=== PATIENT | female | born 1960 | race Caucasian/White ===

== ENCOUNTER 2022-02-03 06:13 | Emergency (ER) | payer OTHER, SELFPAY ==
[2022-02-03 06:14] VITALS: BP 215/99; PULSE 94; RESP 18; TEMP 36.6; O2SAT 95; BMI 37.8
--- NOTE | 2022-02-03 06:41 | EX.ED.VIS.EY ---
HPI History of Present Illness Chief Complaint: Eye Problem Informant: patient Onset/Context/Timing Location: Left Eye Onset: Days Context: Gradual Onset Timing: Continuous Current Severity: Mild Maximum Severity: Mild Associated Symptoms Associated Symptoms - Eyes: Eyelid swelling, Pain and Redness; Negative for Burning, Crusting, Drainage, Foreign body sensation, Itching, Matting and Photophobia History of injury: No Visual correction: Glasses Narrative Narrative: 59-year-old female complaining of left lower eyelid discomfort and swelling of the lower lid. States this is occurred for about a week. It started last Saturday. Is progressively gotten worse. Says mildly painful. She denies any discharge. There is been no trauma. She wears glasses but no contacts. She is never had eye surgery. She is never had anything like this before. She does have a prior history of MS, diabetes and hypertension. Prior similar symptoms: No Recent Illness/Hospitalization: No [facility] Medical History Anxiety Depressed Hypertension Muscular dystrophy Home Medications amlodipine 10 mg PO DAILY 30 Days #30 tab 02/03/22 [Rx Last Taken Unknown] cephalexin 500 mg PO Q6 #40 cap 02/03/22 [Rx Last Taken Unknown] Allergy/AdvReac Type Severity Reaction Status Date / Time diphenhydramine Allergy Other Verified 02/03/22 06:21 lisinopril Allergy Other Verified 02/03/22 06:19 meloxicam [From Mobic] Allergy Hives Verified 02/03/22 06:25 meperidine [From Demerol] Allergy Hives Verified 02/03/22 06:19 Social History Smoking Status: Never smoker ROS ROS ED ROS Narrative Denies. Review of Systems ROS Unobtainable: Denies due to encephalopathy Constitutional Constitutional ED: Denies fever(s) Eyes Eyes: Denies blurry vision, change in vision or diplopia ENT ENT ED: Denies ear pain Cardiovascular Cardiovascular: Denies chest pain Respiratory/Chest Respiratory/Chest: Denies dyspnea Gastrointestinal Gastrointestinal: Denies abdominal pain Genitourinary Genitourinary ED: Denies dysuria Musculoskeletal Musculoskeletal: Denies myalgias Integumentary Denies rash Neurologic Neurologic: Denies headache(s) Endocrine Endocrinology: Denies polyuria Hematologic/Lymphatic Hematologic/Lymphatic: Denies easy bruising Allergic/Immunologic Allergic/Immunologic ED: Denies urticaria EXAM Physical Exam Narrative Exam Narrative: 61-year-old female no acute distress. Vital signs are stable afebrile. Initial blood pressure elevated 215/99. HEENT exam left eye the inferior papilla and puncta appears to be red and inflamed and there is mild redness and fullness below the left eye consistent with a dacryocystitis. There is nothing needs to be drained at this time. The upper lid is unremarkable. The eyeball itself is unremarkable. Sclera normal. No conjunctival redness. Extraocular motions are intact. Pupils are round reactive to light bilaterally. The right eye is unremarkable. There is no preauricular lymphadenopathy. There is no proptosis. Neck nontender. No lymphadenopathy. Lungs are clear. Heart regular rate and rhythm. Otherwise exam unremarkable. Const Vital Signs: 02/03/22 06:14 Temperature 97.9 F Temperature Source Temporal Pulse Rate 94 Respiratory Rate 18 Blood Pressure 215/99 H Blood Pressure Mean 137 Pulse Ox 95 Oxygen Delivery Method Room Air Positive well nourished, well developed and obese; Negative for cachectic, contractures or unkempt General Appearance ED: well developed and NAD; Negative for unkempt, cachectic or contractures Nutritional Appearance: obese; Negative for cachectic HEENT atraumatic; Negative for trauma Nose: external nose normal Eyes Eyes Narrative: Left eye unremarkable except the left lower lid inferior lacrimal papilla and punctum appears to be red inflamed and there is swelling on the lower lid. Consistent with a dacryocystitis. The eyeball itself is unremarkable with normal extraocular motions. Normal light reflex. General Eye ED: Yes normal light reflex; Negative for normal appearance of both eyes, enophthalmos, exophthalmos, proptosis, pale conjunctiva or scleral icterus Visual Field: No peripheral vision loss Alignment: alignment normal Periorbital: periorbital findings abnormal Eyelid: eyelids abnormal Conjunctiva: conjunctiva normal Sclera: sclera normal Cornea: cornea normal Pupil: PERRL and accommodation reflex normal; Negative for dilated, fixed, irregular, not reactive or sluggish EOM: Negative for movement deficit Neck no lymphadenopathy, supple and no JVD General: Negative for tenderness Resp normal respiratory effort, no retractions and clear to auscultation bilaterally Cardio regular rate, regular rhythm, S1 normal heart sound, S2 normal heart sound and no murmurs GI non-tender, non-distended and no masses Auscultation: normoactive bowel sounds Palpation: soft Back/Spine no CVA tenderness General Back: Negative for CVA tenderness Extremity normal to inspection General Extremety ED: Negative for edema General Extremity: Negative for edema Neuro oriented x3 and moves all extremities Sensorium / Orientation: alert, oriented to person, oriented to place and oriented to time Psych Appearance: Negative for unkempt Attitude: No agitated Mood & Affect: Negative for depressed, anxious or tearful Skin no wounds Lesions: no lesions Rashes: no rashes MDM MDM MDM Narrative Medical decision making narrative: 61-year-old female with a left lower lid dacryocystitis. Patient be given a dose of Keflex here. Placed on Keflex 4 times a day for the next 10 days. Follow-up with ophthalmology environmental remediation engineer which is Dr. Anselmo Francisco. Tylenol Motrin for pain. Warm compresses. Patient also has elevated blood pressure. She took amlodipine but has been off of it the last 2 years because she was uninsured. I discussed that with her and I will write her prescription for amlodipine 10 mg daily. She has an appointment to see her primary care physician soon and she will address her blood pressure with them also. Discharge Plan Triage Chief Complaint: Eye Problem ED Provider: Martin Kelly Dx/Rx/DC Orders Clinical Impression: Acute dacryocystitis, History of diabetes mellitus, History of hypertension Instructions: ED Dacryocystitis Prescriptions: New amlodipine 10 mg tablet 10 mg PO DAILY 30 Days Qty: 30 RF: 0 cephalexin 500 mg capsule 500 mg PO Q6 Qty: 40 RF: 0 Primary Care Provider: NOT,DEFINED Referrals: Anselmo Francisco MD [STAFF PHYSICIAN] - As soon as possible NOT,DEFINED [Primary Care Provider] - Activity Restrictions/Additional Instructions: You have an infection of the left lower eyelid. The antibiotic Keflex 1 pill 4 times a day for the next 10 days. Call the eye doctor I referred you to Dr. Anselmo Francisco with the [facility]. Call them Saturday morning and they will get you in. Warm compresses to your eye. Tylenol and Motrin for pain. Disposition Disposition: Home, Self Care
[2022-02-03] MEDS: Cephalexin 250 MG Capsule 500 MG PO (06:43)
[2022-02-03 06:50] VITALS: BP 196/107; PULSE 73; RESP 17; O2SAT 97
--- NOTE | 2022-02-03 06:52 | NURSING ---
MD AWARE OF BP
[2022-02-03] MEDS: amLODIPine 10 MG Tablet PO (07:04)
== END 2022-02-03 07:05 | disposition home or self-care (01) ==
LOC: ED 07:04
PROVIDERS: Emergency Provider Emergency Medicine; Visit Provider Emergency Medicine
DX: H04.322 Acute dacryocystitis of left lacrimal passage (principal); G71.00 Muscular dystrophy, unspecified; I10 Essential (primary) hypertension; E66.9 Obesity, unspecified; Z68.37 Body mass index [BMI] 37.0-37.9, adult; Z79.899 Other long term (current) drug therapy
CPT/HCPCS: 99283

== ENCOUNTER 2022-08-25 19:00 | Emergency (ER) | payer OTHER, SELFPAY ==
[2022-08-25 19:00] VITALS: BP 165/84; PULSE 62; RESP 18; TEMP 36.8; O2SAT 95; BMI 37.0
--- NOTE | 2022-08-25 19:05 | EKG12_ITS ---
Test Reason : DYSRHYTHMIA Blood Pressure : / mmHG Vent. Rate : 066 BPM Atrial Rate : 066 BPM P-R Int : 146 ms QRS Dur : 080 ms QT Int : 476 ms P-R-T Axes : 020 -05 018 degrees QTc Int : 499 ms Normal sinus rhythm Voltage criteria for left ventricular hypertrophy Nonspecific T wave abnormality Prolonged QT Abnormal ECG Confirmed by ARNOLD SIM, ELINOR ([id number]), publications editor CHRIS TERRY ([id number]) on 08/27/2022 9:31:06 AM Referred By: FELICITA Confirmed By:ELINOR BARRETT MD
--- NOTE | 2022-08-25 19:48 | CT_ITS ---
STUDY: CT BRAIN WITHOUT CONTRAST REASON FOR EXAM: Female, 61 years old. Paresthesias, History of MS RADIATION DOSAGE (If Supplied By Facility): CTDIvol = ( 44.99 ) mGy, DLP = ( 829.85 ) mGycm TECHNIQUE: Transaxial CT imaging of the brain was performed without administration of intravenous contrast material. Individualized dose optimization techniques were used for this CT. COMPARISON: No relevant priors. FINDINGS: Normal soft tissue structures. Normal calvarium. Normal size ventricles and extra-axial spaces for the patient''s age. Normal white matter tracts of the cerebral hemispheres. Normal basal ganglia and thalami. Normal brainstem. Normal cerebellum. There is no intracranial hemorrhage. There are no findings of an acute ischemic infarction. Normal visualized paranasal sinuses. CT/Brain/Head without Contrast IMPRESSION: Normal unenhanced CT scan of the brain. Electronically Signed: Nataliia Schmidt MD at 20:58 EDT Reading Location ID and State: [id number] / Tel , Service support ,
--- NOTE | 2022-08-25 19:49 | EDS_ITS ---
HPI History of Present Illness Chief Complaint: Back Narrative Narrative: Patient with past medical history of multiple sclerosis, hypertension presents with her daughter because of tremors, numbness, and shakiness. She states that she has not been treated for MS for over a year because the medication she was taking was making her hair fall out. She is to see Dr. Hossein Turner for her MS, but has not seen him recently because she moved to the area here. They state that at 615, approximately an hour and a half ago, mass was ended and they looked over and she was shaky. She was not getting up from her seat. She felt generally weak and was unable to stand. This is never happened before where she has tremors. She denies any chest pain or shortness of breath but states she feels weak. She denies any dysuria or hematuria. No other symptoms. [facility] Medical History (Updated 08/25/22 @ 21:36 by Rodriguez Scott MD) Anxiety Depressed Diabetes Hypertension Muscular dystrophy Home Medications amlodipine 10 mg tablet 10 mg PO DAILY 30 days #30 tabs 02/03/22 [Rx Last Taken Unknown] cephalexin 500 mg capsule 500 mg PO Q6 #40 caps 02/03/22 [Rx Last Taken Unknown] Allergy/AdvReac Type Severity Reaction Status Date / Time diphenhydramine Allergy Other Verified 08/25/22 20:11 lisinopril Allergy Other Verified 08/25/22 20:11 meloxicam [From Mobic] Allergy Hives Verified 08/25/22 20:11 meperidine [From Demerol] Allergy Hives Verified 08/25/22 20:11 Social History Smoking Status: Never smoker ROS ROS ED ROS Narrative Constitutional: No fever, no chills. HEENT: No sore throat. No neck pain. No loss of vision. No rhinorrhea. Cardiovascular: No chest pain. No palpitations. No pedal edema. Respiratory: No cough, no shortness of breath. Abdominal: No abdominal pain. No nausea. No vomiting. Genitourinary: No dysuria. No hematuria. Musculoskeletal: No myalgias. No arthralgias. Neurologic: No headaches. No dizziness. No lightheadedness. Generalized weakness. Unable to stand. Positive tremors. Skin: No rash. No change in color. Psychiatric: No depression. No anxiety. EXAM Physical Exam Narrative Exam Narrative: Afebrile. Vital signs noted. HEENT: Normocephalic. Atraumatic. PERRL, EOMI. Neck soft and supple. No point tenderness or step off. Cardiovascular: Regular rate and rhythm. No murmurs, rubs, or gallops appreciated. Respiratory: No tachypnea. Lungs clear to auscultation bilaterally. Gastrointestinal: Abdomen soft, nontender, with normoactive bowel sounds. No rebound or guarding. Neurological: Awake. Alert. Oriented x3. Nonfocal, nonlateralizing. When patient closes her eyes, her head will shake, but will stop when she opens her eyes or is mildly distracted performing other neurological testing. Skin: No rash. Normal color. No pallor. Musculoskeletal: No pedal edema. Full range of motion extremities. Const Vital Signs: 08/25/22 19:00 08/25/22 20:17 08/25/22 21:14 Temperature 98.2 F Temperature Source Oral Pulse Rate 62 58 L 57 L Respiratory Rate 18 15 22 H Blood Pressure 165/84 H 167/81 H 155/92 H Blood Pressure Mean 111 109 113 Pulse Ox 95 93 95 Oxygen Delivery Method Room Air Room Air Room Air MDM MDM MDM Narrative Medical decision making narrative: Comprehensive work-up was pursued. I will obtain CT imaging of her brain and check her electrolytes including magnesium, along with a CBC and a UA. She was bolused normal saline 1 L intravenously. EKG was obtained per protocol, and interpreted by myself. It demonstrates normal sinus rhythm at 66 bpm without ectopy or acute ST changes. No STEMI. CBC is grossly normal with a normal white count of 9.0, hemoglobin normal at 14.1 with platelet count normal at 300. CMP is grossly unremarkable except for glucose of 118 with a normal anion gap of 10, normal creatinine of 0.77. Magnesium normal at 2.1. LFTs are normal. Urinalysis shows 0-5 WBCs. I do not feel antibiotics are indicated. Head CT shows no evidence of an acute intracranial hemorrhage. No acute process. Upon repeat examination, she is resting comfortably. I do not notice much of a tremor, but the patient states she feels generally weak. At this point in time, I do feel she can be discharged safely home with follow-up to neurology. She was referred to the local neurologist but instructed that she may want to try and see her old neurologist regarding her multiple sclerosis if she cannot be seen by a new neurologist in a timely fashion. Return instructions to the emergency department were reviewed. Disposition is discharged home in stable condition. Lab Data Attestation: I reviewed the patient's lab results. Labs: Laboratory Results - last 24 hr 08/25/22 08/25/22 08/25/22 20:00 20:00 20:00 WBC 9.0 RBC 4.46 Hgb 14.1 Hct 40.4 MCV 90.6 MCH 31.6 MCHC 34.9 RDW Std Deviation 40.7 RDW Coeff of Carol 12.3 Plt Count 300 MPV 10.3 Immature Gran % (Auto) 0.300 Neut % (Auto) 56.6 Lymph % (Auto) 30.4 Haines % (Auto) 11.4 H Eos % (Auto) 1.0 Baso % (Auto) 0.3 Absolute Neuts (auto) 5.1 Absolute Lymphs (auto) 2.72 Nucleated RBC % 0 Sodium 142 Potassium 3.8 Chloride 106 Carbon Dioxide 26.0 Anion Gap 10 BUN 13 Creatinine 0.77 Estim Creat Clear Calc 54.41 Est GFR (MDRD) Af Amer 98 Est GFR (MDRD) Non-Af 81 BUN/Creatinine Ratio 16.9 Glucose 118 H Calcium 8.6 Magnesium 2.1 Total Bilirubin 0.30 AST 17 ALT 29 Alkaline Phosphatase 95 Total Protein 7.2 Albumin 3.5 Globulin 3.7 Albumin/Globulin Ratio 0.9 Urine Color Yellow Urine Clarity Clear Urine pH 5.0 Ur Specific Avery 1.025 Urine Protein 15 H Urine Glucose (UA) 50 H Urine Ketones 5 H Urine Occult Blood Negative Urine Nitrite Negative Urine Bilirubin Negative Urine Urobilinogen Normal Ur Leukocyte Esterase 500 H Urine RBC 0 SEEN Urine WBC 0-5 SEEN Ur Squamous Epith Cells 0-5 SEEN Urine Bacteria RARE Urine Mucus 0 SEEN Radiography Diagnostic Testing: Clinical Impression(s) from Imaging Studies Brain CT 08/25/22 19:48 IMPRESSION: Normal unenhanced CT scan of the brain. Electronically Signed: Nataliia Schmidt MD at 20:58 EDT Reading Location ID and State: [id number] / Tel , Service support , Discharge Plan Triage Chief Complaint: Back ED Provider: Rodriguez Scott Dx/Rx/DC Orders Clinical Impression: Generalized weakness, Shakiness, History of multiple sclerosis Instructions: Essential Tremor (ET), ED Weakness (Uncertain Cause) Prescriptions: No Action amlodipine 10 mg tablet 10 mg PO DAILY 30 Days Qty: 30 0RF cephalexin 500 mg capsule 500 mg PO Q6 Qty: 40 0RF Primary Care Provider: Robin Parish Referrals: Robin Parish [Other] Elias Saini MD [Non-Staff -Ordering Privileges] - As soon as possible Activity Restrictions/Additional Instructions: Follow-up with neurology as soon as possible regarding your MS. You may want to see your last neurologist if you cannot find a new neurologist locally quickly. Disposition Disposition: Home, Self Care
[2022-08-25] MEDS: 0.9% Normal Saline 1,000 ML 1000 ML IV (20:06)
[2022-08-25 20:17] VITALS: BP 167/81; PULSE 58; RESP 15; O2SAT 93
[2022-08-25 20:20] LABS: Mucous, Urine 0 SEEN /hpf (<or=2+); Red Blood Cells-Urine 0 SEEN /hpf (0-5)
[2022-08-25 20:22] LABS: Absolute Lymphocyte Count 2.72 X10^3/uL (0.83-4.51); Absolute Neutrophil Count 5.1 X10^3/uL (2.0-7.7); Basophil# 0.03 X10^3/uL; Basophil% 0.3 % (0-1); Eosinophil# 0.09 X10^3/uL; Hematocrit 40.4 % (37-47); Hemoglobin 14.1 g/dL (12.0-15.0); Lymphocyte # 2.72 X10^3/ul (0.83-4.51); Lymphocyte % 30.4 % (19-41); Mean Corp Hgb Conc 34.9 g/dL (32-36); Mean Corpuscular Hgb 31.6 pg (27.0-32.0); Mean Corpuscular Volume 90.6 fL (81-99); Mean Platelet Vol. 10.3 fl (6.2-12.0); Monocyte# 1.02 X10^3/uL; Monocyte% 11.4 % (0-10); NRBC Flagged by Analyzer 0 % (0-5); Neutrophil # 5.06 X10^3/uL (2.7-7.7); Neutrophil % 56.6 % (47-70); Platelet Count 300 K/mm3 (150-450); RBC Distribution Width CV 12.3 % (11.6-14.6); RBC Distribution Width SD 40.7 fl (35.1-43.9); Red Blood Count 4.46 M/mm3 (4.2-5.4)
[2022-08-25 20:25] LABS: Color, Urine Yellow (Yellow); Glucose, Dipstick 50 mg/dl (Normal); Ketone-Dipstick 5 mg/dl (Negative); Leukocyte Esterase-Dipstick 500 /ul (Negative); Nitrite-Dipstick Negative (Negative); Occult Blood-Urine Negative /ul (Negative); Protein-Dipstick 15 mg/dl (Negative); Specific Gravity, Urine 1.025 (1.002-1.030); Urine Bilirubin Dipstick Negative (Negative); Urine Clarity Clear (Clear); Urine Urobilinogen Normal (Normal)
[2022-08-25 20:43] LABS: ALB/GLOB Ratio 0.9 RATIO (0.9-2.4); AST(SGOT) 17 U/L (15-37); Alanine Aminotransfer ALT/SGPT 29 U/L (13-56); Albumin, Serum 3.5 g/dL (3.2-5.0); Alkaline Phosphatase 95 U/L (45-117); Anion Gap 10 (5-15); BUN 13 mg/dL (7-18); BUN/Creat Ratio 16.9 RATIO (10-20); Calcium,Total 8.6 mg/dL (8.5-10.1); Chloride 106 mmol/L (98-107); Creatinine, Serum 0.77 mg/dL (0.55-1.02); EST Glomerular Filtration Rate 81 mL/min (>60); Est Glom Filt Rate - Afr Amer 98 mL/min (>60); Estimated Creatinine Clearance 54.41 ml/min; Globulin 3.7 g/dL (2.2-4.2); Glucose 118 mg/dL (74-106); Magnesium 2.1 mg/dL (1.6-2.6); Potassium 3.8 mmol/L (3.5-5.1); Protein, Total 7.2 g/dL (6.4-8.2); Sodium Level 142 mmol/L (136-145)
[2022-08-25 20:56] LABS: Bacteria RARE /hpf (None Seen); Squamous Epithelial Cells - UA 0-5 SEEN /hpf (5-10); White Blood Cells 0-5 SEEN /hpf (0-5)
[2022-08-25 21:14] VITALS: BP 155/92; PULSE 57; RESP 22; O2SAT 95
[2022-08-25 21:50] VITALS: BP 155/92; PULSE 65; RESP 19; O2SAT 93
== END 2022-08-25 21:58 | disposition home or self-care (01) ==
PROVIDERS: Emergency Provider Emergency Medicine; Visit Provider Emergency Medicine
DX: R53.1 Weakness (principal); G35 Multiple sclerosis; R25.1 Tremor, unspecified; I10 Essential (primary) hypertension; Z79.899 Other long term (current) drug therapy
CPT/HCPCS: 70450; 80053; 81001; 83735; 85025; 93005; 99285; A4216

== ENCOUNTER 2023-02-25 13:25 | Emergency (ER) | payer MEDICARE, OTHER, SELFPAY ==
[2023-02-25 13:26] VITALS: BP 149/94; PULSE 124; RESP 18; TEMP 36.6; O2SAT 95; BMI 35.3
--- NOTE | 2023-02-25 13:33 | ED.RN ---
PT STATES SHE TOOK 10 MG MELOXICAM AT 1200 TODAY (02/25/23) FOR PAIN. PT UNSURE OF DOSE.
--- NOTE | 2023-02-25 14:39 | RAD_ITS ---
EXAM: XR BILATERAL HIPS WITH PELVIS WHEN PERFORMED, 2 VIEWS CLINICAL INDICATION: pain TECHNIQUE: Frontal view of the bilateral hips with pelvis when performed. This report was created using [employer] report generation technology. COMPARISON: None. FINDINGS: BONES/JOINTS: Unremarkable. No displaced fracture. No destructive or sclerotic lesions. Note that overlapping bowel shadows may however obscure fine detail. Sacroiliac joint is unremarkable. No widening of the pubic symphysis. The articular structures are unremarkable. SOFT TISSUES: Unremarkable. No soft tissue swelling or gas. RAD/Hips B/L min 2 views w/ Pelvis IMPRESSION: No evidence of displaced pelvic or hip fracture. Electronically Signed: Chaz Lr MD at 15:43 EDT ,
--- NOTE | 2023-02-25 14:40 | EX.ED.DYSGE1 ---
HPI History of Present Illness Chief Complaint: Back Informant: patient Narrative Narrative: Patient here for evaluation bilateral hip pain nontraumatic worsening over the weekend. She has been having issues with balance problems for the past few months. History of mild MS followed by neurology Dr. Trujillo. Previously seeing a different neurologist was on treatment at that time however neurology states she should not been on treatment. She states mild case. Been using a cane for the past month. Saw her neurologist back in December has an MRI of her brain pending however states not likely secondary to her MS today report likely due to rheumatoid arthritis. She took meloxicam at noon with no relief. Multiple allergies however states previously for significant shoulder pain Dilaudid has helped. Denies urinary symptoms denies any recent vomiting or diarrhea. [facility] Medical History Anxiety Depressed Diabetes Hypertension Multiple sclerosis Rheumatoid arthritis Home Medications albuterol 90 mcg/actuation aerosol inhaler mcg inhalation 01/02/23 [History Last Taken Unknown] alprazolam 1 mg tablet 1 mg PO DAILY PRN 01/02/23 [History Last Taken Unknown] amlodipine 10 mg tablet 5 mg PO DAILY 01/02/23 [History Last Taken Unknown] doxazosin 2 mg tablet 2 mg PO DAILY 01/02/23 [History Last Taken Unknown] interferon beta-1a 30 mcg/0.5 mL intramuscular pen kit (Avonex) 30 mcg IM QWEEK 01/02/23 [History Last Taken Unknown] meloxicam 15 mg tablet 15 mg PO DAILY 01/02/23 [History Last Taken Unknown] metformin 500 mg tablet 500 mg PO BID 01/02/23 [History Last Taken Unknown] paroxetine HCl 10 mg tablet (Paxil) 10 mg PO DAILY 01/02/23 [History Last Taken Unknown] rosuvastatin 5 mg tablet 10 mg PO DAILY 01/02/23 [History Last Taken Unknown] trazodone 100 mg tablet 100 mg PO DAILY 01/02/23 [History Last Taken Unknown] oxycodone-acetaminophen 5 mg-325 mg tablet (Percocet) 1 tab PO Q6H PRN pain 3 days #12 tabs 02/25/23 [Rx Last Taken Unknown] Allergy/AdvReac Type Severity Reaction Status Date / Time diphenhydramine Allergy Other Verified 02/25/23 13:32 lisinopril Allergy Other Verified 02/25/23 13:32 meloxicam [From Mobic] Allergy Hives Verified 02/25/23 13:32 meperidine [From Demerol] Allergy Hives Verified 02/25/23 13:32 ketorolac [From Toradol] AdvReac Other Verified 02/25/23 13:32 tramadol AdvReac Other Verified 02/25/23 13:32 Family History Aunt No problems noted. Other Alcoholism Anxiety Arthritis CVA (cerebral vascular accident) Depression Heart disease High cholesterol Hypertension Mental disorder Osteoporosis Rheumatoid arthritis Surgical History History of delivery History of total hysterectomy History of tubal ligation Social History Smoking Status: Never smoker ROS ROS ED Constitutional Constitutional ED: Denies chills, fever(s) or sweats Eyes Eyes: Denies change in vision ENT ENT ED: Denies dysphagia or sore throat Cardiovascular Cardiovascular: Denies chest pain, leg edema, palpitations or racing heartbeat Respiratory/Chest Respiratory/Chest: Denies cough, dyspnea or dyspnea on exertion Gastrointestinal Gastrointestinal: Denies abdominal pain, diarrhea, nausea or vomiting Genitourinary Genitourinary ED: Denies dysuria, hematuria or urinary frequency Musculoskeletal Musculoskeletal: Reports other Details: Bilateral hip pain ; Denies back pain, extremity pain or neck pain Integumentary Denies rash or wounds Neurologic Neurologic: Denies headache(s), paresthesias or weakness EXAM Physical Exam Const Vital Signs: 02/25/23 13:26 02/25/23 14:53 02/25/23 15:06 Temperature 97.8 F Temperature Source Temporal Pulse Rate 124 H 86 64 Respiratory Rate 18 18 19 H Blood Pressure 149/94 H 164/98 H 160/89 H Blood Pressure Mean 112 120 112 Pulse Ox 95 94 93 Oxygen Delivery Method Room Air Room Air Room Air 02/25/23 15:21 Temperature Temperature Source Pulse Rate 60 Respiratory Rate 16 Blood Pressure 177/98 H Blood Pressure Mean 124 Pulse Ox 92 Oxygen Delivery Method Room Air Positive well nourished and well developed General Appearance ED: well developed and NAD HEENT Reports moist mucous membranes normocephalic and atraumatic Eyes PERRL, EOMs intact bilaterally and conjunctivae normal General Eye ED: Yes normal appearance of both eyes Neck no lymphadenopathy and supple General: Negative for tenderness Chest Wall Chest: Negative for tenderness Resp normal respiratory effort and normal air movement Effort and Inspection: symmetric chest movement; Negative for respiratory distress Cardio regular rate, regular rhythm and no murmurs Peripheral Pulses: pulses 2+ throughout GI normal to inspection, nondistended, normoactive bowel sounds and non-tender Palpation: Negative for guarding or rebound tenderness present Back/Spine no CVA tenderness and no thoracic nor lumbar tenderness Extremity normal to inspection Extremity Narrative: Negative logroll bilateral hips, there is tenderness palpation bilateral greater trochanteric regions, no deformities. General Extremety ED: Yes tenderness; Negative for edema General Extremity: Negative for edema Neuro oriented x3 and no sensory deficits noted Sensorium / Orientation: awake and alert Skin no rashes or lesions noted and no wounds MDM MDM MDM Narrative Medical decision making narrative: Interventions / MDM: Differential diagnosis: Hip pain, arthritis Diagnosis considered but do not suspect: Fracture without any injury My EKG interpretation: N/A Imaging independently reviewed and interpreted by myself: Bilateral hip x-rays: No acute process. External documents reviewed: N/A Test considered but not ordered:N/A ED course: Patient history rheumatoid arthritis. Worsening symptoms. She treated with IM Dilaudid monitored. Hip films were obtained with her rheumatoid arthritis history show no acute process she is more comfortable on exam. She currently on NSAIDs. Right short prescription for opiates for symptom control. She just moved down from [facility], she would like a local physician. She is given follow-up with on-call PCP however discussed if there is a prolonged wait, [place] is not a far drive to see her PCP for evaluation, she will likely need rheumatology referral. She is seeing neurology for planned outpatient MRI as she is now established with healthcare per patient. All her questions were answered. Re-evaluation: stable Disposition discussed with patient/family/significant other: Patient Case discussed with consulting clinician: N/A Radiography Diagnostic Testing: Clinical Impression(s) from Imaging Studies Hip/Pelvis X-Ray 02/25/23 14:39 IMPRESSION: No evidence of displaced pelvic or hip fracture. Electronically Signed: Chaz Lr MD at 15:43 EDT , Discharge Plan Triage Chief Complaint: Back ED Provider: Cody Carson Dx/Rx/DC Orders Clinical Impression: Rheumatoid arthritis, Bilateral hip pain Instructions: ED Arthralgia, ED Rheumatoid Arthritis Prescriptions: New oxycodone-acetaminophen [Percocet] 5-325 mg tablet 1 tab PO Q6H PRN (Reason: pain) 3 Days Qty: 12 0RF No Action alprazolam 1 mg tablet 1 mg PO DAILY PRN Avonex 30 mcg/0.5 mL pen injector kit 30 mcg IM QWEEK doxazosin 2 mg tablet 2 mg PO DAILY meloxicam 15 mg tablet 15 mg PO DAILY metformin 500 mg tablet 500 mg PO BID paroxetine HCl [Paxil] 10 mg tablet 10 mg PO DAILY rosuvastatin 5 mg tablet 10 mg PO DAILY trazodone 100 mg tablet 100 mg PO DAILY albuterol 90 mcg/actuation aerosol inhalation amlodipine 10 mg tablet 5 mg PO DAILY Stand Alone Forms: ED Work / School Excuse Primary Care Provider: ROEL ACRLOS Referrals: Noni Hein MD [Med Staff - [employer]] - 3-5 Days NOT,DEFINED [Non-Staff] - Activity Restrictions/Additional Instructions: Hip x-rays bilaterally negative. Continue meloxicam, use pain medicines as needed. Follow-up with local physician as you requested. You may need referral to rheumatology. Disposition Disposition: Home, Self Care Discharge Date/Time: 02/25/23 16:11
[2023-02-25] MEDS: HYDROmorphone 0.5 MG/0.5 ML SYRINGE IM (14:45)
[2023-02-25 14:53] VITALS: BP 164/98; PULSE 86; RESP 18; O2SAT 94
[2023-02-25 15:06] VITALS: BP 160/89; PULSE 64; RESP 19; O2SAT 93
[2023-02-25 15:21] VITALS: BP 177/98; PULSE 60; RESP 16; O2SAT 92
== END 2023-02-25 16:11 | disposition home or self-care (01) ==
PROVIDERS: Emergency Provider Emergency Medicine; Visit Provider Emergency Medicine
DX: M06.9 Rheumatoid arthritis, unspecified (principal); G35 Multiple sclerosis; E11.9 Type 2 diabetes mellitus without complications; M25.551 Pain in right hip; M25.552 Pain in left hip; I10 Essential (primary) hypertension; Z79.84 Long term (current) use of oral hypoglycemic drugs; Z79.899 Other long term (current) drug therapy
CPT/HCPCS: 73521; 96372; 99283

== ENCOUNTER → 2023-04-12 | Outpatient (CLI) | payer MEDICARE, SELFPAY ==
--- NOTE | 2023-04-12 15:24 | MRI_ITS ---
EXAM: MR CERVICAL SPINE WITHOUT AND WITH INTRAVENOUS CONTRAST CLINICAL INDICATION: Multiple sclerosis; rheumatoid arthritis TECHNIQUE: Multiplanar and multisequence MR images of the cervical spine without and with intravenous contrast were performed. CONTRAST: IV 17 cc clariscan COMPARISON: No relevant prior studies available. FINDINGS: VERTEBRAE: Unremarkable. Normal vertebral bodies and posterior elements. Normal alignment. Normal craniocervical junction and cervicothoracic junction. No spondylolisthesis. There is preservation of the normal cervical lordosis. SPINAL CORD: Unremarkable in signal and morphology. SOFT TISSUES: Unremarkable. No prevertebral soft tissue swelling. LYMPH NODES: Unremarkable. There is no cervical adenopathy. DISCS/SPINAL CANAL/NEURAL FORAMINA: C2-C3: Unremarkable. Normal disc height and morphology. Normal spinal canal. Normal neuroforamina. C3-C4: Unremarkable. Normal disc height and morphology. Normal spinal canal. Normal neuroforamina. C4-C5: Unremarkable. Normal disc height and morphology. Normal spinal canal. Normal neuroforamina. C5-C6: Unremarkable. Normal disc height and morphology. Normal spinal canal. Normal neuroforamina. C6-C7: Unremarkable. Normal disc height and morphology. Normal spinal canal. Normal neuroforamina. C7-T1: Unremarkable. Normal disc height and morphology. Normal spinal canal. Normal neuroforamina. No enhancing lesion. MRI/Spine Cervical W/WO Contrast IMPRESSION: Unremarkable MRI of the cervical spine. Electronically Signed: Nataliia Schmidt MD at 22:58 EDT Reading Location ID and State: [id number] / Tel , Service support ,
--- NOTE | 2023-04-12 15:24 | MRI_ITS ---
EXAM: MR HEAD WITHOUT AND WITH INTRAVENOUS CONTRAST CLINICAL INDICATION: Multiple sclerosis recheck, no new complaints TECHNIQUE: Multiplanar and multisequence MR images of the brain were obtained without and with intravenous contrast. COMPARISON: Unenhanced head CT August 25, 2022. It was reported to be normal. FINDINGS: BRAIN AND EXTRA-AXIAL SPACES: There are are also at least 4 small high signal foci in the left subcortical frontal lobe white matter and a few faintly visible tiny white matter lesions in the right frontal subcortical white matter but no restricted diffusion or enhancement to suggest active demyelinating lesion. There is no restricted diffusion. No evidence of acute CVA. There are mild to moderate periventricular high signal white matter changes adjacent to the body of the right lateral ventricle in the corpus callosum, with confluent irregular signal change of roughly 2.4 cm AP by 1.3 cm craniocaudal. No enhancement within this confluent patchy white matter change, it is not obviously active. No intra- or extra-axial hemorrhage. No evidence of acute infarct. No intracranial mass or mass effect. There is preservation of the ryan/white matter interface. Posterior fossa structures are unremarkable. No hydrocephalus. Basal cisterns are patent. Normal brain volume. No abnormal enhancement. SELLA: Unremarkable. Normal sella turcica, pituitary gland, infundibular stalk, optic chiasm and hypothalamus. AUDITORY SYSTEM: Unremarkable. The internal auditory canals are patent. BONES/JOINTS: Unremarkable. No discrete lytic or blastic abnormalities. SINUSES: Unremarkable as visualized. Clear. MASTOID AIR CELLS: Unremarkable as visualized. Clear. ORBITS: There is no optic nerve enlargement or enhancement. VASCULATURE: The dural venous sinuses appear unremarkable. SOFT TISSUES: Unremarkable. No signal changes in the cord at the level of C1-C4 on inversion recovery images or on the unenhanced studies. OTHER FINDINGS: . MRI/Brain W/WO Contrast IMPRESSION: 1. Periventricular and subcortical white matter changes and cerebral volume loss. A prior MRI is not provided for comparison but the changes are mild with the exception of patchy confluent signal change in the right anterior corpus callosum on inversion recovery images. 2. No restricted diffusion or enhancement. No evidence of active demyelinating lesion. Electronically Signed: Nazanin Ramirez MD at 8:17 EDT ,
[2023-04-12 16:21] LABS: CREATININE FINGERSTICK 1.4 mg/dL (0.55-1.02)
== END | disposition home or self-care (01) ==
PROVIDERS: Referring Provider Psychiatry & Neurology Neurology; Visit Provider Psychiatry & Neurology Neurology
DX: G35 Multiple sclerosis (principal); M06.9 Rheumatoid arthritis, unspecified
CPT/HCPCS: 70553; 72156; A9575

== ENCOUNTER → 2023-05-03 | Outpatient (CLI) | payer MEDICARE, SELFPAY ==
--- NOTE | 2023-05-03 13:35 | RAD_ITS ---
INDICATION: Low back pain EXAMINATION/TECHNIQUE: X-RAY - XR Spine Lumbar 2 or 3 Views COMPARISON: None. FINDINGS: Slight levoscoliosis. Vertebral body heights well-maintained. Mild anterior osteophyte formation L3-S1. Moderate loss of disc space height L5-S1. INCLUDED ABDOMEN: Included bowel gas pattern is non-obstructive. RAD/Lumbar Spine 2 or 3 Views IMPRESSION: Degenerative changes as above. Electronically Signed: Fransisco Oreilly MD, STEF at 10:32 EDT ,
== END | disposition home or self-care (01) ==
LOC: MTRAD 13:35
PROVIDERS: Referring Provider Psychiatry & Neurology Neurology; Visit Provider Psychiatry & Neurology Neurology
DX: M54.50 Low back pain, unspecified (principal)
CPT/HCPCS: 72100

== ENCOUNTER → 2023-05-06 | Outpatient (CLI) | payer MEDICARE, SELFPAY ==
[2023-05-06 12:45] LABS: Vitamin B12 1379 pg/mL (211-911)
[2023-05-06 13:09] LABS: Absolute Lymphocyte Count 1.94 X10^3/uL (0.83-4.51); Absolute Neutrophil Count 4.3 X10^3/uL (2.0-7.7); Basophil# 0.04 X10^3/uL; Basophil% 0.6 % (0-1); Eosinophil# 0.12 X10^3/uL; Eosinophils% 1.7 % (0-5); Hematocrit 43.5 % (37-47); Lymphocyte # 1.94 X10^3/ul (0.83-4.51); Lymphocyte % 27.9 % (19-41); Mean Corp Hgb Conc 34.5 g/dL (32-36); Mean Corpuscular Hgb 31.6 pg (27.0-32.0); Mean Corpuscular Volume 91.6 fL (81-99); Monocyte# 0.59 X10^3/uL; Monocyte% 8.5 % (0-10); NRBC Flagged by Analyzer 0 % (0-5); Neutrophil # 4.25 X10^3/uL (2.7-7.7); Neutrophil % 61.2 % (47-70); Platelet Count 317 K/mm3 (150-450); RBC Distribution Width CV 12.3 % (11.6-14.6); RBC Distribution Width SD 41.5 fl (35.1-43.9); Red Blood Count 4.75 M/mm3 (4.2-5.4)
[2023-05-06 13:38] LABS: ALB/GLOB Ratio 0.9 RATIO (0.9-2.4); AST(SGOT) 15 U/L (15-37); Alanine Aminotransfer ALT/SGPT 27 U/L (13-56); Albumin, Serum 3.8 g/dL (3.2-5.0); Alkaline Phosphatase 85 U/L (45-117); Anion Gap 9 (5-15); BUN 19 mg/dL (7-18); BUN/Creat Ratio 21.5 RATIO (10-20); Calcium,Total 9.2 mg/dL (8.5-10.1); Chloride 106 mmol/L (98-107); Creatinine, Serum 0.88 mg/dL (0.55-1.02); EST Glomerular Filtration Rate 69 mL/min (>60); Est Glom Filt Rate - Afr Amer 83 mL/min (>60); Globulin 4.2 g/dL (2.2-4.2); Glucose 109 mg/dL (74-106); Magnesium 2.4 mg/dL (1.6-2.6); Potassium 3.8 mmol/L (3.5-5.1); Sodium Level 138 mmol/L (136-145)
[2023-05-06 19:20] LABS: Rheumatoid Factor < 10.0 IU/mL (<15)
[2023-05-07 12:08] LABS: ANTINUCLEAR ANTIBODIES DIRECT Negative (Negative)
[2023-05-09 15:08] LABS: Vitamin B1, Thiamine 129.6 nmol/L (66.5-200.0)
== END | disposition home or self-care (01) ==
LOC: MTLAB 11:15
PROVIDERS: Referring Provider Psychiatry & Neurology Neurology; Visit Provider Psychiatry & Neurology Neurology
DX: M06.9 Rheumatoid arthritis, unspecified (principal); G35 Multiple sclerosis
CPT/HCPCS: 36415; 80053; 82607; 82746; 83735; 84425; 85025; 86038; 86225; 86235; 86431

== ENCOUNTER → 2023-06-05 | Outpatient (CLI) | payer MEDICARE, SELFPAY ==
--- NOTE | 2023-06-05 06:28 | MRI_ITS ---
HISTORY: pain. TECHNIQUE: Multiplanar and multisequence MR images of the lumbar spine were obtained without intravenous contrast. 97 images. COMPARISON: None. FINDINGS: VERTEBRAE: Transitional lumbosacral anatomy with the lowest intervertebral disc space designated as L5-S1 for the purposes of this report. If the patient becomes a surgical candidate, recommend correlation with intraoperative imaging. Vertebral body heights maintained. Mild degenerative endplate changes of T12-L1 and L4-5. ALIGNMENT: No anterior or posterior subluxation. CONUS: Normal morphology and position of the conus medullaris at L1-2. INTERVERTEBRAL DISCS: T12-L1: No significant posterior disc protrusion, central canal stenosis, or foraminal narrowing based on the sagittal images. L1-2, L2-3, L3-4: No significant posterior disc protrusion, central canal stenosis, or foraminal narrowing. L4-5: Moderate posterior disc protrusion with facet arthropathy resulting in mild central canal stenosis, moderate right foraminal narrowing with right L4 nerve root abutment, and mild left foraminal narrowing. L5-S1: Transitional lumbosacral anatomy with a rudimentary disc. No significant posterior disc protrusion, central canal stenosis, or foraminal narrowing. SOFT TISSUES: No paraspinal fluid collections. MRI/Spine Lumbar (Routine) IMPRESSION: Transitional lumbosacral anatomy. Moderate posterior disc protrusion at L4-5 resulting in mild spinal canal stenosis, moderate right foraminal narrowing with nerve root abutment, and mild left foraminal narrowing. Electronically Signed: Kristin Esparza MD at 13:01 EDT ,
== END | disposition home or self-care (01) ==
PROVIDERS: Referring Provider Orthopaedic Surgery; Visit Provider Orthopaedic Surgery
DX: M54.50 Low back pain, unspecified (principal)
CPT/HCPCS: 72148

== ENCOUNTER 2023-06-12 12:28 | Emergency (ER) | payer MEDICARE, SELFPAY ==
[2023-06-12 12:30] VITALS: BP 147/91; PULSE 64; RESP 18; TEMP 36.8; O2SAT 94; BMI 34.5
--- NOTE | 2023-06-12 13:21 | ED.VIS.BACK ---
HPI History of Present Illness Chief Complaint: Back Informant: patient Narrative Narrative: Patient is a 62-year-old female with history of MS in remission as well as acute on chronic low back pain presenting with worsening of her back pain as well as tremor. Patient was seen at the beginning of this month at [facility] emergency room where she had a CT of her lower back due to pain. She was given a prescription for 12 hydrocodone for pain control which she states she has been breaking in half. She followed up with spine surgery with Dr. Castaneda. He ordered an MRI as she was found to have some weakness of the left leg on exam. Patient does not know the results. As she states her pain is worsening and her back is killing me. She notes the pain goes down her left leg. Denies any recent falls. Has been having urinary frequency but denies any dysuria or hematuria. Denies any saddle anesthesia. Denies any fever, night sweats or history of recent injections/drug use. Patient not taking anything else for pain. Today around 830 she notes that she had a tremor in her head. She notes she did have this once back in December and they never figured out what caused it. Denies any family history of tremors. No other complaints or concerns at this time. Patient is using a cane to ambulate. Pain is worse with movement. [facility] Medical History Anxiety Depressed Diabetes Hypertension Multiple sclerosis Rheumatoid arthritis Home Medications paroxetine HCl 10 mg tablet (Paxil) 10 mg PO DAILY 01/02/23 [History Last Taken Unknown] trazodone 100 mg tablet 100 mg PO DAILY 01/02/23 [History Last Taken Unknown] baclofen 5 mg tablet 5 mg PO TID PRN muscle spasm #20 tabs 06/12/23 [Rx Last Taken Unknown] hydrocodone-acetaminophen 5-325mg 5mg-325mg 1 tab PO Q6H PRN PRN Pain 3 days #12 TABLETS 06/12/23 [Rx Last Taken Unknown] Allergy/AdvReac Type Severity Reaction Status Date / Time diphenhydramine Allergy Other Verified 06/03/23 13:09 lisinopril Allergy Other Verified 06/03/23 13:09 meloxicam [From Mobic] Allergy Hives Verified 06/03/23 13:09 meperidine [From Demerol] Allergy Hives Verified 06/03/23 13:09 ketorolac [From Toradol] AdvReac Other Verified 06/03/23 13:09 tramadol AdvReac Other Verified 06/03/23 13:09 Family History Aunt No problems noted. Other Alcoholism Anxiety Arthritis CVA (cerebral vascular accident) Depression Heart disease High cholesterol Hypertension Mental disorder Osteoporosis Rheumatoid arthritis Surgical History History of delivery History of total hysterectomy History of tubal ligation Social History Smoking Status: Never smoker ROS ROS ED Constitutional Constitutional ED: Denies chills, fever(s) or sweats Eyes Eyes: Denies change in vision Gastrointestinal Gastrointestinal: Reports nausea; Denies abdominal pain or vomiting Genitourinary Genitourinary ED: Reports urinary frequency; Denies dysuria Musculoskeletal Musculoskeletal: Reports back pain; Denies myalgias or neck pain Integumentary Denies rash Neurologic Neurologic: Denies headache(s), paresthesias or weakness Psychiatric Psychiatric: Reports anxiety Hematologic/Lymphatic Hematologic/Lymphatic: Denies easy bleeding or easy bruising EXAM Physical Exam Const Vital Signs: 06/12/23 12:30 Temperature 98.3 F Temperature Source Temporal Pulse Rate 64 Respiratory Rate 18 Blood Pressure 147/91 H Blood Pressure Mean 109 Pulse Ox 94 Oxygen Delivery Method Room Air Positive well nourished and well developed General Appearance ED: well developed and NAD HEENT Reports moist mucous membranes Eyes PERRL and EOMs intact bilaterally Neck supple and no JVD Neck Narrative: no nuchal rigidity Resp normal respiratory effort and clear to auscultation bilaterally Cardio regular rate, regular rhythm and no murmurs Cardio Narrative: 2+ radial and DP pulses GI normal to inspection, nondistended, normoactive bowel sounds, soft to palpation and non-tender Back/Spine Back/Spine Narrative: Tenderness focused around the midline lumbar spine approximately L3-4 and 5, mild paraspinal tenderness bilaterally, left worse than right. Positive straight leg test on the right. 5/5 strength with plantar and dorsiflexion of the feet. Extremity normal to inspection General Extremety ED: Negative for edema or tenderness General Extremity: Negative for edema Neuro oriented x3 and no sensory deficits noted Neuro Narrative: no foot drop appreciated, slightly antalgic gait Sensorium / Orientation: alert Psych mental status grossly normal Psych Narrative: Anxious Skin no rashes or lesions noted MDM MDM MDM Narrative Medical decision making narrative: Patient's evaluated for worsening/continued back pain. She had a recent MRI. No fever or other red flag symptoms associated with epidural abscess, cauda equina syndrome more severe process. No trauma reported. I personally reviewed her MRI results from 06/05 which did show posterior disc protrusion at L4/L5 with mild canal stenosis, moderate right foraminal narrowing with nerve root abutment and mild left foraminal narrowing. Patient has not had a progression of her symptoms. She is given IV morphine and Zofran in the ER for pain control. CBC, BMP, urinalysis, CRP and ESR are all largely normal. She is a mild hyperglycemia of 199 however patient states that she has been on steroids recently for her back pain. She states they did not help. Patient does have improvement of pain with the morphine but states it still there. She is given a second dose. I did offer her admission for rehab placement/PT/OT evaluation however she feels like she is not at that point at this time. If she does not appear to have an acute neurologic process, still able to ambulate and perform her activities of daily living I do not think she requires admission at this time. She be discharged home with a low-dose muscle relaxer as well as of further pain medicine for symptom control. She has an appointment to see her spine doctor in 5 days. Patient and spouse agreeable this plan of care. As far as the patient's head tremor I am concerned it might be more stress related. She does not have any significant electrolyte abnormalities or other neurologic symptoms indicating neuroimaging at this time. I do not think this is seizure activity. History & Record Review Additional record(s) reviewed:: Prior outpatient record (Orthospine note/outpatient MRI) Lab Data Attestation: I reviewed the patient's lab results. Labs: Laboratory Results - last 24 hr 06/12/23 06/12/23 13:25 13:27 WBC 6.9 RBC 4.51 Hgb 14.7 Hct 41.8 MCV 92.7 MCH 32.6 H MCHC 35.2 RDW Std Deviation 42.3 RDW Coeff of Carol 12.4 Plt Count 283 MPV 10.3 Immature Gran % (Auto) 0.300 Neut % (Auto) 61.4 Lymph % (Auto) 27.0 Scott % (Auto) 9.0 Eos % (Auto) 1.9 Baso % (Auto) 0.4 Absolute Neuts (auto) 4.2 Absolute Lymphs (auto) 1.85 Nucleated RBC % 0 ESR 17 Sodium 139 Potassium 3.6 Chloride 107 Carbon Dioxide 27.0 Anion Gap 5 BUN 10 Creatinine 0.95 Estim Creat Clear Calc 43.54 Est GFR (MDRD) Af Amer 76 Est GFR (MDRD) Non-Af 63 BUN/Creatinine Ratio 10.5 Glucose 199 H Calcium 9.1 C-React Prot Ext Range < 2.90 Urine Color Yellow Urine Clarity Clear Urine pH 6.0 Ur Specific Roslyn 1.015 Urine Protein 15 H Urine Glucose (UA) Normal Urine Ketones Negative Urine Occult Blood Negative Urine Nitrite Negative Urine Bilirubin Negative Urine Urobilinogen Normal Ur Leukocyte Esterase 25 H Urine RBC 0 SEEN Urine WBC 0 SEEN Ur Squamous Epith Cells 0 SEEN Urine Bacteria 0 SEEN Urine Mucus 0 SEEN Discharge Plan Triage Chief Complaint: Back ED Provider: Romy Ibarra Dx/Rx/DC Orders Clinical Impression: Low back pain, Herniated nucleus pulposus, L4-5 left, Tremor Instructions: ED Back Pain (Acute or Chronic) Prescriptions: New baclofen 5 mg tablet 5 mg PO TID PRN (Reason: muscle spasm) Qty: 20 0RF hydrocodone-acetaminophen 5-325 mg tablet 1 tab PO Q6H PRN PRN (Reason: Pain) 3 Days Qty: 12 0RF No Action paroxetine HCl [Paxil] 10 mg tablet 10 mg PO DAILY trazodone 100 mg tablet 100 mg PO DAILY Primary Care Provider: BREANNA JAIN Referrals: Moi Castaneda DO [Med Staff - Active Staff] - (as scheduled ) NOT,DEFINED [Non-Staff] - Activity Restrictions/Additional Instructions: Your lab work was largely normal with no signs of infection. I do not think you require repeat imaging. As you are still able to walk and care for yourself, at this time you are not requiring admission for acute rehab. If your symptoms worsen or you start having falls please return to the emergency room. If you develop worsening weakness of your legs, incontinence of your bowels or your bladder or numbness in your genital area please return immediately to the emergency room. You been prescribed medications to help with the pain. Of both these medicines can be sedating to please be careful if you take them together as a also can increase the risk of confusion and falls. Disposition Disposition: Home, Self Care
[2023-06-12] MEDS: Morphine 4 MG/ML Syringe IV ×2 (13:36→14:36)
[2023-06-12] MEDS: Ondansetron 4 MG/2 ML Vial IV (13:36)
[2023-06-12 13:38] LABS: Bacteria 0 SEEN /hpf (None Seen); Mucous, Urine 0 SEEN /hpf (<or=2+); Red Blood Cells-Urine 0 SEEN /hpf (0-5); Squamous Epithelial Cells - UA 0 SEEN /hpf (5-10); White Blood Cells 0 SEEN /hpf (0-5)
[2023-06-12 13:43] LABS: Color, Urine Yellow (Yellow); Glucose, Dipstick Normal (Normal); Ketone-Dipstick Negative (Negative); Leukocyte Esterase-Dipstick 25 /ul (Negative); Nitrite-Dipstick Negative (Negative); Occult Blood-Urine Negative /ul (Negative); Protein-Dipstick 15 mg/dl (Negative); Specific Gravity, Urine 1.015 (1.002-1.030); Urine Bilirubin Dipstick Negative (Negative); Urine Clarity Clear (Clear); Urine Urobilinogen Normal (Normal)
[2023-06-12 13:43] LABS: Absolute Lymphocyte Count 1.85 X10^3/uL (0.83-4.51); Absolute Neutrophil Count 4.2 X10^3/uL (2.0-7.7); Basophil# 0.03 X10^3/uL; Basophil% 0.4 % (0-1); Eosinophil# 0.13 X10^3/uL; Eosinophils% 1.9 % (0-5); Hematocrit 41.8 % (37-47); Hemoglobin 14.7 g/dL (12.0-15.0); Lymphocyte # 1.85 X10^3/ul (0.83-4.51); Mean Corp Hgb Conc 35.2 g/dL (32-36); Mean Corpuscular Hgb 32.6 pg (27.0-32.0); Mean Corpuscular Volume 92.7 fL (81-99); Mean Platelet Vol. 10.3 fl (6.2-12.0); Monocyte# 0.62 X10^3/uL; NRBC Flagged by Analyzer 0 % (0-5); Neutrophil # 4.21 X10^3/uL (2.7-7.7); Neutrophil % 61.4 % (47-70); Platelet Count 283 K/mm3 (150-450); RBC Distribution Width CV 12.4 % (11.6-14.6); RBC Distribution Width SD 42.3 fl (35.1-43.9); Red Blood Count 4.51 M/mm3 (4.2-5.4); White Blood Count 6.9 K/mm3 (4.4-11.0)
[2023-06-12 13:50] LABS: Erythrocyte Sedimentation Rate 17 mm/hr (0-30)
[2023-06-12 14:01] LABS: Anion Gap 5 (5-15); BUN 10 mg/dL (7-18); BUN/Creat Ratio 10.5 RATIO (10-20); CRP < 2.90 mg/L (0.0-3.0); Calcium,Total 9.1 mg/dL (8.5-10.1); Chloride 107 mmol/L (98-107); Creatinine, Serum 0.95 mg/dL (0.55-1.02); EST Glomerular Filtration Rate 63 mL/min (>60); Est Glom Filt Rate - Afr Amer 76 mL/min (>60); Estimated Creatinine Clearance 43.54 ml/min; Glucose 199 mg/dL (74-106); Potassium 3.6 mmol/L (3.5-5.1); Sodium Level 139 mmol/L (136-145)
== END 2023-06-12 14:59 | disposition home or self-care (01) ==
PROVIDERS: Emergency Provider Emergency Medicine; Visit Provider Emergency Medicine
DX: M51.26 Other intervertebral disc displacement, lumbar region (principal); G89.29 Other chronic pain; R25.1 Tremor, unspecified; Z79.899 Other long term (current) drug therapy
CPT/HCPCS: 80048; 81001; 85025; 85652; 86140; 96374; 96375; 96376; 99285; A4216; J2405

== ENCOUNTER 2023-07-01 05:52 | Observation (INO) | payer MEDICARE, SELFPAY ==
[2023-07-01] VITALS (14 sets, daily range): BP systolic 141–206; BP diastolic 74–108; PULSE 46–62; RESP 15–28; TEMP 36.3–37.1; O2SAT 93–99; BMI 36.3; BMI 33.7
--- NOTE | 2023-07-01 06:01 | CT_ITS ---
We are attempting to reach an attending provider to discuss findings. An addendum with communication details will be sent when the communication is complete. INDICATION: Neuro deficit, acute, stroke suspected EXAMINATION: CT Head Stroke Protocol W/O Contrast Injection TECHNIQUE: Multiple axial images were obtained of the head without intravenous contrast. A radiation dose optimization technique was used for this scan. IV Contrast dosage and agent: None. COMPARISON: Head CT from 08/25/2022 FINDINGS: BRAIN PARENCHYMA: No intra- or extra-axial hemorrhage. No evidence of acute major territorial infarct. No intracranial mass or mass effect. Mild, chronic deep and subcortical cerebral white matter lucencies again noted. Unremarkable posterior fossa structures. CSF SPACES: Age-appropriate. No hydrocephalus. Basal cisterns are patent. Intracranial atherosclerotic calcifications. CALVARIUM, SKULL BASE, PARANASAL SINUSES AND MASTOID AIR CELLS: Calvarium is intact. Mild left maxillary sinus mucosal thickening. Mastoid air cells are well-pneumatized. ORBITS: Chronic left medial orbit fracture. ASPECTS Score for Acute Strokes: 10 CT/STROKE Brain/Head without Cont IMPRESSION: Chronic small vessel white matter disease. No evidence of acute intracranial abnormality. Electronically Signed: Fransisco Moss MD at 6:18 EDT ,
--- NOTE | 2023-07-01 06:01 | EKG12_ITS ---
Test Reason : CP Blood Pressure : / mmHG Vent. Rate : 055 BPM Atrial Rate : 055 BPM P-R Int : 152 ms QRS Dur : 086 ms QT Int : 480 ms P-R-T Axes : 010 -10 -05 degrees QTc Int : 459 ms Sinus bradycardia Moderate voltage criteria for LVH, may be normal variant ( R in aVL , [place] product ) Nonspecific T wave abnormality Abnormal ECG Confirmed by MYLENE PAINTING ([id number]), manager editorial LESVIA CLINE ([id number]) on 07/08/2023 2:03:48 PM Referred By: KECIA Confirmed By:MYLENE PAINTING
--- NOTE | 2023-07-01 06:01 | CT_ITS ---
We are attempting to reach an attending provider to discuss findings. An addendum with communication details will be sent when the communication is complete. INDICATION: Neuro deficit, acute, stroke suspected EXAMINATION: CTA CAROTIDS AND BRAIN TECHNIQUE: Routine CTA of the head and neck was performed with post processing of the angiographic images for volumetric reconstructions. In addition, images were obtained of the [place] of Child. Nascet criteria using the distal ICAs for comparison were used for evaluation of stenoses. 3D reconstructions were reviewed. A radiation dose optimization technique was used for this scan. IV Contrast dosage and agent: 100 cc [id number] COMPARISON: Concurrent unenhanced CT brain FINDINGS: --NECK: AORTIC ARCH AND BRANCHES: No aneurysm, dissection, occlusion or significant stenosis. No significant atherosclerotic plaque. RIGHT CCA: No occlusion, significant stenosis or dissection. RIGHT ICA: No occlusion, significant stenosis or dissection. LEFT CCA: No occlusion, significant stenosis or dissection. LEFT ICA: No occlusion, significant stenosis or dissection. RIGHT VERTEBRAL ARTERY: No occlusion, significant stenosis or dissection. LEFT VERTEBRAL ARTERY: No occlusion, significant stenosis or dissection. NECK SOFT TISSUES: Unremarkable. LUNG APICES: Clear. BONES: No acute osseous abnormality. Degenerative changes along spine with no significant spinal canal stenosis. --HEAD: Slightly limited by motion degradation. --Anterior circulation: ICAs: Calcified plaque bilaterally but no occlusion or significant stenosis. ACAs: No significant stenosis at the visualized segments. ACOM: Present. MCAs: No significant stenosis at the visualized segments. --Posterior circulation: PCOMs: Not visualized. cmo & president: No significant stenosis at the visualized segments. BASILAR ARTERY: No significant stenosis. VERTEBRAL ARTERIES: No significant stenosis at the intradural/visualized segments. No evidence of intracranial aneurysm or vascular malformation. CT/STROKE CTA Head AND Neck W/Con IMPRESSION: CTA head and neck with no acute arterial occlusive disease or other acute intracranial abnormality. Electronically Signed: Fransisco Moss MD at 6:45 EDT ,
--- NOTE | 2023-07-01 06:03 | ED.VIS.STROK ---
HPI <Dr. Cody Carson DO - Last Filed: 07/01/23 07:27> History of Present Illness Chief Complaint: Chest Pain Informant: patient Narrative Narrative: Patient presenting is complaining intermittent chest pains for the past couple days. 4:30 AM this morning was getting ready for work when she felt weak in the right arm dropping everything. She is right-hand dominant. She also had chest pains that is transient. Currently reports numbness and tingling in the right arm. Mild headache currently. No stroke history. No heart attack history. History of multiple sclerosis diagnosed in 2018 states had pins and needle sensation. She is currently not on any treatment. History of rheumatoid arthritis. History of herniated disks reports this is currently her pain which is a 6. No current chest pains. With MS history, rheumatoid arthritis and her back pain has difficulty ambulating at baseline. Prior similar symptoms: No PFSH <Dr. Cody Carson DO - Last Filed: 07/01/23 07:27> PFSH Medical History Anxiety Depressed Diabetes Hypertension Multiple sclerosis Rheumatoid arthritis Home Medications paroxetine HCl 10 mg tablet (Paxil) 10 mg PO DAILY 01/02/23 [History Last Taken Unknown] trazodone 100 mg tablet 100 mg PO DAILY 01/02/23 [History Last Taken Unknown] baclofen 5 mg tablet 5 mg PO TID PRN muscle spasm #20 tabs 06/12/23 [Rx Last Taken Unknown] Allergy/AdvReac Type Severity Reaction Status Date / Time diphenhydramine Allergy Other Verified 07/01/23 05:53 lisinopril Allergy Other Verified 07/01/23 05:53 meloxicam [From Mobic] Allergy Hives Verified 07/01/23 05:53 meperidine [From Demerol] Allergy Hives Verified 07/01/23 05:53 ketorolac [From Toradol] AdvReac Other Verified 07/01/23 05:53 tramadol AdvReac Other Verified 07/01/23 05:53 Family History Aunt No problems noted. Other Alcoholism Anxiety Arthritis CVA (cerebral vascular accident) Depression Heart disease High cholesterol Hypertension Mental disorder Osteoporosis Rheumatoid arthritis Surgical History History of delivery History of total hysterectomy History of tubal ligation Social History household members: spouse Smoking Status: Never smoker alcohol intake: never substance use type: does not use ROS <Dr. Cody Carson, - Last Filed: 07/01/23 07:27> ROS ED Constitutional Constitutional ED: Denies chills, fever(s) or sweats Eyes Eyes: Denies change in vision ENT ENT ED: Denies dysphagia or sore throat Cardiovascular Cardiovascular: Reports chest pain; Denies leg edema, palpitations or racing heartbeat Respiratory/Chest Respiratory/Chest: Denies cough, dyspnea or dyspnea on exertion Gastrointestinal Gastrointestinal: Denies abdominal pain, diarrhea, nausea or vomiting Genitourinary Genitourinary ED: Denies dysuria, hematuria or urinary frequency Musculoskeletal Musculoskeletal: Denies back pain, extremity pain or neck pain Integumentary Denies rash or wounds Neurologic Neurologic: Reports headache(s), paresthesias and weakness EXAM <Dr. Cody Carson, DO - Last Filed: 07/01/23 07:27> Physical Exam Const Vital Signs: 07/01/23 05:54 07/01/23 06:01 07/01/23 06:05 Temperature 97.4 F L 97.4 F L Temperature Source Temporal Temporal Pulse Rate 51 L 51 L Respiratory Rate 28 H 22 H Respiratory Effort Respiratory Pattern Blood Pressure 195/90 H 206/108 H Blood Pressure Mean 125 140 Pulse Ox 97 96 98 Oxygen Delivery Method Room Air Room Air Room Air 07/01/23 06:15 07/01/23 06:19 07/01/23 06:31 Temperature Temperature Source Pulse Rate 62 49 L Respiratory Rate 15 24 H Respiratory Effort Normal Respiratory Pattern Normal Blood Pressure 206/108 H 190/90 H Blood Pressure Mean 140 123 Pulse Ox 95 97 Oxygen Delivery Method Room Air Room Air 07/01/23 06:57 Temperature Temperature Source Pulse Rate 51 L Respiratory Rate 18 Respiratory Effort Respiratory Pattern Blood Pressure 196/93 H Blood Pressure Mean 127 Pulse Ox 96 Oxygen Delivery Method Room Air Positive well nourished and well developed General Appearance ED: well developed and NAD HEENT Reports moist mucous membranes normocephalic and atraumatic Eyes PERRL, EOMs intact bilaterally and conjunctivae normal General Eye ED: Yes normal appearance of both eyes Neck no lymphadenopathy and supple General: Negative for tenderness Chest Wall Chest: Negative for tenderness Resp normal respiratory effort and normal air movement Effort and Inspection: symmetric chest movement; Negative for respiratory distress Cardio regular rate, regular rhythm and no murmurs Peripheral Pulses: pulses 2+ throughout GI normal to inspection, nondistended, normoactive bowel sounds and non-tender Palpation: Negative for guarding or rebound tenderness present Back/Spine no CVA tenderness and no thoracic nor lumbar tenderness Extremity normal to inspection General Extremety ED: Negative for edema or tenderness General Extremity: Negative for edema Neuro oriented x3 and CN's II-XII intact bilaterally Neuro Narrative: 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 NIH of 2 for right upper extremity drift and paresthesias right arm right leg. Sensorium / Orientation: awake and alert Skin no rashes or lesions noted and no wounds NIHSS NIHSS Initial: 1a Level of Consciousness: 0 1b LOC Questions (Score 2 if aphasic/stupor): 0 1c LOC Commands (Only score 1st attempt): 0 2 Best Gaze (If aphasic, use reflexive mvmts.): 0 3 Visual: 0 4 Facial Palsy: 0 5 Motor Arm Right (UN = amputation/fusion): 1 5 Motor Arm Left: 0 6 Motor Leg Right: 0 6 Motor Leg Left: 0 7 Limb ataxia (Only + if out of proportion): 0 8 Sensory (Aphasia/stupor=0 or 1, coma=2): 1 9 Best Language: 0 10 Dysarthria (mute, coma=2, intubated=UN): 0 11 Extinction and Inattention (only scored if +): 0 Total Score: 2 <Rocael Velarde - Last Filed: 07/01/23 06:23> Physical Exam Const Vital Signs: 07/01/23 05:54 07/01/23 06:01 07/01/23 06:05 Temperature 97.4 F L 97.4 F L Temperature Source Temporal Temporal Pulse Rate 51 L 51 L Respiratory Rate 28 H 22 H Respiratory Effort Respiratory Pattern Blood Pressure 195/90 H 206/108 H Blood Pressure Mean 125 140 Pulse Ox 97 96 98 Oxygen Delivery Method Room Air Room Air Room Air 07/01/23 06:15 07/01/23 06:19 07/01/23 06:31 Temperature Temperature Source Pulse Rate 62 49 L Respiratory Rate 15 24 H Respiratory Effort Normal Respiratory Pattern Normal Blood Pressure 206/108 H 190/90 H Blood Pressure Mean 140 123 Pulse Ox 95 97 Oxygen Delivery Method Room Air Room Air 07/01/23 06:57 Temperature Temperature Source Pulse Rate 51 L Respiratory Rate 18 Respiratory Effort Respiratory Pattern Blood Pressure 196/93 H Blood Pressure Mean 127 Pulse Ox 96 Oxygen Delivery Method Room Air NIHSS NIHSS Initial: Total Score: 2 MDM <Dr. Cody Carson, DO - Last Filed: 07/01/23 07:27> MDM MDM Narrative Medical decision making narrative: Interventions / MDM: Differential diagnosis: CVA, MS flare, right upper extremity weakness, paresthesias, chest pain Diagnosis considered but do not suspect: N/A My EKG interpretation: Sinus rate of 55, no ST changes. QTc 459. Imaging independently reviewed and interpreted by myself: CT brain: No acute process. CT angiogram head and neck: No acute process per radiology. Chest x-ray 1 view: No acute process External documents reviewed: N/A Test considered but not ordered:N/A ED course: Patient with transient chest pain with neurological deficits. NIH of 2. Stroke team was activated onset of symptoms 90 minutes prior to arrival. 0640: Patient evaluated by stroke neurologist at [facility], Dr. Gallegos over the gambling monitor, she did trouble walking for 2 days intermittent symptoms paresthesias, he does not feel she is a candidate for TNK at this time. Discussed her MS history, discussed the possibility of MS flare also versus CVA. Recommended admission for MRI with and without contrast for further evaluation. 0645: Radiologist called discussion below CT brain negative CT angiogram also negative. With patient's chest pains, initial troponin is. EKG with no ischemic findings. I will discuss with hospitalist for admission for further management. I spoke with Dr. Yamilka Williamson for admission to PCU. Re-evaluation: stable Disposition discussed with patient/family/significant other: Patient and significant other Case discussed with consulting clinician: Stroke neurology, hospitalist This note was generated with [employer] dictation software. It may contain incorrect words, spelling, and punctuation that were not noted in checking the note before signing. Lab Data Attestation: I reviewed the patient's lab results. Labs: Laboratory Results - last 24 hr 07/01/23 07/01/23 07/01/23 06:01 06:05 06:23 WBC 7.9 RBC 4.50 Hgb 14.3 Hct 41.8 MCV 92.9 MCH 31.8 MCHC 34.2 RDW Std Deviation 41.8 RDW Coeff of Carol 12.1 Plt Count 283 MPV 10.0 Immature Gran % (Auto) 0.100 Neut % (Auto) 60.8 Lymph % (Auto) 27.9 Williams % (Auto) 9.2 Eos % (Auto) 1.5 Baso % (Auto) 0.5 Absolute Neuts (auto) 4.8 Absolute Lymphs (auto) 2.19 Nucleated RBC % 0 PT 13.7 INR 1.1 APTT 26.1 Sodium 139 Potassium 4.1 Chloride 106 Carbon Dioxide 23.0 Anion Gap 10 BUN 16 Creatinine 1.00 Estim Creat Clear Calc 41.36 Est GFR (MDRD) Af Amer 72 Est GFR (MDRD) Non-Af 60 BUN/Creatinine Ratio 16.1 Glucose 221 H Calcium 8.4 L Troponin I High Sens 6 POC Glucose 218 H Radiography Diagnostic Testing: Clinical Impression(s) from Imaging Studies Brain CT 07/01/23 06:01 IMPRESSION: Chronic small vessel white matter disease. No evidence of acute intracranial abnormality. Electronically Signed: Fransisco Moss MD at 6:18 EDT , ADDENDUM: 07/01/23 0625 IMPRESSION: Chronic small vessel white matter disease. No evidence of acute intracranial abnormality. N.B. : The above Results were Read Back by Fransisco Moss MD to Cody Carson DO, and understanding confirmed on 07/01/2023 06:18:49 (ET). Electronically Signed: Fransisco Moss MD at 6:18 EDT , Head/Neck CTA 07/01/23 06:01 IMPRESSION: CTA head and neck with no acute arterial occlusive disease or other acute intracranial abnormality. Electronically Signed: Fransisco Moss MD at 6:45 EDT , ADDENDUM: 07/01/23 0653 IMPRESSION: CTA head and neck with no acute arterial occlusive disease or other acute intracranial abnormality. N.B. : The above Results were Read Back by Fransisco Moss MD to Cody Carson DO, and understanding confirmed on 07/01/2023 06:46:43 (ET). Electronically Signed: Fransisco Moss MD at 6:45 EDT , Chest X-Ray 07/01/23 06:45 IMPRESSION: No radiographic evidence of acute cardiopulmonary disease. Electronically Signed: Fransisco Moss MD at 7:18 EDT , Stroke Documentation Questions Stroke Team Activated: Yes Reviewed Inclusion/Exclusion criteria: Yes Was Patient considered for Endovascular Intervention?: No-CTA negative, determined not to be an endovascular candidate IV Thrombolytic Administered: No (not candidate per neurology) <Rocael Velarde - Last Filed: 07/01/23 06:23> [facility] Lab Data Labs: Laboratory Results - last 24 hr 07/01/23 07/01/23 07/01/23 06:01 06:05 06:23 WBC 7.9 RBC 4.50 Hgb 14.3 Hct 41.8 MCV 92.9 MCH 31.8 MCHC 34.2 RDW Std Deviation 41.8 RDW Coeff of Carol 12.1 Plt Count 283 MPV 10.0 Immature Gran % (Auto) 0.100 Neut % (Auto) 60.8 Lymph % (Auto) 27.9 Williams % (Auto) 9.2 Eos % (Auto) 1.5 Baso % (Auto) 0.5 Absolute Neuts (auto) 4.8 Absolute Lymphs (auto) 2.19 Nucleated RBC % 0 PT 13.7 INR 1.1 APTT 26.1 Sodium 139 Potassium 4.1 Chloride 106 Carbon Dioxide 23.0 Anion Gap 10 BUN 16 Creatinine 1.00 Estim Creat Clear Calc 41.36 Est GFR (MDRD) Af Amer 72 Est GFR (MDRD) Non-Af 60 BUN/Creatinine Ratio 16.1 Glucose 221 H Calcium 8.4 L Troponin I High Sens 6 POC Glucose 218 H Radiography Diagnostic Testing: Clinical Impression(s) from Imaging Studies Brain CT 07/01/23 06:01 IMPRESSION: Chronic small vessel white matter disease. No evidence of acute intracranial abnormality. Electronically Signed: Fransisco Moss MD at 6:18 EDT , ADDENDUM: 07/01/23 0625 IMPRESSION: Chronic small vessel white matter disease. No evidence of acute intracranial abnormality. N.B. : The above Results were Read Back by Fransisco Moss MD to Cody Carson DO, and understanding confirmed on 07/01/2023 06:18:49 (ET). Electronically Signed: Fransisco Moss MD at 6:18 EDT , Head/Neck CTA 07/01/23 06:01 IMPRESSION: CTA head and neck with no acute arterial occlusive disease or other acute intracranial abnormality. Electronically Signed: Fransisco Moss MD at 6:45 EDT , ADDENDUM: 07/01/23 0653 IMPRESSION: CTA head and neck with no acute arterial occlusive disease or other acute intracranial abnormality. N.B. : The above Results were Read Back by Fransisco Moss MD to Cody Carson DO, and understanding confirmed on 07/01/2023 06:46:43 (ET). Electronically Signed: Fransisco Moss MD at 6:45 EDT , Chest X-Ray 07/01/23 06:45 IMPRESSION: No radiographic evidence of acute cardiopulmonary disease. Electronically Signed: Fransisco Moss MD at 7:18 EDT , <Dr. Cody Carson DO - Last Filed: 07/01/23 07:27> Critical Care Time Critical Care Time: Yes Critical care time (excluding procedures): 30-74 minutes, Discussing w/Patient &/or Family/Oyster Grader, Discussing w/Consultants, Arranging Admission or Transfer, Performing Direct Patient Care at Bedside and - (30 minutes) Discharge Plan Dx/Rx/DC Orders Clinical Impression: Paresthesia, Acute CVA (cerebrovascular accident), RUE weakness, Multiple sclerosis Disposition Disposition: [facility] <Dr. Cody Carson DO - Last Filed: 07/01/23 07:27> Heart Score History: Slightly/Non-Suspicious ECG: Normal Age: >45 - <65 years Risk Factors: 1 or 2 Risk Factors Troponin: </= Normal Limit Score: 2
--- NOTE | 2023-07-01 06:05 | ED.RN ---
phone call to [facility] at this time
[2023-07-01 06:13] LABS: Absolute Lymphocyte Count 2.19 X10^3/uL (0.83-4.51); Absolute Neutrophil Count 4.8 X10^3/uL (2.0-7.7); Basophil# 0.04 X10^3/uL; Basophil% 0.5 % (0-1); Eosinophil# 0.12 X10^3/uL; Eosinophils% 1.5 % (0-5); Hematocrit 41.8 % (37-47); Hemoglobin 14.3 g/dL (12.0-15.0); Lymphocyte # 2.19 X10^3/ul (0.83-4.51); Lymphocyte % 27.9 % (19-41); Mean Corp Hgb Conc 34.2 g/dL (32-36); Mean Corpuscular Hgb 31.8 pg (27.0-32.0); Mean Corpuscular Volume 92.9 fL (81-99); Monocyte# 0.72 X10^3/uL; Monocyte% 9.2 % (0-10); NRBC Flagged by Analyzer 0 % (0-5); Neutrophil # 4.77 X10^3/uL (2.7-7.7); Neutrophil % 60.8 % (47-70); Platelet Count 283 K/mm3 (150-450); RBC Distribution Width CV 12.1 % (11.6-14.6); RBC Distribution Width SD 41.8 fl (35.1-43.9); White Blood Count 7.9 K/mm3 (4.4-11.0)
--- NOTE | 2023-07-01 06:17 | ED.RN ---
per Dr. MCDONNELL hold off on blood pressure medications at this time
[2023-07-01 06:19] LABS: Bedside Glucose 218 mg/dL (74-106)
[2023-07-01 06:33] LABS: Anion Gap 10 (5-15); BUN 16 mg/dL (7-18); BUN/Creat Ratio 16.1 RATIO (10-20); Calcium,Total 8.4 mg/dL (8.5-10.1); Chloride 106 mmol/L (98-107); EST Glomerular Filtration Rate 60 mL/min (>60); Est Glom Filt Rate - Afr Amer 72 mL/min (>60); Estimated Creatinine Clearance 41.36 ml/min; Glucose 221 mg/dL (74-106); Potassium 4.1 mmol/L (3.5-5.1); Sodium Level 139 mmol/L (136-145); Troponin-I HS 6 pg/mL (3.0-54.0)
[2023-07-01 06:37] LABS: International Normalized Ratio 1.1; Prothrombin Time (Protime)PT. 13.7 SECONDS (11.7-14.9)
[2023-07-01 06:38] LABS: Partial Thromboplast Time 26.1 Seconds (24.1-36.2)
--- NOTE | 2023-07-01 06:45 | RAD_ITS ---
INDICATION: Neuro deficit, acute, stroke suspected EXAMINATION/TECHNIQUE: X-RAY - AP view of chest COMPARISON: None FINDINGS: LINES/DEVICES: None. LUNGS: No pulmonary edema or focal airspace consolidation. No sizable pleural effusion. No detectable pneumothorax. MEDIASTINUM AND CARDIOVASCULAR STRUCTURES: Heart size within normal limits for imaging technique. Slightly tortuous thoracic aorta. BONES AND SOFT TISSUES: Skeletal degenerative changes. RAD/Chest 1 View IMPRESSION: No radiographic evidence of acute cardiopulmonary disease. Electronically Signed: Fransisco Moss MD at 7:18 EDT ,
--- NOTE | 2023-07-01 07:02 | ED.RN ---
Assumed care of patient.
--- NOTE | 2023-07-01 07:06 | MRI_ITS ---
STUDY: MRI BRAIN WITH AND WITHOUT CONTRAST REASON FOR EXAM: Female, 62 years old. R UE parasthesia and weakness TECHNIQUE: Standardized multiplanar fat and water weighted pulse sequences were obtained. IV 17 ml CLARISCAN was administered for the contrast portion of the examination. COMPARISON: Head CT dated July 01, 2023. MRI of the brain dated April 12, 2023 FINDINGS: There is mild cerebral atrophy with widening of the extra-axial spaces and ventricular dilatation. There are a limited number of small white matter hyperintensities, distributed throughout the deep white matter tracts of the cerebral hemispheres, consistent with mild chronic white matter ischemic changes. Normal T2* images of the brain without demonstrated susceptibility artifact. There is no demonstrated hemosiderin stain. There is no evidence for recent intracranial ischemia or other cause of cytotoxic edema on diffusion weighted imaging (DWI). 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 There is no focal or suspicious brain parenchymal lesion or infiltrative process. There are no abnormally enhancing brain lesion. There is no demonstrated abnormal thickening or enhancement of meninges or dura. Normal bilateral basal ganglia. Normal thalami. There is no extra-axial fluid accumulation. Normal flow voids within the major intracranial circulation suggesting patency by spin echo criteria. Normal venous enhancement. There is no enhancing intra-axial or extra-axial abnormality. Normal sella turcica, pituitary gland, infundibular stalk, optic chiasm and hypothalamus. Normal tectal plate and pineal gland. Normal midbrain, jessica and medulla. Normal cerebellum. Normal basal cisterns. Normal bilateral temporal bones. Normal bilateral internal auditory canals. No demonstrated orbital abnormality, within the constraints of a routine brain study. Normal visualized paranasal sinuses. Normal calvarium and skull base. Normal visualized soft tissue structures. Normal visualized upper cervical spine. MRI/Brain W/WO Contrast IMPRESSION: 1. Involutional and chronic ischemic changes of the brain, as described above. 2. 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 3. There is no focal or suspicious brain parenchymal lesion or infiltrative process. There are no abnormally enhancing brain lesion. There is no demonstrated abnormal thickening or enhancement of meninges or dura. Electronically Signed: Danny Menendez MD at 12:14 EDT ,
--- NOTE | 2023-07-01 07:06 | ECHOD_ITS ---
Reason For Study: TIA/STROK Procedure This was a 2D Doppler, Color Flow transthoracic echocardiogram. Exam performed portable in patient room. Left Ventricle Normal LV size. Left ventricular systolic function is normal. The estimated ejection fraction is 60 %. Normal diastology for age. No regional wall motion abnormalities noted. Right Ventricle Normal right ventricle. Normal systolic function. Atria Normal left atrium. Normal right atrium. Bubble contrast study negative for right to left interatrial shunt. Mitral Valve The mitral valve is structurally normal. No prolapse or stenosis seen. Mild (1+) mitral valve insufficiency. Tricuspid Valve Normal tricuspid valve. Trivial tricuspid valve insufficiency. Right ventricular systolic pressure estimated to be 20 mmHg. Aortic Valve Trisinus/trileaflet aortic valve. Pulmonic Valve Normal pulmonic valve. Trivial pulmonic valve insufficiency. Great Vessels Aortic root size upper limits of normal. Pericardium/Pleural No pericardial effusion. Epicardial fat. Medication Performed a rapid injection of agitated mix of 9 cc saline and 1cc air to assess for atrial septal defect. MMode/2D Measurements & Calculations LVIDd: 5.0 cm IVSd: 1.0 cm Ao root diam: 4.0 cm LVIDs: 3.4 cm LVPWd: 1.1 cm FS: 32.0 % LAV(MOD-bp): 42.5 ml LVAd ap4: 28.1 cm2 SV(MOD-sp4): 46.5 ml LAV(MOD-bp) Indexed: 23.5 ml/m2 LVLd ap4: 7.7 cm LAV(MOD-sp2): 43.7 ml EDV(MOD-sp4): 83.9 ml LAV(MOD-sp4): 34.1 ml EDV(sp4-el): 86.8 ml LVAs ap4: 16.4 cm2 LVLs ap4: 6.2 cm ESV(MOD-sp4): 37.4 ml ESV(sp4-el): 36.8 ml EF(MOD-sp4): 55.5 % EF(sp4-el): 57.6 % SV(sp4-el): 50.0 ml LA A4 area: 13.4 cm2 LA dimension(2D): 3.7 cm RA A4 area: 8.2 cm2 TAPSE: 1.7 cm Time Measurements MV dec time: 0.16 sec Doppler Measurements & Calculations MV E max rodney: 69.0 cm/sec Lat Peak E' Rodney: 9.5 cm/sec Med Peak E' Rodney: 4.6 cm/sec MV A max rodney: 63.7 cm/sec E/E' lat: 7.3 E/E' med: 15.1 MV E/A: 1.1 MV V2 max: 91.4 cm/sec MV dec slope: 481.9 cm/sec2 Ao V2 max: 111.0 cm/sec MV max P.3 mmHg Ao max P.9 mmHg MV V2 mean: 35.3 cm/sec Ao V2 mean: 78.8 cm/sec MV mean P.71 mmHg Ao mean P.8 mmHg MV V2 VTI: 40.1 cm Ao V2 VTI: 29.8 cm AV (velocity ratio): 0.86 LV V1 max: 95.4 cm/sec PA V2 max: 104.2 cm/sec TR max rodney: 208.5 cm/sec LV V1 max P.6 mmHg PA V2 mean: 69.6 cm/sec TR max P.4 mmHg LV V1 mean P.9 mmHg LV V1 mean: 63.5 cm/sec LV V1 VTI: 25.5 cm ECHO/Echo Complete Interpretation Summary The estimated ejection fraction is 60 %. Mild (1+) mitral valve insufficiency. Aortic root size upper limits of normal. Bubble contrast study negative for right to left interatrial shunt. Ordering Physician: Yamilka Williamson Referring Physician: JUAN CARLOS PCP Performed By: Giovanna Martins RCS
--- NOTE | 2023-07-01 07:08 | HP.PCM.HOS_ITS ---
[facility] - General General Date of Admission: 07/01/23 Date of Service: 07/01/23 Chief Complaint: Chest pain/right upper extremity weakness and paresthesias HPI Narrative IVAN ESTRADA, is a 62 F who presented to the emergency department at [facility] on 07/01/2023 due to right upper extremity weakness and paresthesias that was noted this morning upon awakening. Patient also complained of some chest pain that have been ongoing and sharp in nature and intermittent however this is not what brought her in. Patient states she woke up this morning and noted that her right arm seem to have some tingling and numbness and was noted to be weak. She tried to brush her teeth and brush her hair and was not able to hold onto either brush to perform ADLs. She denied any lower extremity symptoms and denied any speech abnormalities, facial droop or facial paresthesias at that time. She has never had anything like this previously. She had recent cervical spine imaging in March that was unremarkable but is currently undergoing treatment for an HNP in her lumbar spine with recent steroid injection approximately 2 to 3 weeks ago. She has a history of multiple sclerosis and her last flare was about 2 to 3 years ago. She reports that this is relapsing remitting MS. She is on no chronic medications for this. She complains of concomitant headache that was present upon her awakening this morning as well. She denies frequent headaches and states she is very typically does not have headaches and never wakes up with 1. Vital signs on presentation demonstrated temperature of 97.4, heart rate 51, blood pressure 195/90, respiratory rate has been anywhere from 15-28 but oxygen saturations have been between 95 and 100% on room air. CBC is completely unremarkable. Coags are completely normal. Chemistry panel is unremarkable other than a glucose of 221. Initial troponin was 6. TSH is 1.61. CT of the brain showed chronic small vessel white matter disease with no evidence of acute intracranial abnormality. CTA of the head and neck showed no acute arterial occlusive disease or other intracranial abnormality. Chest x-ray was unremarkable. EKG was sinus bradycardia with normal intervals and nonspecific T wave flattening diffusely. Stroke neurologist was consulted in emergency department they did not recommend tenecteplase at this time due to the nature of her symptoms. They did recommend an MRI with and without contrast to ascertain whether this was actually stroke or MS flare. Admission for TIA work-up was requested. [facility] Medical History Anxiety Depressed Diabetes Hypertension Multiple sclerosis Rheumatoid arthritis Home Medications paroxetine HCl 10 mg tablet (Paxil) 10 mg PO DAILY 01/02/23 [History Last Taken Unknown] trazodone 100 mg tablet 100 mg PO DAILY 01/02/23 [History Last Taken Unknown] baclofen 5 mg tablet 5 mg PO TID PRN muscle spasm #20 tabs 06/12/23 [Rx Last Taken Unknown] Allergy/AdvReac Type Severity Reaction Status Date / Time diphenhydramine Allergy Other Verified 07/01/23 05:53 lisinopril Allergy Other Verified 07/01/23 05:53 meloxicam [From Mobic] Allergy Hives Verified 07/01/23 05:53 meperidine [From Demerol] Allergy Hives Verified 07/01/23 05:53 ketorolac [From Toradol] AdvReac Other Verified 07/01/23 05:53 tramadol AdvReac Other Verified 07/01/23 05:53 Family History Aunt No problems noted. Other Alcoholism Anxiety Arthritis CVA (cerebral vascular accident) Depression Heart disease High cholesterol Hypertension Mental disorder Osteoporosis Rheumatoid arthritis Surgical History History of delivery History of total hysterectomy History of tubal ligation Social History household members: spouse Smoking Status: Never smoker alcohol intake: never substance use type: does not use ROS Constitutional Constitutional: Reports weakness; Denies anorexia, change in weight, chills, fatigue, fever(s), malaise, night sweats or other Eyes Eyes: Denies blurry vision, change in eye color, change in vision, discharge from eye(s), double vision, erythema, eye pain, loss of vision or other ENT HEENT: Reports headache(s); Denies abnormal hearing, dysphagia, ear pain, epistaxis, hearing loss, nasal congestion, nasal discharge, post nasal drip, sinus pressure, sore throat or other Cardiovascular Cardiovascular: Reports chest pain; Denies claudication, dyspnea on exertion, edema, lightheadedness, orthopnea, palpitations, paroxysmal nocturnal dyspnea, rapid heart rate, syncope or other Respiratory/Chest Respiratory/Chest: Denies cough, dyspnea, excessive phlegm production, hemoptysis, productive cough, shortness of breath at rest, shortness of breath with exertion, wheezing or other Gastrointestinal Gastrointestinal: Denies abdominal pain, coffee ground emesis, constipation, diarrhea, dyspepsia, hematemesis, hematochezia, loose stools, melena, nausea, vomiting or other Genitourinary Genitourinary: Denies burning urination, difficulty urinating, dysuria, hematuria, nocturia, urinary frequency, urinary hesitancy, urinary incontinence, urinary urgency or other Musculoskeletal Musculoskeletal: Reports back pain; Denies arthralgias, joint pain, joint stiffness, joint swelling, myalgias, neck pain or other Neurologic Neurologic: Reports focal weakness, paresthesias RUE and tingling Psychiatric Psychiatric: Denies anxiety, depression, homicidal ideation, suicidal ideation or other Endocrine Endocrinology: Denies change in body appearance, cold intolerance, excessive sweating, heat intolerance, polydipsia, polyuria or other Hematologic/Lymphatic Hematologic/Lymphatic: Denies anemia, easy bleeding, easy bruising, lymphadenopathy or other Allergic/Immunologic Allergic/Immunologic: Denies rhinitis, hives, eczemia, asthma or other Vital Signs Vital Signs Vital Signs: 07/01/23 05:54 07/01/23 06:01 07/01/23 06:05 Temperature 97.4 F L 97.4 F L Temperature Source Temporal Temporal Pulse Rate 51 L 51 L Respiratory Rate 28 H 22 H Respiratory Effort Respiratory Pattern Blood Pressure 195/90 H 206/108 H Blood Pressure Mean 125 140 Pulse Ox 97 96 98 Oxygen Delivery Method Room Air Room Air Room Air 07/01/23 06:15 07/01/23 06:19 07/01/23 06:31 Temperature Temperature Source Pulse Rate 62 49 L Respiratory Rate 15 24 H Respiratory Effort Normal Respiratory Pattern Normal Blood Pressure 206/108 H 190/90 H Blood Pressure Mean 140 123 Pulse Ox 95 97 Oxygen Delivery Method Room Air Room Air 07/01/23 06:57 Temperature Temperature Source Pulse Rate 51 L Respiratory Rate 18 Respiratory Effort Respiratory Pattern Blood Pressure 196/93 H Blood Pressure Mean 127 Pulse Ox 96 Oxygen Delivery Method Room Air Weight Weight: 84.3 kg Body Mass Index (BMI) 36.3 Physical Exam Const alert, oriented x3, no apparent distress and well nourished Constitutional Narrative: Obese, upper middle-aged, white female, lying in bed, at bedside, patient appears comfortable and nontoxic HEENT normocephalic, head/scalp atraumatic, hearing grossly normal bilaterally and moist oral mucous membranes HEENT Narrative: Mallampati is 2, no thrush Eyes PERRL, EOMs intact bilaterally and conjunctivae normal Eyes Narrative: No scleral icterus Neck no lymphadenopathy, supple and no JVD Neck Narrative: Trachea midline, no thyroid in the regimen Resp normal respiratory effort, no retractions, no use of accessory muscles and clear to auscultation bilaterally Auscultation: Negative for rales, rhonchi or wheezes Cardio regular rhythm, S1 normal heart sound, S2 normal heart sound, no murmurs, no rub, no gallops and no clicks Cardio Narrative: Bradycardia GI normal to inspection, nondistended, normoactive bowel sounds, soft to palpation and non-tender Extremity no clubbing, cyanosis or edema Extremity Narrative: Pedal pulses are 2+ Skin no rashes or lesions noted, no wounds, skin turgor normal, no jaundice, no petechiae and no mottling Skin Narrative: Few tattoos Neuro oriented x3, moves all extremities and No no focal motor deficits Neuro Narrative: My official sensory changes in the V1 and V2 segment of the trigeminal nerve but otherwise cranial nerves are intact, reflexes are 2+ upper and lower extremities, no pronator drift noted on exam however preassembler and inspector strength is decreased right upper extremity compared to left and patient is right-hand dominant, mild sensory changes in the right upper extremity Speech: speech normal Psych affect normal Psych Narrative: Patient is a bit anxious, interacts appropriately, eye contact is good Mood & Affect: anxious Results Lab / Micro Data Attestation: I reviewed the patient's lab results. 07/01/23 06:05 07/01/23 06:05 Labs: Laboratory Results - last 24 hr 07/01/23 06:01: POC Glucose 218 H 07/01/23 06:05: WBC 7.9, RBC 4.50, Hgb 14.3, Hct 41.8, MCV 92.9, MCH 31.8, MCHC 34.2, RDW Std Deviation 41.8, RDW Coeff of Carol 12.1, Plt Count 283, MPV 10.0, Immature Gran % (Auto) 0.100, Neut % (Auto) 60.8, Lymph % (Auto) 27.9, Navarro % (Auto) 9.2, Eos % (Auto) 1.5, Baso % (Auto) 0.5, Absolute Neuts (auto) 4.8, Absolute Lymphs (auto) 2.19, Nucleated RBC % 0, Sodium 139, Potassium 4.1, Chl oride 106, Carbon Dioxide 23.0, Anion Gap 10, BUN 16, Creatinine 1.00, Estim Creat Clear Calc 41.36, Est GFR (MDRD) Af Amer 72, Est GFR (MDRD) Non-Af 60, BUN/Creatinine Ratio 16.1, Glucose 221 H, Calcium 8.4 L, Troponin I High Sens 6 07/01/23 06:23: PT 13.7, INR 1.1, APTT 26.[address] 07/01/23 06:01 IMPRESSION: Chronic small vessel white matter disease. No evidence of acute intracranial abnormality. Electronically Signed: Fransisco Moss MD at 6:18 EDT , ADDENDUM: 07/01/23 0625 IMPRESSION: Chronic small vessel white matter disease. No evidence of acute intracranial abnormality. N.B. : The above Results were Read Back by Fransisco Moss MD to Cody Carson DO, and understanding confirmed on 07/01/2023 06:18:49 (ET). Electronically Signed: Fransisco Moss MD at 6:18 EDT , Head/Neck CTA 07/01/23 06:01 IMPRESSION: CTA head and neck with no acute arterial occlusive disease or other acute intracranial abnormality. Electronically Signed: Fransisco Moss MD at 6:45 EDT , ADDENDUM: 07/01/23 0653 IMPRESSION: CTA head and neck with no acute arterial occlusive disease or other acute intracranial abnormality. N.B. : The above Results were Read Back by Fransisco Moss MD to Cody Carson DO, and understanding confirmed on 07/01/2023 06:46:43 (ET). Electronically Signed: Fransisco Moss MD at 6:45 EDT , Assessment & Plan Assessment/Plan (1) RUE weakness: (2) Paresthesia: (3) Blood pressure elevated without history of HTN: (4) Hyperglycemia: (5) Chest pain: (6) Bradycardia: PLAN: Plan Right upper extremity paresthesias/weakness -NIH on presentation was 2 and remains at 2 -Due to timing of onset and no tenecteplase recommended by stroke neurologist -Start aspirin 81 mg daily -Start atorvastatin 40 mg nightly -Check echocardiogram -Check MRI of brain with and without contrast due to history of MS -Did have recent cervical spine imaging on 04/12/2023 that was unremarkable -Will hold on repeat cervical spine imaging due to recent imaging at this time -NIH as per protocol -We will allow for permissive hypertension due to concerns of stroke -PT/OT consultation -Cardiac/carb controlled diet once patient passes for speech Chest pain -Patient presented with sharp chest pain -Would be atypical for cardiac pain -Cycle cardiac enzymes -Echocardiogram as above Bradycardia -Patient's heart rate was running 50s to 60s on presentation -Patient states her heart rates do tend to run low -Check TSH Hypertension -Patient is not on any antihypertensives for current med reconciliation -Hypertension documented in her previous medical history however patient is not on any antihypertensives -We will allow for permissive hypertension however I do anticipate will need to initiate antihypertensives prior to discharge -Continue to monitor -As needed hydralazine and labetalol available per stroke guidelines to allow for permissive hypertension DM-2 -There is some documentation in her chart that she is diabetic however no previous hemoglobin A1c and she is not on any medications -She did receive a lumbar steroid injection few weeks ago she estimates 2-3 -Check hemoglobin A1c -SSI with Accu-Cheks -If A1c is elevated will consult dietitian for diabetic education History of multiple sclerosis -This could be a MS flare -Is not on any chronic medications for her MS other than symptom treatment -Continue as needed baclofen RA -Patient's not on any DMARDs -Continue outpatient follow-up Lumbar HNP -MRI done on 06/05/2023 of the lumbar spine showed moderate posterior disc protrusion at L4-L5 resulting in mild spinal canal stenosis, moderate right foraminal narrowing with nerve root abutment and mild left foraminal narrowing -Following as an outpatient with recent steroid injection within the last 2 to 3 weeks Anxiety/depression -Continue home trazodone -Continue home paroxetine Obesity -BMI 36.3 -Recommend weight loss -Complicates treatment, prognosis, outcomes DVT prophylaxis -Enoxaparin CODE STATUS -Full code Charges/Coding Visit Charges Inpatient E&M: 34840 Init Hosp L3
[2023-07-01 07:44] LABS: Thyroid Stim Hormone (TSH) 1.61 uIU/mL (0.358-3.74)
[2023-07-01 08:17] LABS: Hemoglobin A1c 6.9 % (3.8-5.6)
[2023-07-01] MEDS: Aspirin 81 MG TAB.CHEW PO (09:47)
[2023-07-01] MEDS: PARoxetine 10 MG Tablet PO (09:47)
[2023-07-01] MEDS: Enoxaparin 40 MG/0.4 ML Syringe SC (09:47)
[2023-07-01 09:52] LABS: Troponin-I HS 6 pg/mL (3.0-54.0)
[2023-07-01 11:24] LABS: Bedside Glucose 135 mg/dL (74-106)
[2023-07-01 12:40] LABS: Troponin-I HS 7 pg/mL (3.0-54.0)
[2023-07-01] MEDS: Acetaminophen 325 MG Tablet 650 MG PO (16:19)
[2023-07-01 17:27] LABS: Bedside Glucose 126 mg/dL (74-106)
[2023-07-01] MEDS: Atorvastatin Calcium 40 MG Tablet PO (19:43)
[2023-07-01] MEDS: traZODone 100 MG Tablet PO (19:44)
--- NOTE | 2023-07-01 19:44 | NURSING ---
Pt requested evening meds at this time
[2023-07-01 22:13] LABS: Bedside Glucose 135 mg/dL (74-106)
[2023-07-02 00:28] VITALS: BP 142/88; PULSE 64; RESP 12; TEMP 36.5; O2SAT 95
[2023-07-02 00:49] VITALS: BMI 33.7
[2023-07-02 04:28] VITALS: BP 160/92; PULSE 54; RESP 16; TEMP 36.8; O2SAT 94
[2023-07-02 05:35] LABS: Absolute Lymphocyte Count 1.86 X10^3/uL (0.83-4.51); Absolute Neutrophil Count 3.9 X10^3/uL (2.0-7.7); Basophil# 0.03 X10^3/uL; Basophil% 0.5 % (0-1); Eosinophils% 1.6 % (0-5); Hematocrit 41.5 % (37-47); Hemoglobin 13.9 g/dL (12.0-15.0); Lymphocyte # 1.86 X10^3/ul (0.83-4.51); Lymphocyte % 29.1 % (19-41); Mean Corp Hgb Conc 33.5 g/dL (32-36); Mean Corpuscular Hgb 31.1 pg (27.0-32.0); Mean Corpuscular Volume 92.8 fL (81-99); Mean Platelet Vol. 10.4 fl (6.2-12.0); Monocyte% 7.8 % (0-10); NRBC Flagged by Analyzer 0 % (0-5); Neutrophil # 3.87 X10^3/uL (2.7-7.7); Neutrophil % 60.5 % (47-70); Platelet Count 309 K/mm3 (150-450); RBC Distribution Width CV 12.2 % (11.6-14.6); RBC Distribution Width SD 41.7 fl (35.1-43.9); Red Blood Count 4.47 M/mm3 (4.2-5.4); White Blood Count 6.4 K/mm3 (4.4-11.0)
[2023-07-02 06:06] LABS: ALB/GLOB Ratio 0.8 RATIO (0.9-2.4); AST(SGOT) 12 U/L (15-37); Alanine Aminotransfer ALT/SGPT 21 U/L (13-56); Albumin, Serum 3.1 g/dL (3.2-5.0); Alkaline Phosphatase 73 U/L (45-117); Anion Gap 5 (5-15); BUN 15 mg/dL (7-18); Chloride 108 mmol/L (98-107); Cholesterol 239 mg/dL (200); Creatinine, Serum 0.88 mg/dL (0.55-1.02); EST Glomerular Filtration Rate 69 mL/min (>60); Est Glom Filt Rate - Afr Amer 83 mL/min (>60); Globulin 3.8 g/dL (2.2-4.2); Glucose 168 mg/dL (74-106); High Density Lipoprotein 57 mg/dL; Magnesium 2.1 mg/dL (1.6-2.6); Phosphorus 3.7 mg/dL (2.5-4.9); Protein, Total 6.9 g/dL (6.4-8.2); Sodium Level 139 mmol/L (136-145); Triglycerides 117 mg/dL; Very Low Density Lipoprotein 23 mg/dL (5-40)
[2023-07-02 06:55] LABS: Bedside Glucose 162 mg/dL (74-106)
[2023-07-02 07:30] VITALS: O2SAT 94
[2023-07-02 07:38] VITALS: BP 164/93; PULSE 68; RESP 18; TEMP 36.1; O2SAT 96
[2023-07-02] MEDS: Enoxaparin 40 MG/0.4 ML Syringe SC (09:19)
[2023-07-02] MEDS: Aspirin 81 MG TAB.CHEW PO (09:21)
[2023-07-02] MEDS: PARoxetine 10 MG Tablet PO (09:21)
[2023-07-02] MEDS: amLODIPine 10 MG Tablet PO (09:21)
[2023-07-02 09:47] VITALS: BMI 33.7
[2023-07-02] MEDS: Insulin Lispro 100 UNIT/ML INSULN.PEN SC (11:32)
--- NOTE | 2023-07-02 11:34 | DS.PCM_ITS ---
Providers Date of Admission: 07/01/23 Date of Discharge: 07/02/23 Primary Care Physician: BREANNA SEVILLA Reason For Visit: R UE PARASTHESIAS AND WEAKNESS Diagnosis Discharge Diagnosis (1) RUE weakness: Status: Acute Code(s): R29.898 - Other symptoms and signs involving the musculoskeletal system (2) Paresthesia: Status: Acute Code(s): R20.2 - Paresthesia of skin (3) Blood pressure elevated without history of HTN: Status: Deleted Code(s): R03.0 - Elevated blood-pressure reading, without diagnosis of hypertension (4) Hyperglycemia: Status: Acute Code(s): R73.9 - Hyperglycemia, unspecified (5) Chest pain: Status: Acute Code(s): R07.9 - Chest pain, unspecified (6) Bradycardia: Status: Acute Code(s): R00.1 - Bradycardia, unspecified Medications at Discharge Home Medications paroxetine HCl 10 mg tablet (Paxil) 10 mg PO DAILY mental health 01/02/23 trazodone 100 mg tablet 100 mg PO QHS sleep 01/02/23 cyclobenzaprine 10 mg tablet 10 mg PO TID PRN muscle spasms 07/01/23 flurbiprofen 100 mg tablet 100 mg PO TID PRN pain 07/01/23 amlodipine 10 mg tablet 10 mg PO DAILY #30 tabs 07/02/23 aspirin 81 mg chewable tablet 81 mg PO BREAKFAST #0 tabs 07/02/23 atorvastatin 40 mg tablet 40 mg PO QHS #30 tabs 07/02/23 Hospital Course Procedures 2-D Echocardiogram, EKG and - (MRI brain with and without contrast/CT brain/CTA head neck) Summary of Care Provided Minutes Spent on Discharge: 38 Hospital Course: Mrs. Goncalves is a 62-year-old white female who presented to the emergency department at [facility] [place] on 07/01/2023 with chest pain/right upper extremity weakness/paresthesias right upper extremity that was noted on the morning of admission at the time of awakening. The chest pain was sharp in nature and intermittent however this is not what brought her in. She reported that she woke this morning and that her right arm seem to have some tingling and numbness in it and was noted to be weak. She indicated she tried to brush her teeth and brush her hair but was not able to adequately hold onto either brush to perform her ADLs. She denied any lower extremity symptoms and denied any speech abnormalities, facial droop, or facial paresthesias at that time she had never had anything like this previously. She had recent cervical spine imaging in March that was completely unremarkable but is currently undergoing treatment for HNP in her lumbar spine with a recent steroid injection that was performed 2 to 3 weeks ago. She has a history of multiple sclerosis and reports that her last flare was about 2 to 3 years ago. She reported that she has relapsing remitting MS. She takes no chronic medications for her MS. She also complained of a headache upon presentation that was very atypical for her. Vital signs on presentation demonstrated temperature of 97.4, heart rate 51, blood pressure 195/90, respiratory rate has been anywhere from 15-28 but oxygen saturations have been between 95 and 100% on room air. CBC is completely unremarkable. Coags are completely normal. Chemistry panel is unremarkable other than a glucose of 221. Initial troponin was 6. TSH is 1.61. CT of the brain showed chronic small vessel white matter disease with no evidence of acute intracranial abnormality. CTA of the head and neck showed no acute arterial occlusive disease or other intracranial abnormality. Chest x-ray was unremarkable. EKG was sinus bradycardia with normal intervals and nonspecific T wave flattening diffusely. The stroke neurologist was consulted from the emergency department and they did not recommend tenecteplase due to the nature of her symptoms however recommend an MRI with and without contrast be performed and admission for TIA work-up. She was admitted to telemetry where NIH is were performed. Her initial NIH was 2 however NIH quickly normalized and has been 0. She was noted to have elevated blood pressure and we initially allowed for permissive hypertension. She was placed on aspirin and statin. 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 No acute abnormalities were noted. Her echocardiogram demonstrated an EF of 60% with mild mitral valve insufficiency and an aortic root that is the upper limits of normal. Her bubble study was unremarkable. We assessed her hemoglobin A1c and was found to be 6.9 on no home medications and no changes were made at this time however we discussed with her the importance of maintaining good glycemic index and follow- up. Her lipid panel was abnormal with a total cholesterol of 239/LDL of 159/HDL of 57. We started her on atorvastatin 40 mg daily and she will need to follow- up CMP and lipid profile in 6 months. [facility] neurology was consulted and felt this was likely a TIA with her symptoms resolving. They recommended continuing as pirin and statin at discharge and getting a better control of her blood pressure. She remained hypertensive through the night so we did add amlodipine 10 mg nightly. The additional lisinopril was prohibitive due to allergy and she is chronically bradycardic so we did not utilize a beta-simran. She was instructed to follow-up with her neurologist, who she sees for her MS, within the next month and have asked her to follow-up with her primary care physician in 1 week for at least the blood pressure check if not a full hospital follow- up. She may return to work tomorrow. She was discharged home in stable condition on 07/02/2023 Discharge diagnoses: TIA Right-sided paresthesias/numbness-resolved Hypertension Hyperlipidemia DM-2 Chest pain-resolved with negative cardiac enzymes and normal echocardiogram History of MS RA Lumbar HNP Anxiety Depression Obesity Physical Exam Const alert, oriented x3, no apparent distress, no limitations, healthy appearing and well nourished Constitutional Narrative: Obese, upper middle-aged, white female, lying in bed, patient appears comfortable and nontoxic General Appearance: cooperative, comfortable, well kempt and well developed Orientation / Consciousness: awake, oriented to person, oriented to place and oriented to time Exam Limitations: no limitations Nutritional Appearance: obese HEENT normocephalic, head/scalp atraumatic, hearing grossly normal bilaterally and moist oral mucous membranes HEENT Narrative: Mallampati 3, no thrush Eyes PERRL, EOMs intact bilaterally and conjunctivae normal Eyes Narrative: No scleral icterus Neck no lymphadenopathy, supple and no JVD Neck Narrative: Trachea midline, no thyroid in the regimen Resp normal respiratory effort, no retractions, no use of accessory muscles and clear to auscultation bilaterally Auscultation: Negative for rales, rhonchi or wheezes Cardio regular rhythm, S1 normal heart sound, S2 normal heart sound, no murmurs, no rub, no gallops and no clicks Cardio Narrative: Bradycardia GI normal to inspection, nondistended, normoactive bowel sounds, soft to palpation and non-tender Extremity no clubbing, cyanosis or edema Extremity Narrative: Pedal pulses are 2+ Skin no rashes or lesions noted, no wounds, skin turgor normal, no jaundice, no petechiae and no mottling Skin Narrative: Few tattoos Neuro oriented x3, CN's II-XII intact bilaterally, moves all extremities, no focal motor deficits and no sensory deficits noted Coordination / Balance: [id number] test normal and [id number] test normal Speech: speech normal Motor Exam: strength 5/5 throughout Psych affect normal Psych Narrative: Calm, interacts appropriately, eye contact is good Weight / BMI Weight Weight: 78.3 kg Body Mass Index (BMI) 33.7 ABG / Lab / Microbiology Data 07/02/23 05:13 07/02/23 05:13 Laboratory: Laboratory Results - last 24 hr 07/01/23 12:05: Troponin I High Sens 7 07/01/23 16:19: POC Glucose 126 H 07/01/23 21:54: POC Glucose 135 H 07/02/23 05:13: WBC 6.4, RBC 4.47, Hgb 13.9, Hct 41.5, MCV 92.8, MCH 31.1, MCHC 33.5, RDW Std Deviation 41.7, RDW Coeff of Carol 12.2, Plt Count 309, MPV 10.4, Immature Gran % (Auto) 0.500, Neut % (Auto) 60.5, Lymph % (Auto) 29.1, [place] % (Auto) 7.8, Eos % (Auto) 1.6, Baso % (Auto) 0.5, Absolute Neuts (auto) 3.9, Absolute Lymphs (auto) 1.86, Nucleated RBC % 0, Sodium 139, Potassium 4.0, Chloride 108 H, Carbon Dioxide 26.0, Anion Gap 5, BUN 15, Creatinine 0.88, Estim Creat Clear Calc 47.00, Est GFR (MDRD) Af Amer 83, Est GFR (MDRD) Non-Af 69, BUN/Creatinine Ratio 17.0, Glucose 168 H, Calcium 9.0, Phosphorus 3.7, Magnesium 2.1, Total Bilirubin 0.50, AST 12 L, ALT 21, Alkaline Phosphatase 73, Total Protein 6.9, Albumin 3.1 L, Globulin 3.8, Albumin/Globulin Ratio 0.8 L, Triglycerides 117, Cholesterol 239 H, LDL Cholesterol 159 H, VLDL Cholesterol 23, HDL Cholesterol 57 07/02/23 06:34: POC Glucose 162 H Radiography Diagnostic Testing: Radiology Impression Brain MRI 07/01/23 07:06 IMPRESSION: 1. Involutional and chronic ischemic changes of the brain, as described above. 2. 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 3. There is no focal or suspicious brain parenchymal lesion or infiltrative process. There are no abnormally enhancing brain lesion. There is no demonstrated abnormal thickening or enhancement of meninges or dura. Electronically Signed: Danny Menendez MD at 12:14 EDT Reading Location ID and State: [facility] / [place] , Service support , Echocardiogram 07/01/23 07:06 Interpretation Summary The estimated ejection fraction is 60 %. Mild (1+) mitral valve insufficiency. Aortic root size upper limits of normal. Bubble contrast study negative for right to left interatrial shunt. Ordering Physician: Yamilka Williamson Referring Physician: NO PCP Performed By: Giovanna Martins RCS D/C Instructions Discharge Diet: Low fat / Low cholesterol and 1800 Calorie Control Diet Discharge Activity: Return to Normal Activity Return to work on: 07/03/23 Meaningful Use Info Meaningful Use Diagnoses (Choose all that apply): None applicable Discharge Plan Admission Admit Date/Time: 07/01/23 07:01 Primary Reason for Your Visit: Right-sided paresthesias/weakness Attending Provider: Yamilka Williamson Primary Care Provider: BRENANA SEVILLA Instructions Forms: Work Excuse Additional Instructions / Restrictions: 1. Please follow up with your primary care physician within the next 1 week to reassess your blood pressure with the addition of the amlodipine. Discharge Orders/Prescriptions Prescriptions: New amlodipine 10 mg Tablet 10 mg PO DAILY Qty: 30 1RF atorvastatin 40 mg Tablet 40 mg PO QHS Qty: 30 1RF aspirin 81 mg Tablet,Chewable 81 mg PO BREAKFAST Qty: 0 0RF Continued paroxetine HCl [Paxil] 10 mg tablet 10 mg PO DAILY trazodone 100 mg tablet 100 mg PO QHS cyclobenzaprine 10 mg tablet 10 mg PO TID PRN Patient Comments: TAKE 10 MG ORALLY THREE TIMES A DAY NEEDED FOR MUSCLE SPASM/PAIN flurbiprofen 100 mg tablet 100 mg PO TID PRN Patient Comments: TAKE 1 TABLET BY MOUTH THREE TIMES A DAY NEEDED FOR PAIN Referrals / Follow Up: BREANNA SEVILLA [Other] Elias Saini MD [Non-Staff -Ordering Privileges] - Within 1 Month [facility] Doctor,Out of [Non-Staff] - Disposition Disposition (needs filled in before D/C Order can be placed): Home, Self Care Charges/Coding Visit Charges Inpatient E&M: 70822 Disch Hosp >30min
--- NOTE | 2023-07-02 11:48 | CASEMGMT ---
RN CM updated that patient has order for discharge. RN CM in to discuss needs at discharge. Patient denies needs at discharge. Patient had no further questions or concerns at this time.
[2023-07-02 11:52] LABS: Bedside Glucose 218 mg/dL (74-106)
--- NOTE | 2023-07-02 12:01 | CASEMGMT ---
SW completed a PHQ9 with patient as she had a TIA. Patient scored a 3 which indicates minimal depression. Patient denied need for counseling resources. Danitza GALLAGHER
--- NOTE | 2023-07-02 12:09 | PHA.DC.MC.R ---
Pharmacy [facility] has performed discharge medication reconciliation and counseling for this patient. 1. ASPIRIN 81MG PO DAILY 2. ATORVASTATIN 40MG PO QHS 3. AMLODIPINE 10MG PO DAILY The patient's discharge medication list was reviewed for discrepancies and discrepancies were resolved. The patient was counseled on the following discharge medications and changes in medications for homegoing were reviewed. The Reason for Use, instructions for use, and potential side effects were reviewed for all new medications. The patient's questions regarding all of their medications were answered. The patient was able to verbally demonstrate an understanding of their discharge medications. Patient counseled by clinical pharmacy specialistRosie. Medications at Discharge Home Medications paroxetine HCl 10 mg tablet (Paxil) 10 mg PO DAILY mental health 01/02/23 trazodone 100 mg tablet 100 mg PO QHS sleep 01/02/23 cyclobenzaprine 10 mg tablet 10 mg PO TID PRN muscle spasms 07/01/23 flurbiprofen 100 mg tablet 100 mg PO TID PRN pain 07/01/23 amlodipine 10 mg tablet 10 mg PO DAILY #30 tabs 07/02/23 aspirin 81 mg chewable tablet 81 mg PO BREAKFAST #0 tabs 07/02/23 atorvastatin 40 mg tablet 40 mg PO QHS #30 tabs 07/02/23
--- NOTE | 2023-07-02 13:04 | CASEMGMT ---
ANNALEE SON in to complete MURPHY form. ANNALEE SON explained MURPHY form to patient, patient voiced understanding. Patient signed MURPHY form and filed in chart. Patient provided with copy of signed MURPHY form. Patient had no further questions or concerns at this time.
== END 2023-07-02 11:38 | disposition home or self-care (01) ==
LOC: ED 06:52 → PCU 07:26
PROVIDERS: Admitting Provider Internal Medicine; Emergency Provider Emergency Medicine; Visit Provider Internal Medicine
DX: G45.9 Transient cerebral ischemic attack, unspecified (principal); G35 Multiple sclerosis; M06.9 Rheumatoid arthritis, unspecified; E11.65 Type 2 diabetes mellitus with hyperglycemia; I10 Essential (primary) hypertension; F41.9 Anxiety disorder, unspecified; G93.89 Other specified disorders of brain; R00.1 Bradycardia, unspecified; Z68.36 Body mass index [BMI] 36.0-36.9, adult; R29.702 NIHSS score 2; M51.26 Other intervertebral disc displacement, lumbar region; E66.9 Obesity, unspecified; E78.5 Hyperlipidemia, unspecified; F32.A Depression, unspecified; R53.1 Weakness; R73.9 Hyperglycemia, unspecified
CPT/HCPCS: 36415; 70450; 70496; 70498; 70553; 71045; 80048; 80053; 80061; 82962; 83036; 83735; 84100; 84443; 84484; 85025; 85610; 85730; 93005; 93306; 94668; 94762; 97162; 97166; 99221; 99252; 99285; A9575; Q9967; A4216; G0378; G0463

== ENCOUNTER → 2023-08-10 | Outpatient (CLI) | payer MEDICARE, SELFPAY ==
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
== END | disposition home or self-care (01) ==
LOC: MRI 07:04
PROVIDERS: Referring Provider Orthopaedic Surgery; Visit Provider Orthopaedic Surgery
DX: S22.080A Wedge compression fracture of T11-T12 vertebra, initial encounter for closed fracture (principal)
CPT/HCPCS: 72148

== ENCOUNTER 2023-09-13 19:35 | Emergency (ER) | payer MEDICARE, SELFPAY ==
[2023-09-13 19:36] VITALS: BP 166/103; PULSE 93; RESP 16; TEMP 36.1; O2SAT 99
--- NOTE | 2023-09-13 21:33 | EDS_ITS ---
HPI History of Present Illness Chief Complaint: Back [facility] Medical History (Updated 09/13/23 @ 20:47 by Nazanin Wayne) Anxiety Bradycardia Bulging lumbar disc Depressed Diabetes Hypertension Lumbar vertebral fracture Multiple sclerosis Rheumatoid arthritis Home Medications paroxetine HCl 10 mg tablet (Paxil) 10 mg PO DAILY mental health 01/02/23 [History Last Taken 06/30/23] trazodone 100 mg tablet 100 mg PO QHS sleep 01/02/23 [History Last Taken 06/30/23] cyclobenzaprine 10 mg tablet 10 mg PO TID PRN muscle spasms 07/01/23 [History Last Taken 06/30/23] flurbiprofen 100 mg tablet 100 mg PO TID PRN pain 07/01/23 [History Last Taken 06/30/23] amlodipine 10 mg tablet 10 mg PO DAILY #30 tabs 07/02/23 [Rx Last Taken Unknown] aspirin 81 mg chewable tablet 81 mg PO BREAKFAST #0 tabs 07/02/23 [Rx Last Taken Unknown] cyclobenzaprine 5 mg tablet 5 mg PO TID PRN muscle spasm #15 tabs 09/13/23 [Rx Last Taken Unknown] prednisone 20 mg tablet 20 mg PO DAILY 5 days #5 tabs 09/13/23 [Rx Last Taken Unknown] Allergy/AdvReac Type Severity Reaction Status Date / Time diphenhydramine Allergy Other Verified 09/13/23 19:36 lisinopril Allergy Other Verified 09/13/23 19:36 meloxicam [From Mobic] Allergy Hives Verified 09/13/23 19:36 meperidine [From Demerol] Allergy Hives Verified 09/13/23 19:36 ketorolac [From Toradol] AdvReac Other Verified 09/13/23 19:36 tramadol AdvReac Other Verified 09/13/23 19:36 Family History Aunt No problems noted. Other Alcoholism Anxiety Arthritis CVA (cerebral vascular accident) Depression Heart disease High cholesterol Hypertension Mental disorder Osteoporosis Rheumatoid arthritis Surgical History History of delivery History of total hysterectomy History of tubal ligation Social History household members: spouse Smoking Status: Never smoker alcohol intake: never substance use type: does not use EXAM Physical Exam Const Vital Signs: 09/13/23 19:36 Temperature 97 F L Temperature Source Temporal Pulse Rate 93 Respiratory Rate 16 Blood Pressure 166/103 H Blood Pressure Mean 124 Pulse Ox 99 [facility] Narrative Medical decision making narrative: HISTORY OF PRESENT ILLNESS: 62-year-old female presents with back pain. Patient denies any recent trauma. Denies any inciting event. States for the last several weeks. Denies any new trauma at all. Notes she follows with pain management. Last seen on 09/03. States he is undergoing prior authorization for spine injections. States he is also seen orthopedic surgery. Patient denies any saddle anesthesia, urinary tension, bowel or bladder incontinence, lower extremity weakness, fever or IV drug use, no recent spinal manipulation or surgery, no recent urinary catheterization. REVIEW OF SYSTEMS: All other systems reviewed and are negative except as noted in the history of present illness. At least 10 review of systems reviewed and are negative except as noted in history of present illness. PHYSICAL EXAM: Nursing triage notes reviewed, Vital signs reviewed Constitutional: please see [facility] HENT: MMM Eyes: Pupils equal round and reactive to light, Extraocular muscles intact Neck: No stridor, no JVD, full neck ROM Lungs: Clear to auscultation, No wheezing or rales. No increased work of breathing, no conversational dyspnea, no accessory muscle use, no nasal flaring. No respiratory distress noted Heart: Regular rate and rhythm, No murmurs, No rubs and No gallops, 2+ distal pulses (radial, femoral, posterior tibial) in all extremities Abdomen: Soft, there is no tenderness, rigidity, rebound or guarding, no obvious peritoneal signs, no palpable pulsatile abdominal masses, no auscultated abdominal bruit : No CVAT Extremities: No edema Back: No midline step-offs or deformities, TTP at approximate T12 down to L3. Neuro: Intact sensation L1-S1 dermatomal distributions. Intact 5/5 strength in hip flexion (T12-L3). Knee extension (L2-L4). Ankle dorsiflexion (L4-L5). Ankle plantar flexion (S1). Great toe extension (L5). 2+ patellar and Achilles DTRs. Skin: No rash or lesions noted MEDICAL DECISION MAKING: Chief Complaint: Back pain External records reviewed: X-ray lumbar spine from 08/07/2023 shows T12 compression fracture, MRI of the lumbar spine shows compression fracture of T12, L1 with bone contusion and L4-L5 disc herniation Factors affecting care: Bulging disc, T12 compression fracture Social determinants of health: No IV drug use History obtained from others: The patient's Consults: none [facility] Narrative: The patient was hemodynamically stable, afebrile, nontoxic-appearing. There is no lower extremity focal neurologic deficits to suggest a space-occupying lesion of the spine. I considered the following differential diagnosis: Musculoskeletal back pain, space-occupying lesion of the spinal (epidural abscess, epidural hematoma), cauda equina, conus medullaris, fracture dislocation, AAA, nephrolithiasis, pyelonephritis, aortic dissection The patient presented complaining of back pain. There was no history of recent fall or trauma. There was no evidence to support genitourinary etiology. There is also no evidence to suggest vascular pathology such as AAA dissection. No fevers or other evidence to suspect infectious processes, abscess, osteomyelitis etc. The patient?s neurological exam is normal with normal motor and sensory. There is no saddle paresthesias reported and no bowel or bladder incontinence or retention. I suspect the pain is acute on chronic and associated with T12 compression fracture. IM narcotics, IM muscle relaxers clinical suspicion, plan of care and management was discussed with the patient. The patient was instructed to follow up with their health care provider. The patient was also instructed to return if the pain worsened, changed, or developed weakness or bowel or bladder trouble. I encourage pain management follow-up as well as orthopedic surgery follow-up. The patient agreed with plan. I completed a structured, evidence-based clinical evaluation to screen for acute non-traumatic spinal emergencies. The patient has a normal detailed neurologic exam and red flag historical factors were negative. The evidence indicates that the patient is very low risk for an acute spinal emergency and this is consistent with my clinical intuition. The risk of further workup is higher than the likelihood of the patient having a spinal epidural abscess or other dangerous emergency spinal condition. It is, therefore, in the patient?s best interest not to do additional emergent testing at this time. Shared Decision-Making I have discussed with the patient my clinical impression and the result of an evidence-based clinical evaluation to screen for spinal epidural abscess and other spinal emergencies, as well as the risk of further testing and hospitalization. The evidence shows that the risk for an acute spinal emergency is less than 1%. Although the risk of an acute spinal emergency has not been completely eliminated, the risks of further testing likely exceed any potential benefit, and the patient agrees with not pursuing further emergent evaluation for causes of back pain at this time. The patient and/or family, caregivers express understanding. The patient and/or family, caregivers agrees with the plan. Total critical care time today provided was at least 0 minutes. This excludes separately billable procedures. Critical care time (if documented) is secondary to the patient having high probability of clinically significant/life threatening deterioration in the patient's condition which required my urgent intervention. Impression: 1. Acute on chronic back pain 2. T12 compression fracture 3. History of lumbar herniated disc Disposition: Discharge home Dell Gary DO Discharge Plan Triage Chief Complaint: Back ED Provider: Dell Gary Dx/Rx/DC Orders Instructions: ED Back Pain (Acute or Chronic) Prescriptions: New prednisone 20 mg tablet 20 mg PO DAILY 5 Days Qty: 5 0RF cyclobenzaprine 5 mg tablet 5 mg PO TID PRN (Reason: muscle spasm) Qty: 15 0RF No Action paroxetine HCl [Paxil] 10 mg tablet 10 mg PO DAILY trazodone 100 mg tablet 100 mg PO QHS cyclobenzaprine 10 mg tablet 10 mg PO TID PRN Patient Comments: TAKE 10 MG ORALLY THREE TIMES A DAY NEEDED FOR MUSCLE SPASM/PAIN flurbiprofen 100 mg tablet 100 mg PO TID PRN Patient Comments: TAKE 1 TABLET BY MOUTH THREE TIMES A DAY NEEDED FOR PAIN amlodipine 10 mg Tablet 10 mg PO DAILY Qty: 30 1RF aspirin 81 mg Tablet,Chewable 81 mg PO BREAKFAST Qty: 0 0RF Primary Care Provider: BREANNA SEVILLA Referrals: NOT,DEFINED [Non-Staff] -
[2023-09-13] MEDS: Orphenadrine 60 MG/2 ML Ampul IM (22:08)
[2023-09-13] MEDS: HYDROmorphone 1 MG/ML Syringe IM (22:08)
== END 2023-09-13 22:27 | disposition home or self-care (01) ==
PROVIDERS: Emergency Provider Emergency Medicine; Visit Provider Emergency Medicine
DX: M48.54XA Collapsed vertebra, not elsewhere classified, thoracic region, initial encounter for fracture (principal); G35 Multiple sclerosis; G89.29 Other chronic pain
CPT/HCPCS: 96372; 99282

== ENCOUNTER → 2023-09-17 | Outpatient (CLI) | payer MEDICARE, SELFPAY ==
--- NOTE | 2023-09-17 14:08 | BD_ITS ---
STUDY: DUAL ENERGY X-RAY ABSORPTIOMETRY / DXA REASON FOR EXAM: Female, 62 years old. M810 TECHNIQUE: Bone Mineral Density (BMD) measurements of lumbar spine and bilateral hips were obtained. COMPARISON: None. FINDINGS: Lumbar Spine (L1-L4): g/cm2 (0.751) / T-score (-2.7) / Z-score (-1.0) Findings are suggestive of osteoporosis with a high fracture risk. Left Femur Total: g/cm2 (0.784) / T-score (-1.3) / Z-score (-0.1) Left Femoral Neck: g/cm2 (0.625) / T-score (-2.0) / Z-score (-0.6) Right Femur Total: g/cm2 (0.771) / T-score (-1.4) / Z-score (-0.2) Right Femoral Neck: g/cm2 (0.608) / T-score (-2.2) / Z-score (-0.7) BD/Dexa Bone Density Study IMPRESSION: The patient is considered osteoporotic as outlined below according to World Saad Organization (WHO) criteria with a high fracture risk. Reference Information: The T-score is the number of standard deviations above or below the standard which is normal for young adults at their peak bone mineral density. The World Health Organization (WHO) interprets the T-scores as follows: Above -1 Normal bone density Between -1 and -2.5 Osteopenia Equal to / or below -2.5 Osteoporosis As a practical clinical guideline, osteopenia may be graded as follows: Mild -1 through -1.5 Moderate -1.6 through -2.0 Severe -2.1 through -2.4 The Z-score is the number of standard deviations above or below age-matched controls. A Z-score of less than -1.5 would be considered abnormal. References: 1. NIH Osteoporosis and Related Bone Diseases www osteo.org 2. International Society for Clinical Densitometry www iscd.org 3. National Osteoporosis Foundation www nof.org Electronically Signed: Brody Soliz MD at 13:55 EDT ,
== END | disposition home or self-care (01) ==
LOC: OPBD 14:03
PROVIDERS: Referring Provider Nurse Practitioner Acute Care; Visit Provider Nurse Practitioner Acute Care
DX: M81.0 Age-related osteoporosis without current pathological fracture (principal)
CPT/HCPCS: 77080

== ENCOUNTER 2023-09-20 20:24 | Emergency (ER) | payer MEDICARE, SELFPAY ==
[2023-09-20 20:25] VITALS: BP 141/72; PULSE 68; RESP 15; TEMP 36.4; O2SAT 95; BMI 36.9
--- NOTE | 2023-09-20 20:28 | ED.RN ---
PT TOOK FLURBIPROFEN 100MG AND FLEXERIL 10MG TODAY [id number]
[2023-09-20] MEDS: HYDROmorphone 1 MG/ML Syringe IM (21:30)
[2023-09-20 21:33] VITALS: BP 136/74; PULSE 60; RESP 15; O2SAT 96
[2023-09-20 22:12] VITALS: BP 153/83; PULSE 58; RESP 15; O2SAT 92
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
[2023-09-20] MEDS: HYDROcodone Bitartrate/Apap 5/325 Tablet PO (22:44)
== END 2023-09-20 22:54 | disposition home or self-care (01) ==
PROVIDERS: Emergency Provider Emergency Medicine; Visit Provider Emergency Medicine
DX: M48.54XA Collapsed vertebra, not elsewhere classified, thoracic region, initial encounter for fracture (principal); X58.XXXA Exposure to other specified factors, initial encounter
CPT/HCPCS: 96372; 99284

== ENCOUNTER → 2023-09-20 | Outpatient (CLI) | payer MEDICARE, SELFPAY ==
[2023-09-20 10:10] LABS: Absolute Lymphocyte Count 2.09 X10^3/uL (0.83-4.51); Absolute Neutrophil Count 4.8 X10^3/uL (2.0-7.7); Basophil# 0.04 X10^3/uL; Basophil% 0.5 % (0-1); Eosinophil# 0.27 X10^3/uL; Eosinophils% 3.4 % (0-5); Hematocrit 45.8 % (37-47); Hemoglobin 15.5 g/dL (12.0-15.0); Lymphocyte # 2.09 X10^3/ul (0.83-4.51); Lymphocyte % 26.4 % (19-41); Mean Corp Hgb Conc 33.8 g/dL (32-36); Mean Corpuscular Hgb 31.3 pg (27.0-32.0); Mean Corpuscular Volume 92.3 fL (81-99); Mean Platelet Vol. 11.2 fl (6.2-12.0); Monocyte% 8.8 % (0-10); NRBC Flagged by Analyzer 0 % (0-5); Neutrophil # 4.79 X10^3/uL (2.7-7.7); Neutrophil % 60.6 % (47-70); Platelet Count 315 K/mm3 (150-450); RBC Distribution Width CV 12.2 % (11.6-14.6); RBC Distribution Width SD 41.3 fl (35.1-43.9); Red Blood Count 4.96 M/mm3 (4.2-5.4); White Blood Count 7.9 K/mm3 (4.4-11.0)
[2023-09-20 10:32] LABS: Hemoglobin A1c 6.5 % (3.8-5.6)
[2023-09-20 10:39] LABS: Microalbumin,Random Urine 17.2 mg/L (NO RANGE EST.); Microalbumin:Creatinine Ratio 9.5 mg/g CRE (<30 mg/g CRE)
[2023-09-20 10:44] LABS: ALB/GLOB Ratio 0.9 RATIO (0.9-2.4); AST(SGOT) 16 U/L (15-37); Alanine Aminotransfer ALT/SGPT 32 U/L (13-56); Albumin, Serum 3.8 g/dL (3.2-5.0); Alkaline Phosphatase 98 U/L (45-117); Anion Gap 11 (5-15); BUN 17 mg/dL (7-18); BUN/Creat Ratio 16.5 RATIO (10-20); Calcium,Total 9.2 mg/dL (8.5-10.1); Chloride 101 mmol/L (98-107); Cholesterol 208 mg/dL (200); Creatinine, Serum 1.03 mg/dL (0.55-1.02); EST Glomerular Filtration Rate 57 mL/min (>60); Est Glom Filt Rate - Afr Amer 69 mL/min (>60); Globulin 4.3 g/dL (2.2-4.2); Glucose 135 mg/dL (74-106); High Density Lipoprotein 51 mg/dL; Potassium 3.9 mmol/L (3.5-5.1); Protein, Total 8.1 g/dL (6.4-8.2); Sodium Level 136 mmol/L (136-145); Triglycerides 171 mg/dL; Very Low Density Lipoprotein 34 mg/dL (5-40)
== END | disposition home or self-care (01) ==
LOC: MTLAB 07:57
DX: E11.9 Type 2 diabetes mellitus without complications (principal); G35 Multiple sclerosis; E78.5 Hyperlipidemia, unspecified; I10 Essential (primary) hypertension
CPT/HCPCS: 36415; 80053; 80061; 82043; 82570; 83036; 85025

== ENCOUNTER → 2023-10-17 | Outpatient (CLI) | payer MEDICARE, SELFPAY ==
--- NOTE | 2023-10-16 15:00 | BONBX_PTH ---
PATIENT: IVAN ESTRADA LOC: [facility] U#:[id number] AGE/SX: 63/F ROOM: RE10/17/[address]: Dr. Dylon Cole MD : 1960 BED: DIS: 10/17/2023 SPEC #: [id number] RECD: 10/17/23 15:23 STATUS: HARESH REMine #: [id number] JESSIE: 10/16/23 15:[address]: Dylon Cole DEPT: SURGICAL PATHOLOGY RECD BY: Saundra Hand ENTERED: 10/18/23 09:30 SP TYPE: Bone OTHR DR: MARKO Tissues: Vertebra, NOS Procedures: Decalcification bone/plaque Surgery Specimen Level V HEADER OPERATION: Kyphoplasty at T12 and biopsy at T12 PRE-OP DIAGNOSIS: Compression fracture T12 TISSUE SUBMITTED: T12 vertebral bone biopsy MICROSCOPIC DIAGNOSIS T12 vertebral body, bone biopsy: Trilineage hematopoiesis. Reactive and reparative change consistent with fracture. No evidence of malignancy. AM:jama 10/21/2023 MICROSCOPIC DESCRIPTION Slides are reviewed. GROSS DESCRIPTION Received in fixative is one container labeled with the patient's name and designated T12 vertebral body. The specimen consists of an elongated fragment of jacobo bone measuring 1.1 cm in length and 0.2 cm in diameter. The specimen is totally submitted in one cassette after decalcification. / AM:jama 10/18/2023 TC:5 CPT: 49661, 83574
== END | disposition home or self-care (01) ==
LOC: LABSPEC 15:38
PROVIDERS: Referring Provider Anesthesiology Pain Medicine; Visit Provider Anesthesiology Pain Medicine
DX: S22.089A Unspecified fracture of T11-T12 vertebra, initial encounter for closed fracture (principal)
CPT/HCPCS: 88307; 88311

== ENCOUNTER 2023-12-23 14:57 | Emergency (ER) | payer MEDICARE, SELFPAY ==
[2023-12-23 14:57] VITALS: BP 173/115; PULSE 110; RESP 16; TEMP 36.8; O2SAT 96; BMI 36.6
[2023-12-23 19:21] VITALS: BP 168/99; PULSE 59; RESP 18; TEMP 36.6; O2SAT 95
[2023-12-23] MEDS: Diphth,Pertuss(Acell),Tet Vac 0.5 ML Vial IM (19:56)
[2023-12-23] MEDS: Lidocaine 1% (20 ml mdv) 20 ML Vial INFILT (19:57)
--- OUTSIDE RECORDS SUMMARY | 2023-12-23 19:59 | XMS RPT_ITS | CCD ---
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 temperature away from moisture and heat. Keep track of your medicine. You should be aware if anyone is using it improperly or without a prescription. Do not keep leftover opioid medication. Just one dose can cause in someone using this medicine accidentally or improperly. Ask your pharmacist where to locate a drug take-back disposal program. If there is no take-back program, flush the unused medicine down the toilet. What happens if I miss a dose? Since this medicine is used for pain, you are not likely to miss a dose. Skip any missed dose if it is almost time for your next dose. Do not use two doses at one time. What happens if I overdose? Seek emergency medical attention or call the Poison Help line at . An overdose of this medicine can be fatal, especially in a child or other person using the medicine without a prescription. Overdose symptoms may include nausea, vomiting, sweating, severe drowsiness, pinpoint pupils, slow breathing, or no breathing. Your doctor may recommend you get naloxone (a medicine to reverse an opioid overdose) and keep it with you at all times. A person caring for you can give the naloxone if you stop breathing or don't wake up. Your caregiver must still get emergency medical help and may need to perform CPR (cardiopulmonary resuscitation) on you while waiting for help to arrive. Anyone can buy naloxone from a pharmacy or local health department. Make sure any person caring for you knows where you keep naloxone and how to use it. What should I avoid while taking acetaminophen and hydrocodone? Avoid driving or operating machinery until you know how this medicine will affect you. Dizziness or drowsiness can cause falls, accidents, or severe injuries. Do not drink alcohol. Dangerous side effects or could occur. Ask a doctor or pharmacist before using any other medicine that may contain acetaminophen (sometimes abbreviated as APAP). Taking certain medications together can lead to a fatal overdose. What are the possible side effects of acetaminophen and hydrocodone? Get emergency medical help if you have signs of an allergic reaction: hives; difficulty breathing; swelling of your face, lips, tongue, or throat. Opioid medicine can slow or stop your breathing, and may occur. A person caring for you should give naloxone and/or seek emergency medical attention if you have slow breathing with long pauses, blue colored lips, or if you are hard to wake up. In rare cases, acetaminophen may cause a severe skin reaction that can be fatal. This could occur even if you have taken acetaminophen in the past and had no reaction. Stop taking this medicine and call your doctor right away if you have skin redness or a rash that spreads and causes blistering and peeling. Call your doctor at once if you have: noisy breathing, sighing, shallow breathing, breathing that stops; a light-headed feeling, like you might pass out; liver problems--nausea, upper stomach pain, tiredness, loss of appetite, dark urine, santos-colored stools, jaundice (yellowing of the skin or eyes); low cortisol levels-- nausea, vomiting, loss of appetite, dizziness, worsening tiredness or weakness; o high levels of serotonin in the body--agitation, hallucinations, fever, sweating, shivering, fast heart rate, muscle stiffness, twitching, loss of coordination, nausea, vomiting, diarrhea. Serious breathing problems may be more likely in older adults and in those who are debilitated or have wasting syndrome or chronic breathing disorders. Common side effects include: dizziness, drowsiness, feeling tired; nausea, vomiting, stomach pain; constipation; or headache. This is not a complete list of side effects and others may occur. Call your doctor for medical advice about side effects. You may report side effects to FDA at 2-702-HSL-3369. What other drugs will affect acetaminophen and hydrocodone? You may have breathing problems or withdrawal symptoms if you start or stop taking certain other medicines. Tell your doctor if you also use an antibiotic, antifungal medication, heart or blood pressure medication, seizure medication, or medicine to treat HIV or hepatitis C. Opioid medication can interact with many other drugs and cause dangerous side effects or . Be sure your doctor knows if you also use: cold or allergy medicines, bronchodilator asthma/COPD medication, or a diuretic ('water pill'); medicines for motion sickness, irritable bowel syndrome, or overactive bladder; other opioids--opioid pain medicine or prescription cough medicine; a sedative like Valium--diazepam, alprazolam, lorazepam, Xanax, Klonopin, Versed, and others; drugs that make you sleepy or slow your breathing--a sleeping pill, muscle relaxer, medicine to treat mood disorders or mental illness; drugs that affect serotonin levels in your body--a stimulant, or medicine for depression, Parkinson's disease, migraine headaches, serious infections, or nausea and vomiting. This list is not complete. Other drugs may affect acetaminophen and hydrocodone, including prescription and [id number] medicines, vitamins, and herbal products. Not all possible interactions are listed here. Where can I get more information? Your doctor or pharmacist can provide more information about acetaminophen and hydrocodone. Remember, keep this and all other medicines out of the reach of children, never share your medicines with others, and use this medication only for the indication prescribed. Every effort has been made to ensure that the information provided by [employer]. [employer]') is accurate, up-to-date, and complete, but no guarantee is made to that effect. Drug information contained herein may be time sensitive. [employer] information has been compiled for use by healthcare practitioners and consumers in the [place] and therefore [employer] does not warrant that uses outside of the [place] are appropriate, unless specifically indicated otherwise. [employer] drug information does not endorse drugs, diagnose patients or recommend therapy. [employer] drug information is an informational resource designed to assist licensed healthcare practitioners in caring for their patients and/or to serve consumers viewing this service as a supplement to, and not a substitute for, the expertise, skill, knowledge and judgment of healthcare practitioners. The absence of a warning for a given drug or drug combination in no way should be construed to indicate that the drug or drug combination is safe, effective or appropriate for any given patient. [employer] does not assume any responsibility for any aspect of healthcare administered with the aid of information [employer] provides. The information contained herein is not intended to cover all possible uses, directions, precautions, warnings, drug interactions, allergic reactions, or adverse effects. If you have questions about the drugs you are taking, check with your doctor, nurse or pharmacist. Copyright 4116-2481 [employer]. Version: 16.03. Revision Date: 12/20/2020. methylprednisolone (oral) (METH il pred NIS oh lone) Medrol, Medrol Dosepak, MethylPREDNISolone Dose Pack What is the most important information I should know about methylprednisolone? You should not use this medicine if you have a fungal infection anywhere in your body. What is methylprednisolone? Methylprednisolone is a steroid that prevents the release of substances in the body that cause inflammation. Methylprednisolone is used to treat many different inflammatory conditions such as arthritis, lupus, psoriasis, ulcerative colitis, allergic disorders, gland (endocrine) disorders, and conditions that affect the skin, eyes, lungs, stomach, nervous system, or blood cells. Methylprednisolone may also be used for purposes not listed in this medication guide. What should I discuss with my healthcare provider before taking methylprednisolone? You should not use methylprednisolone if you are allergic to it, or if you have: a fungal infection anywhere in your body. Methylprednisolone can weaken your immune system, making it easier for you to get an infection. Steroids can also worsen an infection you already have, or reactivate an infection you recently had. Tell your doctor about any illness or infection you have had within the past several weeks. To make sure methylprednisolone is safe for you, tell your doctor if you have ever had: a thyroid disorder; herpes infection of the eyes; stomach ulcers, ulcerative colitis, or diverticulitis; depression, mental illness, or psychosis; liver disease (especially cirrhosis); high blood pressure; osteoporosis; a muscle disorder such as myasthenia gravis; or multiple sclerosis. Also tell your doctor if you have diabetes. Steroid medicines may increase the glucose (sugar) levels in your blood or urine. You may also need to adjust the dose of your diabetes medications. It is not known whether this medicine will harm an unborn baby. Tell your doctor if you are or plan to become . It is not known whether methylprednisolone passes into breast milk or if it could affect the nursing baby. Tell your doctor if you are breast-feeding. How should I take methylprednisolone? Follow all directions on your prescription label. Your doctor may occasionally change your dose. Do not use this medicine in larger or smaller amounts or for longer than recommended. Methylprednisolone is sometimes taken every other day. Follow your doctor's dosing instructions very carefully. Your dose needs may change if you have unusual stress such as a serious illness, fever or infection, or if you have surgery or a medical emergency. Tell your doctor about any such situation that affects you. This medicine can cause unusual results with certain medical tests. Tell any doctor who treats you that you are using methylprednisolone. You should not stop using methylprednisolone suddenly. Follow your doctor's instructions about tapering your dose. Wear a medical alert tag or carry an ID card stating that you take methylprednisolone. Any medical care provider who treats you should know that you take steroid medication. If you need surgery, tell the surgeon ahead of time that you are using methylprednisolone. You may need to stop using the medicine for a short time. Store at room temperature away from moisture and heat. What happens if I miss a dose? Call your doctor for instructions if you miss a dose of methylprednisolone. What happens if I overdose? Seek emergency medical attention or call the Poison Help line at . An overdose of methylprednisolone is not expected to produce life threatening symptoms. However, detention use of high steroid doses can lead to symptoms such as thinning skin, easy bruising, changes in the shape or location of body fat (especially in your face, neck, back, and waist), increased acne or facial hair, menstrual problems, impotence, or loss of interest in sex. What should I avoid while taking methylprednisolone? Avoid being near people who are sick or have infections. Call your doctor for preventive treatment if you are exposed to chicken pox or measles. These conditions can be serious or even fatal in people who are using steroid medication. Do not receive a 'live' vaccine while using methylprednisolone. The vaccine may not work as well during this time, and may not fully protect you from disease. Live vaccines include measles, mumps, rubella (MMR), polio, rotavirus, typhoid, yellow fever, varicella (chickenpox), zoster (shingles), and nasal flu (influenza) vaccine. What are the possible side effects of methylprednisolone? Get emergency medical help if you have signs of an allergic reaction: hives; difficult breathing; swelling of your face, lips, tongue, or throat. Call your doctor at once if you have: shortness of breath (even with mild exertion), swelling, rapid weight gain; bruising, thinning skin, or any wound that will not heal; blurred vision, tunnel vision, eye pain, or seeing halos around lights; severe depression, changes in personality, unusual thoughts or behavior; new or unusual pain in an arm or leg or in your back; bloody or tarry stools, coughing up blood or vomit that looks like coffee grounds; seizure (convulsions); or low potassium--leg cramps, constipation, irregular heartbeats, fluttering in your chest, increased thirst or urination, numbness or tingling. Steroids can affect growth in children. Tell your doctor if your child is not growing at a normal rate while using this medicine. Common side effects may include: fluid retention (swelling in your hands or ankles); dizziness, spinning sensation; changes in your menstrual periods; headache; mild muscle pain or weakness; or stomach discomfort, bloating. This is not a complete list of side effects and others may occur. Call your doctor for medical advice about side effects. You may report side effects to FDA at 4-124-DBL-7308. What other drugs will affect methylprednisolone? Other drugs may interact with methylprednisolone, including prescription and ibrv-aho-zgsowqi medicines, vitamins, and herbal products. Tell each of your health care providers about all medicines you use now and any medicine you start or stop using. Where can I get more information? Your pharmacist can provide more information about methylprednisolone. Remember, keep this and all other medicines out of the reach of children, never share your medicines with others, and use this medication only for the indication prescribed. Every effort has been made to ensure that the information provided by [employer]. [employer]') is accurate, up-to-date, and complete, but no guarantee is made to that effect. Drug information contained herein may be time sensitive. [employer] information has been compiled for use by healthcare practitioners and consumers in the [place] and therefore [employer] does not warrant that uses outside of the [place] are appropriate, unless specifically indicated otherwise. [employer]'s drug information does not endorse drugs, diagnose patients or recommend therapy. [employer] drug information is an informational resource designed to assist licensed healthcare practitioners in caring for their patients and/or to serve consumers viewing this service as a supplement to, and not a substitute for, the expertise, skill, knowledge and judgment of healthcare practitioners. The absence of a warning for a given drug or drug combination in no way should be construed to indicate that the drug or drug combination is safe, effective or appropriate for any given patient. [employer] does not assume any responsibility for any aspect of healthcare administered with the aid of information [employer] provides. The information contained herein is not intended to cover all possible uses, directions, precautions, warnings, drug interactions, allergic reactions, or adverse effects. If you have questions about the drugs you are taking, check with your doctor, nurse or pharmacist. Copyright [id number] [employer]. Version: 9.01. Revision Date: 07/17/2017. [employer] Degenerative Disk Disease Spinal disks are gel-filled cushions between the bones, or vertebrae, of the spine. The disks act like shock absorbers. Over time, the disks may break down. This is called degenerative disk disease. This condition can affect the neck or back. It is one of the most common causes of low back pain. The pain often remains localized to the lower back or neck. Muscle spasm is often present and adds to the pain. Disk degeneration is a natural part of aging. But it is not painful for most people. It may also occur as a result of repeated minor injuries due to daily activities, sports, or accidents. It may lead to osteoarthritis of the spine. Back pain related to disk disease may come and go. Or it may become chronic and last for months or years. The disk may bulge or rupture. This is called a slipped disk or herniated disk. That can put pressure on a nearby spinal nerve and cause neck or back pain that spreads down one arm or leg. X-rays, CT scan, or an MRI scan may help to diagnose this condition. For acute pain, treatment includes anti-inflammatory medicines, muscle relaxants, rest, ice, or heat. Strong prescription pain medicines, called opioids, may be needed for short-term treatment if pain suddenly gets worse. Opioid medicines can be addictive. So they are not advised for long-term pain management. Other types of medicines are preferred. Surgery is generally not used to treat this condition unless there is a complication. Home care For neck pain: Use a comfortable pillow that supports the head and keeps the spine in a neutral position. Your head should not be tilted forward or backward. For back pain: Avoid sitting for long periods of time. This puts more stress on the lower back than standing or walking. Starting a regular exercise program to strengthen the supporting muscles of the spine will make it easier to live with degenerative disk disease. Apply an ice pack over the injured area for no more than 15 to 20 minutes. Do this every 3 to 6 hours for the first 24 to 48 hours. To make an ice pack, put ice cubes in a plastic bag that seals at the top. Wrap the bag in a clean, thin towel or cloth. Never put ice or an ice pack directly on the skin. Keep using ice packs to ease pain and swelling as needed. After 48 hours, apply heat (warm shower or warm bath) for 20 minutes several times a day, or switch between ice and heat. You may use oxtp-[id number] pain medicine to control pain, unless another pain medicine was prescribed. If you have chronic liver or kidney disease or ever had a stomach ulcer or GI bleeding, talk with your provider before using these medicines. Follow-up care Follow up with your healthcare provider, or as directed. If X-rays, a CT scan or an MRI scan were done, you will be notified of any new findings that may affect your care. When to seek medical advice Contact your healthcare provider right away if any of these occur: Increasing back pain Your foot drags when you walk, a condition called foot drop You have new weakness, numbness, or pain in one or both arms or legs Loss of bowel or bladder control Numbness or tingling in the buttock or groin area [id number] [employer]. [address] [place] [id number]. All rights reserved. This information is not intended as a substitute for professional medical care. Always follow your healthcare professional's instructions. Back Pain (Acute or Chronic) Back pain is one of the most common problems. The good news is that most people feel better in 1 to 2 weeks, and most of the rest in 1 to 2 months. Most people can remain active. People who have pain describe it differently not everyone is the same. The pain can be sharp, stabbing, shooting, aching, cramping or burning. Movement, standing, bending, lifting, sitting, or walking may worsen pain. It can be localized to one spot or area, or it can be more generalized. It can spread or radiate upwards, to the front, or go down your arms or legs (sciatica). It can cause muscle spasm. Most of the time, mechanical problems with the muscles or spine cause the pain. Mechanical problems are usually caused by an injury to the muscles or ligaments. While illness can cause back pain, it is usually not caused by a serious illness. Mechanical problems include: Physical activity such as sports, exercise, work, or normal activity Overexertion, lifting, pushing, pulling incorrectly or too aggressively Sudden twisting, bending, or stretching from an accident, or accidental movement Poor posture Stretching or moving wrong, without noticing pain at the time Poor coordination, lack of regular exercise (check with your doctor about this) Spinal disc disease or arthritis Stress Pain can also be related to , or illness like appendicitis, bladder or kidney infections, pelvic infections, and many other things. Acute back pain usually gets better in 1 to 2 weeks. Back pain related to disk disease, arthritis in the spinal joints or spinal stenosis (narrowing of the spinal canal) can become chronic and last for months or years. Unless you had a physical injury (for example, a car accident or fall) X-rays are usually not needed for the initial evaluation of back pain. If pain continues and does not respond to medical treatment, X-rays and other tests may be needed. Home care Try these home care recommendations: When in bed, try to find a position of comfort. A firm mattress is best. Try lying flat on your back with pillows under your knees. You can also try lying on your side with your knees bent up towards your chest and a pillow between your knees. At first, do not try to stretch out the sore spots. If there is a strain, it is not like the good soreness you get after exercising without an injury. In this case, stretching may make it worse. Don't sit for long periods, as in a long car ride or during other travel. This puts more stress on the lower back than standing or walking. During the first 24 to 72 hours after an acute injury or flare up of chronic back pain, apply an ice pack to the painful area for 20 minutes and then remove it for 20 minutes. Do this over a period of 60 to 90 minutes or several times a day. This will reduce swelling and pain. Wrap the ice pack in a thin towel or plastic to protect your skin. You can start with ice, then switch to heat. Heat (hot shower, hot bath, or heating pad) reduces pain and works well for muscle spasms. Heat can be applied to the painful area for 20 minutes then remove it for 20 minutes. Do this over a period of 60 to 90 minutes or several times a day. Do not sleep on a heating pad. It can lead to skin segura or tissue damage. You can alternate ice and heat therapy. Talk with your doctor about the best treatment for your back pain. Therapeutic massage can help relax the back muscles without stretching them. Be aware of safe lifting methods and do not lift anything without stretching first. Medicines Talk to your doctor before using medicine, especially if you have other medical problems or are taking other medicines. You may use dfyh-dcw-rozoogi medicine as directed on the bottle to control pain, unless another pain medicine was prescribed. If you have chronic conditions like diabetes, liver or kidney disease, stomach ulcers, or gastrointestinal bleeding, or are taking blood thinners, talk to your doctor before taking any medicine. Be careful if you are given a prescription medicines, narcotics, or medicine for muscle spasms. They can cause drowsiness, affect your coordination, reflexes, and judgement. Do not drive or operate heavy machinery. Follow-up care Follow up with your healthcare provider, or as advised. A radiologist will review any X-rays that were taken. Your provide will notify you of any new findings that may affect your care. Call 911 Call 911 if any of the following occur: Trouble breathing Confusion Very drowsy or trouble awakening Fainting or loss of consciousness Rapid or very slow heart rate Loss of bowel or bladder control When to seek medical advice Call your healthcare provider right away if any of these occur: Pain becomes worse or spreads to your legs Weakness or numbness in one or both legs Numbness in the groin or genital area [id number] [employer]. [address] [place] [address]. All rights reserved. This information is not intended as a substitute for professional medical care. Always follow your healthcare professional's instructions. Additional Information VACCINATE! IT SAVES LIVES! Members of the community who have not yet received the COVID-19 vaccine and would like to receive it can visit one of [facility] vaccine clinics. There are many vaccine clinic locations within the [facility]. For locations and available times, please visit [email or web address] It is important to note that some COVID mobile vaccine clinics are held outdoors and may be canceled in rainy or stormy conditions. To learn more about pediatric vaccinations (ages 5-11), we invite you to visit the [facility] webpage. [email or web address] [email or web address]-Ngzllxnsjmf-[email or web address] [email or web address]-[email or web address] To learn more about the COVID-19 vaccine, we invite you to visit the CDC website for a list of frequently asked questions. https://www.cdc.gov/coronavirus/2 019-ncov/vaccines/faq.html [facility] Patient Portal Access Instructions: Stay connected with your healthcare team and access your personal medical information anytime with the [employer] [facility] Patient Portal. If you would like a full copy of your medical records please contact the [facility] Medical Records Department Saturday through Saturday between 8a.m. and 4:30p.m. Please follow the directions below to access the portal: 1.Access the email account you provided upon registration to the [facility].2.Look for an invitation email from [facility].3.Open the email and access the invitation link: Accept Invitation to [facility].Fill in the required barakat to create your account. Sign into [email or web address] with your username and password that you created in the above steps to stay up to date. You can then view a summary of results, a summary of your visits, and the ability to download your summaries to your computer or send the information securely to a physician. Remember that your healthcare information is confidential, so carefully consider who you will allow to register on the [facility] [facility] Patient Portal for access to your information. You can also access the [facility] Patient Portal on the [employer]. Simply click on Health Records under Health Data and then click on the [employer] logo. HOW TO SAFELY DISPOSE OF PRESCRIPTION MEDICATIONS Please use one of the following methods to safely dispose of your unused medications. 1.Use a drug disposal kit: the drug disposal pouch allows you to safely discard your old and unused drugs. Ask your nurse to give you one when you are discharged.2.Visit a local take-back location: Many local pharmacies and police departments have programs that collect old and unwanted prescription drugs. Call your local pharmacy or go to http://Utilize Health.[employer]/5X7Te6i to find one close to you.3.Make use of household items: Use cat litter or old coffee grounds to dispose medications if other options are not available. Mix your drugs with these household products, seal them in an airtight container and throw it into the garbage. Call [facility]: [phone] to be sure your drugs can be disposed of in this way. Some medicines may require a different approach.4.Never flush your medications down the toilet. IF YOU HAVE BEEN PRESCRIBED AN OPIOIDS FOR PAIN If you have been prescribed an opioid (such as hydrocodone, oxycodone or morphine), it is critical to understand the possible side effects and risks of opioid pain medications. Even when taken as directed, opioids can have several side effects including: Tolerance, meaning you might need to take more of a medication for the same pain relief. Nausea, vomiting and/or constipation. Sleepiness, dizziness, dry mouth, confusion, depression or itching. Physical dependence, meaning you have withdrawal symptoms when a medication is stopped ? this can develop within a few days. KNOW YOUR RESPONSIBILITIES It is important to know exactly how much and how often to take the opioid pain medications you are prescribed. Never take opioids in higher amounts or more often than prescribed. Do not combine opioids with alcohol or other drugs that cause drowsiness, such as benzodiazepines, also known as benzos, including diazepam and alprazolam, muscle relaxants or sleep aids. Never sell or share prescription opioids. This is illegal. Store opioids in a secure place and out of reach of others (including children, family, friends and visitors). The last page(s) of this document has been signed and retained as a CHART COPY Signatures Patient Education Materials Degenerative Disk Disease Back Pain (Acute or Chronic) Medication Leaflets acetaminophen and hydrocodone, methylprednisolone (oral) My discharge plan and instructions have been reviewed and explained to me and I,HELEN ESTRADA understand my current condition and have read and understand these discharge instructions. I have received a written copy of the plan/instructions. If I have questions, I am aware that I should contact my doctor. 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 Multiplanar reformatted images are provided for review. Adjustment of mA and/or kV according to patient size was utilized. Automated exposure control, iterative reconstruction, and/or weight based adjustment of the mA/kV was utilized to reduce the radiation dose to as low as reasonably achievable. COMPARISON: CT lumbar spine 07/20/[address] abdomen pelvis 10/17/2020 HISTORY: ORDERING SYSTEM PROVIDED HISTORY: Reason for Exam: back pain FINDINGS: BONES/ALIGNMENT: There is transitional anatomy of the lumbosacral spine with partial sacralization of the L5 vertebral body and pseudarthrosis with the S1 segment especially on the left side where the left sacrum is fused to the left margin of L5, unchanged. Unchanged limbus vertebra at L4. No evidence of displaced fracture or traumatic malalignment. DEGENERATIVE CHANGES: There is mild disc space height loss at T12-L1, L1-L2 and L4-L5. There is a posterior disc bulge at L4-L5, progressed since 2018 which results in at least mild spinal canal narrowing and at least moderate right neural foraminal narrowing. There is mild facet arthropathy of the lower lumbar spine. Mild degenerative change of the left greater than right sacroiliac joints. 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 The visualized ureters are nondilated. There is no hydronephrosis. There is a 2 mm nonobstructing nephrolith in the right superior renal pole. There is abdominal aortic atherosclerosis without visualized aneurysm. IMPRESSION: 1. No evidence of acute fracture or traumatic malalignment. 2. New disc bulge at L4-L5, described above. 3. Transitional anatomy of the lumbosacral junction, which can also be a pain generator. Interpreted by: Bharath Holly Preliminary Report By: Bharath Holly Electronically signed By Bharath Holly Dictated Date: 05/26/2023 9:35:19 AM Prelim Date: 05/26/2023 9:43:30 AM Sign Date: 05/26/2023 9:43:30 AM Ordering Provider: JAKOBIRON HANLEY [facility] 05-26-2023 Note ORIGINAL EXAMINATION: CT OF THE LUMBAR SPINE WITHOUT CONTRAST 05/26/2023 TECHNIQUE: CT of the lumbar spine was performed without the administration of intravenous contrast. Multiplanar reformatted images are provided for review. Adjustment of mA and/or kV according to patient size was utilized. Automated exposure control, iterative reconstruction, and/or weight based adjustment of the mA/kV was utilized to reduce the radiation dose to as low as reasonably achievable. COMPARISON: CT lumbar spine 07/20/[address] abdomen pelvis 10/17/2020 HISTORY: ORDERING SYSTEM PROVIDED HISTORY: Reason for Exam: back pain FINDINGS: BONES/ALIGNMENT: There is transitional anatomy of the lumbosacral spine with partial sacralization of the L5 vertebral body and pseudarthrosis with the S1 segment especially on the left side where the left sacrum is fused to the left margin of L5, unchanged. Unchanged limbus vertebra at L4. No evidence of displaced fracture or traumatic malalignment. DEGENERATIVE CHANGES: There is mild disc space height loss at T12-L1, L1-L2 and L4-L5. There is a posterior disc bulge at L4-L5, progressed since 2018 which results in at least mild spinal canal narrowing and at least moderate right neural foraminal narrowing. There is mild facet arthropathy of the lower lumbar spine. Mild degenerative change of the left greater than right sacroiliac joints. 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 The visualized ureters are nondilated. There is no hydronephrosis. There is a 2 mm nonobstructing nephrolith in the right superior renal pole. There is abdominal aortic atherosclerosis without visualized aneurysm. IMPRESSION: 1. No evidence of acute fracture or traumatic malalignment. 2. New disc bulge at L4-L5, described above. 3. Transitional anatomy of the lumbosacral junction, which can also be a pain generator. Interpreted by: Bharath Holly Preliminary Report By: Bharath Holly Electronically signed By Bharath Holly Dictated Date: 05/26/2023 9:35:19 AM Prelim Date: 05/26/2023 9:43:30 AM Sign Date: 05/26/2023 9:43:30 AM Ordering Provider: [facility] 02-25-2023 Note HNO ID: [id number] Author: Domenic Aguilar MD Service: ? Author Type: Physician Type: Progress Notes Filed: 02/25/2023 1:25 PM Note Text: Express Care Triage Note: Patient presents to the express care with complaint of bilateral leg pain and left leg numbness which started over the weekend. She has a history of MS. She ambulates with a cane. I discussed MRI may be needed to assess for MS flare as the source of her pain and numbness. Her is ill with vomiting illness and weakness, so she decided to go to the ER with him for evaluation. [facility] 02-25-2023 History of Present illness Narrative Express Care Triage Note: Patient presents to the [facility] care with complaint of bilateral leg pain and left leg numbness which started over the weekend. She has a history of MS. She ambulates with a cane. I discussed MRI may be needed to assess for MS flare as the source of her pain and numbness. Her is ill with vomiting illness and weakness, so she decided to go to the ER with him for evaluation. documented in this encounter [facility] 07-13-2022 Note Patient Education Ma terial Gastrointestinal Hemorrhoids: Care Instructions Your Care Instructions Hemorrhoids are enlarged veins that develop in the anal canal. Bleeding during bowel movements, itching, swelling, and rectal pain are the most common symptoms. They can be uncomfortable at times, but hemorrhoids rarely are a serious problem. You can treat most hemorrhoids with simple changes to your diet and bowel habits. These changes include eating more fiber and not straining to pass stools. Most hemorrhoids do not need surgery or other treatment unless they are very large and painful or bleed a lot. Follow-up care is a putnam part of your treatment and safety. Be sure to make and go to all appointments, and call your doctor if you are having problems. It's also a good idea to know your test results and keep a list of the medicines you take. How can you care for yourself at home? ? Sit in a few inches of warm water (sitz bath) 3 times a day and after bowel movements. The warm water helps with pain and itching. ? Put ice on your anal area several times a day for 10 minutes at a time. Put a thin cloth between the ice and your skin. Follow this by placing a warm, wet towel on the area for another 10 to 20 minutes. ? Take pain medicines exactly as directed. ? If the doctor gave you a prescription medicine for pain, take it as prescribed. ? If you are not taking a prescription pain medicine, ask your doctor if you can take an swzs-ksd-cfmifaa medicine. ? Keep the anal area clean, but be gentle. Use water and a fragrance-free soap, such as Ivory, or use baby wipes or medicated pads, such as Tucks. ? Wear cotton underwear and loose clothing to decrease moisture in the anal area. ? Eat more fiber. Include foods such as whole-grain breads and cereals, raw vegetables, raw and dried fruits, and beans. ? Drink plenty of fluids, enough so that your urine is light yellow or clear like water. If you have kidney, heart, or liver disease and have to limit fluids, talk with your doctor before you increase the amount of fluids you drink. ? Use a stool softener that contains bran or psyllium. You can save money by buying bran or psyllium (available in bulk at most [employer] stores) and sprinkling it on foods or stirring it into fruit juice. Or you can use a product such as Metamucil or Hydrocil. ? Practice healthy bowel habits. ? Go to the bathroom as soon as you have the urge. ? Avoid straining to pass stools. Relax and give yourself time to let things happen naturally. ? Do not hold your breath while passing stools. ? Do not read while sitting on the toilet. Get off the toilet as soon as you have finished. ? Take your medicines exactly as prescribed. Call your doctor if you think you are having a problem with your medicine. When should you call for help? Call 911 anytime you think you may need emergency care. For example, call if: ? You pass maroon or very bloody stools. Call your doctor now or seek immediate medical care if: ? You have increased pain. ? You have increased bleeding. Watch closely for changes in your health, and be sure to contact your doctor if: ? Your symptoms have not improved after 3 or 4 days. Where can you learn more? Go to https://[email or web address].net/isadora Hanson Enter F228 in the search box to learn more about Hemorrhoids: Care Instructions. Current as of: March 02, 2020 Content Version: 12.7 ? [employer]. Care instructions adapted under license by your healthcare professional. If you have questions about a medical condition or this instruction, always ask your healthcare professional. [employer], [facility] disclaims any warranty or liability for your use of this information. Colon Polyps: Care Instructions Your Care Instructions Colon polyps are growths in the colon or the rectum. The cause of most colon polyps is not known, and most people who get them do not have any problems. But a certain kind can turn into cancer. For this reason, regular testing for colon polyps is important for people as they get older. It is also important for anyone who has an increased risk for colon cancer. Polyps are usually found through routine colon cancer screening tests. Although most colon polyps are not cancerous, they are usually removed and then tested for cancer. Screening for colon cancer saves lives because the cancer can usually be cured if it is caught early. If you have a polyp that is the type that can turn into cancer, you may need more tests to examine your entire colon. The doctor will remove any other polyps that he or she finds, and you will be tested more often. Follow-up care is a putnam part of your treatment and safety. Be sure to make and go to all appointments, and call your doctor if you are having problems. It's also a good idea to know your test results and keep a list of the medicines you take. How can you care for yourself at home? Regular exams to look for colon polyps are the best (more content not included)... [facility] 07-13-2022 Note Nursing Discharge Gamble mmary Entered On: 07/13/2022 11:01 EDT Performed On: 07/13/2022 11:00 EDT by Junai Carrington RN, DC Information Discharged to : Home Mode of Discharge : Ambulatory Discharge Transportation : Private vehicle Reg VTE Warfarin at Discharge : No Juani Carrington RN - 07/13/2022 11:00 EDT Education TeachBack Methodology : TeachBack, Demonstration, Explanation, Printed Material Barriers to Learning : None evident Juani Carrington RN - 07/13/2022 11:00 EDT Post-Hospital Education Adult Grid Activity Expectations : Verbalizes understanding Importance of Follow-Up Visits : Verbalizes understanding Juani Carrington RN 07/13/2022 11:00 EDT Safety Education Adult Grid Safety, Fall : Verbalizes understanding Juani Carrington RN - 07/13/2022 11:00 EDT Additional Session Learner/s Present : Spouse Jameschula ANNALEE, Juani - 07/13/2022 11:00 EDT [facility] 04-06-2022 Hospital Discharge instructions Patient Education 04/06/2022 18:30:02 Arthralgia Arthralgia Arthralgia is the term for pain in or around the joint. It is a symptom, not a disease. This pain may involve one or more joints. In some cases, the pain moves from joint to joint. There are many causes for joint pain. These include: Injury Osteoarthritis (wearing out of the joint surface) Gout (inflammation of the joint due to crystals in the joint fluid) Infection inside the joint Bursitis (inflammation of the fluid-filled sacs around the joint) Autoimmune disorders such as rheumatoid arthritis or lupus Tendonitis (inflammation of chords that attach muscle to bone) Home care Rest the involved joint(s) until your symptoms improve. You may be prescribed pain medicine. If none is prescribed, you may use acetaminophen or ibuprofen to control pain and inflammation. Follow-up care Follow up with your healthcare provider or as advised. When to seek medical advice Contact your healthcare provider right away if any of the following occurs: Pain, swelling, or redness of joint increases Pain worsens or recurs after a period of improvement Pain moves to other joints You cannot bear weight on the affected joint You cannot move the affected joint Joint appears deformed New rash appears Fever of 100.4 F (38 C) or higher, or as directed by your healthcare provider [id number] [employer]. [address] [place] [address]. All rights reserved. This information is not intended as a substitute for professional medical care. Always follow your healthcare professional's instructions. Follow Up Care 04/06/2022 15:58:16 With:DANN CANCINO Address: [address] [facility] [address] [place] [address]- Business (1) When:2-4 days With:KASHMIR PERES Address: [address] [place] [address]- Business (1) When:2-4 days Comments:Return to ED if symptoms worsen [facility] 03-17-2022 Hospital Discharge instructions Patient Education 03/17/2022 17:03:01 Upper Extremity Contusion Upper Extremity Contusion You have a contusion (bruise) of an upper extremity (arm, wrist, hand, or fingers). Symptoms include pain, swelling, and skin discoloration. No bones are broken. This injury may take from a few days to a few weeks to heal. During that time, the bruise may change from reddish in color, to purple-blue, to green-yellow, to yellow-brown. Home care Unless another medicine was prescribed, you can take acetaminophen, ibuprofen, or naproxen to control pain. (If you have chronic liver or kidney disease or ever had a stomach ulcer or gastrointestinal bleeding, talk with your doctor before using these medicines.) Elevate the injured area to reduce pain and swelling. As much as possible, sit or lie down with the injured area raised about the level of your heart. This is especially important during the first 48 hours. Ice the injured area to help reduce pain and swelling. Wrap a cold source (ice pack or ice cubes in a plastic bag) in a thin towel. Apply to the bruised area for 20 minutes every 1 to 2 hours the first day. Continue this 3 to 4 times a day until the pain and swelling goes away. If a sling was provided, you may remove it to shower or bathe. To prevent joint stiffness, do not wear it for more than 1 week. Follow-up care Follow up with your healthcare provide, or as advised. Call if you are not improving within the next 1 to 2 weeks. When to seek medical advice Call your healthcare provider right away if any of these occur: Increased pain or swelling Hand or fingers become cold, blue, numb or tingly Signs of infection: Warmth, drainage, or increased redness or pain around the injury Inability to move the injured body part Frequent bruising for unknown reasons [id number] [employer]. [address] [place] [address], [place] [address]. All rights reserved. This information is not intended as a substitute for professional medical care. Always follow your healthcare professional's instructions. Follow Up Care 03/17/2022 15:47:57 With:Call Physician Referral Address:Unknown When:2-4 days With:Call AMB New Pt. Refferral [phone] Address:Unknown When:2-4 days [facility] Evaluation + Plan note No data available for this section [facility] Diagnosis Chronic bilateral low back pain without sciatica- Primary [facility] No data available for this section [facility] Hospital Discharge instructions* Attachments The following attachments cannot be sent through Care Everywhere. * Low Back Pain Discharge Instructions (Frisian) [facility] No data available for this section [facility] Summary Purpose Family History No Family History Records FoundNo Family History Records FoundNo Family History Records FoundNo Family History Records FoundNo Family History Records FoundNo Family History Records FoundNo Family History Records FoundNo Family History Records FoundNo Family History Records Found Advance Directives No Advanced Directives Records FoundNo Advanced Directives Records FoundNo Advanced Directives Records FoundNo Advanced Directives Records FoundNo Advanced Directives Records FoundNo Advanced Directives Records FoundNo Advanced Directives Records FoundNo Advanced Directives Records FoundNo Advanced Directives Records Found Additional Source Comments INFORMATION SOURCE (unrecogn ized section and content) DATE CREATED AUTHOR AUTHOR'S ORGANIZ ATION 08/31/[address] [facility] DATE CREATED AUTHOR AUTHOR'S ORGANIZ ATION 11/12/2019 [facility] DATE CREATED AUTHOR AUTHOR'S ORGANIZ ATION 06/25/2021 [facility] DATE CREATED AUTHOR AUTHOR'S ORGANIZ ATION 11/10/[address] [facility] DATE CREATED AUTHOR AUTHOR'S ORGANIZ ATION 03/23/2022 [facility] DATE CREATED AUTHOR AUTHOR'S ORGANIZ ATION 08/19/[address] [facility] DATE CREATED AUTHOR AUTHOR'S ORGANIZ ATION 02/28/2023 [facility] DATE CREATED AUTHOR AUTHOR'S ORGANIZ ATION 06/06/2023 [facility] ([place]) Care Team (unrecognized sect ion and content) Care Team Personnel Name: PHYSICIAN, NOT RECORDED Member Role: Primary Care Physician Name: Gela Campo Nette RN Position: AO RN Member Role: ED RN Name: MD JAKOB HANLEY MD Position: ED Physician Member Role: ED Physician Address: Address: [facility] [address] [place] [address]- Care Team Related Persons Name: JOHANNA RAI Address: Home [address] [place], [place] [id number] Address: [facility] [address] [place], [place] [id number] Name: CHANDRAKANT ESTRADA Second Shift Supervisor Relationship Specialty Start Date End Date Breanna Parish, DO [address] [place] [address] PCP - General Family Medicine 09/16/19 Personnel Name: PHYSICIAN, NOT RECORDED Source Comments (unrecognize d section and content) In the event this informatio n is protected by the Federal Confidentiality of Alcohol and Drug Abuse Patient Records regulations: The Federal rules restrict any use of the information to criminally investigate or prosecute any alcohol or drug abuse patient.[facility] Reason for Visit (unrecogniz ed section and content) Scheduled Active and Recently Administ ered Medications (unrecognized section and content) FOR RECORDS PERTAINING TO PATIENTS WHO ARE OR HAVE BEEN ENROLLED IN A CHEMICAL DEPENDENCY/SUBSTANCEABUSE PROGRAM, SOME INFORMATION MAY BE OMITTED. This clinical summary was aggregated from multiple sources. Caution should be exercised in using it in the provision of clinical care. This summary normalizes information from multiple sources, and as a consequence, information in this document may materially change the coding, format and clinical context of patient data. In addition, data may be omitted in some cases. CLINICAL DECISIONS SHOULD BE BASED ON THE PRIMARY CLINICAL RECORDS. [facility] [facility]. provides no warranty or guarantee of the accuracy or completeness of information in this document.
--- NOTE | 2023-12-23 21:07 | EDS_ITS ---
HPI History of Present Illness HPI Narrative: Patient presents with a laceration to her right fifth finger that occurred today. Patient states she was using a mandolin slicer to make onion rings. Patient states that she accidentally cut her finger on the slicer. Patient describes her pain as burning. Patient denies any paresthesias or weakness. Patient states her pain is worse with movement of her finger. Patient states her last tetanus was more than 10 years ago. Patient states the bleeding stopped after several minutes of pressure. Chief Complaint: Laceration Informant: patient Occured/Mechanism Comment: Cut on mandolin slicer Onset/Context/Timing Onset: Today Context: Sudden Onset Timing: Continuous Quality of Pain: Burning Location: Right fifth finger Worsened by: Movement Relieved by: Nothing Associated Symptoms Associated Symptoms: Negative for Parasthesia, Weakness or Loss of Funtion Narrative Tetanus Immunization: >10 years PFSH PFS Medical History Anxiety Bradycardia Bulging lumbar disc Depressed Diabetes Hypertension Lumbar vertebral fracture Multiple sclerosis Rheumatoid arthritis Home Medications paroxetine HCl 10 mg tablet (Paxil) 10 mg PO DAILY mental health 01/02/23 [History Last Taken 06/30/23] trazodone 100 mg tablet 100 mg PO QHS sleep 01/02/23 [History Last Taken 06/30/23] cyclobenzaprine 10 mg tablet 10 mg PO TID PRN muscle spasms 07/01/23 [History Last Taken 09/20/23 20:29] amlodipine 10 mg tablet 10 mg PO DAILY #30 tabs 07/02/23 [Rx Last Taken Unknown] cyclobenzaprine 5 mg tablet 5 mg PO TID PRN muscle spasm #15 tabs 09/13/23 [Rx Last Taken Unknown] Allergy/AdvReac Type Severity Reaction Status Date / Time diphenhydramine Allergy Other Verified 09/20/23 20:27 lisinopril Allergy Other Verified 09/20/23 20:27 meloxicam [From Mobic] Allergy Hives Verified 09/20/23 20:27 meperidine [From Demerol] Allergy Hives Verified 09/20/23 20:27 ketorolac [From Toradol] AdvReac Other Verified 09/20/23 20:27 tramadol AdvReac Other Verified 09/20/23 20:27 Family History Aunt No problems noted. Other Alcoholism Anxiety Arthritis CVA (cerebral vascular accident) Depression Heart disease High cholesterol Hypertension Mental disorder Osteoporosis Rheumatoid arthritis Surgical History History of delivery History of total hysterectomy History of tubal ligation Social History household members: spouse Smoking Status: Never smoker alcohol intake: never substance use type: does not use ROS ROS ED Constitutional Constitutional ED: Denies chills or fever(s) Eyes Eyes: Denies blurry vision or change in vision ENT ENT ED: Denies rhinorrhea or sore throat Cardiovascular Cardiovascular: Denies chest pain or palpitations Respiratory/Chest Respiratory/Chest: Denies cough or dyspnea Gastrointestinal Gastrointestinal: Denies nausea or vomiting Genitourinary Genitourinary ED: Denies dysuria or hematuria Musculoskeletal Musculoskeletal: Reports back pain; Denies neck pain Integumentary Denies abscess or rash Neurologic Neurologic: Denies headache(s) or weakness Allergic/Immunologic Allergic/Immunologic ED: Denies mouth swelling or urticaria EXAM Physical Exam Const Vital Signs: 12/23/23 14:57 12/23/23 19:21 Temperature 98.3 F 97.9 F Temperature Source Temporal Temporal Pulse Rate 110 H 59 L Respiratory Rate 16 18 Blood Pressure 173/115 H 168/99 H Blood Pressure Mean 134 122 Pulse Ox 96 95 Oxygen Delivery Method Room Air Room Air Positive well nourished and well developed General Appearance ED: well developed and NAD HEENT Reports moist mucous membranes Neck full ROM and supple Extremity full ROM Extremity Narrative: There is a 2.5 cm full-thickness linear laceration over the ulnar aspect of the proximal and middle phalanges of the right fifth finger. There is moderate gapping of the wound margins. There is minimal bleeding noted. There are no foreign bodies noted. Strength is 5/5 in flexion extension of the MP, PIP, and DIP joints. Sensation was intact to light touch in all digits. Capillary refill was less than 2 seconds in all digits. Neuro oriented x3, CN's II-XII intact bilaterally, moves all extremities, no focal motor deficits and no sensory deficits noted Sensorium / Orientation: alert Motor Exam: strength 5/5 throughout Psych mental status grossly normal MDM MDM MDM Narrative Medical decision making narrative: Patient was given tetanus booster. The wound was cleaned and irrigated with copious amounts of normal saline. The wound was anesthetized with 1% plain lidocaine via digital block. The wound was closed with 5 simple interrupted # 4-0 nylon sutures under sterile technique. Patient tolerated the procedure well. Bacitracin dressing was applied. Patient was instructed to keep the wound clean and dry. Patient was instructed to follow-up with her primary care physician in 7 days for wound recheck and suture removal. Patient understood and was agreeable with the plan. All questions were answered. Procedures Lacerations Right little finger: Length: 2.5 cm Depth: Sub Q Shape: Linear Prep: Sterile Conditions and Chlorhexadine Laceration repair: Digital block, Irrigated, Lidocaine, Skin sutures and Wound explored Irrigated (ml): 100 Number of Sutures/[place]: 5 Suture Information: Ethilon, Simple and 4-0 Discharge Plan Triage Chief Complaint: Laceration ED Provider: Douglas Dean Dx/Rx/DC Orders Clinical Impression: Laceration of right little finger w/o foreign body w/o damage to nail, Rheumatoid arthritis Instructions: ED Laceration, Hand: All Closures Prescriptions: No Action paroxetine HCl [Paxil] 10 mg tablet 10 mg PO DAILY trazodone 100 mg tablet 100 mg PO QHS cyclobenzaprine 10 mg tablet 10 mg PO TID PRN Patient Comments: TAKE 10 MG ORALLY THREE TIMES A DAY NEEDED FOR MUSCLE SPASM/PAIN amlodipine 10 mg Tablet 10 mg PO DAILY Qty: 30 1RF cyclobenzaprine 5 mg tablet 5 mg PO TID PRN (Reason: muscle spasm) Qty: 15 0RF Primary Care Provider: Care Physician,No Primary Referrals: Care Physician,No Primary [Primary Care Provider] - Doctor,Your [Non-Staff] - 7 Days for suture removal Disposition Disposition: Home, Self Care
[2023-12-23 22:13] VITALS: PULSE 65; RESP 18; O2SAT 98
== END 2023-12-23 22:14 | disposition home or self-care (01) ==
PROVIDERS: Emergency Provider Emergency Medicine; Visit Provider Emergency Medicine
DX: S61.216A Laceration without foreign body of right little finger without damage to nail, initial encounter (principal); G35 Multiple sclerosis; M06.9 Rheumatoid arthritis, unspecified; E11.9 Type 2 diabetes mellitus without complications; Z79.899 Other long term (current) drug therapy; Z23 Encounter for immunization; X58.XXXA Exposure to other specified factors, initial encounter
CPT/HCPCS: 12001; 90471; 90715; 99283

== ENCOUNTER 2024-04-09 14:30 | Emergency (ER) | payer MEDICARE, SELFPAY ==
[2024-04-09 14:31] VITALS: BP 165/111; PULSE 117; RESP 16; TEMP 36.2; O2SAT 98; BMI 27.0
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
[2024-04-09] MEDS: Ondansetron ODT 4 MG Tablet PO (15:09)
[2024-04-09] MEDS: HYDROmorphone 1 MG/ML Syringe IM (15:09)
--- NOTE | 2024-04-09 15:20 | RAD_ITS ---
EXAM: XR LUMBOSACRAL SPINE, 2 OR 3 VIEWS CLINICAL INDICATION: pain TECHNIQUE: Frontal and lateral views of the lumbar spine and sacrum. COMPARISON: No relevant prior studies available. FINDINGS: VERTEBRAE: Transitional vertebra noted with partial sacralization of L5. Vertebroplasty changes involve T12. There is mild wedge compression deformity at T12. Lumbar vertebral bodies are intact. Facet arthropathy noted at the mid and lower lumbar level. DISC SPACES: Mild disc space narrowing at the L1-2 and L2-3 levels. RAD/Lumbar Spine 2 or 3 Views IMPRESSION: No acute abnormality. Electronically Signed: Raphael Bravo MD at 15:33 EDT ,
[2024-04-09 16:13] VITALS: BP 167/101; PULSE 60; RESP 17; TEMP 36.4; O2SAT 98
== END 2024-04-09 16:13 | disposition home or self-care (01) ==
PROVIDERS: Emergency Provider Emergency Medicine; Visit Provider Emergency Medicine
DX: M54.50 Low back pain, unspecified (principal); G35 Multiple sclerosis; G89.29 Other chronic pain; I10 Essential (primary) hypertension; R29.6 Repeated falls; Z79.899 Other long term (current) drug therapy
CPT/HCPCS: 72100; 96372; 99282

== ENCOUNTER → 2024-07-14 | Outpatient (CLI) | payer MEDICARE, SELFPAY ==
[2024-07-14 15:22] LABS: Absolute Lymphocyte Count 2.03 X10^3/uL (0.83-4.51); Absolute Neutrophil Count 4.4 X10^3/uL (2.0-7.7); Basophil# 0.04 X10^3/uL; Basophil% 0.6 % (0-1); Eosinophil# 0.08 X10^3/uL; Eosinophils% 1.1 % (0-5); Hematocrit 42.8 % (37-47); Hemoglobin 14.6 g/dL (12.0-15.0); Lymphocyte # 2.03 X10^3/ul (0.83-4.51); Lymphocyte % 28.3 % (19-41); Mean Corp Hgb Conc 34.1 g/dL (32-36); Mean Corpuscular Hgb 30.8 pg (27.0-32.0); Mean Corpuscular Volume 90.3 fL (81-99); Mean Platelet Vol. 10.4 fl (6.2-12.0); Monocyte# 0.59 X10^3/uL; Monocyte% 8.2 % (0-10); NRBC Flagged by Analyzer 0 % (0-5); Neutrophil # 4.43 X10^3/uL (2.7-7.7); Neutrophil % 61.7 % (47-70); Platelet Count 325 K/mm3 (150-450); RBC Distribution Width CV 12.1 % (11.6-14.6); RBC Distribution Width SD 40.3 fl (35.1-43.9); Red Blood Count 4.74 M/mm3 (4.2-5.4); White Blood Count 7.2 K/mm3 (4.4-11.0)
[2024-07-14 15:51] LABS: Microalbumin,Random Urine 30.7 mg/L (NO RANGE EST.)
[2024-07-14 15:59] LABS: AST(SGOT) 20 U/L (15-37); Alanine Aminotransfer ALT/SGPT 30 U/L (13-56); Albumin, Serum 3.8 g/dL (3.2-5.0); Alkaline Phosphatase 95 U/L (45-117); Anion Gap 9 (5-15); BUN 13 mg/dL (7-18); Calcium,Total 9.3 mg/dL (8.5-10.1); Chloride 102 mmol/L (98-107); Cholesterol 249 mg/dL (200); Creatinine, Serum 0.93 mg/dL (0.55-1.02); EST Glomerular Filtration Rate 64 mL/min (>60); Est Glom Filt Rate - Afr Amer 78 mL/min (>60); Globulin 3.8 g/dL (2.2-4.2); Glucose 116 mg/dL (74-106); High Density Lipoprotein 53 mg/dL; Potassium 3.9 mmol/L (3.5-5.1); Protein, Total 7.6 g/dL (6.4-8.2); Sodium Level 136 mmol/L (136-145); Triglycerides 135 mg/dL; Very Low Density Lipoprotein 27 mg/dL (5-40)
[2024-07-14 16:35] LABS: Hemoglobin A1c 6.4 % (3.8-5.6)
== END | disposition home or self-care (01) ==
LOC: MTLAB 11:27
PROVIDERS: PCP Family Medicine; Referring Provider Family Medicine; Visit Provider Family Medicine
DX: E11.9 Type 2 diabetes mellitus without complications (principal); E78.5 Hyperlipidemia, unspecified; I10 Essential (primary) hypertension; G47.33 Obstructive sleep apnea (adult) (pediatric)
CPT/HCPCS: 36415; 80053; 80061; 82043; 83036; 85025

== ENCOUNTER → 2024-07-27 | Outpatient (CLI) | payer MEDICARE, SELFPAY ==
--- NOTE | 2024-07-27 17:33 | MRI_ITS ---
STUDY: MRI LUMBAR SPINE WITHOUT CONTRAST REASON FOR EXAM: Female, 63 years old. pain TECHNIQUE: Standardized fat and water weighted pulse sequences were obtained in the sagittal and axial planes. COMPARISON: X-ray the lumbar spine dated July 23, 2024. FINDINGS: Normal lumbar lordosis. There is no substantial scoliosis. Normal conus medullaris that terminates at the T12 level. Redemonstration of a chronic compression deformity of the T12 vertebral body previously treated with kyphoplasty material. No acute compression deformities or new fractures are present. No malignant process is seen. T12-L1: Normal endplates. Mild disc desiccation and disc space narrowing. Normal bilateral facet joints. Normal central canal and bilateral lateral recesses. Normal bilateral intervertebral neural foramina. L1-2: Normal endplates. Diffuse disc desiccation. Normal disc height and morphology. Normal bilateral facet joints. Normal central canal and bilateral lateral recesses. Normal bilateral intervertebral neural foramina. L2-3: Mild Modic endplate degenerative signal and asymmetric degenerative changes. Diffuse disc desiccation. Mild posterior asymmetric disc space narrowing. Normal bilateral facet joints. Normal central canal and bilateral lateral recesses. Normal bilateral intervertebral neural foramina. L3-4: Mild anterior endplate spurring. Small tear in the annulus of the disc anteriorly. Diffuse disc desiccation. Normal disc height and morphology. Normal bilateral facet joints. Normal central canal and bilateral lateral recesses. Normal bilateral intervertebral neural foramina. L4-5: Mild endplate degenerative changes. Diffuse disc desiccation with mild to moderate disc space narrowing and broad-based disc herniation. Mild left facet joint hypertrophy. Normal central canal and bilateral lateral recesses. Normal bilateral intervertebral neural foramina. L5-S1: Normal endplates. Normal disc height, hydration and morphology. Mild facet joint hypertrophy. Normal central canal and bilateral lateral recesses. Normal bilateral intervertebral neural foramina. Normal visualized sacral ala. Normal visualized paraspinous soft tissue structures. MRI/Spine Lumbar (Routine) IMPRESSION: 1. Multilevel degenerative changes, as described above. Electronically Signed: Danny Menendez MD at 14:50 EDT ,
== END | disposition home or self-care (01) ==
PROVIDERS: PCP Family Medicine; Referring Provider Orthopaedic Surgery Orthopaedic Surgery of the Spine; Visit Provider Orthopaedic Surgery Orthopaedic Surgery of the Spine
DX: M54.50 Low back pain, unspecified (principal)
CPT/HCPCS: 72148

== ENCOUNTER 2024-12-18 14:11 | Emergency (ER) | payer MEDICARE, SELFPAY ==
[2024-12-18 14:11] VITALS: BP 202/91; PULSE 60; RESP 16; TEMP 37.1; O2SAT 98; BMI 36.7
--- NOTE | 2024-12-18 14:13 | EKG12_ITS ---
Test Reason : CP Blood Pressure : */* mmHG Vent. Rate : 52 BPM Atrial Rate : 52 BPM P-R Int : 158 ms QRS Dur : 82 ms QT Int : 452 ms P-R-T Axes : 6 -9 -23 degrees QTcB Int : 420 ms Sinus bradycardia Moderate voltage criteria for LVH, may be normal variant ( R in aVL , Jon product ) Nonspecific T wave abnormality Abnormal ECG Confirmed by ARNOLD SIM, ELINOR ([id number]), editor publications LESVIA CLINE ([id number]) on 12/21/2024 7:02:54 AM Referred By: Confirmed By: ELINOR BARRETT MD
[2024-12-18 14:26] LABS: Absolute Lymphocyte Count 2.72 X10^3/uL (0.83-4.51); Absolute Neutrophil Count 5.6 X10^3/uL (2.0-7.7); Basophil# 0.04 X10^3/uL; Basophil% 0.4 % (0-1); Eosinophil# 0.11 X10^3/uL; Eosinophils% 1.2 % (0-5); Hematocrit 42.4 % (37-47); Hemoglobin 15.2 g/dL (12.0-15.0); Lymphocyte # 2.72 X10^3/ul (0.83-4.51); Lymphocyte % 29.2 % (19-41); Mean Corp Hgb Conc 35.8 g/dL (32-36); Mean Corpuscular Hgb 31.7 pg (27.0-32.0); Mean Corpuscular Volume 88.5 fL (81-99); Monocyte# 0.82 X10^3/uL; Monocyte% 8.8 % (0-10); NRBC Flagged by Analyzer 0 % (0-5); Neutrophil % 60.1 % (47-70); Platelet Count 305 K/mm3 (150-450); RBC Distribution Width CV 12.3 % (11.6-14.6); Red Blood Count 4.79 M/mm3 (4.2-5.4); White Blood Count 9.3 K/mm3 (4.4-11.0)
[2024-12-18 14:42] LABS: Anion Gap 7 (5-15); BUN 16 mg/dL (7-18); BUN/Creat Ratio 17.6 RATIO (10-20); Calcium,Total 9.1 mg/dL (8.5-10.1); Chloride 105 mmol/L (98-107); Creatinine, Serum 0.91 mg/dL (0.55-1.02); EST Glomerular Filtration Rate 66 mL/min (>60); Est Glom Filt Rate - Afr Amer 80 mL/min (>60); Estimated Creatinine Clearance 59.76 ml/min; Glucose 145 mg/dL (74-106); Potassium 3.8 mmol/L (3.5-5.1); Sodium Level 138 mmol/L (136-145); Troponin-I HS (w/2H Reflex) 10 pg/mL (3.0-54.0)
--- NOTE | 2024-12-18 14:45 | RAD_ITS ---
PROCEDURE: CHEST 1 VIEW (PORTABLE) REASON FOR EXAM: Chest pain radiating to left breast TECHNIQUE: Single frontal image including the chest and abdomen. COMPARISON: 07/01/2023 FINDINGS: Heart and mediastinum are stable The lungs are clear. Atherosclerotic and tortuous aorta. Old healed granulomatous changes. Cardiac monitoring leads overlie the chest wall. The bones are unremarkable. RAD/Chest 1 View (Portable) IMPRESSION: No active cardiopulmonary disease. Reading Location: [facility]
--- NOTE | 2024-12-18 14:52 | EDS_ITS ---
HPI <MAXINE Martines - Last Filed: 12/18/24 17:21> History of Present Illness Chief Complaint: Chest Pain Narrative Narrative: Patient is a 64-year-old female with history of RA, MS, osteoporosis, hypertension who does not take her blood pressure medicine for the last several months secondary to not having a prescription. Presenting to the emergency department for right sided chest wall pain. Patient states it starts on her right breast, radiates to her back. Patient states is worse with ambulation, palpation, movement. Patient denies any fever chills nausea or vomiting. This happened at approximately noon today. PFSH <MAXINE Martines - Last Filed: 12/18/24 17:21> FOR[facility]LY [facility], [facility] Medical History Lumbar vertebral fracture Bulging lumbar disc Bradycardia Rheumatoid arthritis Multiple sclerosis Diabetes Depressed Anxiety Hypertension Home Medications ?Medication ?Instructions ?Recorded ?Last Taken ?Type paroxetine HCl 10 mg tablet (Paxil) 10 mg PO DAILY [facility] 01/02/23 06/30/23 History trazodone 100 mg tablet 100 mg PO QHS sleep 01/02/23 06/30/23 History amlodipine 10 mg tablet 10 mg PO DAILY #30 tabs 06/18 04/09 Unknown Rx amlodipine 10 mg tablet 10 mg PO DAILY 30 days #30 t abs 12/18/24 Unknown Rx Allergy/AdvReac Type Severity Reaction Status Date / Time diphenhydramine Allergy Other Verified 07/31/24 13:16 lisinopril Allergy Other Verified 07/31/24 13:16 meloxicam (From Mobic) Allergy Hives Verified 07/31/24 13:16 meperidine (From Demerol) Allergy Hives Verified 07/31/24 13:16 ketorolac (From Toradol) AdvReac Other Verified 07/31/24 13:16 tramadol AdvReac Other Verified 07/31/24 13:16 Family History Aunt No problems noted. Other Alcoholism Anxiety Arthritis CVA (cerebral vascular accident) Depression Heart disease High cholesterol Hypertension Mental disorder Osteoporosis Rheumatoid arthritis Surgical History History of total hysterectomy History of tubal ligation History of delivery Social History household members: spouse Smoking Status: Never smoker alcohol intake: never substance use type: does not use ROS <MAXINE Martines - Last Filed: 12/18/24 17:21> ROS ED ROS Narrative Constitutional: Negative for fever, chills, weight loss, weakness Eyes: Negative for vision loss, vision change, double vision ENT: Negative for any sore throat, ear pain, congestion Cardiovascular: Negative for any chest pain, tightness, palpitations Respiratory: Negative for any cough, sputum production, hemoptysis, dyspnea, dyspnea on exertion, orthopnea Gastrointestinal: Negative for any abdominal pain, nausea, vomiting, diarrhea, constipation, blood in stool, blood in vomit : Negative for any urinary frequency, dysuria, retention, blood in urine Muscle skeletal: Negative for any neck pain, back pain. Positive for right- sided chest wall pain Neurological: Negative for any headache, syncope, dizziness Skin: Negative for any rashes, itching, abrasions, lacerations Psychiatric: Negative for any depression, anxiety, stress, suicidal ideation, homicidal ideation Hematologic: Negative for any excessive bruising, easy bleeding EXAM <MAXINE Martines - Last Filed: 12/18/24 17:21> Physical Exam Narrative Exam Narrative: Vital signs reviewed. HEET: Head normocephalic atraumatic, TMs clear bilaterally. Posterior pharynx is clear, moist mucous membranes. Nares clear bilaterally. Neck: Supple with no lymphadenopathy or tenderness. No signs of meningismus. Cardiac: Regular rate and rhythm no murmurs gallops or rubs, equal peripheral pulses bilaterally. Respiratory: Lungs clear to auscultation bilaterally. Patient has significant right sided chest wall tenderness to the anterior and lateral right sided chest wall. Only minor palpation causes pain. Patient also has a pain with any movement of her right arm. She is right-handed. +2 radial pulse. No epigastric pain, no pain to the right upper quadrant. Abdomen: Soft, nontender, nondistended. No abdominal bruit or pulsatile masses. No hepatosplenomegaly Extremities: No peripheral edema, no signs of gross trauma or deformity. Active full range of motion of all extremities. Neuro: Cranial nerves II through XII intact, no focal neurological deficits. Skin: Clean dry and intact with no rash, purpura, petechiae, vesicles or pustules. Backs/flank: No CVA tenderness, no midline spinal tenderness, no deformity. Psych: Normal mood and affect. No SI, HI or acute psychosis. Const Vital Signs: 12/18/24 14:11 12/18/24 14:13 12/18/24 14:48 Temperature 98.7 F Temperature Source Temporal Pulse Rate 60 Respiratory Rate 16 Respiratory Effort Normal Blood Pressure 202/91 H Blood Pressure Mean 128 Pulse Ox 98 Oxygen Delivery Method Room Air Room Air 12/18/24 15:07 12/18/24 16:00 12/18/24 17:00 Temperature Temperature Source Pulse Rate 65 51 L 56 L Respiratory Rate 16 16 16 Respiratory Effort Blood Pressure 186/84 H 175/70 H 178/71 H Blood Pressure Mean 118 105 106 Pulse Ox 99 99 99 Oxygen Delivery Method Room Air 12/18/24 17:32 Temperature 98.3 F Temperature Source Pulse Rate 87 Respiratory Rate 16 Respiratory Effort Blood Pressure 182/92 H Blood Pressure Mean 122 Pulse Ox 99 Oxygen Delivery Method Positive well nourished, well developed and obese General Appearance ED: well developed Nutritional Appearance: obese <Rodriguez Scott MD - Last Filed: 12/18/24 18:26> Physical Exam Const Vital Signs: 12/18/24 14:11 12/18/24 14:13 12/18/24 14:48 Temperature 98.7 F Temperature Source Temporal Pulse Rate 60 Respiratory Rate 16 Respiratory Effort Normal Blood Pressure 202/91 H Blood Pressure Mean 128 Pulse Ox 98 Oxygen Delivery Method Room Air Room Air 12/18/24 15:07 12/18/24 16:00 12/18/24 17:00 Temperature Temperature Source Pulse Rate 65 51 L 56 L Respiratory Rate 16 16 16 Respiratory Effort Blood Pressure 186/84 H 175/70 H 178/71 H Blood Pressure Mean 118 105 106 Pulse Ox 99 99 99 Oxygen Delivery Method Room Air 12/18/24 17:32 Temperature 98.3 F Temperature Source Pulse Rate 87 Respiratory Rate 16 Respiratory Effort Blood Pressure 182/92 H Blood Pressure Mean 122 Pulse Ox 99 Oxygen Delivery Method MDM <MAXINE Martines - Last Filed: 12/18/24 17:21> MDM Lab Data Labs: Laboratory Results - last 24 hr 12/18/24 12/18/24 14:20 16:33 WBC 9.3 RBC 4.79 Hgb 15.2 H Hct 42.4 MCV 88.5 MCH 31.7 MCHC 35.8 RDW Std Deviation 40.0 RDW Coeff of Carol 12.3 Plt Count 305 MPV 10.0 Immature Gran % (Auto) 0.300 Neut % (Auto) 60.1 Lymph % (Auto) 29.2 [place] % (Auto) 8.8 Eos % (Auto) 1.2 Baso % (Auto) 0.4 Absolute Neuts (auto) 5.6 Absolute Lymphs (auto) 2.72 Nucleated RBC % 0 Sodium 138 Potassium 3.8 Chloride 105 Carbon Dioxide 26.0 Anion Gap 7 BUN 16 Creatinine 0.91 Estim Creat Clear Calc 59.76 Est GFR (MDRD) Af Amer 80 Est GFR (MDRD) Non-Af 66 BUN/Creatinine Ratio 17.6 Glucose 145 H Calcium 9.1 Total Bilirubin 0.30 Direct Bilirubin 0.12 AST 14 L ALT 25 Alkaline Phosphatase 100 Troponin I High Sens 10 11 Total Protein 7.8 Albumin 3.7 Globulin 4.1 Lipase 65 Radiography Diagnostic Testing: Clinical Impression(s) from Imaging Studies Chest X-Ray 12/18/24 14:45 IMPRESSION: No active cardiopulmonary disease. Reading Location: [facility] EKG EKG shows a sinus bradycardia: Attestation: I personally reviewed and interpreted this EKG as follows: Interpretation: Sinus Rhythm Comments: Sinus bradycardia, rate 52 bpm, MI interval 138 ms, QRS duration 82 ms, no acute ST elevation, no acute infarct noted. Treatment and Re-Evaluation :: Differential diagnosis includes however is not limited to: Hypertensive urgency, ACS, DC, PE, muscle strain Patient is hypertensive however patient did not take any of her blood pressure medicine for several months. Remainder the vital signs are stable. Presenting to the emergency department for right sided chest wall pain. On my physical examination, this did seem to be very muscle skeletal, any sort of palpation, movement does cause pain. Patient will receive a cardiac workup including troponin, basic laboratory values as well as a lipase and liver profile. Chest x-ray will be obtained. All radiologic examinations were read, reviewed by the emergency department attending. From these reads, a plan of care will be put in place. Patient will receive IV morphine, IV Zofran for the pain. Patient will need to be reevaluated. Patient after receiving IV morphine did have improvement of symptoms. Patient's chest x-ray shows no acute cardiopulmonary disease. Patient's laboratory values showed normal CBC, patient's chemistries were unremarkable, initial troponin was 10, repeat was 11 this is negative. Patient's lipase was negative. Patient received a second dose of IV morphine. At this time, there are no EKG changes. No evidence of any ACS or DC. I believe that the pain is mostly muscle skeletal. Patient will continue take Tylenol at home. She will follow-up with her PCP, I will provide her with amlodipine 10 mg daily. This is what she was on a couple months ago. All questions were answered, patient struck to return for any worsening symptoms, stable for discharge. <Rodriguez Scott MD - Last Filed: 12/18/24 18:26> MDM MDM Narrative Medical decision making narrative: Dr. Scott: I have personally performed a face to face assessment of the patient and have reviewed the RAYO Note. I performed a substantive portion of the visit including all aspects of the following. My putnam findings include: History is right sided chest pain, mid axillary line on ribs, no trauma. Exam is afebrile. Vital signs noted. No crepitance of chest. Cardiovascular examination regular rate and rhythm. Lungs clear to auscultation bilaterally. Reproducible right mid axillary line chest pain, on intercostals as well. Medical Decision Making: Chest pain workup. Differential diagnosis includes but not limited to ACS versus chest wall pain versus intercostal strain. Check EKG. Serial troponins negative at 10, and 11. Analgesia. Discharge. Other additions or changes: [None] History & Record Review Discussion w/independent historian: Patient Lab Data Attestation: I reviewed the patient's lab results. Labs: Laboratory Results - last 24 hr 12/18/24 12/18/24 14:20 16:33 WBC 9.3 RBC 4.79 Hgb 15.2 H Hct 42.4 MCV 88.5 MCH 31.7 MCHC 35.8 RDW Std Deviation 40.0 RDW Coeff of Carol 12.3 Plt Count 305 MPV 10.0 Immature Gran % (Auto) 0.300 Neut % (Auto) 60.1 Lymph % (Auto) 29.2 [place] % (Auto) 8.8 Eos % (Auto) 1.2 Baso % (Auto) 0.4 Absolute Neuts (auto) 5.6 Absolute Lymphs (auto) 2.72 Nucleated RBC % 0 Sodium 138 Potassium 3.8 Chloride 105 Carbon Dioxide 26.0 Anion Gap 7 BUN 16 Creatinine 0.91 Estim Creat Clear Calc 59.76 Est GFR (MDRD) Af Amer 80 Est GFR (MDRD) Non-Af 66 BUN/Creatinine Ratio 17.6 Glucose 145 H Calcium 9.1 Total Bilirubin 0.30 Direct Bilirubin 0.12 AST 14 L ALT 25 Alkaline Phosphatase 100 Troponin I High Sens 10 11 Total Protein 7.8 Albumin 3.7 Globulin 4.1 Lipase 65 Radiography Diagnostic Testing: Clinical Impression(s) from Imaging Studies Chest X-Ray 12/18/24 14:45 IMPRESSION: No active cardiopulmonary disease. Reading Location: [facility] Discharge Plan Triage Chief Complaint: Chest Pain ED Midlevel Provider: Jozef [place] ED Provider: Rodriguez Scott Dx/Rx/DC Orders Clinical Impression: Chest wall pain, Hypertension, History of medication noncompliance Instructions: ED Chest Pain, Noncardiac, ED Hypertension, Established, ED Hypertension, To Be Confirmed Prescriptions: New amlodipine 10 mg tablet 10 mg PO DAILY 30 Days Qty: 30 1RF No Action paroxetine HCl [Paxil] 10 mg tablet 10 mg PO DAILY trazodone 100 mg tablet 100 mg PO QHS amlodipine 10 mg Tablet 10 mg PO DAILY Qty: 30 1RF Primary Care Provider: Robin Parish Referrals: Robin Parish DO [Primary Care Provider] - Activity Restrictions/Additional Instructions: Take the hypertensive medication as prescribed. Print Language: Monegasque Disposition Disposition: Home, Self Care Discharge Date/Time: 12/18/24 17:36
[2024-12-18] MEDS: Ondansetron 4 MG/2 ML Vial IV (15:02)
[2024-12-18] MEDS: amLODIPine 10 MG Tablet PO (15:02)
[2024-12-18] MEDS: Morphine 4 MG/ML Syringe IV ×2 (15:02→17:26)
[2024-12-18 15:07] VITALS: BP 186/84; PULSE 65; RESP 16; O2SAT 99
[2024-12-18 15:46] LABS: AST(SGOT) 14 U/L (15-37); Alanine Aminotransfer ALT/SGPT 25 U/L (13-56); Albumin, Serum 3.7 g/dL (3.2-5.0); Alkaline Phosphatase 100 U/L (45-117); Bilirubin, Direct 0.12 mg/dL (0.00-0.30); Globulin 4.1 g/dL (2.2-4.2); Lipase 65 U/L (13-75); Protein, Total 7.8 g/dL (6.4-8.2)
[2024-12-18 16:00] VITALS: BP 175/70; PULSE 51; RESP 16; O2SAT 99
[2024-12-18 16:21] LABS: Reflex Troponin-HS? (from REC) Y
[2024-12-18 17:00] VITALS: BP 178/71; PULSE 56; RESP 16; O2SAT 99
[2024-12-18 17:06] LABS: Troponin-I HS 11 pg/mL (3.0-54.0)
[2024-12-18 17:32] VITALS: BP 182/92; PULSE 87; RESP 16; TEMP 36.8; O2SAT 99
== END 2024-12-18 17:36 | disposition home or self-care (01) ==
PROVIDERS: Nurse Practitioner; Emergency Provider Emergency Medicine; PCP Family Medicine; Visit Provider Emergency Medicine
DX: R07.89 Other chest pain (principal); G35 Multiple sclerosis; I10 Essential (primary) hypertension; Z91.148 Patient's other noncompliance with medication regimen for other reason; Z79.899 Other long term (current) drug therapy
CPT/HCPCS: 71045; 80048; 80076; 83690; 84484; 85025; 93005; 96374; 96375; 96376; 99284; A4216; J2405

== ENCOUNTER → 2025-02-04 | Outpatient (CLI) | payer MEDICARE, SELFPAY ==
[2025-02-04 11:03] LABS: Absolute Lymphocyte Count 1.37 X10^3/uL (0.83-4.51); Absolute Neutrophil Count 5.3 X10^3/uL (2.0-7.7); Basophil# 0.03 X10^3/uL; Basophil% 0.4 % (0-1); Eosinophils% 1.3 % (0-5); Hematocrit 42.2 % (37-47); Hemoglobin 14.9 g/dL (12.0-15.0); Lymphocyte # 1.37 X10^3/ul (0.83-4.51); Lymphocyte % 18.4 % (19-41); Mean Corp Hgb Conc 35.3 g/dL (32-36); Mean Corpuscular Hgb 31.7 pg (27.0-32.0); Mean Corpuscular Volume 89.8 fL (81-99); Mean Platelet Vol. 10.7 fl (6.2-12.0); Monocyte# 0.61 X10^3/uL; Monocyte% 8.2 % (0-10); NRBC Flagged by Analyzer 0 % (0-5); Neutrophil # 5.33 X10^3/uL (2.7-7.7); Neutrophil % 71.4 % (47-70); Platelet Count 310 K/mm3 (150-450); RBC Distribution Width CV 12.5 % (11.6-14.6); RBC Distribution Width SD 41.1 fl (35.1-43.9); White Blood Count 7.5 K/mm3 (4.4-11.0)
[2025-02-04 11:18] LABS: Microalbumin,Random Urine 15.1 mg/L (NO RANGE EST.)
[2025-02-04 11:32] LABS: ALB/GLOB Ratio 1.4 RATIO (0.9-2.4); AST(SGOT) 24 U/L (<=31); Alanine Aminotransfer ALT/SGPT 26 U/L (<=34); Albumin, Serum 4.4 g/dL (3.4-4.8); Alkaline Phosphatase 88 U/L (35-104); Anion Gap 14 (5-15); BUN 14 mg/dL (4-19); BUN/Creat Ratio 18.7 RATIO (10-20); Calcium,Total 9.2 mg/dL (7.6-11.0); Carbon Dioxide 20.1 mmol/L (21.0-32.0); Chloride 104 mmol/L (98-108); Creatinine, Serum 0.76 mg/dL (0.70-1.20); EST Glomerular Filtration Rate 86 (>60); Globulin 3.2 g/dL (2.2-4.2); Glucose 210 mg/dL (70-99); Potassium 4.1 mmol/L (3.3-5.1); Protein, Total 7.7 g/dL (5.9-8.4); Sodium Level 138 mmol/L (133-145); Total Bilirubin 0.66 mg/dL (0.00-1.30)
[2025-02-04 11:42] LABS: Hemoglobin A1c 7.4 % (<=5.6)
[2025-02-04 12:04] LABS: Cholesterol 172 mg/dL (<=200); High Density Lipoprotein 67 mg/dL; Low Density Lipoprotein Calc. 87 mg/dL; Triglycerides 91 mg/dL; Very Low Density Lipoprotein 18 mg/dL (5-40); cholesterol:hdl ratio screen 2.59
== END | disposition home or self-care (01) ==
LOC: MTLAB 08:12
PROVIDERS: PCP Family Medicine; Referring Provider Family Medicine; Visit Provider Family Medicine
DX: E11.9 Type 2 diabetes mellitus without complications (principal); E78.5 Hyperlipidemia, unspecified; I10 Essential (primary) hypertension
CPT/HCPCS: 36415; 80053; 80061; 82043; 83036; 85025

== ENCOUNTER 2025-03-10 13:49 | Emergency (ER) | payer MEDICARE, SELFPAY ==
[2025-03-10 13:49] VITALS: BP 125/69; PULSE 96; RESP 18; TEMP 36.6; O2SAT 94; O2SAT 97
[2025-03-10 14:15] LABS: Absolute Lymphocyte Count 3.77 X10^3/uL (0.83-4.51); Absolute Neutrophil Count 6.3 X10^3/uL (2.0-7.7); Basophil# 0.05 X10^3/uL; Basophil% 0.4 % (0-1); Eosinophil# 0.19 X10^3/uL; Eosinophils% 1.7 % (0-5); Hematocrit 42.7 % (37-47); Hemoglobin 14.9 g/dL (12.0-15.0); Lymphocyte # 3.77 X10^3/ul (0.83-4.51); Lymphocyte % 33.4 % (19-41); Mean Corp Hgb Conc 34.9 g/dL (32-36); Mean Corpuscular Hgb 31.5 pg (27.0-32.0); Mean Corpuscular Volume 90.3 fL (81-99); Mean Platelet Vol. 10.5 fl (6.2-12.0); Monocyte# 0.94 X10^3/uL; Monocyte% 8.3 % (0-10); NRBC Flagged by Analyzer 0 % (0-5); Neutrophil # 6.29 X10^3/uL (2.7-7.7); Neutrophil % 55.8 % (47-70); Platelet Count 324 K/mm3 (150-450); RBC Distribution Width CV 12.7 % (11.6-14.6); RBC Distribution Width SD 42.1 fl (35.1-43.9); Red Blood Count 4.73 M/mm3 (4.2-5.4); White Blood Count 11.3 K/mm3 (4.4-11.0)
[2025-03-10 14:24] LABS: Anion Gap 14 (5-15); BUN 13 mg/dL (4-19); BUN/Creat Ratio 19.4 RATIO (10-20); Calcium,Total 9.1 mg/dL (7.6-11.0); Carbon Dioxide 22.2 mmol/L (21.0-32.0); Chloride 104 mmol/L (98-108); Creatinine, Serum 0.68 mg/dL (0.70-1.20); EST Glomerular Filtration Rate 97 (>60); Glucose 75 mg/dL (70-99); Potassium 3.2 mmol/L (3.3-5.1); Sodium Level 140 mmol/L (133-145); Troponin T High Sensitivity 11 ng/L (<=14)
--- NOTE | 2025-03-10 14:38 | RAD_ITS ---
PROCEDURE: CHEST PA AND LATERAL 03/10/2025 REASON FOR EXAM: CHEST PAIN TECHNIQUE: Frontal and lateral views of the chest. COMPARISON: Prior study dated July 01, 2023. FINDINGS: Hardware: None Heart: The heart size is normal. Mediastinum: Tortuosity of the descending thoracic aorta. Lungs: There are granulomatous calcifications. The lungs are otherwise clear. Bones: Demineralization of the thoracic vertebrae. Prior vertebroplasty of a lower thoracic vertebrae. RAD/Chest PA and Lateral IMPRESSION: NO ACUTE FINDINGS. Reading Location: [place] [id number]
[2025-03-10 15:30] VITALS: BP 147/82; PULSE 54; RESP 20; O2SAT 95
--- NOTE | 2025-03-10 15:37 | ED.VIS.CHEST ---
HPI History of Present Illness Chief Complaint: Chest Pain Narrative Narrative: Chief complaint and HPI: Chest pain. 64-year-old female with past medical history of chronic back pain with lumbar radiculopathy, DM 2, HTN who presents for evaluation of chest pain. Patient states yesterday she developed general malaise and cough. States she was coughing all night with little sleep. Woke up today feeling fatigued and had bodyaches. States she called off of work. Shortly after coughing she developed sharp left-sided chest pain that radiated down the arm so she called EMS. EMS gave 1 nitro and patient was brought to the emergency department. Patient currently denying any chest pain. Denies shortness of breath, nausea, vomiting. No history of tobacco abuse. Denies a history of DVT/PE, blood clotting disorder, recent trauma or surgery, extremity swelling, recent travel. Review of systems: See HPI Medications: As listed on the chart Allergies: As listed on the chart PFSH: Per chart Vital signs: As listed on the chart. Reviewed. Physical exam: Gen: A&O x3, NAD Head: Normocephalic, atraumatic Eyes: No sclera icterus, conjunctiva clear ENT: Moist mucous membranes, + nasal congestion Neck: Trachea midline, No JVD CV: RRR, no murmurs, no peripheral edema Resp: Lungs CTA BL, no w/r/c, + cough GI: Abd soft, non-distended, non-tender, no r/r/g Musc: Full ROM, no deformity Skin: Warm, dry Neuro: Alert, oriented, grossly intact, sensation intact Psych: Cooperative, appropriate mood and affect [facility] Medical History Lumbar vertebral fracture Bulging lumbar disc Bradycardia Rheumatoid arthritis Multiple sclerosis Diabetes Depressed Anxiety Hypertension Home Medications ?Medication ?Instructions ?Recorded ?Last Taken ?Type paroxetine HCl 10 mg tablet (Paxil) 10 mg PO DAILY mental health 01/02/23 06/30/23 History trazodone 100 mg tablet 100 mg PO QHS sleep 01/02/23 06/30/23 History amlodipine 10 mg tablet 10 mg PO DAILY #30 tabs 07/02/23 Unknown Rx alendronate 70 mg tablet 70 mg PO QWEEK 03/10/25 03/08/25 History doxazosin 2 mg tablet 2 mg PO DAILY 03/10/25 03/09/25 History glimepiride 2 mg tablet 2 mg PO BID 03/10/25 03/10/25 History guaifenesin 600 mg tablet, 600 mg PO BID PRN cough 03/10/25 03/10/25 History extended release 12 hr (Mucinex) meloxicam 15 mg tablet 15 mg PO DAILY 03/10/25 03/09/25 History metformin 500 mg tablet,extended 1,000 mg PO BID 03/10/25 03/10/25 History release 24 hr rosuvastatin 5 mg tablet 5 mg PO DAILY 03/10/25 03/09/25 History Allergy/AdvReac Type Severity Reaction Status Date / Time diphenhydramine Allergy Other Verified 03/10/25 13:52 lisinopril Allergy Other Verified 03/10/25 13:52 meloxicam (From Mobic) Allergy Hives Verified 03/10/25 13:52 meperidine (From Demerol) Allergy Hives Verified 03/10/25 13:52 ketorolac (From Toradol) AdvReac Other Verified 03/10/25 13:52 tramadol AdvReac Other Verified 03/10/25 13:52 Family History Aunt No problems noted. Other Alcoholism Anxiety Arthritis CVA (cerebral vascular accident) Depression Heart disease High cholesterol Hypertension Mental disorder Osteoporosis Rheumatoid arthritis Surgical History History of total hysterectomy History of tubal ligation History of delivery Social History household members: spouse Smoking Status: Never smoker alcohol intake: never substance use type: does not use EXAM Physical Exam Const Vital Signs: 03/10/25 13:49 03/10/25 15:29 03/10/25 15:30 Temperature 97.8 F Temperature Source Oral Pulse Rate 96 54 L Respiratory Rate 18 20 H Respiratory Effort Blood Pressure 125/69 H 147/82 H Blood Pressure Mean 87 103 Pulse Ox 94 95 Oxygen Delivery Method Room Air Room Air Room Air 03/10/25 15:30 03/10/25 16:00 03/10/25 16:30 Temperature Temperature Source Pulse Rate 56 L 66 Respiratory Rate 25 H 16 Respiratory Effort Normal Non-Labored Blood Pressure 136/67 H 138/81 H Blood Pressure Mean 88 100 Pulse Ox 96 95 Oxygen Delivery Method MDM MDM MDM Narrative Medical decision making narrative: 64-year-old female with past medical history of chronic back pain with lumbar radiculopathy, DM 2, HTN who presents for evaluation of chest pain. Chest pain has resolved. Was described as sharp. Started after cough and viral type symptoms. Differential diagnosis includes but is not limited to viral syndrome, pleurisy, pneumonia, suspect less likely ACS or PE. On chart review patient had echocardiogram on 07/01/2024 showed EF of 60%. Chest pain protocol was started in triage. I agree with the orders that were ordered. I did add on COVID, flu, RSV testing and D-dimer. CBC with mild leukocytosis 11.3. No anemia. BMP relatively unremarkable except for mild hypokalemia. P.o. potassium ordered. Troponin unremarkable x2. D-dimer unremarkable. COVID, flu, RSV negative. On reevaluation, patient is not having any chest pain. Her heart score 4 secondary to age and risk factors, places her at a moderate risk however given that her chest pain was sharp and she has had associated viral type symptoms with unremarkable troponin low suspicion for ACS. Patient was updated on all of her results and the plan for discharge home. Patient would like to discharge home. Follow-up with PCP. Return precautions explained. EKG: Interpreted by me/EM physician: EKG shows normal sinus rhythm with LVH. No acute ischemic changes. Diagnostic: Interpreted by me/EM physician: Chest x-ray without pneumonia, effusion, cardiomegaly, pneumothorax Impression: 1. Chest pain, resolved 2. Viral syndrome Lab Data Labs: Laboratory Results - last 24 hr 03/10/25 03/10/25 13:35 15:42 WBC 11.3 H RBC 4.73 Hgb 14.9 Hct 42.7 MCV 90.3 MCH 31.5 MCHC 34.9 RDW Std Deviation 42.1 RDW Coeff of Carol 12.7 Plt Count 324 MPV 10.5 Immature Gran % (Auto) 0.400 Neut % (Auto) 55.8 Lymph % (Auto) 33.4 [place] % (Auto) 8.3 Eos % (Auto) 1.7 Baso % (Auto) 0.4 Absolute Neuts (auto) 6.3 Absolute Lymphs (auto) 3.77 Nucleated RBC % 0 D-Dimer Quant (PE/DVT) 0.27 Sodium 140 Potassium 3.2 L Chloride 104 Carbon Dioxide 22.2 Anion Gap 14 BUN 13 Creatinine 0.68 L Est GFR (MDRD) Non-Af 97 BUN/Creatinine Ratio 19.4 Glucose 75 Calcium 9.1 Troponin T High Sens 11 Troponin T Hi Sens 2 Hr 7 Radiography Diagnostic Testing: Clinical Impression(s) from Imaging Studies Chest X-Ray 03/10/25 14:38 IMPRESSION: NO ACUTE FINDINGS. Reading Location: [place] [id number] Discharge Plan Triage Chief Complaint: Chest Pain ED Provider: Mukund Carl Dx/Rx/DC Orders Prescriptions: No Action paroxetine HCl [Paxil] 10 mg tablet 10 mg PO DAILY trazodone 100 mg tablet 100 mg PO QHS amlodipine 10 mg Tablet 10 mg PO DAILY Qty: 30 1RF amlodipine 10 mg tablet 10 mg PO DAILY 30 Days Qty: 30 1RF Primary Care Provider: Robin Parish Referrals: Robin Parish, DO [Primary Care Provider] - Print Language: Romansh
[2025-03-10 16:00] VITALS: BP 136/67; PULSE 56; RESP 25; O2SAT 96
[2025-03-10 16:06] LABS: Troponin T High Sens 2 HR 7 ng/L (<=14)
[2025-03-10 16:21] LABS: D-Dimer Quantitative (DVT/PE) 0.27 FEU/ug/m (0.27-0.49)
[2025-03-10] MEDS: Potassium Chloride Oral Soln 20 MEQ/15 ML UDC 40 MEQ PO (16:29)
[2025-03-10 16:30] VITALS: BP 138/81; PULSE 66; RESP 16; O2SAT 95
== END 2025-03-10 16:48 | disposition home or self-care (01) ==
PROVIDERS: Emergency Provider Surgery; PCP Family Medicine; Visit Provider Surgery
DX: R07.9 Chest pain, unspecified (principal); G35 Multiple sclerosis; E11.9 Type 2 diabetes mellitus without complications; B34.9 Viral infection, unspecified; E87.6 Hypokalemia; I10 Essential (primary) hypertension; Z79.84 Long term (current) use of oral hypoglycemic drugs; Z79.899 Other long term (current) drug therapy
CPT/HCPCS: 71046; 80048; 84484; 85025; 85379; 87631; 93005; 99285; A4216

== ENCOUNTER 2025-10-29 17:43 | Emergency (ER) | payer MEDICARE, SELFPAY ==
[2025-10-29 17:43] VITALS: BP 153/97; PULSE 65; RESP 18; TEMP 36.4; O2SAT 97; BMI 36.9
--- NOTE | 2025-10-29 18:07 | EKG12_ITS ---
Test Reason : CP Blood Pressure : */* mmHG Vent. Rate : 50 BPM Atrial Rate : 50 BPM P-R Int : 150 ms QRS Dur : 86 ms QT Int : 434 ms P-R-T Axes : 2 -3 91 degrees QTcB Int : 395 ms Sinus bradycardia Left ventricular hypertrophy with repolarization abnormality ( R in aVL ) Abnormal ECG Confirmed by VALERY SIM, KEYLA ([id number]), publications editor LESVIA CLINE ([id number]) on 11/01/2025 6:50:10 AM Referred By: KEYONNA/ONOFRE Confirmed By: KEYLA RASMUSSEN MD
--- NOTE | 2025-10-29 18:14 | ED.VIS.CHEST ---
HPI History of Present Illness Chief Complaint: Chest Pain Narrative Narrative: Chief complaint and HPI: 65-year-old female with past medical history of MS, DM2, HTN, anxiety/depression, HLD presents for evaluation of chest pain. Patient states she was driving when around 4 PM she began having sharp lower midsternal chest pain. She states it radiates to the back as well as the left shoulder. Worse when she takes a deep breath then. Worse with movement. She denies lifting anything heavy. She denies any history of CAD. Non-smoker. Denies a history of DVT/PE,leg swelling or recent travel. Review of systems: See HPI Medications: As listed on the chart Allergies: As listed on the chart PFSH: Per chart Vital signs: As listed on the chart. Reviewed. Physical exam: Gen: A&O x3 Head: Normocephalic, atraumatic Eyes: No sclera icterus, conjunctiva clear ENT: Moist mucous membranes Neck: Trachea midline, No JVD CV: RRR, no murmurs, patient has tenderness to palpation of the anterior ribs bilaterally where they insert on the sternum -recreates her pain-no signs of trauma, no peripheral edema, radial pulse +2 bilaterally Resp: Lungs CTA BL, no w/r/c GI: Abd soft, non-distended, non-tender, no r/r/g Musc: Moves all extremities, no deformity Skin: Warm, dry Psych: Cooperative, appropriate mood and affect [facility] Medical History Lumbar vertebral fracture Bulging lumbar disc Bradycardia Rheumatoid arthritis Multiple sclerosis Diabetes Depressed Anxiety Hypertension Home Medications ?Medication ?Instructions ?Recorded ?Last Taken ?Type paroxetine HCl 10 mg tablet (Paxil) 10 mg PO DAILY mental health 01/02/23 03/10/25 History trazodone 100 mg tablet 100 mg PO QHS sleep 01/02/23 03/09/25 History amlodipine 10 mg tablet 10 mg PO DAILY #30 tabs 07/02/23 03/10/25 Rx alendronate 70 mg tablet 70 mg PO QWEEK 03/10/25 03/08/25 History doxazosin 2 mg tablet 2 mg PO DAILY 03/10/25 03/09/25 History glimepiride 2 mg tablet 2 mg PO BID 03/10/25 03/10/25 History guaifenesin 600 mg tablet, 600 mg PO BID PRN cough 03/10/25 03/10/25 History extended release 12 hr (Mucinex) meloxicam 15 mg tablet 15 mg PO DAILY 03/10/25 03/09/25 History metformin 500 mg tablet,extended 1,000 mg PO BID 03/10/25 03/10/25 History release 24 hr rosuvastatin 5 mg tablet 5 mg PO DAILY 03/10/25 03/09/25 History Allergy/AdvReac Type Severity Reaction Status Date / Time diphenhydramine Allergy Other Verified 10/29/25 17:44 lisinopril Allergy Other Verified 10/29/25 17:44 meloxicam (From Mobic) Allergy Hives Verified 10/29/25 17:44 meperidine (From Demerol) Allergy Hives Verified 10/29/25 17:44 ketorolac (From Toradol) AdvReac Other Verified 10/29/25 17:44 tramadol AdvReac Other Verified 10/29/25 17:44 Family History Aunt No problems noted. Other Alcoholism Anxiety Arthritis CVA (cerebral vascular accident) Depression Heart disease High cholesterol Hypertension Mental disorder Osteoporosis Rheumatoid arthritis Surgical History History of total hysterectomy History of tubal ligation History of delivery Social History household members: spouse Smoking Status: Never smoker alcohol intake: never substance use type: does not use EXAM Physical Exam Const Vital Signs: 10/29/25 17:43 10/29/25 18:43 10/29/25 19:00 Temperature 97.5 F L Temperature Source Oral Pulse Rate 65 62 51 L Respiratory Rate 18 18 Blood Pressure 153/97 H 157/69 H 171/93 H Blood Pressure Mean 115 98 119 Pulse Ox 97 96 92 Oxygen Delivery Method Room Air Room Air 10/29/25 19:51 10/29/25 20:00 Temperature Temperature Source Pulse Rate 52 L Respiratory Rate 17 Blood Pressure 138/75 H 149/74 H Blood Pressure Mean 96 99 Pulse Ox 92 Oxygen Delivery Method Room Air MDM MDM MDM Narrative Medical decision making narrative: 65-year-old female with past medical history of MS, DM2, HTN, anxiety/depression, HLD presents for evaluation of chest pain. Patient states she was driving when around 4 PM she began having sharp lower midsternal chest pain. She states it radiates to the back as well as the left shoulder. Worse when she takes a deep breath then. Worse with movement. Pain is reproducible. Differential diagnosis includes but is not limited to myofascial spasm/costochondritis, dissection, PE, hypertension urgency/emergency, pleurisy, ACS, electrolyte abnormality, suspect less likely intra-abdominal pathology. Aspirin, morphine, NS bolus ordered. CTA chest ordered with cardiac workup. Patient's hypertension is worsening, IV hydralazine ordered. CBC unremarkable without leukocytosis or anemia. CMP unremarkable. Lipase unremarkable. BMP unremarkable. CTA chest negative for dissection or acute intrathoracic abnormality. Possible pulmonary arterial hypertension. Patient has a benign 18 mm right adrenal adenoma. Diffuse hepatic steatosis. Patient's blood pressure had actually improved with pain control therefore hydralazine was never given. Troponin unremarkable x 2. On reevaluation, patient's chest pain has resolved. Given that her chest pain was reproducible, I suspect more costochondritis versus myofascial spasm. Recommend ibuprofen and Tylenol as needed for pain. Follow-up with primary care physician. Return back to ED symptoms change or worsen. She confirmed understand the plan. She was updated on the incidental findings of her CT including the adrenal adenoma. EKG: Interpreted by me/EM physician: EKG shows sinus bradycardia without any acute ischemic changes. Heart rate 50. Impression: 1. Chest pain 2. Incidental adrenal adenoma Lab Data Labs: Laboratory Results - last 24 hr 10/29/25 10/29/25 18:23 20:10 WBC 8.9 RBC 4.51 Hgb 14.1 Hct 40.1 MCV 88.9 MCH 31.3 MCHC 35.2 RDW Std Deviation 40.5 RDW Coeff of Carol 12.4 Plt Count 301 MPV 9.9 Immature Gran % (Auto) 0.200 Neut % (Auto) 65.0 Lymph % (Auto) 24.6 [place] % (Auto) 8.8 Eos % (Auto) 1.0 Baso % (Auto) 0.4 Absolute Neuts (auto) 5.8 Absolute Lymphs (auto) 2.19 Nucleated RBC % 0 Sodium 140 Potassium 3.8 Chloride 103 Carbon Dioxide 24.6 Anion Gap 12 BUN 18 Creatinine 0.83 Estim Creat Clear Calc 64.83 Est GFR (MDRD) Non-Af 77 BUN/Creatinine Ratio 21.0 H Glucose 126 H Calcium 9.5 Total Bilirubin 0.28 AST 19 ALT 17 Alkaline Phosphatase 73 Troponin T High Sens 9 D Troponin T Hi Sens 2 Hr 9 NT pro BNP II < 36 Total Protein 6.9 Albumin 4.1 Globulin 2.9 Albumin/Globulin Ratio 1.4 Lipase 49 Radiography Diagnostic Testing: Clinical Impression(s) from Imaging Studies Chest CTA 10/29/25 18:45 IMPRESSION: No acute intrathoracic abnormality. No aortic aneurysm or dissection. Reading Location: [id number] Discharge Plan Triage Chief Complaint: Chest Pain ED Provider: Mukund Carl Dx/Rx/DC Orders Prescriptions: No Action paroxetine HCl [Paxil] 10 mg tablet 10 mg PO DAILY trazodone 100 mg tablet 100 mg PO QHS amlodipine 10 mg Tablet 10 mg PO DAILY Qty: 30 1RF meloxicam 15 mg tablet 15 mg PO DAILY Patient Comments: PT TAKES AT BEDTIME alendronate 70 mg tablet 70 mg PO QWEEK Patient Comments: PT TAKES OIN SATURDAY glimepiride 2 mg tablet 2 mg PO BID metformin 500 mg tablet extended release 24 hr 1,000 mg PO BID doxazosin 2 mg tablet 2 mg PO DAILY Patient Comments: PT TAKES AT BEDTIME rosuvastatin 5 mg tablet 5 mg PO DAILY Patient Comments: PT TAKES AT BEDTIME guaifenesin [Mucinex] 600 mg tablet extended release 12hr 600 mg PO BID PRN (Reason: cough) Primary Care Provider: Robin Parish Referrals: Robin Parish DO [Primary Care Provider, Family Practice] Print Language: [place]
[2025-10-29] MEDS: 0.9% Normal Saline (1000mL) 1,000 ML 1000 ML IV (18:24)
--- OUTSIDE RECORDS SUMMARY | 2025-10-29 18:34 | XMS RPT_ITS | CCD ---
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 likely tenosynovitis. I will treat her with a thumb spica Velcro splint. Recommend she take anti-inflammatories and follow-up with orthopedics. Her blood pressure was high today it was somewhat lower on recheck. She states has been compliant with her blood pressure medications. She is not having any symptoms at this time secondary to her elevated blood pressure but I strongly advised her to make a appointment with her primary care physician as she will likely need additional medication or higher dose of her blood pressure medication. Differential Diagnoses - Hypertensive emergency is less likely for the following reason(s): HANDP not suggestive - Hand fracture is less likely for the following reason(s): no evidence on imaging and HANDP not suggestive - Wrist fracture is less likely for the following reason(s): HANDP not suggestive and no evidence on imaging Management I performed an independent interpretation of the following:imaging Imaging: My interpretation is No fractures on x-ray Radiology Reports XR WRIST GENERAL 3V PA/LAT/OBL LEFT Final Result IMPRESSION: 1. No acute findings radiographically. 2. Degenerative changes as noted. Tool Design Drafter: HITESH Transcribe Date/Time: May 27 2025 4:21P Dictated by : LINDSAY KUO MD This examination was interpreted and the report reviewed and electronically signed by: LINDSAY KUO MD on May 27 2025 4:22PM EST XR HAND GENERAL 3V PA/LAT/OBL LEFT Final Result IMPRESSION: 1. No acute findings radiographically. 2. Degenerative changes as described. Tool Design Drafter: [facility] Transcribe Date/Time: May 27 2025 4:27P Dictated by : LINDSAY KUO MD This examination was interpreted and the report reviewed and electronically signed by: LINDSAY KUO MD on May 27 2025 4:29PM EST Contributing Factors Chronic conditions affecting care: diabetes and hypertension Chronic conditions addressed by: Monitored blood pressure while in ED Disposition The patient was discharged. Counseled patient regarding radiology results and suspected diagnosis. Prescriptions and Discharge Orders Discharge Orders None SIGNATU (more content not included)... [facility] Patient Letteron 05-27-2025 Patient Letter May 27, 2025 HELEN LOVETT [address] [place] [address] Dear Helen, Our records indicate that you are due for a colonoscopy with Dr Albarran. Please call the office at [phone] to schedule an appointment. Thank you, [facility] , [facility] XR HAND 3V PA/LAT/OBL LTon 0 05-27-2025 XR HAND 3V PA/LAT/OBL LT * * *Final Report* * * DATE OF EXAM: May 27 2025 4:12PM LDX 5345 - XR HAND 3V PA/LAT/OBL LT / PROCEDURE REASON: Arthritis * * * * Physician Interpretation * * * * EXAM TITLE: XR HAND 3V PA/LAT/OBL LT DATE: 05/27/2025 INDICATION: Left finger pain. COMPARISON: None. PA, oblique, lateral views of the left hand show no acute fracture. No acute malalignment. Advanced degenerative changes are seen at the carpal metacarpal joint of the thumb. Advanced degenerative changes are also seen involving distal interphalangeal joint of the left second digit. Lesser degrees of degenerative changes are noted involving nearly all of the remaining interphalangeal joints. No bone erosion or bone destruction. IMPRESSION: 1. No acute findings radiographically. 2. Degenerative changes as described. Tool Design Drafter: [facility] Transcribe Date/Time: May 27 2025 4:27P Dictated by : LINDSAY KUO MD This examination was interpreted and the report reviewed and electronically signed by: LINDSAY KUO MD on May 27 2025 4:29PM EST [id number] CN Normal [facility] XR WRIST 3V PA/LAT/OBL LTon 05-27-2025 XR WRIST 3V PA/LAT/OBL LT * * *Final Report* * * DATE OF EXAM: May 27 2025 4:12PM LDX 5270 - XR WRIST 3V PA/LAT/OBL LT / PROCEDURE REASON: Wrist pain * * * * Physician Interpretation * * * * EXAM TITLE: XR WRIST 3V PA/LAT/OBL LT DATE: 05/27/2025 INDICATION: Left wrist pain. COMPARISON: None. PA, oblique, lateral views of the left wrist show no fracture. Normal alignment. Advanced degenerative changes noted at the carpal metacarpal joint of the thumb and the scaphoid/trapezoid and trapezium articulations. No bone erosion or bone destruction. IMPRESSION: 1. No acute findings radiographically. 2. Degenerative changes as noted. Tool Design Drafter: [facility] Transcribe Date/Time: May 27 2025 4:21P Dictated by : LINDSAY KUO MD This examination was interpreted and the report reviewed and electronically signed by: LINDSAY KUO MD on May 27 2025 4:22PM EST [id number] CN Normal [facility] Basic Metabolic Profile (BMP )on 03-10-2025 BUN/CRE 19.4 RATIO Normal 09-06 [facility] Comment on above: Performed By: #### L 499.0043 #### [facility] [address] [place], [address] Calcium [Mass/Vol] 9.1 mg/dL Normal 7.6-11.0 [facility] Comment on above: Performed By: #### L 499.0043 #### [facility] [address] [place], [address] Chloride [Moles/Vol] 104 mmol/L Normal 98-108 [facility] Comment on above: Performed By: #### L 499.0043 #### [facility] [address] [place], [address] CO2 [Moles/Vol] 22.2 mmol/L Normal 21.0-32.0 [facility] Comment on above: Performed By: #### L 499.0043 #### [facility] [address] [place], [address] Creatinine [Mass/Vol] 0.68 mg/dL Low 0.70-1.20 [facility] Comment on above: Performed By: #### L 499.0043 #### [facility] [address] [place], [address] GAP 14 Normal 5-15 [facility] Comment on above: Performed By: #### L 499.0043 #### [facility] [address] [place], [address] GFR/1.73 sq M.predicted among non-blacks MDRD (S/P/Bld) [Vol rate/Area] 97 mL/min/{1.73_m2} Normal >60 [facility] Comment on above: Result Comment: mL/m in/1.73m2 CKD-EPI Creatinine Equation (2020) Performed By: #### L 499.0043 #### [facility] [address] [place], [address] Glucose [Mass/Vol] 75 mg/dL Normal 70-99 [facility] Comment on above: Performed By: #### L 499.0043 #### [facility] [address] [place], [address] Potassium [Moles/Vol] 3.2 mmol/L Low 3.3-5.1 [facility] Comment on above: Performed By: #### L 499.0043 #### [facility] [address] [place], [address] Sodium [Moles/Vol] 140 mmol/L Normal 133-145 [facility] Comment on above: Performed By: #### L 499.0043 #### [facility] [address] [place], [address] Urea nitrogen [Mass/Vol] 13 mg/dL Normal 4-19 [facility] Comment on above: Performed By: #### L 499.0043 #### [facility] [address] [place], [address] CBC W/Diff, Automatedon 04-12 21-2024 Absolute Lymph 3.77 X10 3/uL Normal 0.83-4.51 [facility] Comment on above: Performed By: #### L 499.0043 #### [facility] [address] [place], [address] Absolute Neut 6.3 X10 3/uL Normal 2.0-7.7 [facility] Comment on above: Performed By: #### L 499.0043 #### [facility] [address] [place], [address] Basophils/100 WBC (Bld) 0.4 % Normal 0-1 [facility] Comment on above: Performed By: #### L 499.0043 #### [facility] [address] [place], [address] Eosinophils/100 WBC (Bld) 1.7 % Normal 0-5 [facility] Comment on above: Performed By: #### L 499.0043 #### [facility] [address] [place], [address] Erythrocyte distribution width (RBC) [Ratio] 12.7 % Normal 11.6-14.6 [facility] Comment on above: Performed By: #### L 499.0043 #### [facility] [address] [place], [address] Hematocrit (Bld) [Volume fraction] 42.7 % Normal 37-47 [facility] Comment on above: Performed By: #### L 499.0043 #### [facility] [address] [place], [address] Hemoglobin (Bld) [Mass/Vol] 14.9 g/dL Normal 12.0-15.0 [facility] Comment on above: Performed By: #### L 499.0043 #### [facility] [address] [place], [address] IG% 0.400 Normal 0.0-0.9 [facility] Comment on above: Result Comment: IG% - Immature Granulocytes (promyelocytes, myelocytes and metamyelocytes) > 1% indicates that a LEFT SHIFT is Present. Performed By: #### L 499.0043 #### [facility] [address] [facility], [address] Lymphocytes/100 WBC (Bld) 33.4 % Normal 19-41 [facility] Comment on above: Performed By: #### L 499.0043 #### [facility] [address] [facility] [place], [address] MCH (RBC) [Entitic mass] 31.5 pg Normal 27.0-32.0 [facility] Comment on above: Performed By: #### L 499.0043 #### [facility] [address] [facility] [place], [address] MCHC (RBC) [Mass/Vol] 34.9 g/dL Normal 32-36 [facility] Comment on above: Performed By: #### L 499.0043 #### [facility] [address] [place], [address] MCV (RBC) [Entitic vol] 90.3 fL Normal 81-99 [facility] Comment on above: Performed By: #### L 499.0043 #### [facility] [address] [place], [address] Monocytes/100 WBC (Bld) 8.3 % Normal 0-10 [facility] Comment on above: Performed By: #### L 499.0043 #### [facility] [address] [place], [address] Neutrophils/100 WBC (Bld) 55.8 % Normal 47-70 [facility] Comment on above: Performed By: #### L 499.0043 #### [facility] [address] [place], [address] Nucleated RBC (Bld) [#/Vol] 0 10*3/uL Normal 0-5 [facility] Comment on above: Performed By: #### L 499.0043 #### [facility] [address] [place], [address] Platelet mean volume (Bld) [Entitic vol] 10.5 fL Normal 6.2-12.0 [facility] Comment on above: Performed By: #### L 499.0043 #### [facility] [address] [place], [address] Platelets (Bld) [#/Vol] 324 10*3/uL Normal 150-450 [facility] Comment on above: Performed By: #### L 499.0043 #### [facility] [address] [place], [address] RBC (Bld) [#/Vol] 4.73 10*6/uL Normal 4.2-5.4 [facility] Comment on above: Performed By: #### L 499.0043 #### [facility] [address] [place], [address] RDW SD 42.1 fl Normal 35.1-43.9 [facility] Comment on above: Performed By: #### L 499.0043 #### [facility] [address] [place], [address] WBC (Bld) [#/Vol] 11.3 10*3/uL High 4.4-11.0 [facility] Comment on above: Performed By: #### L 499.0043 #### [facility] [address] [place], [address] Absolute Neut Normal 2.0-7.7 [facility] Comment on above: Result Comment: Canc elled via OM: Duplicate Order Performed By: #### L 500.3400, L501.2450 #### [facility] [address] [place], [address] HCT Normal 37-47 [facility] Comment on above: Result Comment: Canc elled via OM: Duplicate Order Performed By: #### L 500.3400, L501.2450 #### [facility] [address] [place], [address] HGB Normal 12.0-15.0 [facility] Comment on above: Result Comment: Canc elled via OM: Duplicate Order Performed By: #### L 500.3400, L501.2450 #### [facility] [address] [place], [address] MCH Normal 27.0-32.0 [facility] Comment on above: Result Comment: Canc elled via OM: Duplicate Order Performed By: #### L 500.3400, L501.2450 #### [facility] [address] [place], [address] MCHC Normal 32-36 [facility] Comment on above: Result Comment: Canc elled via OM: Duplicate Order Performed By: #### L 500.3400, L501.2450 #### [facility] [address] [place], [address] MCV Normal 81-99 [facility] Comment on above: Result Comment: Canc elled via OM: Duplicate Order Performed By: #### L 500.3400, L501.2450 #### [facility] [address] [place], [address] NEUT% Normal 47-70 [facility] Comment on above: Result Comment: Canc elled via OM: Duplicate Order Performed By: #### L 500.3400, L501.2450 #### [facility] [address] [place], [address] PLT Normal 150-450 [facility] Comment on above: Result Comment: Canc elled via OM: Duplicate Order Performed By: #### L 500.3400, L501.2450 #### [facility] [address] [place], [address] RBC Normal 4.2-5.4 [facility] Comment on above: Result Comment: Canc elled via OM: Duplicate Order Performed By: #### L 500.3400, L501.2450 #### [facility] [address] [place], [address] RDW CV Normal 11.6-14.6 [facility] Comment on above: Result Comment: Canc elled via OM: Duplicate Order Performed By: #### L 500.3400, L501.2450 #### [facility] [address] [place], [address] RDW SD Normal 35.1-43.9 [facility] Comment on above: Result Comment: Canc elled via OM: Duplicate Order Performed By: #### L 500.3400, L501.2450 #### [facility] [address] [place], [address] WBC Normal 4.4-11.0 [facility] Comment on above: Result Comment: Canc elled via OM: Duplicate Order Performed By: #### L 500.3400, L501.2450 #### [facility] [address] [place], [place], [address] Chest PA and Lateralon 03-10 Chest PA and Lateral [facility] Services [address] [place] [address] Chest PA and Lateral MR#: [id number] Acct: [id number] Name: HELEN LOVETT Rep #: [id number] : 1960 F 64 From: Brody mixon MD PCP: Dr. Breanna Parish DO Status: PRE ER Study: Chest PA and Lateral Date of Exam: 03/10/25 Exam# [id number] Ordering Dr: Provider,Ed P. PROCEDURE: CHEST PA AND LATERAL 03/10/2025 REASON FOR EXAM: CHEST PAIN TECHNIQUE: Frontal and lateral views of the chest. COMPARISON: Prior study dated July 01, 2023. FINDINGS: Hardware: None Heart: The heart size is normal. Mediastinum: Tortuosity of the descending thoracic aorta. Lungs: There are granulomatous calcifications. The lungs are otherwise clear. Bones: Demineralization of the thoracic vertebrae. Prior vertebroplasty of a lower thoracic vertebrae. RAD/Chest PA and Lateral IMPRESSION: NO ACUTE FINDINGS. Reading Location: [place] [address] CC: Dr. Breanna Parish DO; ED PHYSICIAN PROVIDER Tool Design Drafter: Signed Normal [facility] D-Dimer Quantitative (DVT/PE )on 03-10-2025 D-DIMER QUANT 0.27 FEU/ug/m Normal 0.27-0.49 [facility] Comment on above: Result Comment: NORM AL D-Dimer level (<0.50) indicates no DVT or PE. Performed By: #### L 300.8662 #### [facility] [address] [place], [place], [address] Emergency Department Summary on 03-10-2025 Emergency Department Summary [facility] Medical Records Department [address] [place] [address] Emergency Department Summary 03/10/25 MR#: [id number] Acct: [id number] Name: HELEN LOVETT Rep #: [id number] : 1960 64 From: Mukund Carl DO PCP: Dr. Breanna Parish, DO Status:REG ER Location: ED HPI History of Present Illness Chief Complaint: Chest Pain Narrative Narrative: Chief complaint and HPI: Chest pain. 64-year-old female with past medical history of chronic back pain with lumbar radiculopathy, DM 2, HTN who presents for evaluation of chest pain. Patient states yesterday she developed general malaise and cough. States she was coughing all night with little sleep. Woke up today feeling fatigued and had bodyaches. States she called off of work. Shortly after coughing she developed sharp left-sided chest pain that radiated down the arm so she called EMS. EMS gave 1 nitro and patient was brought to the emergency department. Patient currently denying any chest pain. Denies shortness of breath, nausea, vomiting. No history of tobacco abuse. Denies a history of DVT/PE, blood clotting disorder, recent trauma or surgery, extremity swelling, recent travel. Review of systems: See HPI Medications: As listed on the chart Allergies: As listed on the chart PFSH: Per chart Vital signs: As listed on the chart. Reviewed. Physical exam: Gen: A O x3, NAD Head: Normocephalic, atraumatic Eyes: No sclera icterus, conjunctiva clear ENT: Moist mucous membranes, + nasal congestion Neck: Trachea midline, No JVD CV: RRR, no murmurs, no peripheral edema Resp: Lungs CTA BL, no w/r/c, + cough GI: Abd soft, non-distended, non-tender, no r/r/g Musc: Full ROM, no deformity Skin: Warm, dry Neuro: Alert, oriented, grossly intact, sensation intact Psych: Cooperative, appropriate mood and affect [facility] History Lumbar vertebral fracture Bulging lumbar disc Bradycardia Rheumatoid arthritis Multiple sclerosis Diabetes Depressed Anxiety Hypertension Home Medications ???Medication ???Instructions ???Recorded ???Last Taken ???Type paroxetine HCl 10 mg tablet (Paxil) 10 mg PO DAILY mental health 06/30/23 History trazodone 100 mg tablet 100 mg PO QHS sleep 01/02/2306/30 History amlodipine 10 mg tablet 10 mg PO DAILY #30 tabs 07/02/23 U nknown Rx alendronate 70 mg tablet 70 mg PO QWEEK 03/10/25 03/08/25 H istory doxazosin 2 mg tablet 2 mg PO DAILY 03/10/25 03/09/25 Hi story glimepiride 2 mg tablet 2 mg PO BID 03/10/25 03/10/25 Hist ory guaifenesin 600 mg tablet, 600 mg PO BID PRN cough 03/10/25 0 03/10/25 History extended release 12 hr (Mucinex) meloxicam 15 mg tablet 15 mg PO DAILY 03/10/25 03/09/25 H istory metformin 500 mg tablet,extended 1,000 mg PO BID 03/10/25 03/10/25 History release 24 hr rosuvastatin 5 mg tablet 5 mg PO DAILY 03/10/25 03/09/25 Hi story Allergy/AdvReac Type Severity Reaction Status Date / Time diphenhydramine Allergy Other Verified 03/10/25 13:52 lisinopril Allergy Other Verified 03/10/25 13:52 meloxicam (From Mobic) Allergy Hives Verified 03/10/25 13:52 meperidine (From Demerol) Allergy Hives Verified 03/10/25 13:52 ketorolac (From Toradol) AdvReac Other Verified 03/10/25 13:52 tramadol AdvReac Other Verified 03/10/25 13:52 Family History Aunt No problems noted. Other Alcoholism Anxiety Arthritis CVA (cerebral vascular accident) Depression Heart disease High cholesterol Hypertension Mental disorder Osteoporosis Rheumatoid arthritis Surgical History History of total hysterectomy History of tubal ligation History of delivery Social History household members: spouse Smoking Status: Never smoker alcohol intake: never substance use type: does not use EXAM Physical Exam Const Vital Signs: 03/10/25 13:49 03/10/25 15:29 03/10/25 15:30 Temperature 97.8 F Temperature Source Oral Pulse Rate 96 54 L Respiratory Rate 18 20 H Respiratory Effort Blood Pressure 125/69 H 147/82 H Blood Pressure Mean 87 103 Pulse Ox 94 95 Oxygen Delivery Method Room Air Room Air Room Air 03/10/25 15:30 03/10/25 16:00 03/10/25 16:30 Temperature Temperature Source Pulse Rate 56 L 66 Respiratory Rate 25 H 16 Respiratory Effort Normal Non-Labored Blood Pressure 136/67 H 138/81 H Blood Pressure Mean 88 100 Pulse Ox 96 95 Oxygen Delivery Method MDM MDM MDM Narrative Medical decision making narrative: 64-year-old female with past medical history of chronic back pain with l (more content not included)... Normal [facility] L499.0042on 03-10-2025 Trop T High Sen 7 ng/L Normal <=14 [facility] Comment on above: Performed By: #### L 500.3400, L501.2450 #### [facility] [address] [place], [address] Trop T High Sen Normal <=14 [facility] Comment on above: Result Comment: Sue leal via OM: Duplicate Order Performed By: #### L 499.0042 #### [facility] [address] [place], [address] L499.0043on 03-10-2025 Trop T High Sen Normal <=14 [facility] Comment on above: Result Comment: Sue leal via OM: Duplicate Order Performed By: #### L 499.0043 #### [facility] [address] [place], [address] Trop T High Sen Normal <=14 [facility] Comment on above: Result Comment: Sue leal via OM: MD Ordered Performed By: #### L 499.0043 #### [facility] [address] [place], [address] L501.4021on 03-10-2025 Trop T High Sen 11 ng/L Normal <=14 [facility] Comment on above: Performed By: #### L 499.0043 #### [facility] [address] [place], [address] M100.678on 03-10-2025 M100.678 Pending SARS-CoV-2 (COVID 19) Negative INFLUENZA A Negative INFLUENZA B Negative RSV PCR Negative Normal [facility] Comment on above: Performed By: #### L 499.0043 #### [facility] [address] [place], [address] Absolute neutrophil countOrd ered By: Breanna Parish on 02-04-2025 Neutrophils (Bld) [#/Vol] 5.3 10*3/uL 2.0-7.7 [facility] Albumin DL <= 20 mg/L (U) [M ass/Vol]Ordered By: Breanna Parish on 02-04-2025 Urine Random Microalbumin 15.1 mg/L NO RANGE EST. [facility] Anion gap in Serum or Plasma Ordered By: Breanna Parish on 02-04-2025 Anion gap [Moles/Vol] 14 mmol/L 04-01 [facility] BUN/creatinine ratioOrdered By: Breannaalberta Parish on 02-04-2025 Urea nitrogen/Creatinine [Mass ratio] 18.7 mg/mg 09-06 [facility] Basophil percentageOrdered B y: Breanna Parish on 02-04-2025 Basophils/100 WBC (Bld) 0.4 % 0-1 [facility] Bilirubin, totalOrdered By: Breanna Parish on 02-04-2025 Bilirubin [Mass/Vol] 0.66 mg/dL 0.00-1.30 [facility] CBC W/Diff, Automatedon 01-17 Absolute Lymph 1.37 X10 3/uL Normal 0.83-4.51 [facility] Comment on above: Performed By: #### L 501.9985, L502.0500, L500.4100, L100.0100, L500.4050 #### [facility] [address] [place], [address] Absolute Neut 5.3 X10 3/uL Normal 2.0-7.7 [facility] Comment on above: Performed By: #### L 501.9985, L502.0500, L500.4100, L100.0100, L500.4050 #### [facility] [address] [place], [address] Basophils/100 WBC (Bld) 0.4 % Normal 0-1 [facility] Comment on above: Performed By: #### L 501.9985, L502.0500, L500.4100, L100.0100, L500.4050 #### [facility] [address] [place], [address] Eosinophils/100 WBC (Bld) 1.3 % Normal 0-5 [facility] Comment on above: Performed By: #### L 501.9985, L502.0500, L500.4100, L100.0100, L500.4050 #### [facility] [address] [place], [address] Erythrocyte distribution width (RBC) [Ratio] 12.5 % Normal 11.6-14.6 [facility] Comment on above: Performed By: #### L 501.9985, L502.0500, L500.4100, L100.0100, L500.4050 #### [facility] [address] [place], [address] Hematocrit (Bld) [Volume fraction] 42.2 % Normal 37-47 [facility] Comment on above: Performed By: #### L 501.9985, L502.0500, L500.4100, L100.0100, L500.4050 #### [facility] [address] [place], [address] Hemoglobin (Bld) [Mass/Vol] 14.9 g/dL Normal 12.0-15.0 [facility] Comment on above: Performed By: #### L 501.9985, L502.0500, L500.4100, L100.0100, L500.4050 #### [facility] [address] [place], [address] IG% 0.300 Normal 0.0-0.9 [facility] Comment on above: Result Comment: IG% - Immature Granulocytes (promyelocytes, myelocytes and metamyelocytes) > 1% indicates that a LEFT SHIFT is Present. Performed By: #### L 501.9985, L502.0500, L500.4100, L100.0100, L500.4050 #### [facility] [address] [facility], [address] Lymphocytes/100 WBC (Bld) 18.4 % Low 19-41 [facility] Comment on above: Performed By: #### L 501.9985, L502.0500, L500.4100, L100.0100, L500.4050 #### [facility] [address] [place], [address] MCH (RBC) [Entitic mass] 31.7 pg Normal 27.0-32.0 [facility] Comment on above: Performed By: #### L 501.9985, L502.0500, L500.4100, L100.0100, L500.4050 #### [facility] [address] [facility], [address] MCHC (RBC) [Mass/Vol] 35.3 g/dL Normal 32-36 [facility] Comment on above: Performed By: #### L 501.9985, L502.0500, L500.4100, L100.0100, L500.4050 #### [facility] [address] [place], [address] MCV (RBC) [Entitic vol] 89.8 fL Normal 81-99 [facility] Comment on above: Performed By: #### L 501.9985, L502.0500, L500.4100, L100.0100, L500.4050 #### [facility] [address] [place], [address] Monocytes/100 WBC (Bld) 8.2 % Normal 0-10 [facility] Comment on above: Performed By: #### L 501.9985, L502.0500, L500.4100, L100.0100, L500.4050 #### [facility] [address] [place], [address] Neutrophils/100 WBC (Bld) 71.4 % High 47-70 [facility] Comment on above: Performed By: #### L 501.9985, L502.0500, L500.4100, L100.0100, L500.4050 #### [facility] [address] [place], [address] Nucleated RBC (Bld) [#/Vol] 0 10*3/uL Normal 0-5 [facility] Comment on above: Performed By: #### L 501.9985, L502.0500, L500.4100, L100.0100, L500.4050 #### [facility] [address] [place], [address] Platelet mean volume (Bld) [Entitic vol] 10.7 fL Normal 6.2-12.0 [facility] Comment on above: Performed By: #### L 501.9985, L502.0500, L500.4100, L100.0100, L500.4050 #### [facility] [address] [place], [address] Platelets (Bld) [#/Vol] 310 10*3/uL Normal 150-450 [facility] Comment on above: Performed By: #### L 501.9985, L502.0500, L500.4100, L100.0100, L500.4050 #### [facility] [address] [place], [address] RBC (Bld) [#/Vol] 4.70 10*6/uL Normal 4.2-5.4 [facility] Comment on above: Performed By: #### L 501.9985, L502.0500, L500.4100, L100.0100, L500.4050 #### [facility] [address] [place], [address] RDW SD 41.1 fl Normal 35.1-43.9 [facility] Comment on above: Performed By: #### L 501.9985, L502.0500, L500.4100, L100.0100, L500.4050 #### [facility] [address] [place], [address] WBC (Bld) [#/Vol] 7.5 10*3/uL Normal 4.4-11.0 [facility] Comment on above: Performed By: #### L 501.9985, L502.0500, L500.4100, L100.0100, L500.4050 #### [facility] [address] [place], [address] Calculated very low density lipoprotein (VLDL) cholesterol measurementOrdered By: Breanna Parish on 02-04-2025 VLDL Cholesterol 18 mg/dL 5-40 [facility] Carbon dioxide, total [Moles /volume] in Central venous bloodOrdered By: Breanna Parish on 02-04-2025 CO2 [Moles/Vol] 20.1 mmol/L Low 21.0-32.0 [facility] Chloride assayOrdered By: Vamshi Parish on 02-04-2025 Chloride [Moles/Vol] 104 mmol/L 98-108 [facility] Comprehensive Metabolic Prof ilon 02-04-2025 Albumin [Mass/Vol] 4.4 g/dL Normal 3.4-4.8 [facility] Comment on above: Performed By: #### L 501.9985, L502.0500, L500.4100, L100.0100, L500.4050 #### [facility] [address] [place], [address] Albumin/Globulin [Mass ratio] 1.4 {ratio} Normal 0.9-2.4 [facility] Comment on above: Performed By: #### L 501.9985, L502.0500, L500.4100, L100.0100, L500.4050 #### [facility] [address] [place], [address] ALK PHOS 88 U/L Normal 35-104 [facility] Comment on above: Performed By: #### L 501.9985, L502.0500, L500.4100, L100.0100, L500.4050 #### [facility] [address] [place], [address] ALT [Catalytic activity/Vol] 26 U/L Normal <=34 [facility] Comment on above: Performed By: #### L 501.9985, L502.0500, L500.4100, L100.0100, L500.4050 #### [facility] [address] [place], [address] AST [Catalytic activity/Vol] 24 U/L Normal <=31 [facility] Comment on above: Performed By: #### L 501.9985, L502.0500, L500.4100, L100.0100, L500.4050 #### [facility] [address] [place], [address] Bilirubin [Mass/Vol] 0.66 mg/dL Normal 0.00-1.30 [facility] Comment on above: Performed By: #### L 501.9985, L502.0500, L500.4100, L100.0100, L500.4050 #### [facility] [address] [place], [address] BUN/CRE 18.7 RATIO Normal 10-20 [facility] Comment on above: Performed By: #### L 501.9985, L502.0500, L500.4100, L100.0100, L500.4050 #### [facility] [address] [place], [address] Calcium [Mass/Vol] 9.2 mg/dL Normal 7.6-11.0 [facility] Comment on above: Performed By: #### L 501.9985, L502.0500, L500.4100, L100.0100, L500.4050 #### [facility] [address] [place], [address] Chloride [Moles/Vol] 104 mmol/L Normal 98-108 [facility] Comment on above: Performed By: #### L 501.9985, L502.0500, L500.4100, L100.0100, L500.4050 #### [facility] [address] [place], [address] CO2 [Moles/Vol] 20.1 mmol/L Low 21.0-32.0 [facility] Comment on above: Performed By: #### L 501.9985, L502.0500, L500.4100, L100.0100, L500.4050 #### [facility] [address] [place], [address] Creatinine [Mass/Vol] 0.76 mg/dL Normal 0.70-1.20 [facility] Comment on above: Performed By: #### L 501.9985, L502.0500, L500.4100, L100.0100, L500.4050 #### [facility] [address] [place], [address] GAP 14 Normal 5-15 [facility] Comment on above: Performed By: #### L 501.9985, L502.0500, L500.4100, L100.0100, L500.4050 #### [facility] [address] [place], [address] GFR/1.73 sq M.predicted among non-blacks MDRD (S/P/Bld) [Vol rate/Area] 86 mL/min/{1.73_m2} Normal >60 [facility] Comment on above: Result Comment: mL/m in/1.73m2 CKD-EPI Creatinine Equation (2020) Performed By: #### L 501.9985, L502.0500, L500.4100, L100.0100, L500.4050 #### [facility] [address] [place], [address] Globulin (S) [Mass/Vol] 3.2 g/dL Normal 2.2-4.2 [facility] Comment on above: Performed By: #### L 501.9985, L502.0500, L500.4100, L100.0100, L500.4050 #### [facility] [address] [place], [address] Glucose [Mass/Vol] 210 mg/dL High 70-99 [facility] Comment on above: Performed By: #### L 501.9985, L502.0500, L500.4100, L100.0100, L500.4050 #### [facility] [address] [place], [address] Potassium [Moles/Vol] 4.1 mmol/L Normal 3.3-5.1 [facility] Comment on above: Performed By: #### L 501.9985, L502.0500, L500.4100, L100.0100, L500.4050 #### [facility] [address] [place], [address] Sodium [Moles/Vol] 138 mmol/L Normal 133-145 [facility] Comment on above: Performed By: #### L 501.9985, L502.0500, L500.4100, L100.0100, L500.4050 #### [facility] [address] [place], [address] T PROT 7.7 g/dL Normal 5.9-8.4 [facility] Comment on above: Performed By: #### L 501.9985, L502.0500, L500.4100, L100.0100, L500.4050 #### [facility] [address] [place], [address] Urea nitrogen [Mass/Vol] 14 mg/dL Normal 4-19 [facility] Comment on above: Performed By: #### L 501.9985, L502.0500, L500.4100, L100.0100, L500.4050 #### [facility] [address] [place], [address] Eosinophil percentageOrdered By: rBeanna Parish on 02-04-2025 Eosinophils/100 WBC (Bld) 1.3 % 0-5 [facility] Erythrocyte distribution wid th ratioOrdered By: Breanna Parish on 02-04-2025 Erythrocyte distribution width (RBC) [Ratio] 12.5 % 11.6-14.6 [facility] Erythrocyte distribution wid th standard deviationOrdered By: Breanna Parish on 02-04-2025 Erythrocyte distribution width (RBC) [Entitic vol] 41.1 fL 35.1-43.9 [facility] GFR/1.73 sq M.predicted dixon g non-blacks MDRD (S/P/Bld) [Vol rate/Area]Ordered By: Breanna Parish on 02-04-2025 Estimated GFR (MDRD) Non-Af Amer 86 >60 [facility] Comment on above: mL/min/1.73m2 CKD-EP I Creatinine Equation (2020) Hematocrit Auto (Bld) [Volum e fraction]Ordered By: Breanna Parish on 02-04-2025 Hematocrit (Bld) [Volume fraction] 42.2 % 37-47 [facility] Hemoglobin A1con 02-04-2025 HbA1c (Bld) [Mass fraction] 7.4 % Normal <=5.6 [facility] Comment on above: Performed By: #### L 501.9985, L502.0500, L500.4100, L100.0100, L500.4050 #### [facility] [address] [place], [place], [address] Hemoglobin A1c percentageOrd ered By: Breanna Parish on 02-04-2025 HbA1c (Bld) [Mass fraction] 7.4 % >5.7 [facility] Hemoglobin measurementOrdere d By: Breanna Parish on 02-04-2025 Hemoglobin (Bld) [Mass/Vol] 14.9 g/dL 12.0-15.0 [facility] Immature granulocytes/100 WB C Auto (Bld)Ordered By: Breanna Parish on 02-04-2025 Immature granulocytes/100 WBC (Bld) 0.300 % 0.0-0.9 [facility] Comment on above: IG% - Immature Granu locytes (promyelocytes, myelocytes and metamyelocytes) > 1% indicates that a LEFT SHIFT is Present. LDL calc ser/plasOrdered By: Breanna Parish on 02-04-2025 LDL Cholesterol, Calculated 87 mg/dL [facility] Comment on above: Ufkgxqugoj=196-311 m g/dL & Higher Faib=180 mg/dL or greater Laboratory - Chemistry and C hemistry - challengeOrdered By: Breanna Parish on 02-04-2025 AST [Catalytic activity/Vol] 24 U/L <32 [facility] Lipid Profileon 02-04-2025 CHOL:HDL 2.59 Normal [facility] Comment on above: Performed By: #### L 501.9985, L502.0500, L500.4100, L100.0100, L500.4050 #### [facility] [address] [place], [place], [address] Cholesterol [Mass/Vol] 172 mg/dL Normal <=200 [facility] Comment on above: Result Comment: Chol esterol level, Desirable <200 mg/dL Borderline high cholesterol 200-239 mg/dL High cholesterol >=240 mg/dL Recommendations of the NCEP Adult Treatment Panel for the following risk-cutoff thresholds for the [place] population. Performed By: #### L 501.9985, L502.0500, L500.4100, L100.0100, L500.4050 #### [facility] [address] [place], [address] Cholesterol in HDL [Mass/Vol] 67 mg/dL Normal [facility] Comment on above: Result Comment: Sil onal Cholesterol Education Program (NCEP) guidelines: <40 mg/dL: Low HDL-cholesterol (major risk factor for CHD) >= 60 mg/dL: High HDL-cholesterol (negative risk factor for CHD) HDL-cholesterol is affected by a number of factors, e.g. smoking, exercise, hormones, sex and age. Performed By: #### L 501.9985, L502.0500, L500.4100, L100.0100, L500.4050 #### [facility] [address] [place], [address] Cholesterol in LDL [Mass/Vol] 87 mg/dL Normal [facility] Comment on above: Result Comment: Bord eexkpp=825-891 mg/dL Higher Swif=519 mg/dL or greater Performed By: #### L 501.9985, L502.0500, L500.4100, L100.0100, L500.4050 #### [facility] [address] [place], [address] Cholesterol in VLDL [Mass/Vol] 18 mg/dL Normal 5-40 [facility] Comment on above: Performed By: #### L 501.9985, L502.0500, L500.4100, L100.0100, L500.4050 #### [facility] [address] [place], [address] Triglyceride [Mass/Vol] 91 mg/dL Normal [facility] Comment on above: Result Comment: The drugs N-Acetylcysteine and Metamizole may falsely depress this assay. Normal range: <150 mg/dL Borderline High: 150-199 mg/dL High: 200-499 mg/dL Very High: >500 mg/dL Performed By: #### L 501.9985, L502.0500, L500.4100, L100.0100, L500.4050 #### [facility] [address] [place], [address] Lymphocytes Auto (Unsp spec) [#/Vol]Ordered By: Breannaalberta Parish on 02-04-2025 Lymphocytes (Bld) [#/Vol] 1.37 10*3/uL 0.83-4.51 [facility] Lymphocytes/100 WBC Auto (Un sp spec)Ordered By: Breannaalberta Parish on 02-04-2025 Lymphocytes/100 WBC (Bld) 18.4 % Low 19-41 [facility] MCV (mean corpuscular volume ) determinationOrdered By: Breannaalberta Parish on 02-04-2025 MCV (RBC) [Entitic vol] 89.8 fL 81-99 [facility] Mean corpuscular hemoglobin (MCH) determinationOrdered By: Breannaalberta Parish on 02-04-2025 MCH (RBC) [Entitic mass] 31.7 pg 27.0-32.0 [facility] Mean corpuscular hemoglobin concentration (MCHC) determinationOrdered By: [facility]2025 MCHC (RBC) [Mass/Vol] 35.3 g/dL 32-36 [facility] Mean platelet volume determi nationOrdered By: Breannaalberta Parish on 02-04-2025 Platelet mean volume (Bld) [Entitic vol] 10.7 fL 6.2-12.0 [facility] Microalbumin,Random Urineon 02-04-2025 MICROALBUMIN,UR 15.1 mg/L Normal NO RANGE EST. [facility] Comment on above: Performed By: #### L 501.9985, L502.0500, L500.4100, L100.0100, L500.4050 #### [facility] [address] [place], [address] Monocyte percentageOrdered B y: Breanna Parish on 02-04-2025 Monocytes/100 WBC (Bld) 8.2 % 0-10 [facility] Neutrophil percentageOrdered By: Breanna Parish on 02-04-2025 Neutrophils/100 WBC (Bld) 71.4 % High 47-70 [facility] Nucleated red blood cell per centageOrdered By: Breanna Parish on 02-04-2025 Nucleated RBC/100 WBC (Bld) [Ratio] 0 % 0-5 [facility] Platelet countOrdered By: Vamshi Parish on 02-04-2025 Platelets (Bld) [#/Vol] 310 10*3/uL 150-450 [facility] Potassium (Unsp spec) [Mass/ Vol]Ordered By: Breanna Parish on 02-04-2025 Potassium [Moles/Vol] 4.1 mmol/L 3.3-5.1 [facility] RBC Auto (Bld) [#/Vol]Ordere d By: Breanna Parish on 02-04-2025 RBC (Bld) [#/Vol] 4.70 10*6/uL 4.2-5.4 [facility] Screening total cholesterol/ high density lipoprotein (HDL) cholesterol ratioOrdered By: Breanna Parish on 02-04-2025 Cholesterol.total/Majo sterol in HDL [Mass ratio] 2.59 {ratio} [facility] Serum creatinine measurement (mass/volume)Ordered By: Breanna Parish on 02-04-2025 Creatinine [Mass/Vol] 0.76 mg/dL 0.70-1.20 [facility] Serum globulin measurementOr dered By: Breanna Parish on 02-04-2025 Globulin (S) [Mass/Vol] 3.2 g/dL 2.2-4.2 [facility] Serum glucose measurement (m ass/volume)Ordered By: Breanna Parish on 02-04-2025 Glucose [Mass/Vol] 210 mg/dL High 70-99 [facility] Serum or plasma alanine rodríguez otransferase (ALT) measurementOrdered By: Breanna Parish on 02-04-2025 ALT [Catalytic activity/Vol] 26 U/L <35 [facility] Serum or plasma albumin andi urement (mass/volume)Ordered By: Breanna Parish on 02-04-2025 Albumin [Mass/Vol] 4.4 g/dL 3.4-4.8 [facility] Serum or plasma albumin/glob ulin mass ratioOrdered By: Breanna Parish on 02-04-2025 Albumin/Globulin [Mass ratio] 1.4 {ratio} 0.9-2.4 [facility] Serum or plasma alkaline alen sphatase measurementOrdered By: Breanna Parish on 02-04-2025 ALP [Catalytic activity/Vol] 88 U/L 35-104 [facility] Serum or plasma calcium andi urement (mass/volume)Ordered By: Breanna Parish on 02-04-2025 Calcium [Mass/Vol] 9.2 mg/dL 7.6-11.0 [facility] Serum or plasma cholesterol in HDL measurement (mass/volume)Ordered By: Breanna Parish on 02-04-2025 Cholesterol in HDL [Mass/Vol] 67 mg/dL >40 [facility] Comment on above: National Cholesterol Education Program (NCEP) guidelines:<40 mg/dL: Low HDL-cholesterol (major risk factor for CHD)>= 60 mg/dL: High HDL-cholesterol (negative risk factor for CHD)HDL-cholesterol is affected by a number of factors, e.g. smoking, exercise, hormones, sex and age. Serum or plasma cholesterol measurement (mass/volume)Ordered By: Breanna aPrish on 02-04-2025 Cholesterol [Mass/Vol] 172 mg/dL <201 [facility] Comment on above: Cholesterol level, D esirable <200 mg/dLBorderline high cholesterol 200-239 mg/dLHigh cholesterol >=240 mg/dLRecommendations of the NCEP Adult Treatment Panel for the following risk-cutoff thresholds for the [place] population. Serum or plasma urea nitroge n measurement (mass/volume)Ordered By: Breanna Parish on 02-04-2025 Urea nitrogen [Mass/Vol] 14 mg/dL 4-19 [facility] Sodium levelOrdered By: Slava Parish on 02-04-2025 Sodium [Moles/Vol] 138 mmol/L 133-145 [facility] Total proteinOrdered By: Misha Parish on 02-04-2025 Protein [Mass/Vol] 7.7 g/dL 5.9-8.4 [facility] Triglycerides measurementOrd ered By: Breanna Parish on 02-04-2025 Triglyceride [Mass/Vol] 91 mg/dL <199 [facility] Comment on above: The drugs N-Acetylcy steine and Metamizole may falsely depress this assay. Normal range: <150 mg/dLBorderline High: 150-199 mg/dLHigh: 200-499 mg/dLVery High: >500 mg/dL White blood cell (WBC) count Ordered By: Breanna Parish on 02-04-2025 WBC (Bld) [#/Vol] 7.5 10*3/uL 4.4-11.0 [facility] 12 Lead EKGon 12-18-2024 12 Lead EKG [facility] [address] [place] [address] 12 Lead EKG 12/18/24 1418 MR#: [id number] Acct: [id number] Name: HELEN LOVETT Rep #: [id number] : 1960 64 From: Abilio Oviedo MD Attending Dr: Status: DEP ER Ordering Dr: Rodriguez Scott MD Date: 12/18/24 Location: ED Sex: F C Admitted: Test Reason : CP Blood Pressure : */* mmHG Vent. Rate : 52 BPM Atrial Rate : 52 BPM P-R Int : 158 ms QRS Dur : 82 ms QT Int : 452 ms P-R-T Axes : 6 -9 -23 degrees QTcB Int : 420 ms Sinus bradycardia Moderate voltage criteria for LVH, may be normal variant ( R in aVL , Jon product ) Nonspecific T wave abnormality Abnormal ECG Confirmed by ABILIO OVIEDO MD ([id number]), index editor LESVIA CLINE ([id number]) on 12/21/2024 7:02:54 AM Referred By: Confirmed By: ABILIO OVIEDO MD 12/21/24 0702 Date Abilio Oviedo MD CC: Dr. Rodriguez Scott MD; Dr. Breanna Parish DO Signed Normal [facility] Absolute neutrophil countOrd ered By: ED PROVIDER on 12-18-2024 Neutrophils (Bld) [#/Vol] 5.6 10*3/uL 2.0-7.7 [facility] Basic Metabolic Profile (BMP )on 12-18-2024 BUN/CRE 17.6 RATIO Normal 10-20 [facility] Comment on above: Performed By: #### L 500.3400, L501.2450 #### [facility] [address] [place], [address] CA,Total 9.1 mg/dL Normal 8.5-10.1 [facility] Comment on above: Performed By: #### L 500.3400, L501.2450 #### [facility] [address] [place], [address] Chloride [Moles/Vol] 105 mmol/L Normal 98-107 [facility] Comment on above: Performed By: #### L 500.3400, L501.2450 #### [facility] [address] [place], [address] CO2 [Moles/Vol] 26.0 mmol/L Normal 21.0-32.0 [facility] Comment on above: Performed By: #### L 500.3400, L501.2450 #### [facility] [address] [place], [address] Creatinine [Mass/Vol] 0.91 mg/dL Normal 0.55-1.02 [facility] Comment on above: Result Comment: The validity of the calculated GFR GFRAA in patients over 70 years has not been determined. Clinical correlation is essential. Performed By: #### L 500.3400, L501.2450 #### [facility] [address] [place], [address] ECRCL 59.76 ml/min Normal [facility] Comment on above: Performed By: #### L 500.3400, L501.2450 #### [facility] [address] [place], [address] EST GFR - AA 80 mL/min Normal >60 [facility] Comment on above: Result Comment: Afri can [place]ic GFR Calc Performed By: #### L 500.3400, L501.2450 #### [facility] [address] [place], [address] GAP 7 Normal 5-15 [facility] Comment on above: Performed By: #### L 500.3400, L501.2450 #### [facility] [address] [place], [address] GFR/1.73 sq M.predicted among non-blacks MDRD (S/P/Bld) [Vol rate/Area] 66 mL/min/{1.73_m2} Normal >60 [facility] Comment on above: Result Comment: Non- GFR Calc Performed By: #### L 500.3400, L501.2450 #### [facility] [address] [place], [address] Glucose [Mass/Vol] 145 mg/dL High 74-106 [facility] Comment on above: Result Comment: Fast ing Glucose result greater than or equal to 126 mg/dL suggests DIABETES MELLITUS per A.D.A. criteria. Performed By: #### L 500.3400, L501.2450 #### [facility] [address] [place], [address] Potassium [Moles/Vol] 3.8 mmol/L Normal 3.5-5.1 [facility] Comment on above: Performed By: #### L 500.3400, L501.2450 #### [facility] [address] [place], [address] Sodium [Moles/Vol] 138 mmol/L Normal 136-145 [facility] Comment on above: Performed By: #### L 500.3400, L501.2450 #### [facility] [address] [place], [address] Urea nitrogen [Mass/Vol] 16 mg/dL Normal 7-18 [facility] Comment on above: Performed By: #### L 500.3400, L501.2450 #### [facility] [address] [place], [address] Basophil percentageOrdered B y: ED PROVIDER on 12-18-2024 Basophils/100 WBC (Bld) 0.4 % 0-1 [facility] Bilirubin directOrdered By: Jozef London on 12-18-2024 Bilirubin.direct [Mass/Vol] 0.12 mg/dL 0.00-0.30 [facility] Bilirubin, totalOrdered By: Jozef London on 12-18-2024 Bilirubin [Mass/Vol] 0.30 mg/dL 0.20-1.00 [facility] Comment on above: For patients on eltr ombopag therapy, use of Dimension [place] TBIL is not recommended. Blood urea nitrogen (BUN)/cr eatinine ratioOrdered By: ED PROVIDER on 12-18-2024 Urea nitrogen/Creatinine [Mass ratio] 17.6 mg/mg 10-20 [facility] CBC W/Diff, Automatedon -3 Absolute Lymph 2.72 X10 3/uL Normal 0.83-4.51 [facility] Comment on above: Performed By: #### L 500.3400, L501.2450 #### [facility] [address] [place], [address] Absolute Neut 5.6 X10 3/uL Normal 2.0-7.7 [facility] Comment on above: Performed By: #### L 500.3400, L501.2450 #### [facility] [address] [place], [address] Basophils/100 WBC (Bld) 0.4 % Normal 0-1 [facility] Comment on above: Performed By: #### L 500.3400, L501.2450 #### [facility] [address] [place], [address] Eosinophils/100 WBC (Bld) 1.2 % Normal 0-5 [facility] Comment on above: Performed By: #### L 500.3400, L501.2450 #### [facility] [address] [place], [address] Erythrocyte distribution width (RBC) [Ratio] 12.3 % Normal 11.6-14.6 [facility] Comment on above: Performed By: #### L 500.3400, L501.2450 #### [facility] [address] [place], [address] Hematocrit (Bld) [Volume fraction] 42.4 % Normal 37-47 [facility] Comment on above: Performed By: #### L 500.3400, L501.2450 #### [facility] [address] [place], [address] Hemoglobin (Bld) [Mass/Vol] 15.2 g/dL High 12.0-15.0 [facility] Comment on above: Performed By: #### L 500.3400, L501.2450 #### [facility] [address] [place], [address] IG% 0.300 Normal 0.0-0.9 [facility] Comment on above: Result Comment: IG% - Immature Granulocytes (promyelocytes, myelocytes and metamyelocytes) > 1% indicates that a LEFT SHIFT is Present. Performed By: #### L 500.3400, L501.2450 #### [facility] [address] [place], [address] Lymphocytes/100 WBC (Bld) 29.2 % Normal 19-41 [facility] Comment on above: Performed By: #### L 500.3400, L501.2450 #### [facility] [address] [place], [address] MCH (RBC) [Entitic mass] 31.7 pg Normal 27.0-32.0 [facility] Comment on above: Performed By: #### L 500.3400, L501.2450 #### [facility] [address] [place], [address] MCHC (RBC) [Mass/Vol] 35.8 g/dL Normal 32-36 [facility] Comment on above: Performed By: #### L 500.3400, L501.2450 #### [facility] [address] [place], [address] MCV (RBC) [Entitic vol] 88.5 fL Normal 81-99 [facility] Comment on above: Performed By: #### L 500.3400, L501.2450 #### [facility] [address] [place], [address] Monocytes/100 WBC (Bld) 8.8 % Normal 0-10 [facility] Comment on above: Performed By: #### L 500.3400, L501.2450 #### [facility] [address] [place], [address] Neutrophils/100 WBC (Bld) 60.1 % Normal 47-70 [facility] Comment on above: Performed By: #### L 500.3400, L501.2450 #### [facility] [address] [place], [address] Nucleated RBC (Bld) [#/Vol] 0 10*3/uL Normal 0-5 [facility] Comment on above: Performed By: #### L 500.3400, L501.2450 #### [facility] [address] [place], [address] Platelet mean volume (Bld) [Entitic vol] 10.0 fL Normal 6.2-12.0 [facility] Comment on above: Performed By: #### L 500.3400, L501.2450 #### [facility] [address] [place], [address] Platelets (Bld) [#/Vol] 305 10*3/uL Normal 150-450 [facility] Comment on above: Performed By: #### L 500.3400, L501.2450 #### [facility] [address] [place], [address] RBC (Bld) [#/Vol] 4.79 10*6/uL Normal 4.2-5.4 [facility] Comment on above: Performed By: #### L 500.3400, L501.2450 #### [facility] [address] [place], [address] RDW SD 40.0 fl Normal 35.1-43.9 [facility] Comment on above: Performed By: #### L 500.3400, L501.2450 #### [facility] [address] [place], [address] WBC (Bld) [#/Vol] 9.3 10*3/uL Normal 4.4-11.0 [facility] Comment on above: Performed By: #### L 500.3400, L501.2450 #### [facility] [address] [place], [address] Carbon dioxide measurementOr dered By: ED PROVIDER on 12-18-2024 CO2 [Moles/Vol] 26.0 mmol/L 21.0-32.0 [facility] Chest 1 View (Portable)on Chest 1 View (Portable) [facility] Imaging Services [address] [place] [address] Chest 1 View (Portable) MR#: [id number] Acct: [id number] Name: HELEN LOVETT Rep #: [id number] : 1960 F 64 From: Douglas Jacome MD PCP: Dr. Breanna Parish DO Status: PRE ER Study: Chest 1 View (Portable) Date of Exam: 12/18/24 Exam# [id number] Ordering Dr: Rodriguez Scott MD PROCEDURE: CHEST 1 VIEW (PORTABLE) REASON FOR EXAM: Chest pain radiating to left breast TECHNIQUE: Single frontal image including the chest and abdomen. COMPARISON: 07/01/2023 FINDINGS: Heart and mediastinum are stable The lungs are clear. Atherosclerotic and tortuous aorta. Old healed granulomatous changes. Cardiac monitoring leads overlie the chest wall. The bones are unremarkable. RAD/Chest 1 View (Portable) IMPRESSION: No active cardiopulmonary disease. Reading Location: [facility] CC: Dr. Rodriguez Scott MD; Dr. Breanna Parish DO Tool Design Drafter: Signed Normal [facility] Chloride measurementOrdered By: ED PROVIDER on 12-18-2024 Chloride [Moles/Vol] 105 mmol/L 98-107 [facility] Emergency Department Summary on 12-18-2024 Emergency Department Summary [facility] Medical Records Department [address] [place] [address] Emergency Department Summary 12/18/24 MR#: [id number] Acct: [id number] Name: HELEN LOVETT Rep #: [id number] : 1960 64 From: Rodriguez Scott MD PCP: Dr. Breanna Parish DO Status:DEP ER Location: ED HPI History of Present Illness Chief Complaint: Chest Pain Narrative Narrative: Patient is a 64-year-old female with history of RA, MS, osteoporosis, hypertension who does not take her blood pressure medicine for the last several months secondary to not having a prescription. Presenting to the emergency department for right sided chest wall pain. Patient states it starts on her right breast, radiates to her back. Patient states is worse with ambulation, palpation, movement. Patient denies any fever chills nausea or vomiting. This happened at approximately noon today. [facility] Medical History Lumbar vertebral fracture Bulging lumbar disc Bradycardia Rheumatoid arthritis Multiple sclerosis Diabetes Depressed Anxiety Hypertension Home Medications ???Medication ???Instructions ???Recorded ???Last Taken ???Type paroxetine HCl 10 mg tablet (Paxil) 10 mg PO DAILY mental health 06/30/23 History trazodone 100 mg tablet 100 mg PO QHS sleep 01/02/2306/30 History amlodipine 10 mg tablet 10 mg PO DAILY #30 tabs 07/02/23 U nknown Rx amlodipine 10 mg tablet 10 mg PO DAILY 30 days #30 tabs Unknown Rx Allergy/AdvReac Type Severity Reaction Status Date / Time diphenhydramine Allergy Other Verified 07/31/24 13:16 lisinopril Allergy Other Verified 07/31/24 13:16 meloxicam (From Mobic) Allergy Hives Verified 07/31/24 13:16 meperidine (From Demerol) Allergy Hives Verified 07/31/24 13:16 ketorolac (From Toradol) AdvReac Other Verified 07/31/24 13:16 tramadol AdvReac Other Verified 07/31/24 13:16 Family History Aunt No problems noted. Other Alcoholism Anxiety Arthritis CVA (cerebral vascular accident) Depression Heart disease High cholesterol Hypertension Mental disorder Osteoporosis Rheumatoid arthritis Surgical History History of total hysterectomy History of tubal ligation History of delivery Social History household members: spouse Smoking Status: Never smoker alcohol intake: never substance use type: does not use ROS ROS ED ROS Narrative Constitutional: Negative for fever, chills, weight loss, weakness Eyes: Negative for vision loss, vision change, double vision ENT: Negative for any sore throat, ear pain, congestion Cardiovascular: Negative for any chest pain, tightness, palpitations Respiratory: Negative for any cough, sputum production, hemoptysis, dyspnea, dyspnea on exertion, orthopnea Gastrointestinal: Negative for any abdominal pain, nausea, vomiting, diarrhea, constipation, blood in stool, blood in vomit : Negative for any urinary frequency, dysuria, retention, blood in urine Muscle skeletal: Negative for any neck pain, back pain. Positive for right-sided chest wall pain Neurological: Negative for any headache, syncope, dizziness Skin: Negative for any rashes, itching, abrasions, lacerations Psychiatric: Negative for any depression, anxiety, stress, suicidal ideation, homicidal ideation Hematologic: Negative for any excessive bruising, easy bleeding EXAM Physical Exam Narrative Exam Narrative: Vital signs reviewed. HEET: Head normocephalic atraumatic, TMs clear bilaterally. Posterior pharynx is clear, moist mucous membranes. Nares clear bilaterally. Neck: Supple with no lymphadenopathy or tenderness. No signs of meningismus. Cardiac: Regular rate and rhythm no murmurs gallops or rubs, equal peripheral pulses bilaterally. Respiratory: Lungs clear to auscultation bilaterally. Patient has significant right sided chest wall tenderness to the anterior and lateral right sided chest wall. Only minor palpation causes pain. Patient also has a pain with any movement of her right arm. She is right-handed. +2 radial pulse. No epigastric pain, no pain to the right upper quadrant. Abdomen: Soft, nontender, nondistended. No abdominal bruit or pulsatile masses. No hepatosplenomegaly Extremities: No peripheral edema, no signs of gross trauma or deformity. Active full range of motion of all extremities. Neuro: Cranial nerves II through XII intact, no focal neurological deficits. Skin: Clean dry and intact with no rash, purpura, petechiae, vesicles or pustules. Backs/flank: No CVA tenderness, no midline spinal tenderness, no deformity. Psych: Normal mood and affect. No SI, HI or acute psychosis. Cons (more content not included)... Normal [facility] Eosinophil percentageOrdered By: ED PROVIDER on 12-18-2024 Eosinophils/100 WBC (Bld) 1.2 % 0-5 [facility] Erythrocyte distribution wid th ratioOrdered By: ED PROVIDER on 12-18-2024 Erythrocyte distribution width (RBC) [Ratio] 12.3 % 11.6-14.6 [facility] Erythrocyte distribution wid th standard deviationOrdered By: ED PROVIDER on 12-18-2024 Erythrocyte distribution width (RBC) [Entitic vol] 40.0 fL 35.1-43.9 [facility] Estimated glomerular filtrat ion rate (GFR) AmericanOrdered By: ED PROVIDER on 12-18-2024 Estimated GFR (MDRD) Amer 80 mL/min >60 [facility] Comment on above: GFR Calc Estimation of creatinine sosa aranceOrdered By: ED PROVIDER on 12-18-2024 Estimated Creatinine Clearance Calc 59.76 ml/min [facility] Glomerular filtration rate ( GFR) estimationOrdered By: ED PROVIDER on 12-18-2024 Estimated GFR (MDRD) Non-Af Amer 66 mL/min >60 [facility] Comment on above: Non- GFR Calc Glucose measurementOrdered B y: ED PROVIDER on 12-18-2024 Glucose [Mass/Vol] 145 mg/dL High 74-106 [facility] Comment on above: Fasting Glucose resu lt greater than or equal to 126 mg/dL suggests DIABETES MELLITUS per A.D.A. criteria. Hematocrit Auto (Bld) [Volum e fraction]Ordered By: ED PROVIDER on 12-18-2024 Hematocrit (Bld) [Volume fraction] 42.4 % 37-47 [facility] Hemoglobin measurementOrdere d By: ED PROVIDER on 12-18-2024 Hemoglobin (Bld) [Mass/Vol] 15.2 g/dL High 12.0-15.0 [facility] Immature granulocytes/100 WB C Auto (Bld)Ordered By: ED PROVIDER on 12-18-2024 Immature granulocytes/100 WBC (Bld) 0.300 % 0.0-0.9 [facility] Comment on above: IG% - Immature Granu locytes (promyelocytes, myelocytes and metamyelocytes) > 1% indicates that a LEFT SHIFT is Present. L501.4020on 12-18-2024 TROPONIN-I HS 11 pg/mL Normal 3.0-54.0 [facility] Comment on above: Result Comment: Plea se Note: New Test Units and Gender Specific Reference Ranges. For more information see Policy Stat Procedure [place] High Sensitivity Troponin (TNIH) and attachments. Performed By: #### L 501.9985, L502.0500, L500.4100, L100.0100, L500.4050 #### [facility] [address] [place], [address] L501.5425on 12-18-2024 TROPONIN-I HS 10 pg/mL Normal 3.0-54.0 [facility] Comment on above: Order Comment: 1Y Result Comment: Plea se Note: New Test Units and Gender Specific Reference Ranges. For more information see Policy Stat Procedure [place] High Sensitivity Troponin (TNIH) and attachments. Performed By: #### L 500.3400, L501.2450 #### [facility] [address] [place], [address] Laboratory - Chemistry and C hemistry - challengeOrdered By: Jozef London on 12-18-2024 AST [Catalytic activity/Vol] 14 U/L Low 15-37 [facility] Lipaseon 12-18-2024 Lipase [Catalytic activity/Vol] 65 U/L Normal 13-75 [facility] Comment on above: Result Comment: Plenavid se note: LIPASE revised reference range effective 23. New Lipase methodology. Expected to produce lower values than the previous assay method. NEW Reference Range: 13 - 75 U/L Performed By: #### L 500.3400, L501.2450 #### [facility] [address] [place], [address] Lipase measurementOrdered By : Jozef Lnodon on 12-18-2024 Lipase [Catalytic activity/Vol] 65 U/L 13-75 [facility] Comment on above: Please note:LIPASE r evised reference range effective 23. New Lipase methodology. Expected to produce lower values than the previous assay method. NEW Reference Range: 13 - 75 U/L Liver Profileon 12-18-2024 Albumin [Mass/Vol] 3.7 g/dL Normal 3.2-5.0 [facility] Comment on above: Performed By: #### L 500.3400, L501.2450 #### [facility] [address] [place], [address] ALK P 100 U/L Normal 45-117 [facility] Comment on above: Performed By: #### L 500.3400, L501.2450 #### [facility] [address] [place], [address] ALT [Catalytic activity/Vol] 25 U/L Normal 13-56 [facility] Comment on above: Performed By: #### L 500.3400, L501.2450 #### [facility] [address] [place], [address] AST [Catalytic activity/Vol] 14 U/L Low 15-37 [facility] Comment on above: Performed By: #### L 500.3400, L501.2450 #### [facility] [address] [place], [address] Bilirubin [Mass/Vol] 0.30 mg/dL Normal 0.20-1.00 [facility] Comment on above: Result Comment: For patients on eltrombopag therapy, use of Dimension [place] TBIL is not recommended. Performed By: #### L 500.3400, L501.2450 #### [facility] [address] [place], [address] Bilirubin.direct [Mass/Vol] 0.12 mg/dL Normal 0.00-0.30 [facility] Comment on above: Performed By: #### L 500.3400, L501.2450 #### [facility] [address] [place], [address] Globulin (S) [Mass/Vol] 4.1 g/dL Normal 2.2-4.2 [facility] Comment on above: Performed By: #### L 500.3400, L501.2450 #### [facility] [address] [place], [address] T PROT 7.8 g/dL Normal 6.4-8.2 [facility] Comment on above: Performed By: #### L 500.3400, L501.2450 #### [facility] [address] [place], [address] Lymphocytes Auto (Unsp spec) [#/Vol]Ordered By: ED PROVIDER on 12-18-2024 Lymphocytes (Bld) [#/Vol] 2.72 10*3/uL 0.83-4.51 [facility] Lymphocytes/100 WBC Auto (Un sp spec)Ordered By: ED PROVIDER on 12-18-2024 Lymphocytes/100 WBC (Bld) 29.2 % 19-41 [facility] MCV (mean corpuscular volume ) determinationOrdered By: ED PROVIDER on 12-18-2024 MCV (RBC) [Entitic vol] 88.5 fL 81-99 [facility] Mean corpuscular hemoglobin (MCH) determinationOrdered By: ED PROVIDER on 12-18-2024 MCH (RBC) [Entitic mass] 31.7 pg 27.0-32.0 [facility] Mean corpuscular hemoglobin concentration (MCHC) determinationOrdered By: ED PROVIDER on 12-18-2024 MCHC (RBC) [Mass/Vol] 35.8 g/dL 32-36 [facility] Mean platelet volume determi nationOrdered By: ED PROVIDER on 12-18-2024 Platelet mean volume (Bld) [Entitic vol] 10.0 fL 6.2-12.0 [facility] Monocyte percentageOrdered B y: ED PROVIDER on 12-18-2024 Monocytes/100 WBC (Bld) 8.8 % 0-10 [facility] Neutrophil percentageOrdered By: ED PROVIDER on 12-18-2024 Neutrophils/100 WBC (Bld) 60.1 % 47-70 [facility] Nucleated red blood cell per centageOrdered By: ED PROVIDER on 12-18-2024 Nucleated RBC/100 WBC (Bld) [Ratio] 0 % 0-5 [facility] Platelet countOrdered By: ED PROVIDER on 12-18-2024 Platelets (Bld) [#/Vol] 305 10*3/uL 150-450 [facility] Potassium measurementOrdered By: ED PROVIDER on 12-18-2024 Potassium [Moles/Vol] 3.8 mmol/L 3.5-5.1 [facility] RBC Auto (Bld) [#/Vol]Ordere d By: ED PROVIDER on 12-18-2024 RBC (Bld) [#/Vol] 4.79 10*6/uL 4.2-5.4 [facility] Serum anion gap measurementO rdered By: ED PROVIDER on 12-18-2024 Anion gap [Moles/Vol] 7 mmol/L 5-15 [facility] Serum globulin measurementOr dered By: Jozef London on 12-18-2024 Globulin (S) [Mass/Vol] 4.1 g/dL 2.2-4.2 [facility] Serum or plasma alanine rodríguez otransferase (ALT) measurementOrdered By: Jozef London on 12-18-2024 ALT [Catalytic activity/Vol] 25 U/L 13-56 [facility] Serum or plasma albumin andi urement (mass/volume)Ordered By: Jozef London on 12-18-2024 Albumin [Mass/Vol] 3.7 g/dL 3.2-5.0 [facility] Serum or plasma alkaline alen sphatase measurementOrdered By: Jozef London on 12-18-2024 ALP [Catalytic activity/Vol] 100 U/L 45-117 [facility] Serum or plasma calcium andi urement (mass/volume)Ordered By: ED PROVIDER on 12-18-2024 Calcium [Mass/Vol] 9.1 mg/dL 8.5-10.1 [facility] Serum or plasma creatinine m easurement (mass/volume)Ordered By: ED PROVIDER on 12-18-2024 Creatinine [Mass/Vol] 0.91 mg/dL 0.55-1.02 [facility] Comment on above: The validity of the calculated GFR & GFRAA in patients over 70 years has not been determined. Clinical correlation is essential. Serum or plasma urea nitroge n measurement (mass/volume)Ordered By: ED PROVIDER on 12-18-2024 Urea nitrogen [Mass/Vol] 16 mg/dL 7-18 [facility] Sodium levelOrdered By: ALEX DOBBS on 12-18-2024 Sodium [Moles/Vol] 138 mmol/L 136-145 [facility] Total proteinOrdered By: Yenny London on 12-18-2024 Protein [Mass/Vol] 7.8 g/dL 6.4-8.2 [facility] Troponin IOrdered By: ED PRO VIDER on 12-18-2024 Troponin I High Sensitivity 11 pg/mL 3.0-54.0 [facility] Comment on above: Please Note: New Iamni t Units and Gender Specific Reference Ranges. For more information see Policy Stat Procedure [place] High Sensitivity Troponin (TNIH) and attachments. White blood cell (WBC) count Ordered By: ED PROVIDER on 12-18-2024 WBC (Bld) [#/Vol] 9.3 10*3/uL 4.4-11.0 [facility] Orthopedic Visit Reporton Orthopedic Visit Report [facility] [address] [place] [id number] OFFICE VISIT Date of Service: 07/31/24 MR#: [id number] Acct: [id number] Name: HELEN LOVETT Rep #: [id number] : 1960 Provider: Dr. Bang Ozuna MD Age/Sex: 63/F Location: [facility] [place] Status: Signed Intake Vital Signs 04/09/24 14:31 07/27/24 13:50 Height 4 ft 11 in 4 ft 11 in Intake Visit Reasons: LUMBAR SPINE Chief Complaint: low back pain Allergies diphenhydramine Allergy (Verified 07/31/24 13:16) Other lisinopril Allergy (Verified 07/31/24 13:16) Other meloxicam (From Mobic) Allergy (Verified 07/31/24 13:16) Hives meperidine (From Demerol) Allergy (Verified 07/31/24 13:16) Hives ketorolac (From Toradol) Adverse Reaction (Verified 07/31/24 13:16) Other tramadol Adverse Reaction (Verified 07/31/24 13:16) Other Medications ???Medication ???Instructions ???Recorded ???Confirmed ???Type paroxetine HCl 10 mg tablet (Paxil) 10 mg PO DAILY mental health 01/02/23 07/31/24 History trazodone 100 mg tablet 100 mg PO QHS sleep 01/02/23 07/31/24 History amlodipine 10 mg tablet 10 mg PO DAILY #30 tabs 07/02/23 07/31/24 Rx oxycodone-acetaminop hen 5 mg-325 tab PO 07/23/24 07/31/24 History mg tablet PFSH Medical History Lumbar vertebral fracture Bulging lumbar disc Bradycardia Rheumatoid arthritis Multiple sclerosis Diabetes Depressed Anxiety Hypertension Surgical History History of total hysterectomy History of tubal ligation History of delivery Family History Aunt No problems noted. Other Alcoholism Anxiety Arthritis CVA (cerebral vascular accident) Depression Heart disease High cholesterol Hypertension Mental disorder Osteoporosis Rheumatoid arthritis Social History household members: spouse Smoking Status: Never smoker alcohol intake: never substance use type: does not use HPI LUMBAR SPINE Details: This documentation accurately reflects the service provided and the decisions made by me, Dr. Bang Ozuna MD 07/31/24 1313. Part of today???s visit was documented by Kary FERNANDEZ, acting as scribe. HELEN LOVETT is a 63 year old F here today for MRI review of her lumbar spine. She states that her pain is still the same, it hasn't gotten worse or better with significant right sided weakness. HPI from 07/23/24: HELEN LOVETT is a 63 year old F here today for Lumbar pain. Patient has a herniated disc L4-5. Patient states her right leg goes numb. Patient had numbness and tingling that goes down the right leg. Right leg weakness below the knee. She also has leg weakness for the last 3-4 months with worsening walking endurance. She uses a Rollator walker at work. Patient also has legs cramps in that leg. About 5 years ago she was hit by a trampoline after trying to get it out of a tree. Patient see Dr Cole and her last injection was in Nov 2023 and that only lasted a week. Patient states she don't want any more injection in her back. Patient hasn't done PT recently. Patient did have a Fracture in her back and she had surgery for that in Oct [address]23. Dr Cole did a Kyphoplasty on her. Patient is currently taking Oxycodone half a pill for her pain. Patient states ice and heat don't help the pain. Patient feels like there is a knot in her back when she is leaning against something. She has a history of MS and says that all her lesions are in her brain with no spinal cord lesions. Ortho Exam General General: Yes no acute distress Neurologic: Yes alert and Yes oriented x3 Spine SPINE TESTING CERVICAL THORACIC LUMBAR Musculoskeletal Strength 0=absent - 5=normal Details: Neurological exam of the lower extremities shows right 4 power in all muscle groups and left 5 power. Midline tenderness, no paraspinal tenderness. Normal sensation across all dermatomes. Poor balance when standing from wheelchair. Passive straight leg positive on right. Coding Level of Care Code Off vis,est,level 4 Diagnoses Weakness of right lower extremity R29.898 Laterality: right Lumbar radiculopathy M54.16 Time Spent (min) 35 Assessment and Plan Assessment and Plan (1) Lower extremity weakness: Status: Acute Qualifiers: Laterality: right Qualified Code(s): R29.898 - Other symptoms and signs involving the musculoskeletal system (2) Lumbar radiculopathy: Status: Acute Plan Reviewed MRI today with the patient. Again reviewed prior imaging. Recent MRI does not show any changes when compared to July 2023 MRI. There is Kyphoplasty noticed at T12. Sacralized L5 lumbosacral transiti (more content not included)... Normal [facility] Spine Lumbar (Routine)on Spine Lumbar (Routine) [facility] [facility] [address] [place], [place] [address] Spine Lumbar (Routine) MR#: [id number] Acct: [id number] Name: HELEN LOVETT Rep #: [id number] : 1960 F 63 From: Danny castro MD PCP: Dr. Breanna Parish, DO Status: REG CLI Study: Spine Lumbar (Routine) Date of Exam: 07/27/24 Exam# [id number] Ordering Dr: Bang Ozuna MD [id number] STUDY: MRI LUMBAR SPINE WITHOUT CONTRAST REASON FOR EXAM: Female, 63 years old. pain TECHNIQUE: Standardized fat and water weighted pulse sequences were obtained in the sagittal and axial planes. COMPARISON: X-ray the lumbar spine dated July 23, 2024. FINDINGS: Normal lumbar lordosis. There is no substantial scoliosis. Normal conus medullaris that terminates at the T12 level. Redemonstration of a chronic compression deformity of the T12 vertebral body previously treated with kyphoplasty material. No acute compression deformities or new fractures are present. No malignant process is seen. T12-L1: Normal endplates. Mild disc desiccation and disc space narrowing. Normal bilateral facet joints. Normal central canal and bilateral lateral recesses. Normal bilateral intervertebral neural foramina. L1-2: Normal endplates. Diffuse disc desiccation. Normal disc height and morphology. Normal bilateral facet joints. Normal central canal and bilateral lateral recesses. Normal bilateral intervertebral neural foramina. L2-3: Mild Modic endplate degenerative signal and asymmetric degenerative changes. Diffuse disc desiccation. Mild posterior asymmetric disc space narrowing. Normal bilateral facet joints. Normal central canal and bilateral lateral recesses. Normal bilateral intervertebral neural foramina. L3-4: Mild anterior endplate spurring. Small tear in the annulus of the disc anteriorly. Diffuse disc desiccation. Normal disc height and morphology. Normal bilateral facet joints. Normal central canal and bilateral lateral recesses. Normal bilateral intervertebral neural foramina. L4-5: Mild endplate degenerative changes. Diffuse disc desiccation with mild to moderate disc space narrowing and broad-based disc herniation. Mild left facet joint hypertrophy. Normal central canal and bilateral lateral recesses. Normal bilateral intervertebral neural foramina. L5-S1: Normal endplates. Normal disc height, hydration and morphology. Mild facet joint hypertrophy. Normal central canal and bilateral lateral recesses. Normal bilateral intervertebral neural foramina. Normal visualized sacral ala. Normal visualized paraspinous soft tissue structures. MRI/Spine Lumbar (Routine) IMPRESSION: 1. Multilevel degenerative changes, as described above. Electronically Signed: Danny Menendez MD at 14:50 EDT , CC: Dr. Bang Ozuna MD; Dr. Breanna Parish DO Tool Design Drafter: Signed Normal [facility] L/S Spine Bending Flex/[place] 07-23-2024 L/S Spine Bending Flex/Ext [facility] [address] [place] [address] L/S Spine Bending Flex/Ext MR#: [id number] Acct: [id number] Name: HELEN LOVETT Rep #: [id number] : 1960 F 63 From: Anne Vásquez PCP: Dr. Breanna Parish DO Status: DEP AMB Study: L/S Spine Bending Flex/Ext Date of Exam: 07/23 Exam# [id number] Ordering Dr: Kajal Santa [id number] INDICATION: low back pain -- please do flex/ext only EXAMINATION/TECHNIQU E: X-RAY - XR Spine Lumbar Bending Views Only 2 or 3 Views COMPARISON: Lumbar spine x-rays 04/09/2024 ____ FINDINGS: Lateral views obtained in flexion and extension only. No other images. The lumbar vertebral bodies are normal in height. T12 mild compression abnormality with vertebroplasty, unchanged. No subluxation with flexion or extension. RAD/L/S Spine Bending Flex/Ext IMPRESSION: No subluxation with flexion or extension. Electronically Signed: Anne Tucker MD at 0:37 EDT , CC: SAIGE Morales; Dr. Breanna Parish DO Tool Design Drafter: Signed Normal [facility] Orthopedic Visit Reporton Orthopedic Visit Report [facility] [facility] [address] [place] [address] OFFICE VISIT Date of Service: 07/23/24 MR#: [id number] Acct: [id number] Name: HELEN LOVETT Rep #: [id number] : 1960 Provider: Dr. Bang Ozuna MD Age/Sex: 63/F Location: [facility] [place] Status: Signed Intake Vital Signs 04/09/24 14:31 Height 4 ft 11 in Intake Visit Reasons: LUMBAR SPINE Chief Complaint: low back pain Accompanied by: Is patient in pain?: Yes Pain scale (1-10): 8 Allergies diphenhydramine Allergy (Verified 07/23/24 15:20) Other lisinopril Allergy (Verified 07/23/24 15:20) Other meloxicam (From Mobic) Allergy (Verified 07/23/24 15:20) Hives meperidine (From Demerol) Allergy (Verified 07/23/24 15:20) Hives ketorolac (From Toradol) Adverse Reaction (Verified 07/23/24 15:20) Other tramadol Adverse Reaction (Verified 07/23/24 15:20) Other Medications ???Medication ???Instructions ???Recorded ???Confirmed ???Type paroxetine HCl 10 mg tablet (Paxil) 10 mg PO DAILY mental health 01/02/23 07/23/24 History trazodone 100 mg tablet 100 mg PO QHS sleep 01/02/23 07/23/24 History amlodipine 10 mg tablet 10 mg PO DAILY #30 tabs 07/02/23 07/23/24 Rx oxycodone-acetaminop hen 5 mg-325 tab PO 07/23/24 07/23/24 History mg tablet PFSH Medical History Lumbar vertebral fracture Bulging lumbar disc Bradycardia Rheumatoid arthritis Multiple sclerosis Diabetes Depressed Anxiety Hypertension Surgical History History of total hysterectomy History of tubal ligation History of delivery Family History Aunt No problems noted. Other Alcoholism Anxiety Arthritis CVA (cerebral vascular accident) Depression Heart disease High cholesterol Hypertension Mental disorder Osteoporosis Rheumatoid arthritis Social History household members: spouse Smoking Status: Never smoker alcohol intake: never substance use type: does not use HPI LUMBAR SPINE Details: This documentation accurately reflects the service provided and the decisions made by me, Dr. Bang Ozuan MD 07/23/24 1512. Part of today???s visit was documented by Mallory GUZMAN , acting as scribe. HELEN LOVETT is a 63 year old F here today for Lumbar pain. Patient has a herniated disc L4-5. Patient states her right leg goes numb. Patient had numbness and tingling that goes down the right leg. Right leg weakness below the knee. She also has leg weakness for the last 3-4 months with worsening walking endurance. She uses a Rollator walker at work. Patient also has legs cramps in that leg. About 5 years ago she was hit by a trampoline after trying to get it out of a tree. Patient see Dr Cole and her last injection was in Nov 2023 and that only lasted a week. Patient states she don't want any more injection in her back. Patient hasn't done PT recently. Patient did have a Fracture in her back and she had surgery for that in Oct 2023. Dr Cole did a Kyphoplasty on her. Patient is currently taking Oxycodone half a pill for her pain. Patient states ice and heat don't help the pain. Patient feels like there is a knot in her back when she is leaning against something. She has a history of MS and says that all her lesions are in her brain with no spinal cord lesions. Ortho Exam General General: Yes no acute distress Neurologic: Yes alert and Yes oriented x3 Spine SPINE TESTING CERVICAL THORACIC LUMBAR Musculoskeletal Strength 0=absent - 5=normal Details: Neurological exam of the lower extremities shows right 4 power in all muscle groups and left 5 power. Midline tenderness, no paraspinal tenderness. Normal sensation across all dermatomes. Poor balance when standing from wheelchair. Passive straight leg positive on right. Coding Level of Care Code Off vis,est,level 4 Diagnoses Lumbar radiculopathy M54.16 Closed wedge compression fracture of L1 vertebra, sequela S32.010S Encounter type: sequela Fracture morphology: wedge compression Time Spent (min) 35 Assessment and Plan Assessment and Plan (1) Lumbar radiculopathy: Status: Acute (2) Closed L1 vertebral fracture: Status: Acute Qualifiers: Encounter type: sequela Fracture morphology: wedge compression Qualified Code(s): S32.010S - Wedge compression fracture of first lumbar vertebra, sequela Orders: Orders L/S Spine Bending Flex/Ext 07/23/24 SAIGE Morales M54.50 - Low back pain, unspecified Spine Lumbar (Routine) 07/23/24 Dr. Bang Ozuna MD M54.16 - Radiculopathy, lumbar region, R53.1 - Weakness Plan Obtained and reviewed x (more content not included)... Normal [facility] CBC W/Diff, Automatedon 08-2 -2023 Absolute Lymph 2.03 X10 3/uL Normal 0.83-4.51 [facility] Comment on above: Performed By: #### L 500.3400, L501.2450 #### [facility] [address] [facility], [address] Absolute Neut 4.4 X10 3/uL Normal 2.0-7.7 [facility] Comment on above: Performed By: #### L 500.3400, L501.2450 #### [facility] [address] [place], [address] Basophils/100 WBC (Bld) 0.6 % Normal 0-1 [facility] Comment on above: Performed By: #### L 500.3400, L501.2450 #### [facility] [address] [place], [address] Eosinophils/100 WBC (Bld) 1.1 % Normal 0-5 [facility] Comment on above: Performed By: #### L 500.3400, L5.2450 #### [facility] [address] [place], [address] Erythrocyte distribution width (RBC) [Ratio] 12.1 % Normal 11.6-14.6 [facility] Comment on above: Performed By: #### L 500.3400, L501.2450 #### [facility] [address] [place], [address] Hematocrit (Bld) [Volume fraction] 42.8 % Normal 37-47 [facility] Comment on above: Performed By: #### L 500.3400, L501.2450 #### [facility] [address] [place], [address] Hemoglobin (Bld) [Mass/Vol] 14.6 g/dL Normal 12.0-15.0 [facility] Comment on above: Performed By: #### L 500.3400, L501.2450 #### [facility] [address] [place], [address] IG% 0.100 Normal 0.0-0.9 [facility] Comment on above: Result Comment: IG% - Immature Granulocytes (promyelocytes, myelocytes and metamyelocytes) > 1% indicates that a LEFT SHIFT is Present. Performed By: #### L 500.3400, L501.2450 #### [facility] [address] [place], [address] Lymphocytes/100 WBC (Bld) 28.3 % Normal 19-41 [facility] Comment on above: Performed By: #### L 500.3400, L501.2450 #### [facility] [address] [place], [address] MCH (RBC) [Entitic mass] 30.8 pg Normal 27.0-32.0 [facility] Comment on above: Performed By: #### L 500.3400, L501.2450 #### [facility] [address] [place], [address] MCHC (RBC) [Mass/Vol] 34.1 g/dL Normal 32-36 [facility] Comment on above: Performed By: #### L 500.3400, L501.2450 #### [facility] [address] [place], [address] MCV (RBC) [Entitic vol] 90.3 fL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 6.5 % 3.8-5.6 [facility] Comment on above: Normal < 5.7 % Predi abetic 5.7 - 6.4 % Diabetic >or= 6.5 % Please note range changes. Absolute lymphocyte countOrd ered By: Yamilka Williamson on 07-02-2023 Lymphocytes Auto (Unsp spec) [#/Vol] 1.86 10*3/uL 0.83-4.51 [facility] Basophil percentageOrdered B y: Yamilka Williamson on 07-02-2023 Basophil percentage 3.7 mg/dL 2.5-4.9 [facility] Basophils/100 WBC (Bld) 0.5 % 0-1 [facility] Bilirubin [Mass/Vol] 0.50 mg/dL 0.20-1.00 [facility] Comment on above: For patients on eltr ombopag therapy, use of Dimension [place] TBIL is not recommended. Chloride [Moles/Vol] 108 mmol/L 98-107 [facility] Cholesterol [Mass/Vol] 239 mg/dL <200 [facility] Comment on above: <200 mg/dL Desirable 200-240 mg/dL Borderline >240 mg/dL High Risk Eosinophils/100 WBC (Bld) 1.6 % 0-5 [facility] Glucose [Mass/Vol] 168 mg/dL 74-106 [facility] Comment on above: Fasting Glucose resu lt greater than or equal to 126 mg/dL suggests DIABETES MELLITUS per A.D.A. criteria. Neutrophils (Bld) [#/Vol] 3.9 10*3/uL 2.0-7.7 [facility] Neutrophils/100 WBC (Bld) 60.5 % 47-70 [facility] Potassium [Moles/Vol] 4.0 mmol/L 3.5-5.1 [facility] Protein [Mass/Vol] 6.9 g/dL 6.4-8.2 [facility] Sodium [Moles/Vol] 139 mmol/L 136-145 [facility] Triglyceride [Mass/Vol] 117 mg/dL <199 [facility] Comment on above: The drugs N-Acetylcy steine and Metamizole may falsely depress this assay.Serum Triglycerides Reference Interval Normal <150 mg/dL Borderline high 150 - 199 mg/dL High 200 - 499 mg/dL Very High > or = 500 mg/dL WBC (Bld) [#/Vol] 6.4 10*3/uL 4.4-11.0 [facility] Blood erythrocytes count (nu mber/volume)Ordered By: Yamilka Williamson on 07-02-2023 RBC (Bld) [#/Vol] 4.47 10*6/uL 4.2-5.4 [facility] Blood hemoglobin measurement (mass/volume)Ordered By: Yamilka Williamson on 07-02-2023 Hemoglobin (Bld) [Mass/Vol] 13.9 g/dL 12.0-15.0 [facility] Blood lymphocytes/100 leukoc ytesOrdered By: Yamilka Williamson on 07-02-2023 Lymphocytes/100 WBC (Bld) 29.1 % 19-41 [facility] Blood monocytes/100 leukocyt esOrdered By: Yamilka Williamson on 07-02-2023 Monocytes/100 WBC (Bld) 7.8 % 0-10 [facility] Blood platelet mean volumeOr dered By: Yamilka Williamson on 07-02-2023 Platelet mean volume (Bld) [Entitic vol] 10.4 fL 6.2-12.0 [facility] Determination of erythrocyte mean corpuscular volume (MCV)Ordered By: Yamilka Williamson on 07-02-2023 MCV (RBC) [Entitic vol] 92.8 fL 81-99 [facility] Glucose Glucometer (BldC) [M ass/Vol]Ordered By: Yamilka Williamson on 07-02-2023 Glucose [Mass/Vol] 218 mg/dL 74-106 [facility] Comment on above: MANAGEMENT OF PATIEN T CARE PER NURSING PROTOCOL Hematocrit Auto (Bld) [Volum e fraction]Ordered By: Yamilka Williamson on 07-02-2023 Hematocrit (Bld) [Volume fraction] 41.5 % 37-47 [facility] Laboratory - Chemistry and C hemistry - challengeOrdered By: Yamilka Williamson on 07-02-2023 ALP [Catalytic activity/Vol] 73 U/L 45-117 [facility] ALT [Catalytic activity/Vol] 21 U/L 13-56 [facility] CO2 [Moles/Vol] 26.0 mmol/L 21.0-32.0 [facility] Globulin (S) [Mass/Vol] 3.8 g/dL 2.2-4.2 [facility] Magnesium [Mass/Vol] 2.1 mg/dL 1.6-2.6 [facility] Urea nitrogen/Creatinine [Mass ratio] 17.0 mg/mg 10-20 [facility] Laboratory - Hematology and Cell countsOrdered By: Yamilka Williamson on 07-02-2023 Erythrocyte distribution width (RBC) [Entitic vol] 41.7 fL 35.1-43.9 [facility] Erythrocyte distribution width (RBC) [Ratio] 12.2 % 11.6-14.6 [facility] Immature granulocytes/100 WBC (Bld) 0.500 % 0.0-0.9 [facility] Comment on above: IG% - Immature Granu locytes (promyelocytes, myelocytes and metamyelocytes) > 1% indicates that a LEFT SHIFT is Present. MCH (RBC) [Entitic mass] 31.1 pg 27.0-32.0 [facility] Nucleated RBC/100 WBC (Bld) [Ratio] 0 % 0-5 [facility] MCHC Auto (RBC) [Mass/Vol]Or dered By: Yamilka Williamson on 07-02-2023 MCHC (RBC) [Mass/Vol] 33.5 g/dL 32-36 [facility] No Panel InformationOrdered By: Yamilka Williamson on 07-02-2023 Estimated Creatinine Clearance Calc 47.00 ml/min [facility] Estimated GFR (MDRD) Amer 83 mL/min >60 [facility] Comment on above: GFR Calc Estimated GFR (MDRD) Non-Af Amer 69 mL/min >60 [facility] Comment on above: Non- GFR Calc Platelets bldOrdered By: Marguerite Williamson on 07-02-2023 Platelets (Bld) [#/Vol] 309 10*3/uL 150-450 [facility] Serum or plasma albumin andi urement (mass/volume)Ordered By: Yamilka Williamson on 07-02-2023 Albumin [Mass/Vol] 3.1 g/dL 3.2-5.0 [facility] Serum or plasma albumin/glob ulin mass ratioOrdered By: Yamilka Williamson on 07-02-2023 Albumin/Globulin [Mass ratio] 0.8 {ratio} 0.9-2.4 [facility] Serum or plasma calcium andi urement (mass/volume)Ordered By: Yamilka Williamson on 07-02-2023 Calcium [Mass/Vol] 9.0 mg/dL 8.5-10.1 [facility] Serum or plasma cholesterol in HDL measurement (mass/volume)Ordered By: Yamilka Williamson on 07-02-2023 Cholesterol in HDL [Mass/Vol] 57 mg/dL >40 [facility] Comment on above: The drugs N-Acetylcy steine and Metamizole may falsely depress this assay. Reference Range HDL <40 mg/dL Low HDL Cholesterol HDL >or= 60 mg/dL High HDL Cholesterol Serum or plasma cholesterol in VLDL measurement (mass/volume)Ordered By: Yamilka Williamson on 07-02-2023 Cholesterol in VLDL [Mass/Vol] 23 mg/dL 5-40 [facility] Serum or plasma creatinine m easurement (mass/volume)Ordered By: Yamilka Williamson on 07-02-2023 Creatinine [Mass/Vol] 0.88 mg/dL 0.55-1.02 [facility] Comment on above: The validity of the calculated GFR & GFRAA in patients over 70 years has not been determined. Clinical correlation is essential. Serum or plasma low density lipoprotein (LDL) cholesterol measurement (mass/volume)Ordered By: Yamilka Williamson on 07-02-2023 Cholesterol in LDL [Mass/Vol] 159 mg/dL 0-130 [facility] Serum or plasma urea nitroge n measurement (mass/volume)Ordered By: Yamilka Williamson on 07-02-2023 Urea nitrogen [Mass/Vol] 15 mg/dL 7-18 [facility] Thin prep Papanicolaou smear with manual screeningOrdered By: Yamilka Williamson on 07-02-2023 Thin prep Papanicolaou smear with manual screening 12 U/L 15-37 [facility] Thin prep Papanicolaou smear with manual screening 5 5-15 [facility] INR in Blood by Coagulation assayOrdered By: Cody Carson on 07-01-2023 INR Coag (Bld) [Relative time] 1.1 {INR} [facility] Laboratory - CoagulationOrde red By: Cody Carson on 07-01-2023 aPTT Coag (Bld) [Time] 26.1 s 24.1-36.2 [facility] PT Coag (PPP) [Time] 13.7 s 11.7-14.9 [facility] No Panel InformationOrdered By: Yamilka Williamson on 07-01-2023 Troponin I High Sensitivity 7 pg/mL 3.0-54.0 [facility] Comment on above: Please Note: New [place] t Units and Gender Specific Reference Ranges. For more information see Policy Stat Procedure [place] High Sensitivity Troponin (TNIH) and attachments. Thyroid Stimulating Hormone (TSH) 1.61 uIU/mL 0.358-3.74 [facility] Whole blood hemoglobin A1c/t otal hemoglobin ratio (mass fraction)Ordered By: Yamilka Williamson on 07-01-2023 HbA1c (Bld) [Mass fraction] 6.9 % 3.8-5.6 [facility] Comment on above: Normal < 5.7 % Predi abetic 5.7 - 6.4 % Diabetic >or= 6.5 % Please note range changes. Absolute lymphocyte countOrd ered By: Romy Ibarra on 06-12-2023 Lymphocytes Auto (Unsp spec) [#/Vol] 1.85 10*3/uL 0.83-4.51 [facility] Basophil percentageOrdered B y: Romy Ibrara on 06-12-2023 Basophil percentage 0 SEEN /hpf 0-5 [facility] Basophils/100 WBC (Bld) 0.4 % 0-1 [facility] Chloride [Moles/Vol] 107 mmol/L 98-107 [facility] Eosinophils/100 WBC (Bld) 1.9 % 0-5 [facility] Glucose [Mass/Vol] 199 mg/dL 74-106 [facility] Comment on above: Fasting Glucose resu lt greater than or equal to 126 mg/dL suggests DIABETES MELLITUS per A.D.A. criteria. Neutrophils (Bld) [#/Vol] 4.2 10*3/uL 2.0-7.7 [facility] Neutrophils/100 WBC (Bld) 61.4 % 47-70 [facility] Potassium [Moles/Vol] 3.6 mmol/L 3.5-5.1 [facility] Sodium [Moles/Vol] 139 mmol/L 136-145 [facility] WBC (Bld) [#/Vol] 6.9 10*3/uL 4.4-11.0 [facility] Bilirubin Test strip Ql (U)O rdered By: Romy Ibarra on 06-12-2023 Bilirubin Ql (U) Negative Negative [facility] Blood erythrocytes count (nu mber/volume)Ordered By: Romy Ibarra on 06-12-2023 RBC (Bld) [#/Vol] 4.51 10*6/uL 4.2-5.4 [facility] Blood hemoglobin measurement (mass/volume)Ordered By: Romy Ibarra on 06-12-2023 Hemoglobin (Bld) [Mass/Vol] 14.7 g/dL 12.0-15.0 [facility] Blood lymphocytes/100 leukoc ytesOrdered By: Romy Ibarra on 06-12-2023 Lymphocytes/100 WBC (Bld) 27.0 % 19-41 [facility] Blood monocytes/100 leukocyt esOrdered By: Romy Ibarra on 06-12-2023 Monocytes/100 WBC (Bld) 9.0 % 0-10 [facility] Blood platelet mean volumeOr dered By: Romy Ibarra on 06-12-2023 Platelet mean volume (Bld) [Entitic vol] 10.3 fL 6.2-12.0 [facility] Determination of erythrocyte mean corpuscular volume (MCV)Ordered By: Romy Ibarra on 06-12-2023 MCV (RBC) [Entitic vol] 92.7 fL 81-99 [facility] Erythrocyte sedimentation ra teOrdered By: Romy Ibarra on 06-12-2023 ESR (Bld) [Velocity] 17 mm/h 0-30 [facility] Hematocrit Auto (Bld) [Volum e fraction]Ordered By: Romy Ibarra on 06-12-2023 Hematocrit (Bld) [Volume fraction] 41.8 % 37-47 [facility] Ketones Test strip Ql (U)Ord ered By: Romy Ibarra on 06-12-2023 Ketones Ql (U) Negative Negative [facility] Laboratory - Chemistry and C hemistry - challengeOrdered By: Romy Ibarra on 06-12-2023 CO2 [Moles/Vol] 27.0 mmol/L 21.0-32.0 [facility] Urea nitrogen/Creatinine [Mass ratio] 10.5 mg/mg 10-20 [facility] Laboratory - Hematology and Cell countsOrdered By: Romy Ibarra on 06-12-2023 Erythrocyte distribution width (RBC) [Entitic vol] 42.3 fL 35.1-43.9 [facility] Erythrocyte distribution width (RBC) [Ratio] 12.4 % 11.6-14.6 [facility] Immature granulocytes/100 WBC (Bld) 0.300 % 0.0-0.9 [facility] Comment on above: IG% - Immature Granu locytes (promyelocytes, myelocytes and metamyelocytes) > 1% indicates that a LEFT SHIFT is Present. MCH (RBC) [Entitic mass] 32.6 pg 27.0-32.0 [facility] Nucleated RBC/100 WBC (Bld) [Ratio] 0 % 0-5 [facility] MCHC Auto (RBC) [Mass/Vol]Or dered By: Romy Ibarra on 06-12-2023 MCHC (RBC) [Mass/Vol] 35.2 g/dL 32-36 [facility] Mucus LM Ql (Urine sed)Order ed By: Romy Ibarra on 06-12-2023 Mucus Ql (Urine sed) 0 SEEN /hpf [facility] Nitrite Test strip Ql (U)Ord ered By: Romy Ibarra on 06-12-2023 Nitrite Ql (U) Negative Negative [facility] No Panel InformationOrdered By: Romy Ibarra on 06-12-2023 Estimated Creatinine Clearance Calc 43.54 ml/min [facility] Estimated GFR (MDRD) Amer 76 mL/min >60 [facility] Comment on above: GFR Calc Estimated GFR (MDRD) Non-Af Amer 63 mL/min >60 [facility] Comment on above: Non- GFR Calc Platelets bldOrdered By: Jania Ibarra on 06-12-2023 Platelets (Bld) [#/Vol] 283 10*3/uL 150-450 [facility] Protein Test strip Ql (U)Ord ered By: Romy Ibarra on 06-12-2023 Protein Ql (U) 15 mg/dl Negative [facility] Serum or plasma C reactive p rotein measurement (mass/volume)Ordered By: Romy Ibarra on 06-12-2023 CRP [Mass/Vol] mg/L 0.0-3.0 [facility] Comment on above: C-Reactive Protein ( CRP) provides useful information for thediagnosis, therapy and monitoring of inflammatory processesand associated diseases. For the evaluation of Relative Riskfor Cardiovascular Disease, a High Sensitivity CRP (HSCRP)should be ordered. Serum or plasma calcium andi urement (mass/volume)Ordered By: Romy Ibarra on 06-12-2023 Calcium [Mass/Vol] 9.1 mg/dL 8.5-10.1 [facility] Serum or plasma creatinine m easurement (mass/volume)Ordered By: Romy Ibarra on 06-12-2023 Creatinine [Mass/Vol] 0.95 mg/dL 0.55-1.02 [facility] Comment on above: The validity of the calculated GFR & GFRAA in patients over 70 years has not been determined. Clinical correlation is essential. Serum or plasma urea nitroge n measurement (mass/volume)Ordered By: Romy Ibarra on 06-12-2023 Urea nitrogen [Mass/Vol] 10 mg/dL 7-18 [facility] Squamous epithelial cells de tection in urine sediment by light microscopyOrdered By: Romy Ibarra on 06-12-2023 Epithelial cells.squamous LM Ql (Urine sed) 0 SEEN /hpf 5-10 [facility] Thin prep Papanicolaou smear with manual screeningOrdered By: Romy Ibarra on 06-12-2023 Thin prep Papanicolaou smear with manual screening 5 5-15 [facility] Urine blood detectionOrdered By: Romy Ibarra on 06-12-2023 RBC Ql (U) Negative Negative [facility] RBC Ql (U) 0 SEEN /hpf 0-5 [facility] Urine clarityOrdered By: Jania Ibarra on 06-12-2023 Clarity (U) Clear Clear [facility] Urine color determinationOrd ered By: Romy Ibarra on 06-12-2023 Color (U) Yellow Yellow [facility] Urine glucose detectionOrder ed By: Romy Ibarra on 06-12-2023 Glucose Ql (U) Normal mg/dl Normal [facility] Urine leukocyte esterase det ection by dipstickOrdered By: Romy Ibarra on 06-12-2023 Leukocyte esterase Test strip Ql (U) 25 /ul Negative [facility] Urine pHOrdered By: Romy troncoso on 06-12-2023 pH (U) 6.0 [pH] 5.0 - 8.0 [facility] Urine sediment bacteria coun t by microscopy (number/high power field)Ordered By: Romy Ibarra on 06-12-2023 Bacteria LM.HPF (Urine sed) [#/Area] 0 /[HPF] None Seen [facility] Urine specific gravity measu rementOrdered By: Romy Ibarra on 06-12-2023 Specific gravity (U) [Rel density] 1.015 1.002-1.030 [facility] Urobilinogen Auto test strip Ql (U)Ordered By: Romy Ibarra on 06-12-2023 Urobilinogen Ql (U) Normal mg/dl Normal [facility] LABORATORYOrdered By: Delilah Lei on 05-26-2023 Amphetamines Screen Ql (U) Negative (05/26/23 9:34 AM) Invalid Interpretation Code AO Manual Urine SS Appearance (U) Clear (05/26/23 9:34 AM) Invalid Interpretation Code Clear AO Auto Urine SS Barbiturates Screen Ql (U) Negative (05/26/23 9:34 AM) Invalid Interpretation Code AO Manual Urine SS Benzodiazepines Ql (U) Negative (05/26/23 9:34 AM) Invalid Interpretation Code AO Manual Urine SS Benzoylecgonine Screen Ql (U) Negative (05/26/23 9:34 AM) Invalid Interpretation Code AO Manual Urine SS Bilirubin Ql (U) Negative (05/26/23 9:34 AM) Invalid Interpretation Code Negative AO Auto Urine SS Cannabinoids tested Screen Nom (U) Negative (05/26/23 9:34 AM) Invalid Interpretation Code AO Manual Urine SS Color (U) Yellow (05/26/23 9:34 AM) Invalid Interpretation Code AO Auto Urine SS Glucose Test strip (U) [Mass/Vol] Negative Invalid Interpretation Code Negativemg/d L AO Auto Urine SS Hemoglobin Auto test strip (U) [Mass/Vol] Negative (05/26/23 9:34 AM) Invalid Interpretation Code Negative AO Auto Urine SS Ketones Ql (U) Negative Invalid Interpretation Code Negativemg/d L AO Auto Urine SS Methadone Screen Ql (U) Negative (05/26/23 9:34 AM) Invalid Interpretation Code AO Manual Urine SS Opiates Screen Ql (U) Negative (05/26/23 9:34 AM) Invalid Interpretation Code AO Manual Urine SS Phencyclidine Ql (U) Negative (05/26/23 9:34 AM) Invalid Interpretation Code AO Manual Urine SS Tricyclic antidepressants Screen Ql (U) Negative (05/26/23 9:34 AM) Invalid Interpretation Code AO Manual Urine SS UA Leuk Est Trace *ABN* (05/26/23 9:34 AM) Invalid Interpretation Code Negative AO Auto Urine SS UA Nitrite Negative (05/26/23 9:34 AM) Invalid Interpretation Code Negative AO Auto Urine SS UA pH 6.5 (05/26/23 9:34 AM) Invalid Interpretation Code 5.0 - 8.0 AO Auto Urine SS UA Protein Negative Invalid Interpretation Code Negativemg/d L AO Auto Urine SS UA RBC None Seen /HPF Invalid Interpretation Code None Seen/HPF AO Auto Urine SS UA Spec Grav 1.020 (05/26/23 9:34 AM) Invalid Interpretation Code 1.015-1.025 AO Auto Urine SS UA Specimen Type Clean Catch (05/26/23 9:34 AM) Invalid Interpretation Code AO Auto Urine SS UA Squam Epithelial None Seen /HPF Invalid Interpretation Code None Seen/HPF AO Auto Urine SS UA Urobilinogen 0.2 E.U./dL Invalid Interpretation Code 0.2-1.0E.U./ dL AO Auto Urine SS WBC LM.HPF (Urine sed) [#/Area] None Seen /HPF Invalid Interpretation Code None Seen/HPF AO Auto Urine SS Absolute lymphocyte countOrd ered By: Dr. Saini on 05-06-2023 Lymphocytes Auto (Unsp spec) [#/Vol] 1.94 10*3/uL 0.83-4.51 [facility] Basophil percentageOrdered B y: Dr. Saini on 05-06-2023 Basophil percentage Not Reportable [facility] Basophils/100 WBC (Bld) 0.6 % 0-1 [facility] Bilirubin [Mass/Vol] 0.60 mg/dL 0.20-1.00 [facility] Comment on above: For patients on eltr ombopag therapy, use of Dim[place] TBIL is not recommended. Chloride [Moles/Vol] 106 mmol/L 98-107 [facility] Eosinophils/100 WBC (Bld) 1.7 % 0-5 [facility] Glucose [Mass/Vol] 109 mg/dL 74-106 [facility] Comment on above: Fasting Glucose resu lt from 100 to 125 mg/dL suggests IMPAIRED HOMEOSTASIS per A.D.A. criteria. Neutrophils (Bld) [#/Vol] 4.3 10*3/uL 2.0-7.7 [facility] Neutrophils/100 WBC (Bld) 61.2 % 47-70 [facility] Potassium [Moles/Vol] 3.8 mmol/L 3.5-5.1 [facility] Protein [Mass/Vol] 8.0 g/dL 6.4-8.2 [facility] Sodium [Moles/Vol] 138 mmol/L 136-145 [facility] WBC (Bld) [#/Vol] 7.0 10*3/uL 4.4-11.0 [facility] Blood erythrocytes count (nu mber/volume)Ordered By: Dr. Saini on 05-06-2023 RBC (Bld) [#/Vol] 4.75 10*6/uL 4.2-5.4 [facility] Blood hemoglobin measurement (mass/volume)Ordered By: Dr. Saini on 05-06-2023 Hemoglobin (Bld) [Mass/Vol] 15.0 g/dL 12.0-15.0 [facility] Blood lymphocytes/100 leukoc ytesOrdered By: Dr. Saini on 05-06-2023 Lymphocytes/100 WBC (Bld) 27.9 % 19-41 [facility] Blood monocytes/100 leukocyt esOrdered By: Dr. Saini on 05-06-2023 Monocytes/100 WBC (Bld) 8.5 % 0-10 [facility] Blood platelet mean volumeOr dered By: Dr. Saini on 05-06-2023 Platelet mean volume (Bld) [Entitic vol] 11.0 fL 6.2-12.0 [facility] Determination of erythrocyte mean corpuscular volume (MCV)Ordered By: Dr. Saini on 05-06-2023 MCV (RBC) [Entitic vol] 91.6 fL 81-99 [facility] Hematocrit Auto (Bld) [Volum e fraction]Ordered By: Dr. Saini on 05-06-2023 Hematocrit (Bld) [Volume fraction] 43.5 % 37-47 [facility] Laboratory - Chemistry and C hemistry - challengeOrdered By: Dr. Saini on 05-06-2023 ALP [Catalytic activity/Vol] 85 U/L 45-117 [facility] ALT [Catalytic activity/Vol] 27 U/L 13-56 [facility] CO2 [Moles/Vol] 23.0 mmol/L 21.0-32.0 [facility] Cobalamin (Vitamin B12) [Mass/Vol] 1379 pg/mL 211-911 [facility] Globulin (S) [Mass/Vol] 4.2 g/dL 2.2-4.2 [facility] Magnesium [Mass/Vol] 2.4 mg/dL 1.6-2.6 [facility] Urea nitrogen/Creatinine [Mass ratio] 21.5 mg/mg 10-20 [facility] Laboratory - Hematology and Cell countsOrdered By: Dr. Saini on 05-06-2023 Erythrocyte distribution width (RBC) [Entitic vol] 41.5 fL 35.1-43.9 [facility] Erythrocyte distribution width (RBC) [Ratio] 12.3 % 11.6-14.6 [facility] Immature granulocytes/100 WBC (Bld) 0.100 % 0.0-0.9 [facility] Comment on above: IG% - Immature Granu locytes (promyelocytes, myelocytes and metamyelocytes) > 1% indicates that a LEFT SHIFT is Present. MCH (RBC) [Entitic mass] 31.6 pg 27.0-32.0 [facility] Nucleated RBC/100 WBC (Bld) [Ratio] 0 % 0-5 [facility] MCHC Auto (RBC) [Mass/Vol]Or dered By: Dr. Saini on 05-06-2023 MCHC (RBC) [Mass/Vol] 34.5 g/dL 32-36 [facility] No Panel InformationOrdered By: Dr. Saini on 05-06-2023 Anti-Nuclear Antibody Screen Negative Negative [facility] Comment on above: Performed at: [address] [id number] Director: Carson Adam PhD, Phone: [phone] [employer] Antibody Not Reportable [facility] Estimated GFR (MDRD) Amer 83 mL/min >60 [facility] Comment on above: GFR Calc Estimated GFR (MDRD) Non-Af Amer 69 mL/min >60 [facility] Comment on above: Non- GFR Calc INDUSTRIAL RADIOGRAPHER Antibody Not Reportable [facility] Whole Blood Vitamin B1 Level 129.6 nmol/L 66.5-200.0 [facility] Comment on above: Performed at: - [address] [id number] Director: Juan F Fink MD, Phone: [phone] Platelets bldOrdered By: Dr. Saini on 05-06-2023 Platelets (Bld) [#/Vol] 317 10*3/uL 150-450 [facility] Serum DNA double strand anti body assay (units/volume)Ordered By: Dr. Saini on 05-06-2023 DNA double strand Ab Qn (S) Not Reportable [facility] Serum Frances-1 antibody assay (u nits/volume)Ordered By: Dr. Saini on 05-06-2023 Frances-1 extractable nuclear Ab Qn (S) Not Reportable [facility] Serum Scl-70 extractable nuc lear antibody assay (units/volume)Ordered By: Dr. Saini on 05-06-2023 SCL-70 extractable nuclear Ab Qn (S) Not Reportable [facility] Serum Hurtado extractable nucl ear antibody detectionOrdered By: Dr. Saini on 05-06-2023 Hurtado extractable nuclear Ab Ql (S) Not Reportable [facility] Serum or plasma albumin andi urement (mass/volume)Ordered By: Dr. Saini on 05-06-2023 Albumin [Mass/Vol] 3.8 g/dL 3.2-5.0 [facility] Serum or plasma albumin/glob ulin mass ratioOrdered By: Dr. Saini on 05-06-2023 Albumin/Globulin [Mass ratio] 0.9 {ratio} 0.9-2.4 [facility] Serum or plasma calcium andi urement (mass/volume)Ordered By: Dr. Saini on 05-06-2023 Calcium [Mass/Vol] 9.2 mg/dL 8.5-10.1 [facility] Serum or plasma creatinine m easurement (mass/volume)Ordered By: Dr. Saini on 05-06-2023 Creatinine [Mass/Vol] 0.88 mg/dL 0.55-1.02 [facility] Comment on above: The validity of the calculated GFR & GFRAA in patients over 70 years has not been determined. Clinical correlation is essential. Serum or plasma folate measu rement (mass/volume)Ordered By: Dr. Saini on 05-06-2023 Folate [Mass/Vol] 14.00 ng/mL 3.1-55.4 [facility] Serum or plasma urea nitroge n measurement (mass/volume)Ordered By: Dr. Saini on 05-06-2023 Urea nitrogen [Mass/Vol] 19 mg/dL 7-18 [facility] Serum rheumatoid factor dete ctionOrdered By: Dr. Saini on 05-06-2023 Rheumatoid factor Ql (S) < 10.0 IU/mL <15 [facility] Thin prep Papanicolaou smear with manual screeningOrdered By: Dr. Saini on 05-06-2023 Thin prep Papanicolaou smear with manual screening 15 U/L 15-37 [facility] Thin prep Papanicolaou smear with manual screening 9 5-15 [facility] Basophil percentageOrdered B y: Dr. Saini on 04-12-2023 Creatinine [Mass/Vol] 1.4 mg/dL 0.55-1.02 [facility] Laboratory - Chemistry and C hemistry - challengeOrdered By: Dr. Saini on 04-12-2023 GFR/1.73 sq M.predicted among non-blacks MDRD (S/P/Bld) [Vol rate/Area] 40.0000 mL/min/{1.73_m2} >60 [facility] CNOVon 02-25-2023 CNOV Office Visit ([facility]) HELEN LOVETT ([id number]) 1960 F Date Time Provider Department 02/25/23 1:15 PM DOMENIC HONEYCUTT WSTR During your visit today, we recorded the following information about you: Domenic Honeycutt MD 02/25/2023 1:25 PM Signed [facility] Triage Note: Patient presents to [...] to the ER with him for evaluation. Referring Provider: SELF [[id number]] Allergies As of Date: 02/25/2023 Noted Allergy Reaction LISINOPRIL 06/23/2021 3 - Cough MORPHINE 06/09/2015 2 - Rash NITROFURANTOIN 06/09/2015 2 - Rash TORADOL (KETOROLAC) 06/23/2021 1 - Mental Status Change TRAMADOL 05/23/2020 16 - Unknown Comments: Date Reviewed: 06/23/2021 Reviewed by: Vinicio Wilcox RN - Fully Assessed Primary Visit Diagnosis:Leg pain, bilateral [M79.604, M79.605] Other Visit Diagnosis:Right leg numbness [R20.0] Prescriptions as of 02/25/2023 - Brompheniramine-Pseu doeph-DM (BROMFED DM) 2-30-10 mg/5 mL syrup Take 5 mL by mouth four times daily as needed (Cough). - albuterol HFA (PROVENTIL HFA, VENTOLIN HFA) 90 mcg/actuation inhaler Inhale 2 Puffs as instructed every 4 hours as needed for Wheezing/Shortness of Breath. Problem List As Of Date: 02/25/2023 (None) Encounter Status:Closed by DOMENIC HONEYCUTT on 02/25/23 Normal [facility] Absolute lymphocyte counton 08-25-2022 Lymphocytes Auto (Unsp spec) [#/Vol] 2.72 10*3/uL 0.83-4.51 [facility] Work Phone: Basophil percentageon 2021 Basophil percentage 0-5 SEEN /hpf 0-5 [facility] Work Phone: [phone] Basophils/100 WBC (Bld) 0.3 % 0-1 [facility] Work Phone: [phone] Bilirubin [Mass/Vol] 0.30 mg/dL 0.20-1.00 [facility] Work Phone: Comment on above: For patients on eltr ombopag therapy, use of Dim[place] TBIL is not recommended. Chloride [Moles/Vol] 106 mmol/L 98-107 [facility] Work Phone: Eosinophils/100 WBC (Bld) 1.0 % 0-5 [facility] Work Phone: Glucose [Mass/Vol] 118 mg/dL 74-106 [facility] Work Phone: Comment on above: Fasting Glucose resu lt from 100 to 125 mg/dL suggests IMPAIRED HOMEOSTASIS per A.D.A. criteria. Neutrophils (Bld) [#/Vol] 5.1 10*3/uL 2.0-7.7 [facility] Work Phone: Neutrophils/100 WBC (Bld) 56.6 % 47-70 [facility] Work Phone: Potassium [Moles/Vol] 3.8 mmol/L 3.5-5.1 [facility] Work Phone: Comment on above: Slight Hemolysis, Re sult may be falsely increased. Protein [Mass/Vol] 7.2 g/dL 6.4-8.2 [facility] Work Phone: [phone] Sodium [Moles/Vol] 142 mmol/L 136-145 [facility] Work Phone: WBC (Bld) [#/Vol] 9.0 10*3/uL 4.4-11.0 [facility] Work Phone: Bilirubin Test strip Ql (U)o n 08-25-2022 Bilirubin Ql (U) Negative Negative [facility] Work Phone: Blood erythrocytes count (nu mber/volume)on 08-25-2022 RBC (Bld) [#/Vol] 4.46 10*6/uL 4.2-5.4 [facility] Work Phone: Blood hemoglobin measurement (mass/volume)on 08-25-2022 Hemoglobin (Bld) [Mass/Vol] 14.1 g/dL 12.0-15.0 [facility] Work Phone: Blood lymphocytes/100 leukoc yteson 08-25-2022 Lymphocytes/100 WBC (Bld) 30.4 % 19-41 [facility] Work Phone: Blood monocytes/100 leukocyt eson 08-25-2022 Monocytes/100 WBC (Bld) 11.4 % 0-10 [facility] Work Phone: Blood platelet mean volumeon 08-25-2022 Platelet mean volume (Bld) [Entitic vol] 10.3 fL 6.2-12.0 [facility] Work Phone: Determination of erythrocyte mean corpuscular volume (MCV)on 08-25-2022 MCV (RBC) [Entitic vol] 90.6 fL 81-99 [facility] Work Phone: Hematocrit Auto (Bld) [Volum e fraction]on 08-25-2022 Hematocrit (Bld) [Volume fraction] 40.4 % 37-47 [facility] Work Phone: Ketones Test strip Ql (U)on 08-25-2022 Ketones Ql (U) 5 mg/dl Negative [facility] Work Phone: Laboratory - Chemistry and C hemistry - challengeon 08-25-2022 ALP [Catalytic activity/Vol] 95 U/L 45-117 [facility] Work Phone: ALT [Catalytic activity/Vol] 29 U/L 13-56 [facility] Work Phone: CO2 [Moles/Vol] 26.0 mmol/L 21.0-32.0 [facility] Work Phone: Globulin (S) [Mass/Vol] 3.7 g/dL 2.2-4.2 [facility] Work Phone: Magnesium [Mass/Vol] 2.1 mg/dL 1.6-2.6 [facility]: Comment on above: Slight Hemolysis, Re sult may be falsely increased. Urea nitrogen/Creatinine [Mass ratio] 16.9 mg/mg 10-20 [facility] Work Phone: Laboratory - Hematology and Cell countson 08-25-2022 Erythrocyte distribution width (RBC) [Entitic vol] 40.7 fL 35.1-43.9 [facility] Work Phone: Erythrocyte distribution width (RBC) [Ratio] 12.3 % 11.6-14.6 [facility] Work Phone: Immature granulocytes/100 WBC (Bld) 0.300 % 0.0-0.9 [facility] Work Phone: Comment on above: IG% - Immature Granu locytes (promyelocytes, myelocytes and metamyelocytes) > 1% indicates that a LEFT SHIFT is Present. MCH (RBC) [Entitic mass] 31.6 pg 27.0-32.0 [facility] Work Phone: Nucleated RBC/100 WBC (Bld) [Ratio] 0 % 0-5 [facility] Work Phone: MCHC Auto (RBC) [Mass/Vol]on 08-25-2022 MCHC (RBC) [Mass/Vol] 34.9 g/dL 32-36 [facility] Work Phone: Mucus LM Ql (Urine sed)on Mucus Ql (Urine sed) 0 SEEN /hpf [facility] Work Phone: Nitrite Test strip Ql (U)on 08-25-2022 Nitrite Ql (U) Negative Negative [facility] Work Phone: No Panel Informationon 08-25 Estimated Creatinine Clearance Calc 54.41 ml/min [facility] Work Phone: Estimated GFR (MDRD) Amer 98 mL/min >60 [facility] Work Phone: Comment on above: GFR Calc Estimated GFR (MDRD) Non-Af Amer 81 mL/min >60 [facility] Work Phone: Comment on above: Non- GFR Calc Platelets bldon 08-25-2022 Platelets (Bld) [#/Vol] 300 10*3/uL 150-450 [facility] Work Phone: Protein Test strip Ql (U)on 08-25-2022 Protein Ql (U) 15 mg/dl Negative [facility] Work Phone: Serum or plasma albumin andi urement (mass/volume)on 08-25-2022 Albumin [Mass/Vol] 3.5 g/dL 3.2-5.0 [facility] Work Phone: Serum or plasma albumin/glob ulin mass ratioon 08-25-2022 Albumin/Globulin [Mass ratio] 0.9 {ratio} 0.9-2.4 [facility] Work Phone: Serum or plasma calcium andi urement (mass/volume)on 08-25-2022 Calcium [Mass/Vol] 8.6 mg/dL 8.5-10.1 [facility] Work Phone: Serum or plasma creatinine m easurement (mass/volume)on 08-25-2022 Creatinine [Mass/Vol] 0.77 mg/dL 0.55-1.02 [facility] Work Phone: Comment on above: The validity of the calculated GFR & GFRAA in patients over 70 years has not been determined. Clinical correlation is essential. Serum or plasma urea nitroge n measurement (mass/volume)on 08-25-2022 Urea nitrogen [Mass/Vol] 13 mg/dL 7-18 [facility] Work Phone: Squamous epithelial cells de tection in urine sediment by light microscopyon 08-25-2022 Epithelial cells.squamous LM Ql (Urine sed) 0-5 SEEN /hpf 5-10 [facility] Work Phone: Thin prep Papanicolaou smear with manual screeningon 08-25-2022 Thin prep Papanicolaou smear with manual screening 17 U/L 15-37 [facility] Work Phone: Comment on above: Slight Hemolysis, Re sult may be falsely increased. Thin prep Papanicolaou smear with manual screening 10 5-15 [facility] Work Phone: Urine blood detectionon RBC Ql (U) Negative Negative [facility] Work Phone: RBC Ql (U) 0 SEEN /hpf 0-5 [facility] Work Phone: Urine clarityon 08-25-2022 Clarity (U) Clear Clear [facility] Work Phone: [phone] Urine color determinationon 08-25-2022 Color (U) Yellow Yellow [facility] Work Phone: Urine glucose detectionon Glucose Ql (U) 50 mg/dl Normal [facility] Work Phone: Urine leukocyte esterase det ection by dipstickon 08-25-2022 Leukocyte esterase Test strip Ql (U) 500 /ul Negative [facility] Work Phone: [phone] Urine pHon 08-25-2022 pH (U) 5.0 [pH] 5.0 - 8.0 [facility] Work Phone: Urine sediment bacteria coun t by microscopy (number/high power field)on 08-25-2022 Bacteria LM.HPF (Urine sed) [#/Area] RARE /hpf None Seen [facility] Work Phone: Urine specific gravity measu rementon 08-25-2022 Specific gravity (U) [Rel density] 1.025 1.002-1.030 [facility] Work Phone: Urobilinogen Auto test strip Ql (U)on 08-25-2022 Urobilinogen Ql (U) Normal mg/dl Normal [facility] Work Phone: LABORATORYOrdered By: Alejandro Orozco on 04-06-2022 Basophil, Absolute 0.00 103/mcL Invalid Interpretation Code 0.00 - 0.19 10^3/mcL AO Auto Heme SS Basophils/100 WBC (Bld) 0.2 % Invalid Interpretation Code 0.0 - 2.5 % AO Auto Heme SS Eosinophil, Absolute 0.10 103/mcL Invalid Interpretation Code 0.00 - 0.40 10^3/mcL AO Auto Heme SS Eosinophils/100 WBC (Bld) 1.5 % Invalid Interpretation Code 0.0 - 7.0 % AO Auto Heme SS Erythrocyte distribution width (RBC) [Ratio] 13.1 % Invalid Interpretation Code 11.5 - 14.5 % AO Auto Heme SS ESR 15 minute reading (Bld) [Velocity] 36 mm/hr Invalid Interpretation Code 0 - 30 mm/hr AO Man Heme SS Hematocrit (Bld) [Volume fraction] 42.0 % Invalid Interpretation Code 37.0 - 47.0 % AO Auto Heme SS Hemoglobin (Bld) [Mass/Vol] 14.5 G/dL Invalid Interpretation Code 12.0 - 16.0 G/dL AO Auto Heme SS Lymphocyte, Absolute 2.30 103/mcL Invalid Interpretation Code 0.77 - 3.85 10^3/mcL AO Auto Heme SS Lymphocytes/100 WBC (Bld) 28.4 % Invalid Interpretation Code 10.0 - 50.0 % AO Auto Heme SS MCH (RBC) [Entitic mass] 31.2 pg Invalid Interpretation Code 27.0 - 31.2 pg AO Auto Heme SS MCHC (RBC) [Mass/Vol] 34.6 G/dL Invalid Interpretation Code 33.0 - 37.0 G/dL AO Auto Heme SS MCV (RBC) [Entitic vol] 90.4 fL Invalid Interpretation Code 80.0 - 94.0 fL AO Auto Heme SS Monocyte, Absolute 0.80 103/mcL Invalid Interpretation Code 0.15 - 1.00 10^3/mcL AO Auto Heme SS Monocytes/100 WBC (Bld) 9.7 % Invalid Interpretation Code 1.7 - 13.0 % AO Auto Heme SS Neutrophil, Absolute 4.80 103/mcL Invalid Interpretation Code 2.85 - 6.16 10^3/mcL AO Auto Heme SS Neutrophils/100 WBC (Bld) 60.2 % Invalid Interpretation Code 37.0 - 80.0 % AO Auto Heme SS Platelet mean volume (Bld) [Entitic vol] 9.2 fL Invalid Interpretation Code 7.4 - 10.4 fL AO Auto Heme SS Platelets (Bld) [#/Vol] 323 103/mcL Invalid Interpretation Code 130 - 400 10^3/mcL AO Auto Heme SS RBC (Bld) [#/Vol] 4.65 106/mcL Invalid Interpretation Code 4.20 - 5.40 10^6/mcL AO Auto Heme SS WBC (Bld) [#/Vol] 8.00 103/mcL Invalid Interpretation Code 4.60 - 10.80 10^3/mcL AO Auto Heme SS LABORATORYOrdered By: Delilah Lei on 04-06-2022 Calcium [Mass/Vol] 9.2 mg/dL Invalid Interpretation Code 8.4 - 10.2 mg/dL AO ADM SS Chloride [Moles/Vol] 102 mmol/L Invalid Interpretation Code 98 - 107 mmol/L AO ADM SS CO2 [Moles/Vol] 26 mmol/L Invalid Interpretation Code 23 - 31 mmol/L AO ADM SS Creatinine [Mass/Vol] 1.08 mg/dL Invalid Interpretation Code 0.55 - 1.02 mg/dL AO ADM SS CRP [Mass/Vol] 1.3 mg/dL Invalid Interpretation Code 0.0 - 0.9 mg/dL AO ADM SS Electrolyte Balance 11.0 mEq/L Invalid Interpretation Code 4.0 - 15.0 mEq/L AO ADM SS Glucose [Mass/Vol] 218 mg/dL Invalid Interpretation Code 80 - 115 mg/dL AO ADM SS Potassium [Moles/Vol] 4.0 mmol/L Invalid Interpretation Code 3.5 - 5.1 mmol/L AO ADM SS Sodium [Moles/Vol] 139 mmol/L Invalid Interpretation Code 136 - 145 mmol/L AO ADM SS Troponin I.cardiac DL <= 0.01 ng/mL [Mass/Vol] 9.7 ng/L Invalid Interpretation Code 0.0 - 51.4 ng/L AO ADM SS Urea nitrogen [Mass/Vol] 16 mg/dL Invalid Interpretation Code 7 - 18 mg/dL AO ADM SS Urea nitrogen/Creatinine [Mass ratio] 15 ratio Invalid Interpretation Code 7 - 27 ratio AO ADM SS LABORATORYOrdered By: SYSTEM SYSTEM on 04-06-2022 GFR 62 ml/min/1.73sqm Invalid Interpretation Code AO Chemistry S GFR Non- 51 ml/min/1.73sqm Invalid Interpretation Code AO Chemistry S ALBUMIN, RANDOM URINE W/CREA TININEon 03-23-2022 ALBUMIN, URINE 0.2 mg/dL Normal See Note: [facility] Comment on above: Result Comment: Refe rence Range: Reference Range Not established Performed By: #### 1 0231, 6399, 5259, 6517, 32388 #### [facility] [place] [address] [employer] Operator: Felibetro Willis MD ALBUMIN/CREATININE RATIO, RANDOM URINE 4 mcg/mg creat Normal <30 [facility] Comment on above: Result Comment: The ADA defines abnormalities in albumin excretion as follows: Albuminuria Category Result (mcg/mg creatinine) Normal to Mildly increased <30 Moderately increased 30-299 Severely increased > OR = 300 The ADA recommends that at least two of three specimens collected within a 3-6 month period be abnormal before considering a patient to be within a diagnostic category. Performed By: #### 1 0231, 6399, 5259, 6517, 54232 #### [facility] [place] [address] [employer] Operator: Feliberto Willis MD Creatinine (U) [Mass/Vol] 57 mg/dL Normal 20-275 [facility] Comment on above: Performed By: #### 1 0231, 6399, 5259, 6517, 19439 #### [facility] [place] [address] [employer] Operator: Feliberto Willis MD CBC (INCLUDES DIFF/PLT)on Basophils (Bld) [#/Vol] 0.047 10*3/uL Normal 0-200 [facility] Comment on above: Performed By: #### 1 0231, 6399, 5259, 6517, 09001 #### [facility] [address] [place] [address] [employer]: Feliberto Willis MD Basophils/100 WBC (Bld) 0.8 % Normal [facility] Comment on above: Performed By: #### 1 0231, 6399, 5259, 6517, 31641 #### [facility] of [place] [address] [employer] Operator: Feliberto Willis MD Eosinophils (Bld) [#/Vol] 0.083 10*3/uL Normal 15-500 [facility] Comment on above: Performed By: #### 1 0231, 6399, 5259, 6517, 80739 #### [facility] of [place] [address] [employer] Operator: Feliberto Willis MD Eosinophils/100 WBC (Bld) 1.4 % Normal [facility] Comment on above: Performed By: #### 1 0231, 6399, 5259, 6517, 87846 #### [facility] [place] [address] [employer] Operator: Feliberto Willis MD Erythrocyte distribution width (RBC) [Ratio] 12.4 % Normal 11.0-15.0 [facility] Comment on above: Performed By: #### 1 0231, 6399, 5259, 6517, 37833 #### [facility] of [place] [address] [employer] Operator: Feliberto Willis MD Hematocrit (Bld) [Volume fraction] 45.5 % High 35.0-45.0 [facility] Comment on above: Performed By: #### 1 0231, 6399, 5259, 6517, 97777 #### [facility] [place] [address] [employer] Operator: Feliberto Willis MD Hemoglobin (Bld) [Mass/Vol] 16.0 g/dL High 11.7-15.5 [facility] Comment on above: Performed By: #### 1 0231, 6399, 5259, 6517, 95211 #### [facility] [place] [address] [employer] Operator: Feliberto Willis MD Lymphocytes (Bld) [#/Vol] 2.041 10*3/uL Normal 850-3900 [facility] Comment on above: Performed By: #### 1 0231, 6399, 5259, 6517, 31896 #### [facility] [place] [address] [employer] Operator: Feliberto Willis MD Lymphocytes/100 WBC (Bld) 34.6 % Normal [facility] Comment on above: Performed By: #### 1 0231, 6399, 5259, 6517, 61191 #### [facility] [place] [address] [employer] Operator: Feliberto Willis MD MCH (RBC) [Entitic mass] 32.2 pg Normal 27.0-33.0 [facility] Comment on above: Performed By: #### 1 0231, 6399, 5259, 6517, 16573 #### [facility] [place] [address] [employer] Operator: Feliberto Willis MD MCHC (RBC) [Mass/Vol] 35.2 g/dL Normal 32.0-36.[address] [facility] Comment on above: Performed By: #### 1 0231, 6399, 5259, 6517, 09205 #### [facility] [place] [address] [employer] Operator: Feliberto Willis MD MCV (RBC) [Entitic vol] 91.5 fL Normal 80.0-100.0 [facility] Comment on above: Performed By: #### 1 0231, 6399, 5259, 6517, 11536 #### [facility] [place] [address] [employer] Operator: Feliberto Willis MD Monocytes (Bld) [#/Vol] 0.531 10*3/uL Normal 200-950 [facility] Comment on above: Performed By: #### 1 0231, 6399, 5259, 6517, 26558 #### [facility] [place] [address] [employer] Operator: Feliberto Willis MD Monocytes/100 WBC (Bld) 9.0 % Normal [facility] Comment on above: Performed By: #### 1 0231, 6399, 5259, 6517, 07992 #### [facility] of [address], [address] [place] [address] [employer] Operator: Feliberto Willis MD Neutrophils (Bld) [#/Vol] 3.198 10*3/uL Normal 5300-5299 [facility] Comment on above: Performed By: #### 1 0231, 6399, 5259, 6517, 31687 #### [facility] [place] [address] [employer] Operator: Feliberto Willis MD Neutrophils/100 WBC (Bld) 54.2 % Normal [facility] Comment on above: Performed By: #### 1 0231, 6399, 5259, 6517, 11521 #### [facility] [place] [address] [employer] Operator: Feliberto Willis MD Platelet mean volume (Bld) [Entitic vol] 11.1 fL Normal 7.5-12.5 [facility] Comment on above: Performed By: #### 1 0231, 6399, 5259, 6517, 40552 #### [facility] [place] [address] [employer] Operator: Feliberto Willis MD Platelets (Bld) [#/Vol] 326 10*3/uL Normal 140-400 [facility] Comment on above: Performed By: #### 1 0231, 6399, 5259, 6517, 74661 #### [facility] [place] [address] [employer] Operator: Feliberto Willis MD RBC (Bld) [#/Vol] 4.97 10*6/uL Normal 3.80-5.10 [facility] Comment on above: Performed By: #### 1 0231, 6399, 5259, 6517, 94820 #### [facility] [place] [address] [employer] Operator: Feliberto Willis MD WBC (Bld) [#/Vol] 5.9 10*3/uL Normal 3.8-10.8 [facility] Comment on above: Performed By: #### 1 0231, 6399, 5259, 6517, 08839 #### [facility] of [address], [address] [place] [address] [employer] Operator: Feliberto Willis MD [facility] 03-23-2022 Albumin [Mass/Vol] 4.4 g/dL Normal 3.6-5.1 [facility] Comment on above: Performed By: #### 1 0231, 6399, 5259, 6517, 14036 #### [facility] of [address], [address] [place] [address] [employer]: Feliberto Willis MD Albumin/Globulin [Mass ratio] 1.6 {ratio} Normal 1.0-2.5 [facility] Comment on above: Performed By: #### 1 0231, 6399, 5259, 6517, 58048 #### [facility] of [place] [address] [employer] Operator: Feliberto Willis MD ALP [Catalytic activity/Vol] 115 U/L Normal 37-153 [facility] Comment on above: Performed By: #### 1 0231, 6399, 5259, 6517, 59663 #### [facility] of [place] [address] [employer] Operator: Feliberto Willis MD ALT [Catalytic activity/Vol] 27 U/L Normal 6-29 [facility] Comment on above: Performed By: #### 1 0231, 6399, 5259, 6517, 33151 #### [facility] of [address], [address] [place] [address] [employer] Operator: Feliberto Willis MD AST [Catalytic activity/Vol] 22 U/L Normal 10-35 [facility] Comment on above: Performed By: #### 1 0231, 6399, 5259, 6517, 17935 #### [facility] of [address], [address] [place] [address] [employer] Operator: Feliberto Willis MD Bilirubin [Mass/Vol] 0.7 mg/dL Normal 0.2-1.2 [facility] Comment on above: Performed By: #### 1 0231, 6399, 5259, 6517, 75159 #### [facility] of [address], [address] [place] [address] [employer] Operator: Feliberto Willis MD BUN/CREATININE RATIO NOT APPLICABLE Normal 6-22 [facility] Comment on above: Performed By: #### 1 0231, 6399, 5259, 6517, 52126 #### [facility] of [address], [address] [place] [address] [employer] Operator: Feliberto Willis MD Calcium [Mass/Vol] 9.6 mg/dL Normal 8.6-10.4 [facility] Comment on above: Performed By: #### 1 0231, 6399, 5259, 6517, 41228 #### [facility] of [address], [address] [place] [address] [employer] Operator: Feliberto Willis MD Chloride [Moles/Vol] 100 mmol/L Normal 98-110 [facility] Comment on above: Performed By: #### 1 0231, 6399, 5259, 6517, 16799 #### [facility] of [address], [address] [place] [address] [employer] Operator: Feliberto Willis MD CO2 [Moles/Vol] 26 mmol/L Normal 20-32 [facility] Comment on above: Performed By: #### 1 0231, 6399, 5259, 6517, 47269 #### [facility] of [address], [address] [place] [address] [employer] Operator: Feliberto Willis MD Creatinine [Mass/Vol] 0.82 mg/dL Normal 0.50-0.[address] [facility] Comment on above: Result Comment: For patients >49 years of age, the reference limit for Creatinine is approximately 13% higher for people identified as -Icelandic. Performed By: #### 1 0231, 6399, 5259, 6517, 90664 #### [facility] [place] [address] [employer] Operator: Feliberto Willis MD eGFR NON-AFR. MOZAMBICAN 77 mL/min/1.73m2 Normal > OR = 60 [facility] Comment on above: Performed By: #### 1 0231, 6399, 5259, 6517, 72490 #### [facility] [place] [address] [employer] Operator: Feliberto Willis MD GFR/1.73 sq M.predicted among blacks MDRD (S/P/Bld) [Vol rate/Area] 89 mL/min/{1.73_m2} Normal > OR = 60 [facility] Comment on above: Performed By: #### 1 0231, 63, 5259, 6517, 10554 #### [facility] [place] [address] [employer] Operator: Feliberto Willis MD Globulin (S) [Mass/Vol] 2.7 g/dL Normal 1.9-3.7 [facility] Comment on above: Performed By: #### 1 0231, 6399, 5259, 6517, 65423 #### [facility] [place] [address] [employer] Operator: Feliberto Willis MD Glucose [Mass/Vol] 158 mg/dL High 65-99 [facility] Comment on above: Result Comment: Fasting reference interval For someone without known diabetes, a glucose value >125 mg/dL indicates that they may have diabetes and this should be confirmed with a follow-up test. Performed By: #### 1 0231, 6399, 5259, 6517, 07112 #### [facility] of [address], [address] [place] [address] [employer] Operator: Feliberto Willis MD Potassium [Moles/Vol] 4.5 mmol/L Normal 3.5-5.[address] [facility] Comment on above: Performed By: #### 1 0231, 6399, 5259, 6517, 40006 #### [facility] [address], [address] [place] [address] [employer] Operator: Feliberto Willis MD Protein [Mass/Vol] 7.1 g/dL Normal 6.1-8.1 [facility] Comment on above: Performed By: #### 1 0231, 6399, 5259, 6517, 55777 #### [facility] [address], [address] [place] [address] [employer] Operator: Feliberto Willis MD Sodium [Moles/Vol] 136 mmol/L Normal 135-146 [facility] Comment on above: Performed By: #### 1 0231, 6399, 5259, 6517, 43410 #### [facility] [address], [address] [place] [address] [employer] Operator: Feliberto Willis MD Urea nitrogen [Mass/Vol] 14 mg/dL Normal 7-25 [facility] Comment on above: Performed By: #### 1 0231, 6399, 5259, 6517, 02051 #### [facility] [place] [address] [employer] Operator: Feliberto Willis MD HEMOGLOBIN A1con 03-23-2022 HEMOGLOBIN A1c 8.2 % of total Hgb High <5.7 [facility] Comment on above: Result Comment: For someone without known diabetes, a hemoglobin A1c value of 6.5% or greater indicates that they may have diabetes and this should be confirmed with a follow-up test. For someone with known diabetes, a value <7% indicates that their diabetes is well controlled and a value greater than or equal to 7% indicates suboptimal control. A1c targets should be individualized based on duration of diabetes, age, comorbid conditions, and other considerations. Currently, no consensus exists regarding use of hemoglobin A1c for diagnosis of diabetes for children. Performed By: #### 1 0231, 6399, 5259, 6517, 22095 #### [facility] [address], [address] [place] [address] [employer] Operator: Feliberto Willis MD LIPID PANEL WITH REFLEX TO Thalia BELTRÁNon 03-23-2022 Cholesterol [Mass/Vol] 240 mg/dL High <200 [facility] Comment on above: Order Comment: FASTI NG:YES FASTING: YES Performed By: #### 1 0231, 6399, 5259, 6517, 44933 #### [facility] [address], [address] [place] [address] [employer] Operator: Feliberto Willis MD Cholesterol in HDL [Mass/Vol] 50 mg/dL Normal > OR = 50 [facility] Comment on above: Order Comment: FASTI NG:YES FASTING: YES Performed By: #### 1 0231, 6399, 5259, 6517, 51184 #### [facility] [address], [address] [place] [address] [employer] Operator: Feliberto Willis MD Cholesterol in LDL [Mass/Vol] 165 mg/dL High [facility] Comment on above: Order Comment: FASTI NG:YES FASTING: YES Result Comment: Refe rence range: <100 Desirable range <100 mg/dL for primary prevention; <70 mg/dL for patients with CHD or diabetic patients with > or = 2 CHD risk factors. LDL-C is now calculated using the Romulo-Marium calculation, which is a validated novel method providing better accuracy than the Friedewald equation in the estimation of LDL-C. Romulo JIMENEZ et al. SAMUEL. 2013;310(19): 5922-9893 (http://education.[employer].Omnikles/faq/CIJ025) Performed By: #### 1 0231, 6399, 5259, 6517, 97800 #### [facility] [address], [address] [place] [address] [employer] Operator: Feliberot Willis MD Cholesterol.total/Majo sterol in HDL [Mass ratio] 4.8 {ratio} Normal <5.0 [facility] Comment on above: Order Comment: FASTI NG:YES FASTING: YES Performed By: #### 1 0231, 6399, 5259, 6517, 51553 #### [facility] [place] [address] [employer] Operator: Feliberto Willis MD NON HDL CHOLESTEROL 190 mg/dL (calc) High <130 [facility] Comment on above: Order Comment: FASTI NG:YES FASTING: YES Result Comment: For patients with diabetes plus 1 major ASCVD risk factor, treating to a non-HDL-C goal of <100 mg/dL (LDL-C of <70 mg/dL) is considered a therapeutic option. Performed By: #### 1 0231, 6399, 5259, 6517, 40963 #### [facility] [address], [address] [place] [address] [employer] Operator: Feliberto Willis MD Triglyceride [Mass/Vol] 122 mg/dL Normal <150 [facility] Comment on above: Order Comment: FASTI NG:YES FASTING: YES Performed By: #### 1 0231, 6399, 5259, 6517, 21751 #### [facility] [place] [address] [employer] Operator: Feliberto Willis MD MEASLES, MUMPS, AND RUBELLA (MMR) AB (IGG) PANEL, IMMUNE STATUSon 03-23-2022 MEASLES AB (IGG), IMMUNE STATUS >300.00 Normal [facility] Comment on above: Result Comment: AU/m L Interpretation ----- <13.50 Not consistent with immunity 13.50-16.49 Equivocal >16.49 Consistent with immunity The presence of measles IgG suggests immunization or past or current infection with measles virus. For additional information, please refer to http://education.[employer]/faq/MNI309 (This link is being provided for informational/ educational purposes only.) Performed By: #### 1 0231, 6399, 5259, 6517, 80164 #### [facility] [address], [address] [place] [address] [employer] Operator: Feliberto Willis MD MUMPS VIRUS AB (IGG), IMMUNE STATUS 299.00 AU/mL Normal [facility] Comment on above: Result Comment: AU/m L Interpretation ------- <9.00 Not consistent with immunity 9.00-10.99 Equivocal >10.99 Consistent with immunity The presence of mumps IgG antibody suggests immunization or past or current infection with mumps virus. Performed By: #### 1 0231, 6399, 5259, 6517, 30206 #### [facility] [address], [address] [place] [address] [employer] Operator: Feliberto Willis MD RUBELLA AB (IGG), IMMUNE STATUS 1.60 Index Normal [facility] Comment on above: Result Comment: Inde x Interpretation ----- <0.90 Not consistent with immunity 0.90-0.99 Equivocal > or = 1.00 Consistent with immunity The presence of rubella IgG antibody suggests immunization or past or current infection with rubella virus. Performed By: #### 1 0231, 6399, 5259, 6517, 75789 #### [facility] [address], [address] [place] [address] [employer] Operator: Feliberto Willis MD ED Discharge Educationon ED Discharge Education Lumbosacral Strai n (Low Back Strain) A strain is a tear, stretch or spasm in a muscle or the strong cords of tissue that attach muscle to bone (tendons). Strains of the lower back (lumbar spine) are a common cause of low back pain. A strain occurs when muscles or tendons are torn or are stretched beyond their limits. The muscles may become inflamed, resulting in pain and sudden muscle tightening (spasms). A strain can happen suddenly due to an injury (trauma), or it can develop gradually due to overuse. There are three types of strains: ? Grade 1 is a mild strain involving a minor tear, stretch or spasm of the muscle fibers or tendons. This may cause some pain but no loss of muscle strength. ? Grade 2 is a moderate strain involving a partial tear or moderate stretch or spasm of the muscle fibers or tendons. This causes more severe pain and some loss of muscle strength. ? Grade 3 is a severe strain involving a complete tear of the muscle or tendon. This causes severe pain and complete or nearly complete loss of muscle strength. What are the causes? This condition may be caused by: ? Trauma, such as a fall or a hit to the body. ? Twisting or overstretching the back. This may result from doing activities that require a lot of energy, such as lifting heavy objects. What increases the risk? The following factors may increase your risk of getting this condition: ? Playing contact sports. ? Participating in sports or activities that put excessive stress on the back and require a lot of bending and twisting, including: ? Lifting weights or heavy objects. ? Gymnastics. ? Soccer. ? Figure skating. ? Snowboarding. ? Being overweight or obese. ? Having poor strength and flexibility. What are the signs or symptoms? Symptoms of this condition may include: ? Sharp or dull pain in the lower back that does not go away. Pain may extend to the buttocks. ? Stiffness. ? Limited range of motion. ? Inability to stand up straight due to stiffness or pain. ? Muscle spasms. How is this diagnosed? This condition may be diagnosed based on: ? Your symptoms. ? Your medical history. ? A physical exam. ? Your health care provider may push on certain areas of your back to determine the source of your pain. ? You may be asked to bend forward, backward, and side to side to assess the severity of your pain and your range of motion. ? Imaging tests, such as: ? X-rays. ? MRI. How is this treated? Treatment for this condition may include: ? Applying heat and cold to the affected area. ? Medicines to help relieve pain and to relax your muscles (muscle relaxants). ? NSAIDs to help reduce swelling and discomfort. ? Physical therapy. When your symptoms improve, it is important to gradually return to your normal routine as soon as possible to reduce pain, avoid stiffness, and avoid loss of muscle strength. Generally, symptoms should improve within 6 weeks of treatment. However, recovery time varies. Follow these instructions at home: Managing pain, stiffness, and swelling ? If directed, apply ice to the injured area during the first 24 hours after your injury. ? Put ice in a plastic bag. ? Place a towel between your skin and the bag. ? Leave the ice on for 20 minutes, 2?3 times a day. ? If directed, apply heat to the affected area as often as told by your health care provider. Use the heat source that your health care provider recommends, such as a moist heat pack or a heating pad. ? Place a towel between your skin and the heat source. ? Leave the heat on for 20?30 minutes. ? Remove the heat if your skin turns bright red. This is especially important if you are unable to feel pain, heat, or cold. You may have a greater risk of getting burned. Activity ? Rest and return to your normal activities as told by your health care provider. Ask your health care provider what activities are safe for you. ? Avoid activities that take a lot of effort (are strenuous) for as long as told by your health care provider. ? Do exercises as told by your health care provider. General instructions ? Take [id number] and prescription medicines only as told by your health care provider. ? If you have questions or concerns about safety while taking pain medicine, talk with your health care provider. ? Do not drive or operate heavy machinery until you know how your pain medicine affects you. ? Do not use any tobacco products, such as cigarettes, chewing tobacco, and e-cigarettes. Tobacco can delay bone healing. If you need help quitting, ask your health care provider. ? Keep all follow-up visits as told by your health care provider. This is important. How is this prevented? ? Warm up and stretch before being active. ? Cool down and stretch after being active. ? Give your body time to rest between periods of activity. ? Avoid: ? Being physically inactive for long periods at a time. ? Exercising or playing sports when you are tired (more content not included)... Normal [facility] ED Patient Summaryon 021 ED Patient Summary [facility] Emergency Department Discharge Instructions [address] [place] [address] \.br\(Patien t Copy)\.br\ \.br\Name: HELEN LOVETT : 1960 \.br\Allergies: Ultram; Toradol; Macrobid; Demerol HCl\.br\Diagnosis: Diagnoses This Visit\.br\ Back pain ([id number])\. br\ Back pain ([id number])\. br\ Lumbar strain (S39.012A)\.br\ Sciatica (M54.30)\.br\\.br\\. br\ \.br\ Visit Date: 11/09/2021 15:58:51 \.br\ Current Date Time: 11/09/2021 19:46:40 \.br\Address: [address] [place] [id number] \.br\ \.br\ \.br\Primary Care Provider: \.br\ Name: BREANNA PARISH DO\.br\ \.br\ \.br\Emergency Department Care Providers: \.br\ Primary Physician: CÉSAR LORENZ MD \.br\ \.br\ \.br\\.br\Thank you for choosing [facility] for your emergency care. You are very important to us. Our goal is to demonstrate our high quality medical care, and provide you with a very good patient experience.\.br\\.br \You may receive a survey about our service. Please take the time to complete the survey and return it so we can continue to enhance our service.\.br\\.br\Th ank you again for allowing the [facility] Emergency Department to care for your medical needs. If you have questions about your care or follow up information please contact us at [phone].\.br\\. br\ Follow-Up Instructions\.br\___ \.br\HELEN LOVETT has been given these follow-up instructions:\.br\\. br\\.br\With: Address: When: \.br\BREANNA PARISH [address] [place] [address]\.br\ Business (1) Within 3 to 5 days \.br\\.br\\.br\\.br\ \.br\ Patient Education Materials\.br\ __\.br\HELEN LOVETT has been given the following patient education materials:\.br\\.br\ Sciatica: Care Instructions\.br\You r Care Instructions\.br\\.b r\Sciatica (say gtz-VT-yc-kuh) is an irritation of one of the sciatic nerves, which come from the spinal cord in the lower back. The sciatic nerves and their branches extend down through the buttock to the foot. Sciatica can develop when an injured disc in the back irritates or presses against a spinal nerve root. Its main symptom is pain, numbness, or weakness that is often worse in the leg or foot than in the back.\.br\Sciatica often will improve and go away with time. Early treatment usually includes medicines and exercises to relieve pain.\.br\Follow-up care is a putnam part of your treatment and safety. Be sure to make and go to all appointments, and call your doctor if you are having problems. It's also a good idea to know your test results and keep a list of the medicines you take.\.br\How can you care for yourself at home?\.br\? Take pain medicines exactly as directed. \.br\? If the doctor gave you a prescription medicine for pain, take it as prescribed.\.br\? If you are not taking a prescription pain medicine, ask your doctor if you can take an lzkg-nhn-youeqjm medicine.\.br\? Use heat or ice to relieve pain. \.br\? To apply heat, put a warm water bottle, heating pad set on low, or warm cloth on your back. Do not go to sleep with a heating pad on your skin.\.br\? To use ice, put ice or a cold pack on the area for 10 to 20 minutes at a time. Put a thin cloth between the ice and your skin.\.br\? Avoid sitting if possible, unless it feels better than standing.\.br\? Alternate lying down with short walks. Increase your walking distance as you are able to without making your symptoms worse.\.br\? Do not do anything that makes your symptoms worse.\.br\When should you call for help?\.br\ Call 911 anytime you think you may need emergency care. For example, call if: \.br\ ? You are unable to move a leg at all. \.br\Call your doctor now or seek immediate medical care if:\.br\ ? You have new or worse symptoms in your legs or buttocks. Symptoms may include: \.br\? Numbness or tingling.\.br\? Weakness.\.br\? Pain. \.br\ ? You lose bladder or bowel control. \.br\Watch closely for changes in your health, and be sure to contact your doctor if:\.br\ ? You are not getting better as expected. \.br\Where can you learn more?\.br\Go to [email or web address].net/[email or web address] \Enter Z239 in the search box to learn more about Sciatica: Care Instructions.\.br\Cu rrent as of: January 18, 2020 Content Version: 12.7\.br\? [employer]. \.br\Care instructions adapted under license by your healthcare professional. If you have questions about a medical condition or this instruction, always ask your healthcare professional. [employer] disclaims any warranty or liability for your use of this information.\.br\Lum bosacral Strain\.br\(Low Back Strain)\.br\A strain is a tear, stretch or spasm in a muscle or the strong cords of tissue that attach muscle to bone (tendons). Strains of the lower back (lumbar spin (more content not included)... Normal [facility] ED Physician Reporton 2020 ED Physician Report Patient: HELEN LOVETT Age: 61 years Sex: Female : 1960 Associated Diagnoses: Lumbar strain; Sciatica Author: CÉSAR LORENZ MD Basic Information Time seen: Date & time 11/09/2021 16:32:00. History of Present Illness Patient presents emerged part with complaints of low back pain. Patient reportedly bent over to pick something up, was seen back when the spasm. She did not fall, no other injuries, no loss control of bowels or bladder. No pain going down the legs currently, but has had some pain go down the leg.. No other complaints currently, pain is increased with movement. Review of Systems Constitutional symptoms: Negative except as documented in HPI. Skin symptoms: Negative except as documented in HPI. Eye symptoms: Negative except as documented in HPI. ENMT symptoms: Negative except as documented in HPI. Respiratory symptoms: Negative except as documented in HPI. Cardiovascular symptoms: Negative except as documented in HPI. Gastrointestinal symptoms: Negative except as documented in HPI. Genitourinary symptoms: Negative except as documented in HPI. Musculoskeletal symptoms: Negative except as documented in HPI. Psychiatric symptoms: Negative except as documented in HPI. Neurologic symptoms Negative except as documented in HPI. Health Status Allergies: Allergic Reactions (Selected) Severity Not Documented Demerol HCl- No reactions were documented. Macrobid- No reactions were documented. Toradol- No reactions were documented. Ultram- No reactions were documented., Nurse's note reviewed. Medications: Per nurse's notes, Nurse's notes reviewed. Immunizations: Per nurse's notes, Nurse's notes reviewed. Past Medical/ Family/ Social History Medical history: Reviewed as documented in chart, Nurse's notes reviewed. Surgical history: Reviewed as documented in chart, Nurse's notes reviewed. Family history: Reviewed as documented in chart, Nurse's notes reviewed. Social history: Reviewed as documented in chart, Alcohol use: Nurse's notes reviewed, Tobacco use: Nurse's notes reviewed, Family/social situation: Nurse's notes reviewed, Nurse's notes reviewed. Problem list: No qualifying data available . Physical Examination Vital Signs Vital Signs 11/09/2021 18:35 EST Peripheral Pulse Rate 66 bpm NORMAL Respiratory Rate 16 br/min NORMAL Systolic Blood Pressure 189 mmHg HI Diastolic Blood Pressure 100 mmHg HI 11/09/2021 16:06 EST Temperature Oral 37.1 degC NORMAL Peripheral Pulse Rate 77 bpm NORMAL Respiratory Rate 18 br/min NORMAL Systolic Blood Pressure 183 mmHg HI Diastolic Blood Pressure 108 mmHg HI SpO2 95 % NORMAL Oxygen Therapy Room air Weight Measured Type of Scale Patient Stated Weight Height/Length Dosing 152 cm Patient Stated Weight 81.8 kg . General: Alert. Skin: Warm. Head: Normocephalic. Neck: Supple. Eye: Pupils are equal, round and reactive to light, extraocular movements are intact. Cardiovascular: Regular rate and rhythm, No murmur, Normal peripheral perfusion, No edema. Respiratory: Lungs are clear to auscultation, respirations are non-labored, breath sounds are equal. Back: No bony tenderness, mild paraspinal tenderness lumbar region, no step-offs noted. Negative straight leg raise.. Musculoskeletal: Normal ROM. Chest wall Gastrointestinal: Soft, Nontender, Non distended, Normal bowel sounds. Psychiatric: Cooperative, appropriate mood & affect. Neurological Alert and oriented to person, place, time, and situation, No focal neurological deficit observed, CN II-XII intact, normal sensory observed, normal motor observed, normal speech observed, DTRs intact . Reexamination/ Reevaluation Exam, patient felt improvement in muscle laxer, discussed patient with discharge and follow-up, she agrees with plan she will return if symptoms progress or worsen in any way. Impression and Plan Diagnosis Lumbar strain ([id number] S39.012A, Working, Medical) Sciatica ([id number] M54.30, Working, Medical) Plan Condition: Improved, Stable. Disposition: ED Discharge to Home was placed.(11/09/2021 17:32:00 EST, Constant Order), Discharged: Time 11/09/2021 18:32:00, to home. Prescriptions: Launch prescriptions Pharmacy: [facility] 5 mg-325 mg oral tablet (Prescribe): 1 tabs, ORAL, [id number], PRN: for pain, 12 tabs, 0 Refill(s) orphenadrine 100 mg oral tablet, extended release (Prescribe): 100 mg = 1 tabs, ORAL, BID, for 7 days, 14 tabs, 0 Refill(s). Patient was given the following educational materials: Lumbosacral Strain AB (3242), Sciatica, Sciatica, Lumbosacral Strain AB (9070). Follow up with: BREANNA PARISH Within 3 to 5 days. Counseled: Patient, Family, Regarding diagnosis, Regarding treatment plan, Regarding prescription, Patient indicated understanding of instructions. Orders: Launch Order Profile (Selected) Inpatient Orders Ordered ED Discharge to Home: ED Pain PRN Response: Completed Nor (more content not included)... [facility] ED Progress Noteon ED Progress Note 1630 Patient arrives ambulatory with complaints of lower back pain. Denies known trauma. Examined by Dr Lorenz. 1740 Patient medicated as ordered. 1825 Patient ambulates to the bathroom with a cane. at her side. 1840 Pt discharged to home with instructions and RX x 2. Verbalizes understanding. [facility] ALLIED HEALTHon 06-23-2021 ALLIED HEALTH HNO ID: [id number] Author: RT Brice(Gloria) Service: ? Author Type: Law Clerk Type: Allied Health Filed: 06/23/2021 8:27 PM Note Text: Radiology Service Progress Note PATIENT NAME: Helen Lovett DATE OF SERVICE: June 23, 2021 TIME: 8:27 PM PATIENT IDENTITY VERIFICATION COMPLETED USING TWO (2) IDENTIFIERS: Name and Date of confirmed by patient verbally. FALL SCREENING: Has the patient had 2 falls in the last year or 1 fall with injury or currently using an Ambulatory Assistive Device (Walker, Cane, Wheelchair, Crutches, etc.)? Emergency Room Patient: Screened in ED PATIENT GENDER DATA: Female. status: : No status: NO. PATIENT RELEVANT IMPLANT DATA REVIEWED: Not Applicable RADIOLOGY DEPARTMENT: General X-ray: Exam(s) Completed: Lower Extremity X-Ray(s): Knee, AP / LAT Left PERIPHERAL IV DATA: Not applicable SIGNED BY: RT Brice(R) June 23, 2021 8:27 PM [facility] ALLIED HEALTH HNO ID: [id number] Author: SYLVIA Mejias Service: Radiology Author Type: Clinical Law Clerk Type: Allied Health Filed: 06/23/2021 8:04 PM Note Text: Radiology Service Progress Note PATIENT NAME: Helen Lovett DATE OF SERVICE: June 23, 2021 TIME: 8:04 PM PATIENT IDENTITY VERIFICATION COMPLETED USING TWO (2) IDENTIFIERS: Name and Date of confirmed by patient verbally and Name and Date of confirmed by identification band. FALL SCREENING: Has the patient had 2 falls in the last year or 1 fall with injury or currently using an Ambulatory Assistive Device (Walker, Cane, Wheelchair, Crutches, etc.)? Emergency Room Patient: Screened in ED PATIENT GENDER DATA: Female. status: Unknown status: N/A PATIENT RELEVANT IMPLANT DATA REVIEWED: Not Applicable RADIOLOGY DEPARTMENT: Ultrasound PERIPHERAL IV DATA: Not applicable SIGNED BY: SYLVIA Mejias June 23, 2021 8:04 PM [facility] ED NOTEon 06-23-2021 ED NOTE HNO ID: [id number] Author: Faustino Virgen RN Service: ? Author Type: Registered Nurse Type: ED Notes Filed: 06/23/2021 8:56 PM Note Text: Discharge instructions and prescriptions reviewed with patient via teachback. Pt verbalizes understanding. Pt awake and alert, respirations regular and unlabored. No further questions for this RN. [facility] ED NOTE HNO ID: [id number] Author: Vinicio Wilcox RN Service: ? Author Type: Registered Nurse Type: ED Notes Filed: 06/23/2021 6:49 PM Note Text: Pt to ED with LLE pain and swelling. Pt states she has history of MS and she fell about a month ago but no other injury/trauma. Pt states she noticed the pain and swelling today. [facility] ED PROV NOTEon 06-23-2021 ED PROV NOTE HNO ID: [id number] Author: Lucia Aceves PA-C Service: ? Author Type: Physician [employer] Professor Type: ED Provider Notes Filed: 06/23/2021 8:43 PM Note Text: ED Provider Note Patient Name: Helen Lovett SERVICE DATE: 06/23/21 History Patient presents with: Leg Pain 60-year-old female with PMH of DM, HTN, MS presents for left leg pain and swelling. Patient states that she has MS and has falls a lot. She states that she has fallen onto her left knee several times now. She states her last fall was a few weeks to a month ago. She states she fell onto her left knee and hip. Patient states she has been having left knee pain since then, but it worsened over the past couple of days. She states that she noticed that she is now having pain in her thigh and getting charley horses/spasms in her left calf. She states her left knee and left thigh seem swollen compared to the right. She denies any skin color changes, warmth. She denies any fever or chills. She denies numbness or tingling. She does report occasionally her left foot feels cold. She denies any headaches, dizziness, vision changes. No facial drooping or other neurological symptoms. No confusion. No recent change in medications. She is not currently on any steroids. She has taken Advil at home for the pain without much improvement. PAST MEDICAL HISTORY Diagnosis Date - Diabetes (HCC) - Hypertension - Multiple sclerosis (HCC) History reviewed. No pertinent surgical history. No family history on file. Social History Tobacco Use - Smoking status: Never Smoker - Smokeless tobacco: Never Used Substance and Sexual Activity - Alcohol use: Not Currently - Drug use: Not on file - Sexual activity: Not on file ALLERGIES Allergen Reactions - Lisinopril Cough - Morphine Rash - Nitrofurantoin Rash - Toradol [Ketorolac] Mental Status Change - Tramadol Unknown Review of Systems Constitutional: Negative for chills and fever. HENT: Negative for congestion. Eyes: Negative for visual disturbance. Respiratory: Negative for shortness of breath. Cardiovascular: Positive for leg swelling. Negative for chest pain. Gastrointestinal: Negative for abdominal pain. Endocrine: Negative for cold intolerance and heat intolerance. Genitourinary: Negative for dysuria, flank pain and hematuria. Musculoskeletal: Positive for arthralgias (L knee). Skin: Negative for rash. Neurological: Negative for dizziness and headaches. Psychiatric/Behavior al: Negative for confusion. Physical Exam BP 186/81 Pulse 54 Temp (Src) 97 (Temporal) Resp 18 Wt 182 lb (82.6kg) SpO2 96% O2 Therapy: Room Air Physical Exam Vitals and nursing note reviewed. Constitutional: General: She is not in acute distress. Appearance: Normal appearance. She is not toxic-appearing. HENT: Head: Normocephalic and atraumatic. Nose: Nose normal. Mouth/Throat: Mouth: Mucous membranes are moist. Eyes: Conjunctiva/sclera: Conjunctivae normal. Cardiovascular: Rate and Rhythm: Normal rate and regular rhythm. Pulses: Normal pulses. Heart sounds: Normal heart sounds. Pulmonary: Effort: Pulmonary effort is normal. Breath sounds: Normal breath sounds. Abdominal: Palpations: Abdomen is soft. Musculoskeletal: General: Normal range of motion. Cervical back: Normal range of motion. Left upper leg: Tenderness present. No edema. Left knee: Swelling and bony tenderness present. Tenderness present over the medial joint line and lateral joint line. Normal pulse. Left lower leg: No tenderness. No edema. Comments: Patient has mild swelling around the left knee joint. Patient has normal ROM of left knee, but reports pain with flexion extension. No calf or thigh swelling noted on my examination. No erythema or warmth. No edema to LLE. Patient has generalized tenderness around the left knee joint. She has no calf tenderness and no thigh tenderness. Sensation intact left lower extremity. Strength 5/5. Distal pulses 2+. Cap refill less than 2 seconds. Patient able to ambulate. No hip or ankle tenderness. Skin: General: Skin is warm and dry. Capillary Refill: Capillary refill takes less than 2 seconds. Neurological: Mental Status: She is alert and oriented to person, place, and time. Psychiatric: Mood and Affect: Mood normal. Behavior: Behavior normal. Diagnostic Testing ED Labs Ordered and Reviewed - No data to display XR KNEE INJURY 4V AP/LAT/OBLS LT Final Result IMPRESSION: Tricompartmental osteoarthritic changes. Tool Design Drafter: HITESH Transcribe Date/Time: Jun 23 2021 8:36P Dictated by : CÉSAR GOMEZ MD This examination was interpreted and the report reviewed and electronically signed by: CÉSAR GOMEZ MD on Jun 23 2021 8:39PM EST US DVT LOWER LT Final Result IMPRESSION: Negative study for acute proximal DVT in the LEFT lower extremity. Negative study for acute calf DVT in the LEFT lower extr (more content not included)... Normal [facility] US DVT LOWER LTon 06-23-2021 US DVT LOWER LT * * *Final Report* * * DATE OF EXAM: Jun 23 2021 7:59PM JN 1006 - US DVT LOWER LT / PROCEDURE REASON: Leg swelling * * * * Physician Interpretation * * * * EXAMINATION: LEFT LOWER EXTREMITY DEEP VENOUS ULTRASOUND WITH DOPPLER IMAGING CLINICAL HISTORY: Swollen LEFT leg TECHNIQUE: Grayscale with compression maneuvers, color Doppler and spectral Doppler imaging of the left proximal deep veins was performed. Grayscale with compression maneuvers of the peroneal and posterior tibial veins was performed. The left great and small saphenous veins were evaluated at their insertion to the deep system. The contralateral common femoral vein was imaged for comparison. Images were obtained and stored in a permanent archive. MQ: [id number] COMPARISON: None RESULT: LEFT LOWER EXTREMITY PROXIMAL DEEP VEINS Distal External Iliac, Common Femoral and proximal Profunda Veins: Compression: Normal Doppler: Normal, spontaneous respirophasic flow. Normal response to augmentation. Femoral vein: Compression: Normal Doppler: Normal, spontaneous flow. Normal response to augmentation. Popliteal vein: Compression: Normal Doppler: Normal, spontaneous flow. Normal response to augmentation. CALF DEEP VEINS: Color Doppler grossly unremarkable but only segmentally seen. . Gastrocnemius and Soleal veins: Not imaged. SUPERFICIAL VEINS Great saphenous: Patent and compressible at insertion into common femoral vein; not otherwise assessed. Small Saphenous: Patent and compressible in the proximal calf, not otherwise assessed. RIGHT LOWER EXTREMITY (FOR COMPARISON) Common Femoral Vein: Compression: Normal Doppler: Normal, spontaneous respirophasic flow. Normal response to augmentation. IMPRESSION: Negative study for acute proximal DVT in the LEFT lower extremity. Negative study for acute calf DVT in the LEFT lower extremity. Negative study for acute superficial thrombophlebitis in the imaged segments of the LEFT lower extremity Tool Design Drafter: HITESH Transcribe Date/Time: Jun 23 2021 8:02P Dictated by : JACQUE MCCOY DO This examination was interpreted and the report reviewed and electronically signed by: JACQUE MCCOY DO on Jun 23 2021 8:04PM EST [id number] [facility] XR KNEE 4V AP/LAT/OBLS LTon 06-23-2021 XR KNEE 4V AP/LAT/OBLS LT * * *Final Report* * * DATE OF EXAM: Jun 23 2021 8:27PM MDX 5204 - XR KNEE 4V AP/LAT/OBLS LT / PROCEDURE REASON: Bone pain, knee * * * * Physician Interpretation * * * * EXAMINATION: LEFT KNEE X-RAY SERIES HISTORY: Bone pain, knee COMPARISON: None available. TECHNIQUE: AP, both obliques, and crosstable lateral views RESULT: No fracture, dislocation or destructive changes. Mild tricompartmental osteoarthritic changes. No evidence of knee joint effusion. IMPRESSION: Tricompartmental osteoarthritic changes. Tool Design Drafter: HITESH Transcribe Date/Time: Jun 23 2021 8:36P Dictated by : CÉSAR GOMEZ MD This examination was interpreted and the report reviewed and electronically signed by: CÉSAR GOMEZ MD on Jun 23 2021 8:39PM EST [id number] Normal [facility] BENZODIAZEPINES CONF,URINEon 11-12-2019 7-AMINOCLONAZEPAM <25 Normal Cutoff <25 [facility] [place] Comment on above: Performed By: #### B ENCN #### [facility] [address] [place] [address] ALPHA-HYDROXYALPRAZOLAM 185 ng/mL Abnormal Cutoff <25 [facility] Comment on above: Result Comment: Alpr azolam metabolite; consistent with use of a drug containing alprazolam, such as Xanax. Performed By: #### B ENCN #### [facility] [address] [place] [address] ALPHA-HYDROXYMIDAZOLAM <25 Normal Cutoff <25 [facility] Comment on above: Performed By: #### B ENCN #### [facility] [address] [place] [address] ALPRAZOLAM 136 ng/mL Abnormal Cutoff <25 [facility] Comment on above: Result Comment: Cons istent with use of a drug containing alprazolam, such as Xanax. Performed By: #### B ENCN #### [facility] [address] [place] [address] CHLORDIAZEPOXIDE <25 Normal Cutoff <25 [facility] Comment on above: Performed By: #### B ENCN #### [facility] [address] [place] [address] CLONAZEPAM <25 Normal Cutoff <25 [facility] Comment on above: Performed By: #### B ENCN #### [facility] [address] [place] [address] DIAZEPAM <25 Normal Cutoff <25 [facility] Comment on above: Performed By: #### B ENCN #### [facility] [address] [place] [address] LORAZEPAM <25 Normal Cutoff <25 [facility] Comment on above: Performed By: #### B ENCN #### [facility] [address] [place] [address] MIDAZOLAM <25 Normal Cutoff <25 [facility] Comment on above: Performed By: #### B ENCN #### [facility] [address] [place] [address] NORDIAZEPAM <25 Normal Cutoff <25 [facility] Comment on above: Performed By: #### B ENCN #### [facility] [address] [place] [address] OXAZEPAM <25 Normal Cutoff <25 [facility] Comment on above: Performed By: #### B ENCN #### [facility] [address] [place] [id number] TEMAZEPAM <25 Normal Cutoff <25 [facility] Comment on above: Result Comment: The performance characteristics of the Benzodiazepine Confirmation, Urine has been validated by the individual laboratory site where testing is performed. It has not been cleared or approved by the FDA. However the FDA has determined that such clearance or approval is not necessary. Our Laboratory is certified under the Clinical Laboratory Improvement Amendments of 1988 (CLIA) as qualified to perform high complexity clinical laboratory testing. Performed By: #### B ENCN #### [facility] [address] [place] [address] OPIATE CONFIRMATION,URINEon 11-12-2019 6-ACETYLMORPHINE <25 Normal Cutoff <25 [facility] Comment on above: Performed By: #### O PIC2 #### [facility] [address] [place] [address] CODEINE <25 Normal Cutoff <25 [facility] Comment on above: Performed By: #### O PIC2 #### [facility] [address] [place] [address] HYDROCODONE <25 Normal Cutoff <25 [facility] Comment on above: Performed By: #### O PIC2 #### [facility] [address] [place] [address] HYDROMORPHONE <25 Normal Cutoff <25 [facility] Comment on above: Performed By: #### O PIC2 #### [facility] [address] [place] [address] MORPHINE <25 Normal Cutoff <25 [facility] Comment on above: Performed By: #### O PIC2 #### [facility] [address] [place] [address] NORHYDROCODONE <25 Normal Cutoff <25 [facility] Comment on above: Performed By: #### O PIC2 #### [facility] [address] [place] [address] NOROXYCODONE <25 Normal Cutoff <25 [facility] Comment on above: Performed By: #### O PIC2 #### [facility] [address] [place] [address] OXYCODONE <25 Normal Cutoff <25 [facility] Comment on above: Performed By: #### O PIC2 #### [facility] [address] [place] [address] OXYMORPHONE <25 Normal Cutoff <25 [facility] Comment on above: Result Comment: The performance characteristics of the Opiate Confirmation, Urine has been validated by the individual laboratory site where testing is performed. It has not been cleared or approved by the FDA. However the FDA has determined that such clearance or approval is not necessary. Our Laboratory is certified under the Clinical Laboratory Improvement Amendments of 1988 (CLIA) as qualified to perform high complexity clinical laboratory testing. Performed By: #### O PIC2 #### [facility] [address] [place] [address] DRUG SCREEN,PAIN MANAGEMENT W/ REFLEXon 11-05-2019 AMPHETAMINE SCREEN,U Negative Normal NEGATIVE [facility] Comment on above: Result Comment: CUTO FF LEVEL: 500 NG/ML Cross-reactivity has been reported with high concentrations of the following drugs: buproprion, chloroquine, chlorpromazine, ephedrine, mephentermine, fenfluramine, phentermine, phenylpropanolamine, pseudoephedrine, and propranolol. Performed By: #### D SPMR #### [facility] [address] [place] [address] BARBITURATES SCREEN,U Negative Normal NEGATIVE [facility] Comment on above: Result Comment: CUTO FF LEVEL: 200 NG/ML Performed By: #### D SPMR #### [facility] [address] [place] [address] BENZODIAZEPINES SCREEN,U Positive Abnormal NEGATIVE [facility] Comment on above: Result Comment: CUTO FF LEVEL: 200 NG/ML Benzodiazepine Confirmatory testing has been ordered and will be reported separately. Although the benzodiazepine screening test provides rapid results; the confirmatory test provide the most sensitive and specific assessment of drug presence or absence in the urine. Performed By: #### D SPMR #### [facility] [address] [place] [address] CANNABINOIDS SCREEN,U Negative Normal NEGATIVE [facility] Comment on above: Result Comment: CUTO FF LEVEL: 50 NG/ML Performed By: #### D SPMR #### [facility] [address] [place] [address] COCAINE METABOLITE SCREEN,U Negative Normal NEGATIVE [facility] Comment on above: Result Comment: CUTO FF LEVEL: 150 NG/ML Performed By: #### D SPMR #### [facility] [address] [place] [address] DRUG SCREEN COMMENT. SEE BELOW Normal [facility] Comment on above: Result Comment: Drug screen results are presumptive and should not be used to assess compliance with prescribed medication. Definitive confirmatory drug testing has been added to this sample for any positive screen result and will be reported separately. . Toxicology screening results are reported qualitatively. The concentration must be greater than or equal to the cutoff to be reported as positive. The concentration at which the screening test can detect an individual drug or metabolite varies. The absence of expected drug(s) and/or drug metabolite(s) may indicate non-compliance, inappropriate timing of specimen collection relative to drug administration, poor drug absorption, diluted/adulterated urine, or limitations of testing. For medical purposes only; not valid for forensic use. . Interpretive questions should be directed to the laboratory medical directors. Performed By: #### D SPMR #### [facility] [address] [place] [id number] METHADONE SCREEN,U Negative Normal NEGATIVE [facility] Comment on above: Result Comment: CUTO FF LEVEL: 150 NG/ML The metabolite G-uflpi-ijcquwsxuthbxb (LAAM) is not detected by this method in concentrations that would be found in the urine of patients on LAAM therapy. Performed By: #### D SPMR #### [facility] [address] [place] [id number] OPIATES SCREEN,U Negative Normal NEGATIVE [facility] Comment on above: Result Comment: CUTO FF LEVEL: 300 NG/ML The opiate screen does not detect fentanyl, meperidine, or tramadol. Oxycodone is not consistently detected (refer to Oxycodone Screen, Urine result). Opiate/Oxycodone Confirmatory testing has been ordered and will be reported separately. Although the screening tests provide rapid results; the confirmatory tests provide the most sensitive and specific assessment of drug presence or absence in the urine. Performed By: #### D SPMR #### [facility] [address] [place] [id number] PCP SCREEN,U Negative Normal NEGATIVE [facility] Comment on above: Result Comment: CUTO FF LEVEL: 25 NG/ML Cross-reactivity has been reported with dextromethorphan. Performed By: #### D SPMR #### [facility] [address] [place] [id number] BENZODIAZEPINES CONF,URINEon 10-14-2019 7-AMINOCLONAZEPAM <25 Normal Cutoff <25 [facility] [place] Comment on above: Performed By: #### B ENCN #### [facility] [address] [place] [id number] ALPHA-HYDROXYALPRAZOLAM 167 ng/mL Abnormal Cutoff <25 [facility] Comment on above: Result Comment: Alpr azolam metabolite; consistent with use of a drug containing alprazolam, such as Xanax. Performed By: #### B ENCN #### [facility] [address] [place] [id number] ALPHA-HYDROXYMIDAZOLAM <25 Normal Cutoff <25 [facility] Comment on above: Performed By: #### B ENCN #### [facility] [address] [place] [address] ALPRAZOLAM 142 ng/mL Abnormal Cutoff <25 [facility] Comment on above: Result Comment: Cons istent with use of a drug containing alprazolam, such as Xanax. Performed By: #### B ENCN #### [facility] [address] [place] [address] CHLORDIAZEPOXIDE <25 Normal Cutoff <25 [facility] Comment on above: Performed By: #### B ENCN #### [facility] [address] [place] [address] CLONAZEPAM <25 Normal Cutoff <25 [facility] Comment on above: Performed By: #### B ENCN #### [facility] [address] [place] [address] DIAZEPAM <25 Normal Cutoff <25 [facility] Comment on above: Performed By: #### B ENCN #### [facility] [address] [place] [address] LORAZEPAM <25 Normal Cutoff <25 [facility] Comment on above: Performed By: #### B ENCN #### [facility] [address] [place] [address] MIDAZOLAM <25 Normal Cutoff <25 [facility] Comment on above: Performed By: #### B ENCN #### [facility] [address] [place] [address] NORDIAZEPAM <25 Normal Cutoff <25 [facility] Comment on above: Performed By: #### B ENCN #### [facility] [address] [place] [address] OXAZEPAM <25 Normal Cutoff <25 [facility] Comment on above: Performed By: #### B ENCN #### [facility] [address] [place] [address] TEMAZEPAM <25 Normal Cutoff <25 [facility] Comment on above: Result Comment: The performance characteristics of the Benzodiazepine Confirmation, Urine has been validated by the individual laboratory site where testing is performed. It has not been cleared or approved by the FDA. However the FDA has determined that such clearance or approval is not necessary. Our Laboratory is certified under the Clinical Laboratory Improvement Amendments of 1988 (CLIA) as qualified to perform high complexity clinical laboratory testing. Performed By: #### B ENCN #### [facility] [address] [place] [address] OPIATE CONFIRMATION,URINEon 10-14-2019 6-ACETYLMORPHINE <25 Normal Cutoff <25 [facility] Comment on above: Performed By: #### O PIC2 #### [facility] [address] [place] [address] CODEINE <25 Normal Cutoff <25 [facility] Comment on above: Performed By: #### O PIC2 #### [facility] [address] [place] [address] HYDROCODONE <25 Normal Cutoff <25 [facility] Comment on above: Performed By: #### O PIC2 #### [facility] [address] [place] [address] HYDROMORPHONE <25 Normal Cutoff <25 [facility] Comment on above: Performed By: #### O PIC2 #### [facility] [address] [place] [address] MORPHINE <25 Normal Cutoff <25 [facility] Comment on above: Performed By: #### O PIC2 #### [facility] [address] [place] [address] NORHYDROCODONE <25 Normal Cutoff <25 [facility] Comment on above: Performed By: #### O PIC2 #### [facility] [address] [place] [address] NOROXYCODONE <25 Normal Cutoff <25 [facility] Comment on above: Performed By: #### O PIC2 #### [facility] [address] [place] [address] OXYCODONE <25 Normal Cutoff <25 [facility] Comment on above: Performed By: #### O PIC2 #### [facility] [address] [place] [address] OXYMORPHONE <25 Normal Cutoff <25 [facility] Comment on above: Result Comment: The performance characteristics of the Opiate Confirmation, Urine has been validated by the individual laboratory site where testing is performed. It has not been cleared or approved by the FDA. However the FDA has determined that such clearance or approval is not necessary. Our Laboratory is certified under the Clinical Laboratory Improvement Amendments of 1988 (CLIA) as qualified to perform high complexity clinical laboratory testing. Performed By: #### O PIC2 #### [facility] [address] [place] [id number] DRUG SCREEN,PAIN MANAGEMENT W/ REFLEXon 10-07-2019 AMPHETAMINE SCREEN,U Negative Normal NEGATIVE [facility] Comment on above: Result Comment: CUTO FF LEVEL: 500 NG/ML Cross-reactivity has been reported with high concentrations of the following drugs: buproprion, chloroquine, chlorpromazine, ephedrine, mephentermine, fenfluramine, phentermine, phenylpropanolamine, pseudoephedrine, and propranolol. Performed By: #### D SPMR #### [facility] [address] [place] [address] BARBITURATES SCREEN,U Negative Normal NEGATIVE [facility] Comment on above: Result Comment: CUTO FF LEVEL: 200 NG/ML Performed By: #### D SPMR #### [facility] [address] [place] [address] BENZODIAZEPINES SCREEN,U Positive Abnormal NEGATIVE [facility] Comment on above: Result Comment: CUTO FF LEVEL: 200 NG/ML Benzodiazepine Confirmatory testing has been ordered and will be reported separately. Although the benzodiazepine screening test provides rapid results; the confirmatory test provide the most sensitive and specific assessment of drug presence or absence in the urine. Performed By: #### D SPMR #### [facility] [address] [place] [address] CANNABINOIDS SCREEN,U Negative Normal NEGATIVE [facility] Comment on above: Result Comment: CUTO FF LEVEL: 50 NG/ML Performed By: #### D SPMR #### [facility] [address] [place] [address] COCAINE METABOLITE SCREEN,U Negative Normal NEGATIVE [facility] Comment on above: Result Comment: CUTO FF LEVEL: 150 NG/ML Performed By: #### D SPMR #### [facility] [address] [place] [address] DRUG SCREEN COMMENT. SEE BELOW Normal [facility] Comment on above: Result Comment: Drug screen results are presumptive and should not be used to assess compliance with prescribed medication. Definitive confirmatory drug testing has been added to this sample for any positive screen result and will be reported separately. . Toxicology screening results are reported qualitatively. The concentration must be greater than or equal to the cutoff to be reported as positive. The concentration at which the screening test can detect an individual drug or metabolite varies. The absence of expected drug(s) and/or drug metabolite(s) may indicate non-compliance, inappropriate timing of specimen collection relative to drug administration, poor drug absorption, diluted/adulterated urine, or limitations of testing. For medical purposes only; not valid for forensic use. . Interpretive questions should be directed to the laboratory medical directors. Performed By: #### D SPMR #### [facility] [address] [place] [address] METHADONE SCREEN,U Negative Normal NEGATIVE [facility] Comment on above: Result Comment: CUTO FF LEVEL: 150 NG/ML The metabolite M-hfjbj-dhfquzpqdernqs (LAAM) is not detected by this method in concentrations that would be found in the urine of patients on LAAM therapy. Performed By: #### D SPMR #### [facility] [address] [place] [id number] OPIATES SCREEN,U Negative Normal NEGATIVE [facility] Comment on above: Result Comment: CUTO FF LEVEL: 300 NG/ML The opiate screen does not detect fentanyl, meperidine, or tramadol. Oxycodone is not consistently detected (refer to Oxycodone Screen, Urine result). Opiate/Oxycodone Confirmatory testing has been ordered and will be reported separately. Although the screening tests provide rapid results; the confirmatory tests provide the most sensitive and specific assessment of drug presence or absence in the urine. Performed By: #### D SPMR #### [facility] [address] [place] [id number] PCP SCREEN,U Negative Normal NEGATIVE [facility] Comment on above: Result Comment: CUTO FF LEVEL: 25 NG/ML Cross-reactivity has been reported with dextromethorphan. Performed By: #### D SPMR #### [facility] [address] [place] [id number] BASICMETAon 08-31-2019 Calcium [Mass/Vol] 8.6 mg/dL Normal 8.5-10.5 [facility] Comment on above: Performed By: #### 1 70453, 739400, 160824, 080021, [id number] #### [facility] [address] [place] [address] [employer] Machine Operator: Romulo Urrutia MD Chloride [Moles/Vol] 104 mmol/L Normal 100-109 [facility] Comment on above: Performed By: #### 1 97291, 472049, 317148, 730391, 4400285 #### [facility] [address] [place] [address] [employer] Operator: Romulo Urrutia MD CO2, venous 26.7 mmol/L Normal 21.0-32.0 [facility] Comment on above: Performed By: #### 1 91514, 397606, 824855, 677893, 3599233 #### [facility] [address] [place] [address] [employer] Operator: Romulo Urrutia MD Creatinine [Mass/Vol] 0.7 mg/dL Normal 0.6-1.0 [facility] Comment on above: Performed By: #### 1 99841, 542585, 499627, 027769, 1224696 #### [facility] [address] [place] [address] [employer] Operator: Romulo Urrutia MD GFR AA >60 Normal [facility] Comment on above: Result Comment: Afri can Icelandic GFR Calc Medical judgement is necessary to interpret GFR. The calculated GFR may not accurately reflect renal status in patients >70 years, women, acutely ill hospitalized patients and patients with acute renal failure or known renal disease. The MDRD GFR formula is valid only for adults greater than 18 years of age. Note: Creatinine clearance (not GFR) should be used for drug dosing. Performed By: #### 1 55953, 078974, 754672, 704240, 6832410 #### [facility] [address] [place] [address] [employer] Operator: Romulo Urrutia MD GFR/1.73 sq M predicted among non-blacks MDRD (S/P/Bld) [Vol rate/Area] mL/min/{1.73_m2} Normal [facility] Comment on above: Result Comment: Non GFR Calc Medical judgement is necessary to interpret GFR. The calculated GFR may not accurately reflect renal status in patients >70 years, women, acutely ill hospitalized patients and patients with acute renal failure or known renal disease. The MDRD GFR formula is valid only for adults greater than 18 years of age. Note: Creatinine clearance (not GFR) should be used for drug dosing. Performed By: #### 1 23827, 788674, 634216, 647407, 5999889 #### [facility] [address] [place] [address] [employer] Operator: Romulo Urrutia MD Glucose [Mass/Vol] 125 mg/dL High 72-100 [facility] Comment on above: Result Comment: Jovanna puncture should occur prior to sulfasalazine administration due to the potential for falsely depressed results. Venipuncture should occur prior to sulfapyridine administration due to the potential falsely elevated results. Baseline assay values before administration of sulfasalazine and sulfapyridine therapy would not be affected. Performed By: #### 1 57235, 429876, 429933, 057917, [id number] #### [facility] [address] [place] [address] [employer] Operator: Romulo Urrutia MD Osmolality [Osmolality] 278 mOsm/kg Normal 275-295 [facility] Comment on above: Performed By: #### 1 14902, 899868, 222844, 473470, 2126682 #### [facility] [address] [place] [address] [employer] Operator: Romulo Urrutia MD Potassium [Moles/Vol] 4.0 mmol/L Normal 3.5-5.1 [facility] Comment on above: Performed By: #### 1 71613, 503780, 335827, 724387, 2609866 #### [facility] [address] [place] [address] [employer] Operator: Romulo Urrutia MD Sodium [Moles/Vol] 139 mmol/L Normal 135-145 [facility] Comment on above: Performed By: #### 1 33638, 185251, 731832, 500890, 6816456 #### [facility] [address] [place] [address] [employer] Operator: Romulo Urrutia MD Urea nitrogen [Mass/Vol] 11 mg/dL Normal 10-20 [facility] Comment on above: Performed By: #### 1 39826, 016596, 417161, 080523, 5621900 #### [facility] [address] [place] [address] [employer] Operator: Romulo Urrutia MD Urea nitrogen/Creatinine [Mass ratio] 15.3 mg/mg Normal [facility] Comment on above: Performed By: #### 1 63265, 874293, 839655, 202158, 4519570 #### [facility] [address] [place] [address] [employer] Operator: Romulo Urrutia MD CBCNDon 08-31-2019 Erythrocyte distribution width (RBC) [Ratio] 13.6 % Normal 11.5-14.5 [facility] Comment on above: Performed By: #### 1 36506, 113545, 240866, 491818, 2579847 #### [facility] [address] [place] [address] [employer] Operator: Romulo Urrutia MD Hematocrit (Bld) [Volume fraction] 39.2 % Normal 36.0-46.0 [facility] Comment on above: Performed By: #### 1 90129, 351716, 074070, 453328, 1440026 #### [facility] [address] [place] [address] [employer] Operator: Romulo Urrutia MD Hemoglobin (Bld) [Mass/Vol] 13.5 g/dL Normal 12.0-16.0 [facility] Comment on above: Performed By: #### 1 28608, 396723, 084384, 831840, 6665284 #### [facility] [address] [place] [address] [employer] Operator: Romulo Urrutia MD MCH (RBC) [Entitic mass] 31.3 pg Normal 27.0-34.0 [facility] Comment on above: Performed By: #### 1 48511, 201828, 555109, 601959, 7501605 #### [facility] [address] [place] [address] [employer] Operator: Romulo Urrutia MD MCHC (RBC) [Mass/Vol] 34.3 g/dL Normal 32.0-37.0 [facility] Comment on above: Performed By: #### 1 12766, 252190, 907716, 162450, 7335384 #### [facility] [address] [place] [address] [employer] Operator: Romulo Urrutia MD MCV (RBC) [Entitic vol] 91.0 fL Normal 80.0-100.0 [facility] Comment on above: Performed By: #### 1 82749, 051475, 622584, 733860, 3324277 #### [facility] [address] [place] [address] [employer] Operator: Romulo Urrutia MD Platelet mean volume (Bld) [Entitic vol] 8.8 fL Normal 7.4-10.4 [facility] Comment on above: Performed By: #### 1 12635, 866337, 221155, 256464, 7450779 #### [facility] [address] [place] [address] [employer] Operator: Romulo Urrutia MD Platelets (Bld) [#/Vol] 280 x1000 Normal 150-450 [facility] Comment on above: Performed By: #### 1 10128, 129184, 270876, 794532, 3398300 #### [facility] [address] [place] [address] [employer] Operator: Romulo Urrutia MD RBC (Bld) [#/Vol] 4.30 x10 Normal 4.20-5.40 [facility] Comment on above: Result Comment: Note : RBC morphology is normal unless otherwise stated. Evaluation performed only if differential is requested. Performed By: #### 1 59516, 860728, 582296, 450631, [id number] #### [facility] [address] [place] [address] [employer] Operator: Romulo Urrutia MD WBC (Bld) [#/Vol] 4.4 10*3/uL Normal [facility] Comment on above: Performed By: #### 1 79585, 634010, 234969, 677897, 6940394 #### [facility] [address] [place] [address] [employer] Operator: Romulo Urrutia MD WBC (Bld) [#/Vol] 4.4 x10 Low 4.5-11.0 [facility] Comment on above: Performed By: #### 1 04682, 335199, 056776, 600460, 1685145 #### [facility] [address] [place] [address] [employer] Operator: Romulo Urrutia MD POC Glucoseon 08-31-2019 Glucose [Mass/Vol] 141 mg/dL High 72-100 [facility] Comment on above: Performed By: #### 1 30848, 813899, 613057, 573973, 1950509 #### [facility] [address] [place] [address] [employer] Operator: Romulo Urrutia MD Vascular Lab Reporton 2018 Vascular Lab Report PRELIMINARY VASCULAR REPORT CAROTID DUPLEX COMPLETE; MD TO READ. PRELIMINARY REPORT- MILD PLAQUE SEEN BILATERAL INTERNAL; CAROTID ARTRIES. Normal [facility] AUTO DIFFon 08-30-2019 Basophils (Bld) [#/Vol] 0.10 x1000 Normal 0.00-0.20 [facility]: Performed By: #### 1 13165, 863145, 012996, 685356, 7257014 #### [facility] [address] [place] [address] [employer] Operator: Romulo Urrutia MD Basos % 0.8 % Normal [facility] Comment on above: Performed By: #### 1 67744, 041493, 735652, 745434, 9933830 #### [facility] [address] [place] [address] [employer] Operator: Romulo Urrutia MD Eos Count 0.00 x1000 Normal 0.00-0.50 [facility] Comment on above: Performed By: #### 1 48962, 684544, 835421, 448757, 5469653 #### [facility] [address] [place] [address] [employer] Operator: Romulo Urrutia MD Eosinophils/100 WBC (Bld) 0.7 % Normal [facility] [place] Comment on above: Performed By: #### 1 81956, 842030, 108364, 442992, [id number] #### [facility] [address] [place] [address]40 Garnett Machine Operator: Romulo Urrutia MD Lymphocytes (Bld) [#/Vol] 1.60 x1000 Normal 1.20-4.80 [facility] [place] Comment on above: Performed By: #### 1 67880, 652604, 560672, 493235, [id number] #### [facility] [address] [place] [address] 91799 Garnett Machine Operator: Romulo Urrutia MD Lymphocytes/100 WBC (Bld) 23.5 % Normal [facility] [place] Comment on above: Performed By: #### 1 35979, 577283, 187672, 108872, 3574771 #### [facility] [address] [place] [address] 72874 Garnett Machine Operator: Romulo Urrutia MD Centre Count 0.60 x1000 Normal 0.10-1.00 [facility] [place] Comment on above: Performed By: #### 1 44047, 673875, 350444, 800318, 7992904 #### [facility] [address] [place] [address] 99841 Garnett Machine Operator: Romulo Urrutia MD Monocytes/100 WBC (Bld) 8.5 % Normal [facility] Comment on above: Performed By: #### 1 30749, 803224, 005682, 427337, 7799314 #### [facility] [address] [place] [address] 66282 Garnett Machine Operator: Romulo Urrutia MD Neutrophils (Bld) [#/Vol] 4.40 x1000 Normal 1.40-8.80 [facility] [place] Comment on above: Performed By: #### 1 34933, 302432, 941999, 324603, 1170474 #### [facility] [address] [place] [address]05 Garnett Machine Operator: Romulo Urrutia MD Neutrophils/100 WBC (Bld) 66.5 % Normal [facility] [place] Comment on above: Performed By: #### 1 99931, 342681, 690008, 736183, 8516295 #### [facility] [address] [place] [address] 37108 Garnett Machine Operator: Romulo Urrutia MD BASICMETAon 08-30-2019 GFR/1.73 sq M predicted among non-blacks MDRD (S/P/Bld) [Vol rate/Area] 64 mL/min/{1.73_m2} Normal [facility] [place] Comment on above: Result Comment: The GFR is calculated and is Age, Sex, and Race adjusted. Performed By: #### 1 98952, 295485, 531413, 127322, [id number] #### [facility] [address] [place] [address] Garnett Machine Operator: Romulo Urrutia MD Calcium [Mass/Vol] 9.2 mg/dL Normal 8.5-10.5 [facility] Comment on above: Performed By: #### 1 15387, 789765, 763750, 454133, 7900763 #### [facility] [address] [place] [address] 82267 Garnett Machine Operator: Romulo Urrutia MD Chloride [Moles/Vol] 99 mmol/L Low 100-109 [facility] Comment on above: Performed By: #### 1 06385, 184511, 462099, 100572, [id number] #### [facility] [address] [place] [address] 28476 Garnett Machine Operator: Romulo Urrutia MD CO2, venous 29.7 mmol/L Normal 21.0-32.0 [facility] [place] Comment on above: Performed By: #### 1 12984, 467635, 043049, 062863, [id number] #### [facility] [address] [place] [address] 65483 Garnett Machine Operator: Romulo Urrutia MD Creatinine [Mass/Vol] 0.9 mg/dL Normal 0.6-1.0 [facility] Comment on above: Performed By: #### 1 82175, 079985, 511863, 425377, 2450396 #### [facility] [address] [place] [address] 86889 Garnett Machine Operator: Romulo Urrutia MD Glucose [Mass/Vol] 306 mg/dL High 72-100 [facility] Comment on above: Result Comment: Jovanna puncture should occur prior to sulfasalazine administration due to the potential for falsely depressed results. Venipuncture should occur prior to sulfapyridine administration due to the potential falsely elevated results. Baseline assay values before administration of sulfasalazine and sulfapyridine therapy would not be affected. Performed By: #### 1 43965, 624803, 305916, 691367, 7242902 #### [facility] [address] [place] [address] Garnett Machine Operator: Romulo Urrutia MD Osmolality [Osmolality] 290 mOsm/kg Normal 275-295 [facility] [place] Comment on above: Performed By: #### 1 80711, 980937, 898619, 513910, 3434732 #### [facility] [address] [place] [address] 30880 Garnett Machine Operator: Romulo Urrutia MD Potassium [Moles/Vol] 3.3 mmol/L Low 3.5-5.1 [facility] Comment on above: Performed By: #### 1 53649, 264695, 777591, 235340, 7134320 #### [facility] [address] [place] [address] 98970 Garnett Machine Operator: Romulo Urrutia MD Sodium [Moles/Vol] 139 mmol/L Normal 135-145 [facility] Comment on above: Performed By: #### 1 17976, 425447, 213524, 850409, 7026817 #### [facility] [address] [place] [address] 97007 Garnett Machine Operator: Romulo Urrutia MD Urea nitrogen [Mass/Vol] 14 mg/dL Normal 10-20 [facility] [place] Comment on above: Performed By: #### 1 16153, 187908, 061964, 672339, 5356111 #### [facility] [address] [place] [address] 91281 Garnett Machine Operator: Romulo Urrutia MD Urea nitrogen/Creatinine [Mass ratio] 15.6 mg/mg Normal [facility] [place] Comment on above: Performed By: #### 1 38922, 489730, 311273, 222996, 9038565 #### [facility] [address] [place] [address] Garnett Machine Operator: Romulo Urrutia MD CT BRAIN HEAD WO CONTRASTon 08-30-2019 CT BRAIN HEAD WO CONTRAST PROCEDURE: CT BRAIN HEAD WO CONTRAST CLINICAL HISTORY: 58 years Female PAIN fall, dizziness COMPARISON: None. TECHNIQUE: Contiguous axial CT images obtained through the brain without IV contrast. This exam was performed according to our department optimization program which includes automated exposure control, adjustment of the mA and/or kv according to patient size and/or use of iterative reconstruction technique. FINDINGS: The ventricles and sulci are prominent consistent with atrophic changes. No mass lesions. No acute hemorrhage. Atherosclerotic calcifications. Fluid and mucosal thickening in the maxillary sinus on the left. No depressed calvarial fractures. IMPRESSION: No acute intracranial abnormality is identified. Left maxillary sinus disease Electronically signed by: Galina Adame MD 08/30/2019 5:02 PM CDT Technologist: CH Dictated By: GALINA ADAME MD Signed By: GALINA ADAME MD Signed Out: 08/30/19 18:02:24 Normal [facility] [place] ED Physician Reporton 2018 ED Physician Report Patient: HELEN LOVETT Age: 58 years Sex: Female : 1960 Associated Diagnoses: None Author: BRITTANY TA MD Basic Information Addendum: Time of addendum:: 08/30/2019 16:09:00 , Pertinent history: 58-year-old female was awaiting transfer to [facility] for admission for syncope. I was asked to see the patient because she suddenly developed lower midsternal sharp chest pain. No shortness of breath no radiating of the pain. 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 Repeat EKG shows sinus bradycardia no ST elevation no ST depression. A repeat troponin was drawn. She was given a GI cocktail.. Also, patient's blood sugar was above 300 she was given 5 units subcu repeat blood sugar was 196. Patient's pain was greatly improved with the GI cocktail. Dr. Martins was paged. She was made aware of new complaint. She will follow-up and do serial cardiac enzymes. Medical Decision Making Electrocardiogram: Reexamination/ Reevaluation Re-examination/Re-ev aluation: Normal [facility] [place] ED Physician Report Patient: HELEN LOVETT Age: 58 years Sex: Female : 1960 Associated Diagnoses: None Author: ELINA RAMÍREZ MD Basic Information Time seen: Date 08/30/2019. History of Present Illness Patient is a 58-year-old female w/ DM2 who presents to the ED for an approximate 4-day history of dizziness. She says the dizziness is lightheadedness, not vertigo. She says no vision changes, hearing changes, or focal neuro deficits. She says she was seen in this ED for this [address] Chen who recommended hospitalization for further evaluation of her presyncope and she declined hospitalization at that time she says. She says no chest pain or dyspnea. She says no cough. She says no leg pain or edema. She says no history of DVT, PE, recent travel/surgery/immob ilization. Not on anticoagulation. Not on any new medications. Patient says that she has not had this lightheadedness in the past. She says no ill contacts or recent travel. She says no history of AAA. She says no fall or trauma since her ED visit 3 days ago. Pt says no incontinence, saddle anesthesia, or difficulty urinating or having bm. Review of Systems Constitutional: Negative for fever. Respiratory: Negative for cough and shortness of breath. Cardiovascular: Negative for chest pain, palpitations and leg swelling. Gastrointestinal: Negative for nausea, vomiting, abdominal pain and blood in stool. Musculoskeletal: Negative for back pain and neck pain. Neurological: Negative for dizziness, syncope, weakness, lightheadedness, and numbness. Hematological: Does not bruise/bleed easily. All other systems reviewed and are negative. Health Status Allergies: Allergic Reactions (Selected) Severity Not Documented Demerol HCl- No reactions were documented. Macrobid- No reactions were documented. Morphine- No reactions were documented.. Past Medical/ Family/ Social History PMH, PSH, & fam hx-reviewed, nonpertinent Social history-No T/A/D Physical Examination Vital Signs Vital Signs 08/30/2019 14:12 EDT Temperature Oral 36.6 degC NORMAL Peripheral Pulse Rate 95 bpm NORMAL Respiratory Rate 18 br/min NORMAL Systolic Blood Pressure 132 mmHg NORMAL Diastolic Blood Pressure 93 mmHg HI SpO2 100 % NORMAL Oxygen Therapy Room air Weight Measured Type of Scale Patient Stated Weight Height/Length Dosing 154.94 cm Patient Stated Weight 86.4 kg . Constitutional: Pt is oriented to person, place, and time. Pt appears well-developed and well-nourished. No distress. Pt did not arrive in c-collar or on backboard. HENT: Head: Normocephalic and atraumatic. Mouth/Throat: Oropharynx is clear and moist. Eyes: Conjunctivae and EOM are normal. Pupils are equal, round, and reactive to light. Right eye exhibits no discharge. Left eye exhibits no discharge. No scleral icterus. Neck: No JVD present. No tracheal deviation present. Cardiovascular: Normal rate, regular rhythm, normal heart sounds and intact distal pulses. Exam reveals no gallop and no friction rub. No murmur heard. Pulmonary/Chest: Effort normal and breath sounds normal. No stridor. No respiratory distress. Pt has no wheezes. Pt has no rales. Abdominal: Soft. Bowel sounds are normal. Pt exhibits no distension and no mass. There is no tenderness. There is no rebound and no guarding. No organomegaly. Musculoskeletal: Pt exhibits no edema. No palpable cords or ttp in calves. Negative Farhana's sign. Neurological: Pt is alert and oriented to person, place, and time. Pt exhibits normal muscle tone. Coordination normal. GCS 15. No facial droop, ptosis, dysarthria, or aphasia. 5 out of 5 strength in all 4 extremities. Skin: No rash noted. Pt is not diaphoretic. No erythema. No pallor. Normal skin turgor. Anicteric. Medical Decision Making DIAGNOSTICS: Labs: Last 24 Hours Chemistry BUN 14 mg/dL 08/30/19 Na 139 mmol/L 08/30/19 K 3.3 mmol/L 08/30/19 Chloride 99 mmol/L 08/30/19 CO2, venous 29.7 mmol/L 08/30/19 Creatinine 0.9 mg/dL 08/30/19 Calcium 9.2 mg/dL 08/30/19 BUN/Creat Ratio 15.6 08/30/19 Calculated Osmolality 290 mOsm/kg 08/30/19 Magnesium 1.7 mg/dL 08/30/19 TROPONIN <0.017 ng/mL 08/30/19 Glucose 306 mg/dL 08/30/19 GFR Estimated 64 08/30/19 Coagulation D Dimer HS 226 ng/mL FEU 08/30/19 Hematology WBC 6.6 x10 RBC 4.47 x10 HGB 14.1 g/dL 08/30/19 HCT 40.7 % 08/30/19 MCV 91.2 fL 08/30/19 MCH 31.5 pg 08/30/19 MCHC 34.6 g/dL 08/30/19 RDW 13.4 08/30/19 Platelet 306 x1000 08/30/19 MPV 8.9 fL 08/30/19 Lymph % 23.5 % 08/30/19 Centre % 8.5 % 08/30/19 Neutrophil % 66.5 % 08/30/19 Eosin % 0.7 % 08/30/19 Basos % 0.8 % 08/30/19 Lymph Count 1.60 x1000 08/30/19 Centre Count 0.60 x1000 08/30/19 Neutrophil Count (ANC) 4.40 x1000 08/30/19 Eos Count 0.00 x1000 08/30/19 Baso Count 0.10 x1000 08/30/19 Nucleated RBC 0 /100WBC 08/30/19 Imaging: CHEST PORTABLE 08/30/19 14:05:00 CHEST. CLINICAL INDICATION: Shortness of breath. FINDINGS: AP portable chest was obtained. There are no previous films available for comparison. Within the limitations of the portable technic, the heart, lungs and mediastinum are unremarkable. The pulmonary vasculature is normal. There is no evidence of pleural effusion. IMPRESSION: Within the limitations of the portable technic, radiograph of the chest is negative. Electronically signed by: Deepali Guzman MD 08/30/2019 2:16 PM CDT Signed By: DEEPALI GUZMAN MD EMERGENCY DEPARTMENT COURSE AND TREATMENT: Patient's condition improved during Emergency Department evaluation. EMERGENCY DEPARTMENT MEDICAL DECISION MAKING: After obtaining patient's history, performing the physical exam and reviewing the diagnostics, multiple initial diagnoses were considered based on the presenting problem. ECG shows sinus rhythm, rate 99, with no STEMI. It shows prolonged QTc interval of 464 ms. Pt given IV mag sulfate in ED b/c her QTc interval mildly prolonged on ECG & her mag level only 1.7, which is one possible cause of her QTc (and her QTc could be proarrhythmogenic and could be causing a transient arrhythmia that could be causing her presyncope symptom). Informed patient of prolonged QTc interval seen on her ECG and importance of her following up closely with her PMD about this and patient verbalized understanding. Do not think pt's hyperglycemia represents DKA. Low pretest probability that patient has a PE. D-dimer negative. PE unlikely. Pt was reassessed mult times in ED while under my care & she says no chest pain, dyspnea, n/v, abdominal pain, headache, or focal neuro deficits. 1505-d/w Dr Miles, hospitalist, who admits for patient's PMD, & she is hospitalizing pt at [facility] on tele. Pt will be transported to [facility] via [facility] ambulance. Risks/benefits of ambulance transport d/w pt & pt verbalized understanding & agrees w/ plan. DIAGNOSIS: After evaluation in the Emergency Department, my clinical impression is presyncope, prolonged QTc interval, hypokalemia, hyperglycemia. MEDICATION ORDERS: 2 g IV magnesium sulfate 20 mEq po k-dur 5 units insulin Humulin R SQ PLAN: Hospitalize on telemetry. Normal [facility] [place] ED Progress Noteon 08-30- 9 ED Progress Note 1334 arrived in ER from home with c/o feeling dizzy and lightheaded and near syncopal while at work today; states she was here 3 days ago for a syncopal episode where she fell down a flight of stairs; diagnostic results were negative for fractures but pain remains in her coccyx area; denies LOC today but believes there was positive LOC 3 days ago 1445 EKG complete; IV inserted without difficulty, blood drawn and specimens sent to lab; spouse arrived in ER and remains cart side; aware of treatment plan with understanding verbalized 1530 medicated as ordered; admitted to [facility] and ready bed assigned; call placed to ambulance service, eta=20-30mins [facility] present in ER; patient experiencing new onset of chest pains...Dr Ta to cart side with additional orders received 1630 report called to [facility], given to ANNALEE Sheth 1634 chest pain resolved; coccyx pain remains; patient exited ER via squad cot with IV infusing, continuous cardiac monitoring, with patient awake and A&O x3; spouse leaving ER to meet patient at [facility] Normal [facility] [place] HEMOon 08-30-2019 DIFF? No Normal [facility] [place] Comment on above: Performed By: #### 1 69291, 354232, 615454, 397941, [id number] #### [facility] [address] [place], [place] [address] Garnett Machine Operator: Romulo Urrutia MD Erythrocyte distribution width (RBC) [Ratio] 13.4 % Normal 11.5-14.5 [facility] [place] Comment on above: Performed By: #### 1 97109, 104377, 767877, 346223, 6142308 #### [facility] [address] [place], [place] [address] Garnett Machine Operator: Romulo Urrutia MD Hematocrit (Bld) [Volume fraction] 40.7 % Normal 36.0-46.0 [facility] [place] Comment on above: Performed By: #### 1 76386, 747091, 361379, 044191, [id number] #### [facility] [address] [place], [place] [address] Garnett Machine Operator: Romulo Urrutia MD Hemoglobin (Bld) [Mass/Vol] 14.1 g/dL Normal 12.0-16.0 [facility] [place] Comment on above: Performed By: #### 1 20224, 917849, 857743, 049945, 0718138 #### [facility] [address] [place], [place] [address] Garnett Machine Operator: Romulo Urrutia MD MCH (RBC) [Entitic mass] 31.5 pg Normal 27.0-34.0 [facility] [place] Comment on above: Performed By: #### 1 42658, 497092, 650385, 422365, 0888297 #### [facility] [address] [place], [place] [address] Garnett Machine Operator: Romulo Urrutia MD MCHC (RBC) [Mass/Vol] 34.6 g/dL Normal 32.0-37.0 [facility] Comment on above: Performed By: #### 1 21624, 146051, 045830, 902746, 8459210 #### [facility] [address] [place], [place] [address] Garnett Machine Operator: Romulo Urrutia MD MCV (RBC) [Entitic vol] 91.2 fL Normal 80.0-100.0 [facility] Comment on above: Performed By: #### 1 34210, 993389, 590704, 588961, 5913075 #### [facility] [address] [place], [place] [address] Garnett Machine Operator: Romulo Urrutia MD Nucleated RBC (Bld) [#/Vol] 0 /100WBC Normal [facility] [place] Comment on above: Performed By: #### 1 87466, 326408, 343426, 255069, [id number] #### [facility] [address] [place] [address] Garnett Machine Operator: Romulo Urrutia MD Platelet mean volume (Bld) [Entitic vol] 8.9 fL Normal 7.4-10.4 [facility] [place] Comment on above: Performed By: #### 1 86275, 999391, 231968, 892734, 7075643 #### [facility] [address] [place], [place] [address] Garnett Machine Operator: Romulo Urrutia MD Platelets (Bld) [#/Vol] 306 x1000 Normal 150-450 [facility] Comment on above: Performed By: #### 1 01172, 493129, 954646, 681503, 9320560 #### [facility] [address] [place] [address] Garnett Machine Operator: Romulo Urrutia MD RBC (Bld) [#/Vol] 4.47 x10 Normal 4.20-5.40 [facility] [place] Comment on above: Result Comment: Note : RBC morphology is normal unless otherwise stated. Evaluation performed only if differential is requested. Performed By: #### 1 99167, 637183, 119332, 319922, [id number] #### [facility] [address] [place] [address] Garnett Machine Operator: Romulo Urrutia MD WBC (Bld) [#/Vol] 6.6 x10 Normal 4.5-11.0 [facility] [place] Comment on above: Performed By: #### 1 02970, 545614, 559950, 595306, [id number] #### [facility] [address] [place] [address] 9[address] Garnett Machine Operator: Romulo Urrutia MD WBC (Bld) [#/Vol] 6.6 10*3/uL Normal [facility] Comment on above: Performed By: #### 1 52663, 719469, 867464, 976165, [id number] #### [facility] [address] [place] [address] 04726 Garnett Machine Operator: Romulo Urrutia MD History and Physicalon 08-30 History and Physical Patient: HELEN LOVETT Age: 58 years Sex: Female : 1960 Associated Diagnoses: None Author: SUE MILES MD Chief Complaint Dizziness/headaches History of Present Illness This is a 58 years old lady with past medical history significant for M?ni?re's disease, MS here for evaluation of dizziness since the patient states that she was at her usual state of health until she was walking down the stairs and next thing she recalled she was on the floor surrounded by her family. She states that she does not recall falling she did not complain of any chest pain lightheaded or dizziness prior or after the episode, she noticed that she lost control of her bladder during the episode, she went to [place] emergency room for evaluation was found to have electrolyte imbalance was advised to be admitted but she did not want to stay so she left home she continued to feel tired not herself, today she was feeling dizzy with a spinning sensation she said that she had vertigo secondary to M?ni?re's disease years ago but she did not have any vertigo for years and this one is very different and associated with severe headache she denies any further complaints. Review of Systems Constitutional: Negative except as documented in history of present illness. Respiratory: Negative except as documented in history of present illness. Cardiovascular: Negative except as documented in history of present illness. Gastrointestinal: Negative except as documented in history of present illness. Genitourinary: Negative except as documented in history of present illness. Endocrine: Negative except as documented in history of present illness. Musculoskeletal: Negative except as documented in history of present illness. Integumentary: Negative except as documented in history of present illness. Neurologic: Negative except as documented in history of present illness. Psychiatric: Negative except as documented in history of present illness. Health Status Allergies: Allergic Reactions (Selected) Severity Not Documented Demerol HCl- No reactions were documented. Macrobid- No reactions were documented. Morphine- No reactions were documented. Current medications: No qualifying data available Problem list. Histories Past Medical History: Diabetes mellitus Family History: Father Depression.. High blood pressure Mother High blood pressure Grandfather Heart disease.. Grandmother Heart disease.. Procedure history: Cystoscopy. ([id number]) on 08/19/2017 at 56 Years. Comments: 08/19/2017 13:18 EDT - Rupesh MANTILLA, Mila LEFT URETEROSCOPY, BASKET STONE EXTRACTION, LEFT JJ STENT PLACEMENT Total Vaginal Hysterectomy. ([id number]). SECTION. Laparoscopic Tubal Ligation. (70537). Social History Social & Psychosocial Habits No Data Available . Denies smoking alcohol drinking or any IV drug abuse. Physical Examination General: Alert and oriented, No acute distress. HENT: Normocephalic, Normal hearing, Oral mucosa is moist. Respiratory: Lungs are clear to auscultation, Respirations are non-labored, Breath sounds are equal, No chest wall tenderness. Cardiovascular: Normal rate, Regular rhythm, No murmur, No edema. Gastrointestinal: Soft, Non-tender, Non-distended, Normal bowel sounds. Musculoskeletal: Normal range of motion, Normal strength. Neurologic: Alert, Oriented, Normal motor function, No focal deficits. Cognition and Speech: Oriented, Speech clear and coherent. Psychiatric: Cooperative, Appropriate mood & affect. Impression and Plan In summary this is a 58 years old lady with history of disease, M?ni?re's,MS here for evaluation of worsening dizziness: 1. Vertigo/syncope: Rule out central causes Patient states that her vertigo is different than what she used to have years ago and associated with headache and she had a syncopal episode on We will get MRI, consult neurology, keep in telemetry and cycle troponins to rule out any cardiac etiology as well We will order echo/ultrasound carotids/start IV fluids/meclizine as needed 2. Diabetes mellitus: Insulin sliding scale /Accu-Chek 3. Hyperlipidemia Continue statin 4. History of Henderson's esophagus Continue home meds 5. Hypertension Stable continue home meds DVT Prophylaxis Lovenox subcu Normal [facility] MG LEVELon 08-30-2019 Magnesium [Mass/Vol] 1.7 mg/dL Normal 1.6-2.6 [facility] Comment on above: Performed By: #### 1 97466, 766851, 622928, 035573, [id number] #### [facility] [address] [place], [place] [id number] [employer] Machine Operator: Romulo Urrutia MD Nursing Clinical Noteon 08-18 Nursing Clinical Note 1900 Received repo rt from ANNALEE Sheth. Patient ambulated to restroom with a steady gait; alert and oriented x3. Continue to monitor for safety and needs. Normal [facility] POC Glucoseon 08-30-2019 Glucose [Mass/Vol] 89 mg/dL Normal 72-100 [facility] Comment on above: Performed By: #### 1 79154, 114516, 163577, 472234, [id number] #### [facility] [address] [place] [address] [employer] Machine Operator: Romulo Urrutia MD Glucose [Mass/Vol] 141 mg/dL High 72-100 [facility] Comment on above: Performed By: #### 1 63586, 176883, 675690, 773231, 7421488 #### [facility] [address] [place] [address] Garn[employer] Machine Operator: Romulo Urrutia MD Glucose [Mass/Vol] 196 mg/dL High 72-100 [facility] Comment on above: Performed By: #### 1 [id number] #### [facility] [address] [place] [address] Garn[employer] Machine Operator: Romulo Urrutia MD TROPONINon 08-30-2019 Troponin I.cardiac [Mass/Vol] ng/mL Normal 0.000-0.099 [facility] Comment on above: Result Comment: This test is a quantitative determination of cardiac troponin I. High levels of serum biotin may interfere with this test. Performed By: #### 1 63984 #### [facility] [address] [place] [address] Garn[employer] Machine Operator: Romulo Urrutia MD Troponin I.cardiac [Mass/Vol] ng/mL Normal 0.000-0.099 [facility] Comment on above: Result Comment: This test is a quantitative determination of cardiac troponin I. High levels of serum biotin may interfere with this test. Performed By: #### 1 81068, 321634, 154934, 056084, [id number] #### [facility] [address] [place] [address] Garn[employer] Machine Operator: Romulo Urrutia MD XR CHEST PORTABLEon 08-30-20 19 XR CHEST PORTABLE CHEST. CLINICAL INDICATION: Shortness of breath. Elevated d-dimer. FINDINGS: AP portable chest was obtained. There are no previous films available for comparison. Within the limitations of the portable technic, the heart, lungs and mediastinum are unremarkable. The pulmonary vasculature is normal. There is no evidence of pleural effusion. IMPRESSION: Within the limitations of the portable technic, radiograph of the chest is negative. Electronically signed by: Deepali Guzman MD 08/30/2019 2:16 PM CDT Technologist: INGRID Dictated By: DEEPALI GUZMAN MD Signed By: DEEPALI GUZMAN MD Signed Out: 08/30/19 15:16:02 Normal [facility] C URINEon 08-28-2019 C URINE [facility] [address] [place] [id number] Name: HELEN LOVETT : 1960 Admitting Provider: Gender: Female [facility] [id number] Number: Location: [facility]; Bed 05; 1 Admit 08/27/2019 Date: Discharge 08/27/2019 Date: Microbiology PROCEDURE: C URINE SOURCE: CLEAN CATCH BODY SITE: COLLECTED DATE/TIME: 08/27/2019 03:50 EDT RECEIVED DATE/TIME: 08/27/2019 11:34 EDT START DATE/TIME: 08/27/2019 11:34 EDT FREE TEXT SOURCE: ORDERING PHYSICIAN: MARGARITA SIM, Cj MONTANO FINAL REPORTS Final Report [] Verified Date/Time: 08/28/2019 10:52 EDT No significant growth. L=Low, H= High, *= Abnormal, C=Critical, f=Footnote, c=Corrected, i=Interp Data Name: HELEN LOVETT Print Date/ 08/28/2019 10:52 EDT Time: Normal [facility] Comment on above: Performed By: #### 1 [id number] ####[facility] [address] [place] [address] Medical Director: Romulo Urrutia MD ALCOHOL SERUMon 08-27-2019 Alcohol, Serum <3 Normal [facility] Comment on above: Result Comment: Note : Alcohol values performed at [facility] are performed on Serum and reported in mg/dl, which is different then the state reporting units of g/dl which is performed on whole blood. Result reporting units are based on test methodology and are not interchangable. Performed By: #### 1 32686 #### [facility] [address] [place] [address] Garn[employer] Machine Operator: Romulo Urrutia MD APTTon 08-27-2019 aPTT Coag (Bld) [Time] 27.0 s Low 28.0-38.0 So [facility] Comment on above: Performed By: #### 1 22179, 522767, 0379324, 740900, 978269 #### [facility] [address] [place] [address] Garn[employer] Machine Operator: Romulo Urrutia MD AUTO DIFFon 08-27-2019 Basophils (Bld) [#/Vol] 0.00 x1000 Normal 0.00-0.20 [facility] Comment on above: Performed By: #### 1 95107, 665316, 7612110, 068898, 385701 #### [facility] [address] [place], [place] [address] Garn[employer] Machine Operator: Romulo Urrutia MD Basos % 0.8 % Normal [facility] Comment on above: Performed By: #### 1 57755, 285776, 0949563, 012884, 824597 #### [facility] [address] [place] [address] Garn[employer] Machine Operator: Romulo Urrutia MD Eos Count 0.10 x1000 Normal 0.00-0.50 [facility] Comment on above: Performed By: #### 1 23783, 596460, 1388294, 770194, 650806 #### [facility] [address] [place] [address] Garn[employer] Machine Operator: Romulo Urrutia MD Eosinophils/100 WBC (Bld) 2.0 % Normal [facility] Comment on above: Performed By: #### 1 53562, 356154, 1219428, 958521, 539985 #### [facility] [address] [place] [address] Garn[employer] Machine Operator: Romulo Urrutia MD Lymphocytes (Bld) [#/Vol] 1.30 x1000 Normal 1.20-4.80 [facility] Comment on above: Performed By: #### 1 63796, 944743, 0324984, 468727, 252697 #### [facility] [address] [place] [address] Garn[employer] Machine Operator: Romulo Urrutia MD Lymphocytes/100 WBC (Bld) 23.8 % Normal [facility] Comment on above: Performed By: #### 1 46671, 443841, 8547797, 554700, 633565 #### [facility] [address] [place] [address] Garn[employer] Machine Operator: Romulo Urrutia MD Centre Count 0.80 x1000 Normal 0.10-1.00 [facility] Comment on above: Performed By: #### 1 08957, 387754, 2357829, 634869, 169810 #### [facility] [address] [place] [address] Garn[employer] Machine Operator: Romulo Urrutia MD Monocytes/100 WBC (Bld) 15.7 % Normal [facility] Comment on above: Performed By: #### 1 83496, 963803, 1721702, 256166, 228749 #### [facility] [address] [place] [address] Garn[employer] Machine Operator: Romulo Urrutia MD Neutrophils (Bld) [#/Vol] 3.10 x1000 Normal 1.40-8.80 [facility] Comment on above: Performed By: #### 1 96438, 470081, 0480469, 054988, 235243 #### [facility] [address] [place] [address] Garnett Machine Operator: Romulo Urrutia MD Neutrophils/100 WBC (Bld) 57.7 % Normal [facility] Comment on above: Performed By: #### 1 13826, 861606, 9108472, 701435, 692196 #### [facility] [address] [place] [address] Garn[employer] Machine Operator: Romulo Urrutia MD COMPMETAon 08-27-2019 GFR/1.73 sq M predicted among non-blacks MDRD (S/P/Bld) [Vol rate/Area] 57 mL/min/{1.73_m2} Normal [facility] Comment on above: Result Comment: The GFR is calculated and is Age, Sex, and Race adjusted. Performed By: #### 1 35135, 380891, 7961621, 642290, 973082 #### [facility] [address] [place] [address] Garn[employer] Machine Operator: Romulo Urrutia MD Albumin [Mass/Vol] 3.4 g/dL Normal 3.4-5.0 [facility] Comment on above: Performed By: #### 1 06425, 535091, 2917814, 403352, 863174 #### [facility] [address] [place] [address] Garn[employer] Machine Operator: Romulo Urrutia MD Albumin/Globulin [Mass ratio] 0.9 {ratio} Normal [facility] Comment on above: Performed By: #### 1 08149, 491663, 3682213, 630052, 979848 #### [facility] [address] [place] [address] Garn[employer] Machine Operator: Romulo Urrutia MD Alk Phos 87 unit/L Normal 45-117 [facility] Comment on above: Performed By: #### 1 42085, 929129, 4676387, 331832, 181178 #### [facility] [address] [place] [address] Garn[employer] Machine Operator: Romulo Urrutia MD Bilirubin [Mass/Vol] 0.50 mg/dL Normal 0.20-1.00 [facility] Comment on above: Performed By: #### 1 45560, 486705, 6991826, 138237, 052656 #### [facility] [address] [place] [address] Garn[employer] Machine Operator: Romulo Urrutia MD Calcium [Mass/Vol] 8.8 mg/dL Normal 8.5-10.5 [facility] Comment on above: Performed By: #### 1 81415, 352771, 1891132, 369380, 245546 #### [facility] [address] [place] [address] Garn[employer] Machine Operator: Romulo Urrutia MD Chloride [Moles/Vol] 100 mmol/L Normal 100-109 [facility] Comment on above: Performed By: #### 1 33721, 305795, 9888499, 237290, 410108 #### [facility] [address] [place] [address] Garn[employer] Machine Operator: Romulo Urrutia MD CO2, venous 28.9 mmol/L Normal 21.0-32.0 [facility] Comment on above: Performed By: #### 1 55028, 477315, 8071321, 328651, 201366 #### [facility] [address] [place] [address] Garn[employer] Machine Operator: Romulo Urrutia MD Creatinine [Mass/Vol] 1.0 mg/dL Normal 0.6-1.0 [facility] Comment on above: Performed By: #### 1 81555, 646197, 9596374, 874109, 935823 #### [facility] [address] [place] [address] Garn[employer] Machine Operator: Romulo Urrutia MD Globulin (S) [Mass/Vol] 3.7 g/dL Normal [facility] Comment on above: Performed By: #### 1 70377, 613893, 1331653, 661702, 702939 #### [facility] [address] [place] [address] Garn[employer] Machine Operator: Romulo Urrutia MD Glucose [Mass/Vol] 140 mg/dL High 72-100 [facility] Comment on above: Result Comment: Jovanna puncture should occur prior to sulfasalazine administration due to the potential for falsely depressed results. Venipuncture should occur prior to sulfapyridine administration due to the potential falsely elevated results. Baseline assay values before administration of sulfasalazine and sulfapyridine therapy would not be affected. Performed By: #### 1 47706, 261370, 3321232, 378843, 696446 #### [facility] [address] [place] [address] Garn[employer] Machine Operator: Romulo Urrutia MD GOT 34 unit/L Normal 15-37 [facility] Comment on above: Result Comment: Jovanna puncture should occur prior to sulfasalazine administration due to the potential for falsely depressed results. Baseline assay values before administration of sulfasalazine and sulfapyridine therapy would not be affected. Performed By: #### 1 57901, 509771, 0619909, 486823, 187031 #### [facility] [address] [place] [address] Garn[employer] Machine Operator: Romulo Urrutia MD GPT 62 unit/L High 14-59 [facility] Comment on above: Result Comment: Jovanna puncture should occur prior to sulfasalazine administration due to the potential for falsely depressed results. Baseline assay values before administration of sulfasalazine and sulfapyridine therapy would not be affected. Performed By: #### 1 48831, 718464, 3733549, 117418, 542045 #### [facility] [address] [place] [address] Garnett Machine Operator: Romulo Urrutia MD Osmolality [Osmolality] 283 mOsm/kg Normal 275-295 [facility] Comment on above: Performed By: #### 1 77858, 972513, 7050511, 137696, 741798 #### [facility] [address] [place] [address] Garnett Machine Operator: Romulo Urrutia MD Potassium [Moles/Vol] 2.8 mmol/L Critically abnormal 3.5-5.1 [facility] Comment on above: Result Comment: 08/18 03:07:48 EDT er by ts to summer,h /er/rbr/rchkd Performed By: #### 1 25010, 562786, 8867226, 331791, 473472 #### [facility] [address] [place] [address] Garn[employer] Machine Operator: Romulo Urrutia MD Protein [Mass/Vol] 7.1 g/dL Normal 6.0-8.5 [facility] Comment on above: Performed By: #### 1 74158, 539910, 8536529, 662324, 105137 #### [facility] [address] [place] [address] Garnett Machine Operator: Romulo Urrutia MD Sodium [Moles/Vol] 141 mmol/L Normal 135-145 [facility] Comment on above: Performed By: #### 1 24505, 825922, 0949351, 657507, 245028 #### [facility] [address] [place] [address] Garn[employer] Machine Operator: Romulo Urrutia MD Urea nitrogen [Mass/Vol] 11 mg/dL Normal 10-20 [facility] Comment on above: Performed By: #### 1 95247, 498770, 4942882, 545581, 180783 #### [facility] [address] [place] [address] Garn[employer] Machine Operator: Romulo Urrutia MD Urea nitrogen/Creatinine [Mass ratio] 11.0 mg/mg Normal [facility] Comment on above: Performed By: #### 1 36212, 254714, 1772381, 308777, 728820 #### [facility] [address] [place] [id number] Garn[employer] Machine Operator: Romulo Urrutia MD CT CERVICAL SPINE WO CONTRAS Ton 08-27-2019 CT CERVICAL SPINE WO CONTRAST CT CERVICAL SPINE WITHOUT IV CONTRAST CLINICAL STATEMENT: Fall down steps;TRAUMA. TECHNIQUE: Multiple-row detector helical CT examination of the cervical spine without IV contrast. Axial, sagittal, and coronal reconstructed images. This exam was performed according to our departmental dose optimization program, and includes the following measures where applicable: automated exposure control, adjustment of the mAs and/or kVp according to patient size and/or exam, and an iterative reconstruction algorithm. COMPARISON: None. FINDINGS: No fracture or traumatic malalignment. Vertebral body heights are maintained. No aggressive osseous lesions are identified. There is multilevel spondylosis, most notably at C5-C6 with disc space narrowing, endplate sclerosis and marginal osteophytes. The prevertebral and paraspinal soft tissues demonstrate no acute abnormality. IMPRESSION: No acute fracture or traumatic malalignment. Electronically signed by: Dieter Gupta MD 08/27/2019 2:45 AM CDT Technologist: LSS Dictated By: DIETER GUPTA MD Signed By: DIETER GUPTA MD Signed Out: 08/27/19 03:45:23 Normal [facility] CT LUMBAR WO CONTRASTon 08-18 CT LUMBAR WO CONTRAST CT LUMBAR SPINE WITHOUT IV CONTRAST CLINICAL STATEMENT: Fall down steps;TRAUMA. TECHNIQUE: Multiple-row detector helical CT examination of the lumbar spine without IV contrast. Axial, sagittal, and coronal reconstructed images. This exam was performed according to our departmental dose optimization program, and includes the following measures where applicable: automated exposure control, adjustment of the mAs and/or kVp according to patient size and/or exam, and an iterative reconstruction algorithm. COMPARISON: None. FINDINGS: There is no evidence of acute fracture or subluxation. The lumbar spine demonstrates normal alignment without scoliosis or listhesis. Vertebral body heights are maintained. No aggressive osseous lesions are identified. Sacralization of L5 on the left is noted. There is no significant abnormality visible within the spinal canal. The paraspinal soft tissues and retroperitoneal structures demonstrate no acute abnormality. IMPRESSION: No acute fracture or subluxation of the lumbar spine. Electronically signed by: Dietre Gupta MD 08/27/2019 2:43 AM CDT Technologist: LSS Dictated By: DIETER GUPTA MD Signed By: DIETER GUPTA MD Signed Out: 08/27/19 03:43:12 Normal [facility] CT THORACIC SPINE WO CONTRAS Ton 08-27-2019 CT THORACIC SPINE WO CONTRAST EXAM: CT thoracic spine without contrast. INDICATION: Trauma. Thoracic spine pain. TECHNIQUE: Contiguous axial CT images of the thoracic spine. Intravenous contrast: Absent. Reformats: MPRs created and utilized. DLP 1229 mGy-cm. This exam was performed according to our departmental dose-optimization program, which includes automated exposure control, adjustment of the mA and/or kV according to patient size and/or use of iterative reconstruction technique. COMPARISON: None. FINDINGS: Alignment: Preserved. Fracture: No acute fracture or subluxation. Spondylosis: Mild multilevel spondylosis with disc space narrowing and small anterior osteophytes. Other: None. IMPRESSION: 1. No CT evidence of acute osseous injury of the thoracic spine. Electronically signed by: Dieter Gupta MD 08/27/2019 2:47 AM CDT Technologist: LSS Dictated By: DIETER GUPTA MD Signed By: DIETER GUPTA MD Signed Out: 08/27/19 03:47:23 Normal [facility] ED Physician Reporton 2018 ED Physician Report Patient: HELEN LOVETT Age: 58 years Sex: Female : 1960 Associated Diagnoses: Fall (on) (from) other stairs and steps, initial encounter Author: Cj CHEN MD Basic Information Time seen: Date & time 08/27/2019 01:40:00. History source: Patient, spouse. Arrival mode: Private vehicle. History limitation: Clinical condition, Severe back pain. History of Present Illness The patient presents following fall. The onset was just prior to arrival. The occurrence was single episode. The fall was described as fell down 13 steps. The location where the incident occurred was at home. Location: Back upper extremity lower extremity Neck especially sacrum and coccyx area right hip right forearm are painful. The character of symptoms is pain and loss of mobility. The degree at present is moderate. There are exacerbating factors including changing position, movement and standing. The relieving factor is rest. Risk factors consist of age and Multiple sclerosis diabetes. The patient's dominant hand is the right hand. Therapy today: none. Preceding symptoms Weakness in legs. Associated symptoms: none. Additional history: none. Review of Systems Constitutional symptoms: Weakness, decreased activity. Skin symptoms: Negative except as documented in HPI. Eye symptoms: Negative except as documented in HPI. ENMT symptoms: Negative except as documented in HPI. Respiratory symptoms: Negative except as documented in HPI. Cardiovascular symptoms: Negative except as documented in HPI. Gastrointestinal symptoms: Negative except as documented in HPI. Genitourinary symptoms: Negative except as documented in HPI. Musculoskeletal symptoms: Back pain, Muscle pain, Joint pain. Psychiatric symptoms: Negative except as documented in HPI. Endocrine symptoms: Hyperglycemia. Hematologic/Lymphati c symptoms: Negative except as documented in HPI. Allergy/immunologic symptoms: Negative except as documented in HPI. Neurologic symptoms Negative except as documented in HPI. Additional review of systems information: All other systems reviewed and otherwise negative. Health Status Allergies: Allergic Reactions (Selected) Severity Not Documented Demerol- No reactions were documented. Macrobid- Morphine. Morphine- No reactions were documented. . Medications: Per nurse's notes. Immunizations: Per nurse's notes. Menstrual history: Menopausal. Past Medical/ Family/ Social History Medical history: Sclerosis diabetes hypertension. Surgical history: C section. , Hysterectomy. Family history: Not significant. Social history: Alcohol use: Denies, Tobacco use: Denies, Drug use: Denies, Family/social situation: . Problem list: Active Problems (4) Diabetes HTN (hypertension) Hyperlipemia Multiple sclerosis . Physical Examination Vital Signs Vital Signs 08/27/2019 2:00 EDT Temperature Oral 36.5 degC NORMAL Peripheral Pulse Rate 70 bpm NORMAL Respiratory Rate 14 br/min NORMAL Systolic Blood Pressure 138 mmHg NORMAL Diastolic Blood Pressure 97 mmHg HI SpO2 97 % NORMAL Oxygen Therapy Room air Weight Measured Type of Scale Patient Stated Weight Height/Length Dosing 154 cm Patient Stated Weight 86 kg . General: Alert, moderate distress, Morbidly obese. Skin: Warm, dry, pink, intact, no rash. Head: Normocephalic, atraumatic. Neck: Trachea midline, no JVD, no carotid bruit, Posterior neck tenderness no step-off. Eye: Pupils are equal, round and reactive to light, extraocular movements are intact, normal conjunctiva, vision grossly normal. Ears, nose, mouth and throat: Oral mucosa moist, no pharyngeal erythema or exudate. Cardiovascular: Regular rate and rhythm, No murmur, Normal peripheral perfusion, No edema. Respiratory: Lungs are clear to auscultation, respirations are non-labored, breath sounds are equal. Chest wall: No tenderness, No deformity. Back: Normal alignment, no step-offs, Diffusely tender with pain on flexion. Musculoskeletal: Normal ROM, normal strength, no swelling, no deformity, Tender right ulnar forearm midshaft but no deformity tender right lateral hip with minimal pain on hip flexion significant tenderness over the sacrum and coccyx. Gastrointestinal: Soft, Nontender, Non distended, Normal bowel sounds, Obese. Psychiatric: Cooperative, appropriate mood & affect, normal judgment, non-suicidal. [place] coma scale Eye response: 4 /4, verbal response: 5 /5, motor response: 6 /6, Total score: Total score: 15. Neurological Alert and oriented to person, place, time, and situation, No focal neurological deficit observed, CN II-XII intact, normal sensory observed, normal motor observed, normal speech observed, normal coordination observed. Medical Decision Making Differential Diagnosis: Fall, contusion, sprain, strain, closed fracture. Documents reviewed: Emergency department nurses' notes, emergency department records, prior records. Results review: Lab results : Laboratory 08/27/2019 3:50 EDT Color, U Yellow Appearance, U Slightly Cloudy Specific [place], U 1.020 pH, U 5.0 Protein, U Negative Glucose Qual, U Negative Ketones, U Negative Bilirubin, U Negative Blood, U Negative Urobilinogen Qual, U 0.2 EU/dl Nitrite, U Negative Leukocyte Esterase, U Trace RBC/HPF, U 2 #/HPF NORMAL WBC/HPF, U 5 #/HPF NORMAL Squamous Epithelial Cells, U 3 #/HPF NA Bacteria, U Few Amphetamines, U Neg Barbituates, U Neg PCP, U Neg Benzodiazepines, U Pos Cocaine, U Neg THC, U Neg Opiates, U Neg Ecstasy, U Neg 08/27/2019 2:40 EDT BUN 11 mg/dL NORMAL Na 141 mmol/L NORMAL K 2.8 mmol/L CRIT Chloride 100 mmol/L NORMAL CO2, venous 28.9 mmol/L NORMAL Glucose 140 mg/dL HI Creatinine 1.0 mg/dL NORMAL Total Protein 7.1 g/dL NORMAL Calcium 8.8 mg/dL NORMAL Bilirubin, Total 0.50 mg/dL NORMAL Alk Phos 87 unit/L NORMAL GOT 34 unit/L NORMAL GPT 62 unit/L HI BUN/Creat Ratio 11.0 NA Calculated Osmolality 283 mOsm/kg NORMAL Globulin 3.7 g/dL NA A/G Ratio 0.9 NA Magnesium 1.5 mg/dL LOW ALB 3.4 g/dL NORMAL Alcohol, Serum <3 mg/dL NA GFR Estimated 57 NA Protime Patient 11.6 seconds NORMAL INR 1.0 NA APTT Patient 27.0 seconds LOW WBC 5.3 x10 RBC 4.36 x10 HGB 13.7 g/dL NORMAL HCT 39.6 % NORMAL MCV 90.9 fL NORMAL MCH 31.5 pg NORMAL MCHC 34.7 g/dL NORMAL RDW 13.4 NORMAL Platelet 250 x1000 NORMAL MPV 8.8 fL NORMAL Nucleated RBC 0 /100WBC NA Lymph % 23.8 % NA Centre % 15.7 % NA Neutrophil % 57.7 % NA Eosin % 2.0 % NA Basos % 0.8 % NA Lymph Count 1.30 x1000 NORMAL Centre Count 0.80 x1000 NORMAL Neutrophil Count (ANC) 3.10 x1000 NORMAL Eos Count 0.10 x1000 NORMAL Baso Count 0.00 x1000 NORMAL , Interpretation Abnormal results Hypo-kalemia hypomagnesemia. Chest X-Ray: Include Rad interp(flowsheet) : Radiology 08/27/2019 3:52 EDT CHEST 1 VIEW , FINDINGS: LUNGS: Unremarkable. No consolidation. PLEURAL SPACE: Unremarkable. No pneumothorax. HEART: Unremarkable. No cardiomegaly. MEDIASTINUM: Unremarkable. BONES/JOINTS: Unremarkable. IMPRESSION: No acute cardiopulmonary process . Radiology results: Computed tomography, Cervical dorsal and lumbar spine, without contrast, reviewed radiologist's report, No acute fractures disc disease degenerative changes identified, Right forearm:INDINGS: BONES/JOINTS: Unremarkable. No acute fracture. No dislocation. SOFT TISSUES: Unremarkable. IMPRESSION: Normal right forearm radiographs. , Right hip and pelvis:FINDINGS: BONES/JOINTS: Unremarkable. No acute fracture. No dislocation. SOFT TISSUES: Unremarkable. IMPRESSION: Normal right hip radiographs. , Sacrum and coccyx:NDINGS: SACRUM/COCCYX: Unremarkable as visualized. No acute fracture. VERTEBRAE: Visualized lumbar vertebrae are unremarkable. SOFT TISSUES: Unremarkable. IMPRESSION: Normal sacrum and coccyx radiographs. . Reexamination/ Reevaluation Patient got good relief of pain with medication provided she is able to bear weight on her right hip without pain in the groin as pain only in the sacrum and coccyx area she wishes to go home does not feel she needs admission but requests a 3-day prescription of hydrocodone Impression and Plan Diagnosis Fall (on) (from) other stairs and steps, initial encounter ([id number] W10.8XXA, Working, Medical) Thoracic lumbar spine sacrum coccyx right hip and right forearm complicated by hypokalemia and multiple morbid obesity and diabetes Plan Condition: Improved, Stable. Disposition: ED Discharge to Home was placed.(08/27/2019 05:22:01 EDT, Constant Order), Discharged: Time 08/27/2019 05:22:00, to home. Prescriptions: Launch prescriptions Pharmacy: potassium chloride 20 mEq oral tablet, ER = K-Dur (Prescribe): 20 mEq = 1 tabs, ORAL, DAILY, for 7 days, do not crush or chew with a full glass of water with food, 7 tabs, 0 Refill(s) [place] 5 mg-325 mg oral tablet (Prescribe): 1 tabs, ORAL, [id number], for 3 days, not to exceed 8 tablets/day Do not take if driving, PRN: for pain, 14 tabs, 0 Refill(s) , Magnesium oxide 400 mg number 3100-day. Patient was given the following educational materials: Contusion, Qxjo-on-Kpzu, Lumbosacral Strain, AA Blank Additional Instructions (Custom), AA Blank Additional Instructions (Custom), Lumbosacral Strain, Contusion, [id number]. Limitations: Limited activity. Follow up with: [facility] In 2 days 08/29/2019. Counseled: Patient, Family, Regarding diagnosis, Regarding diagnostic results, Regarding treatment plan, Regarding prescription, Patient indicated understanding of instructions. Orders: Launch Order Profile (Selected) Inpatient Orders Ordered 0.9%NaCl (Normal Saline) 1,000 mL: 100 mL/hr, IV Cardiac Monitoring: [facility] Task to Nursing: Vital Signs: Ordered (Collected) URINE CULTURE: Canceled XR CHEST PORTABLE: Completed ALCOHOL SERUM: APTT: AUTO DIFF: CBCWD: COMPMETA: CT CERVICAL SPINE WO CONTRAST: CT LUMBAR WO CONTRAST: CT THORACIC SPINE WO CONTRAST: Dilaudid: 1 mg = 1 mL, IV Push, ONCE Dilaudid: 1 mg = 1 mL, IV Push, ONCE HEMO: MAGNESIUM LEVEL: PT INR: Peripheral IV Insertion: Powerform, found in [employer]: UA: URINE DRUG SCREEN: Urinalysis with Microscopic: XR CHEST 1 VIEW: XR FOREARM RIGHT INC 1 JNT: XR HIP RIGHT 2-3 VIEW W PELVIS: XR SACRUM AND COCCYX: Zofran: 4 mg = 2 mL, IV Push, ONCE potassium chloride (KCL): 20 mEq = 1 tabs, ORAL, ONCE potassium chloride (KCL): 20 mEq = 1 tabs, ORAL, ONCE Prescriptions Prescribed [place] 5 mg-325 mg oral tablet: 1 tabs, ORAL, [id number], for 3 days, not to exceed 8 tablets/day Do not take if driving, PRN: for pain, 14 tabs, 0 Refill(s) potassium chloride 20 mEq oral tablet, ER = K-Dur: 20 mEq = 1 tabs, ORAL, DAILY, for 7 days, do not crush or chew with a full glass of water with food, 7 tabs, 0 Refill(s) . Electronically Co-Signed by: Cj CHEN MD on 08/27/2019 05:36 Normal [facility] ED Progress Noteon 9 ED Progress Note pt in via wheelchair from triage for fall down 13 carpet steps today. Denies hitting head. Complains of neck and back pain. States she has MS and her legs went out. pt states she is feeling better. IV removed and dressed. Pt discharged at this time in no distress. Normal [facility] HEMOon 08-27-2019 DIFF? No Normal [facility] Comment on above: Performed By: #### 1 56550, [id number], [id number], 628395, [id number] #### [facility] [address] [place] [address]196 [place] Machine Operator: Romulo Urrutia MD Erythrocyte distribution width (RBC) [Ratio] 13.4 % Normal 11.5-14.5 [facility] Comment on above: Performed By: #### 1 59580, 191432, 8602332, 635526, 686940 #### [facility] [address] [place] [address] 31946 [employer] Machine Operator: Romulo Urrutia MD Hematocrit (Bld) [Volume fraction] 39.6 % Normal 36.0-46.0 [facility] Comment on above: Performed By: #### 1 49751, 043732, 0410332, 547653, 365691 #### [facility] [address] [place] [address] 82656 [employer] Machine Operator: Romulo Urrutia MD Hemoglobin (Bld) [Mass/Vol] 13.7 g/dL Normal 12.0-16.0 [facility] Comment on above: Performed By: #### 1 80021, 234070, 1860674, 710120, 305633 #### [facility] [address] [place], [place] [id number] [employer] Machine Operator: Romulo Urrutia MD MCH (RBC) [Entitic mass] 31.5 pg Normal 27.0-34.0 [facility] Comment on above: Performed By: #### 1 77781, 047204, 6649183, 236916, 784485 #### [facility] [address] [place] [address] 42025 [employer] Machine Operator: Romulo Urrutia MD MCHC (RBC) [Mass/Vol] 34.7 g/dL Normal 32.0-37.0 [facility] Comment on above: Performed By: #### 1 75794, 557459, 3470168, 573024, 470786 #### [facility] [address] [place] [address] 39650 [employer] Machine Operator: Romulo Urrutia MD MCV (RBC) [Entitic vol] 90.9 fL Normal 80.0-100.0 [facility] Comment on above: Performed By: #### 1 70207, 356704, 7922484, 713255, 404733 #### [facility] [address] [place] [address] 18769 [employer] Machine Operator: Romulo Urrutia MD Nucleated RBC (Bld) [#/Vol] 0 /100WBC Normal [facility] Comment on above: Performed By: #### 1 29111, 300590, 4089101, 760824, 439181 #### [facility] [address] [place] [address] 85919 [employer] Machine Operator: Romulo Urrutia MD Platelet mean volume (Bld) [Entitic vol] 8.8 fL Normal 7.4-10.4 [facility] Comment on above: Performed By: #### 1 60561, 369906, 8267449, 403518, 595688 #### [facility] [address] [place] [address] 06966 [employer] Machine Operator: Romulo Urrutia MD Platelets (Bld) [#/Vol] 250 x1000 Normal 150-450 [facility] Comment on above: Performed By: #### 1 52699, 436573, 0369435, 072466, 087115 #### [facility] [address] [place] [address] 15035 [employer] Machine Operator: Romulo Urrutia MD RBC (Bld) [#/Vol] 4.36 x10 Normal 4.20-5.40 [facility] Comment on above: Result Comment: Note : RBC morphology is normal unless otherwise stated. Evaluation performed only if differential is requested. Performed By: #### 1 61701, 895209, 2789155, 631246, 717674 #### [facility] [address] [place] [address] 68287 [employer] Machine Operator: Romulo Urrutia MD WBC (Bld) [#/Vol] 5.3 10*3/uL Normal [facility] Comment on above: Performed By: #### 1 73443, 801134, 1550969, 317629, 109273 #### [facility] [address] [place] [address] Garn[employer] Machine Operator: Romulo Urrutia MD WBC (Bld) [#/Vol] 5.3 x10 Normal 4.5-11.0 [facility] Comment on above: Performed By: #### 1 15211, 638552, 6814601, 304018, 640384 #### [facility] [address] [place] [address] [employer] Machine Operator: Romulo Urrutia MD MG LEVELon 08-27-2019 Magnesium [Mass/Vol] 1.5 mg/dL Low 1.6-2.6 [facility] Comment on above: Performed By: #### 1 89708 #### [facility] [address] [place] [address] 47803 [employer] Machine Operator: Romulo Urrutia MD PT INRon 08-27-2019 INR Coag (PPP) [Relative time] 1.0 {INR} Normal [facility] Comment on above: Result Comment: Norm al reference range for INR on patients not on anticoagulant therapy: 0.9-1.1. General therapeutic range for patients on anticoagulant therapy: 2.0-3.5. Performed By: #### 1 00848, 431026, 3737131, 148238, 468702 #### [facility] [address] [place] [address] [employer] Machine Operator: Romulo Urrutia MD Protime Patient 11.6 seconds Normal 9.7-12.7 [facility] Comment on above: Performed By: #### 1 34001, 345262, 9063831, 977172, 736406 #### [facility] [address] [place] [address] [employer] Machine Operator: Romulo Urrutia MD U DOAon 08-27-2019 Amphetamines, U Negative Normal [facility] Comment on above: Result Comment: Urin e for Drugs of Abuse tests (U Amphetamines, U Barbituates, U PCP, U Benzodiazepines, U Cocaine, U THC, U Opiates & U Ecstasy)provide preliminary test results only. A more specific alternate method must be used in order to obtain a confirmed analytical result. Gas chromatography/mass spectrometry is the preferred confirmatory method. Clinical consideration and professional judgment should be applied to any drug of abuse test result, particularly when preliminary positive results are used. Results should not be used for non-medical purposes. Urine for Drugs of Abuse [place] Levels: Barbiturate 200 ng/ml PCP 25 ng/ml Cocaine 300 ng/ml Opiates 2000 ng/ml Amphetamines 1000 ng/ml Benzodiazepines 200 ng/ml THC 50 ng/ml EXTC 500 ng/ml Performed By: #### 1 62127 ####[facility] [address] [place] [address] Medical Director: Romulo Urrutia MD Barbgen, U Negative [facility] Comment on above: Performed By: #### 1 62254 ####[facility] [address] [place] [address] Medical Director: Romulo Urrutia MD Benzodiazepines, U Positive Normal [facility] Comment on above: Performed By: #### 1 79797 ####[facility] [address] [place] [address] Medical Director: Romulo Urrutia MD Cocaine, U Negative Normal [facility] Comment on above: Performed By: #### 1 45828 ####[facility] [address] [place] [address] Medical Director: Romulo Urrutia MD Ecstasy, U Negative Normal [facility] Comment on above: Performed By: #### 1 46630 ####[facility] [address]za[address]48 [place] [address] Medical Director: Romulo Urrutia MD Opiates, U Negative Normal [facility] Comment on above: Performed By: #### 1 22632 ####[facility] [address]cb[address] [place] [address] Medical Director: Romulo Urrutia MD PCP, U Negative Normal [facility] Comment on above: Performed By: #### 1 58601 ####[facility] [address]icrhmo[address]76 [place] [address] Medical Director: Romulo Urrutia MD THC, U Negative Normal [facility] Comment on above: Performed By: #### 1 29841 ####[facility] [address] [place] [address] Medical Director: Romulo Urrutia MD UAon 08-27-2019 Bacteria, U Few Normal [facility] Comment on above: Performed By: #### 1 46465 ####[facility] [address]vxet[address] [place] [address] Medical Director: Romulo Urrutia MD RBC/HPF, U 2 #/HPF Normal 0-3 [facility] Comment on above: Performed By: #### 1 95098 ####[facility] [address]if[address] [place] [address] Medical Director: Romulo Urrutia MD Squamous Epithelial Cells, U 3 #/HPF Normal [facility] Comment on above: Performed By: #### 1 23599 ####[facility] [address]us[address] [place] [address] Medical Director: Romulo Urrutia MD WBC/HPF, U 5 #/HPF Normal 0-5 [facility] Comment on above: Performed By: #### 1 03833 ####[facility] [address] [place] [address] Medical Director: Romulo Urrutia MD Appearance, U Slightly Cloudy Normal [facility] Comment on above: Performed By: #### 1 66590 ####[facility] [address]tcred50899 [place], [place] [id number]) [phone] Director: Romulo Urrutia MD Bilirubin, U Negative Normal Negative [facility] Comment on above: Performed By: #### 1 44917 ####[facility] Jcpsvuok94169 [place], [place] [id number]) [phone] Director: Romulo Urrutia MD Blood, U Negative Normal Negative [facility] Comment on above: Performed By: #### 1 33049 ####[facility] [address] [place] [address] [id number]) [phone] Director: Romulo Urrutia MD Color, U Yellow Normal [facility] Comment on above: Performed By: #### 1 30530 ####[facility] [address] [place] [address] [id number]) [phone] Director: Romulo Urrutia MD Glucose Qual, U Negative Normal Negative [facility] Comment on above: Performed By: #### 1 16871 ####[facility] [address] [place] [address] Medical Director: Romulo Urrutia MD Ketones, U Negative Normal Negative [facility] Comment on above: Performed By: #### 1 71147 ####[facility] [address] [place] [address] Medical Director: Romulo Urrutia MD Leukocyte Esterase, U Trace Abnormal Negative [facility] Comment on above: Performed By: #### 1 04480 ####[facility] [address] [place] [address] Medical Director: Romulo Urrutia MD Nitrite, U Negative Normal Negative [facility] Comment on above: Performed By: #### 1 34771 ####[facility] [address] [place] [address] [id number]) [phone] Director: Romulo Urrutia MD pH, U 5.0 Normal 4.5-8.0 [facility] Comment on above: Performed By: #### 1 34740 ####[facility] [address] [place], [place] [id number]) [phone] Director: Romulo Urrutia MD Protein, U Negative Normal Negative [facility] Comment on above: Performed By: #### 1 25915 ####[facility] [address]pq[address]wll96942 [place], [place] [id number]) [phone] Director: Romulo Urrutia MD Specific [place], U 1.020 Normal 1.001-1.035 [facility] Comment on above: Performed By: #### 1 40841 ####[facility] [address] [place], [place] [id number]) [phone] Director: Romulo Urrutia MD U MICRO Indicated Normal [facility] Comment on above: Performed By: #### 1 84443 ####[facility] [address] [place] [id number]) [phone] Director: Romulo Ururtia MD Urobilinogen Qual, U 0.2 EU/dl Normal 0.1-1.0 mg/dl [facility] Comment on above: Result Comment: EU/d l and mg/dl are equivalent units. Performed By: #### 1 15047 ####[facility] [address]xgfv[address] [place], [place] [id number]) [phone] Director: Romulo Urrutia MD XR CHEST 1 VIEWon 08-27-2019 XR CHEST 1 VIEW EXAM: XR Chest, 1 View CLINICAL HISTORY: The patient is 58 years old and is Female; TRAUMA,;OTHER REASON TECHNIQUE: Frontal view of the chest. COMPARISON: No relevant prior studies available. FINDINGS: LUNGS: Unremarkable. No consolidation. PLEURAL SPACE: Unremarkable. No pneumothorax. HEART: Unremarkable. No cardiomegaly. MEDIASTINUM: Unremarkable. BONES/JOINTS: Unremarkable. IMPRESSION: No acute cardiopulmonary process. Electronically signed by: Kayla Hicks MD 08/27/2019 3:13 AM CDT Technologist: LSS Dictated By: KAYLA HICKS MD Signed By: KAYLA HICKS MD Signed Out: 08/27/19 04:13:09 Normal [facility] XR FOREARM RIGHT INC 1 JNTon 08-27-2019 XR FOREARM RIGHT INC 1 JNT EXAM: XR Left Forearm, 2 Views CLINICAL HISTORY: The patient is 58 years old and is Female; struck while falling; INJURY TECHNIQUE: Frontal and lateral views of the right forearm. COMPARISON: No relevant prior studies available. FINDINGS: BONES/JOINTS: Unremarkable. No acute fracture. No dislocation. SOFT TISSUES: Unremarkable. IMPRESSION: Normal right forearm radiographs. Electronically signed by: Kayla Hicks MD 08/27/2019 3:12 AM CDT [employer]1163 Technologist: LSS Dictated By: KAYLA HICKS MD Signed By: KAYLA HICKS MD Signed Out: 08/27/19 04:12:45 Normal [facility] XR HIP RIGHT 2-3 VIEW W PELV Elie 08-27-2019 XR HIP RIGHT 2-3 VIEW W PELVIS EXAM: XR Right Hip With Pelvis When Performed, 2 or 3 Views CLINICAL HISTORY: The patient is 58 years old and is Female; Right hip pain full;TRAUMA TECHNIQUE: Two or three views of the right hip with pelvis when performed. COMPARISON: No relevant prior studies available. FINDINGS: BONES/JOINTS: Unremarkable. No acute fracture. No dislocation. SOFT TISSUES: Unremarkable. IMPRESSION: Normal right hip radiographs. Electronically signed by: Kayla Hicks MD 08/27/2019 3:12 AM CDT [employer] Technologist: LSS Dictated By: KAYLA HICKS MD Signed By: KAYLA HICKS MD Signed Out: 08/27/19 04:12:10 Normal [facility] XR SACRUM AND COCCYXon 08-27 XR SACRUM AND COCCYX EXAM: XR Sacrum and Coccyx, 2 or more Views CLINICAL HISTORY: The patient is 58 years old and is Female; Fell down steps on buttocks;PAIN TECHNIQUE: Frontal and lateral views of the sacrum and coccyx. COMPARISON: No relevant prior studies available. FINDINGS: SACRUM/COCCYX: Unremarkable as visualized. No acute fracture. VERTEBRAE: Visualized lumbar vertebrae are unremarkable. SOFT TISSUES: Unremarkable. IMPRESSION: Normal sacrum and coccyx radiographs. Electronically signed by: Kayla Hicks MD 08/27/2019 3:11 AM CDT Technologist: LSBeto Dictated By: KAYLA HICKS MD Signed By: KAYLA HICKS MD Signed Out: 08/27/19 04:11:41 Normal [facility] Vital Signs Date Time Vital Sign Value Performing Clinician Facility 12-18-2024 17:32-0500 Body temperature 98.3 [degF] Dr. Breanna Parish DO Work Phone: [facility] 12-18-2024 17:32-0500 Diastolic blood pressure 92 mm[Hg] Dr. Breanna Parish DO Work Phone: [facility] 12-18-2024 17:32-0500 Heart rate 87 /min Dr. Breanna Parish DO Work Phone: [facility] 12-18-2024 17:32-0500 Respiratory rate 16 /min Dr. Breanna Parish DO Work Phone: [facility] 12-18-2024 17:32-0500 SaO2% (BldA) [Mass fraction] 99 % Dr. Breanna Parish DO Work Phone: [facility] 12-18-2024 17:32-0500 Systolic blood pressure 182 mm[Hg] Dr. Breanna Parish DO Work Phone: [facility] 12-18-2024 14:11-0500 Body height 152.[address] Breanna Parish DO Work Phone: [facility] 12-18-2024 14:11-0500 Body mass index (BMI) [Ratio] 36.7 kg/m2 Dr. Breanna Parish DO Work Phone: [facility] 12-18-2024 14:11-0500 Body weight 85.[address] Breanna Parish DO Work Phone: [facility] 07-18-2024 19:09-0400 Diastolic Blood Pressure Non-Invasive 87 mm[Hg] VINICIO MONTOYA DO [facility] 07-18-2024 19:09-0400 Heart rate 52 /min VINICIO LINDSAY DO [facility] 07-18-2024 19:09-0400 Reason For Taking VItal Signs VINICIO LINDSAY DO [facility] 07-18-2024 19:09-0400 Respiratory rate 16 /min VINICIO LINDSAY DO [facility] 07-18-2024 19:09-0400 Systolic Blood Pressure Non-Invasive 175 mm[Hg] VINICIO LINDSAY DO [facility] 07-18-2024 18:31-0400 Diastolic Blood Pressure Non-Invasive 92 mm[Hg] VINICIO LINDSAY DO [facility] 07-18-2024 18:31-0400 Heart rate 82 /min VINICIO LINDSAY DO [facility] 07-18-2024 18:31-0400 Reason For Taking VItal Signs VINICIO LINDSAY DO [facility] 07-18-2024 18:31-0400 Respiratory rate 18 /min VINICIO LINDSAY DO [facility] 07-18-2024 18:31-0400 Systolic Blood Pressure Non-Invasive 170 mm[Hg] VINICIO LINDSAY DO [facility] [place] 07-18-2024 17:28-0400 Body temperature 98.06 [degF] VINICIO LINDSAY DO [facility] 07-18-2024 17:28-0400 Diastolic Blood Pressure Non-Invasive 93 mm[Hg] VINICIO LINDSAY DO [facility] 07-18-2024 17:28-0400 Heart rate 67 /min VINICIO LINDSAY DO [facility] 07-18-2024 17:28-0400 Respiratory rate 18 /min VIINCIO MONTOYA DO [facility] 07-18-2024 17:28-0400 Systolic Blood Pressure Non-Invasive 155 mm[Hg] VINICIO MONTOYA DO [facility] 12-23-2023 22:13-0500 Heart rate 65 /min [facility] 12-23-2023 22:13-0500 Respiratory rate 18 /min [facility] 12-23-2023 22:13-0500 SaO2% (BldA) [Mass fraction] 98 % [facility] 12-23-2023 19:21-0500 Body temperature 97.9 [degF] [facility] 12-23-2023 19:21-0500 Diastolic blood pressure 99 mm[Hg] [facility] 12-23-2023 19:21-0500 Systolic blood pressure 168 mm[Hg] [facility] 12-23-2023 14:57-0500 Body height 149.86 cm [facility] 12-23-2023 14:57-0500 Body mass index (BMI) [Ratio] 36.6 kg/m2 [facility] 12-23-2023 14:57-0500 Body weight 82.23 kg [facility] 09-20-2023 22:12-0400 Diastolic blood pressure 83 mm[Hg] [facility] 09-20-2023 22:12-0400 Heart rate 58 /min [facility] 09-20-2023 22:12-0400 Respiratory rate 15 /min [facility] 09-20-2023 22:12-0400 SaO2% (BldA) [Mass fraction] 92 % [facility] 09-20-2023 22:12-0400 Systolic blood pressure 153 mm[Hg] [facility] 09-20-2023 20:25-0400 Body height 149.86 cm [facility] 09-20-2023 20:25-0400 Body mass index (BMI) [Ratio] 36.9 kg/m2 [facility] 09-20-2023 20:25-0400 Body temperature 97.6 [degF] [facility] 09-20-2023 20:25-0400 Body weight 83 kg [facility] 09-13-2023 19:36-0400 Body height 152.4 cm [facility] 09-13-2023 19:36-0400 Body temperature 97 [degF] [facility] 09-13-2023 19:36-0400 Diastolic blood pressure 103 mm[Hg] [facility] 09-13-2023 19:36-0400 Heart rate 93 /min [facility] 09-13-2023 19:36-0400 Respiratory rate 16 /min [facility] 09-13-2023 19:36-0400 SaO2% (BldA) [Mass fraction] 99 % [facility] 09-13-2023 19:36-0400 Systolic blood pressure 166 mm[Hg] [facility] 08-02-2023 08:00-0400 Diastolic blood pressure 88 mm[Hg] Elina Voll DO Work Phone: [facility] 08-02-2023 08:00-0400 Heart rate 52 /min Elina Voll DO Work Phone: [facility] 08-02-2023 08:00-0400 Respiratory rate 18 /min Elina Voll DO Work Phone: [facility] 08-02-2023 08:00-0400 SaO2% (BldA) [Mass fraction] 94 % Elina Voll DO Work Phone: [facility] 08-02-2023 08:00-0400 Systolic blood pressure 195 mm[Hg] Elina Voll DO Work Phone: [facility] 08-02-2023 06:34-0400 Body temperature 98.4 [degF] Elina Gillis DO Work Phone: [facility] 07-02-2023 09:47-0400 Body mass index (BMI) [Ratio] 33.7 kg/m2 [facility] 07-02-2023 07:38-0400 Body temperature 97 [degF] [facility] 07-02-2023 07:38-0400 Diastolic blood pressure 93 mm[Hg] [facility] 07-02-2023 07:38-0400 Heart rate 68 /min [facility] 07-02-2023 07:38-0400 Respiratory rate 18 /min [facility] 07-02-2023 07:38-0400 SaO2% (BldA) [Mass fraction] 96 % [facility] 07-02-2023 07:38-0400 Systolic blood pressure 164 mm[Hg] [facility] 07-01-2023 08:39-0400 Body weight 78.3 kg [facility] 06-12-2023 12:30-0400 Body mass index (BMI) [Ratio] 34.5 kg/m2 [facility] 06-12-2023 12:30-0400 Body temperature 98.3 [degF] [facility] 06-12-2023 12:30-0400 Body weight 80.3 kg [facility] 06-12-2023 12:30-0400 Diastolic blood pressure 91 mm[Hg] [facility] 06-12-2023 12:30-0400 Heart rate 64 /min [facility] 06-12-2023 12:30-0400 Respiratory rate 18 /min [facility] 06-12-2023 12:30-0400 SaO2% (BldA) [Mass fraction] 94 % [facility] 06-12-2023 12:30-0400 Systolic blood pressure 147 mm[Hg] [facility] 06-03-2023 13:08-0400 Body height 152.4 cm [facility] 06-03-2023 13:08-0400 Body mass index (BMI) [Ratio] 36.7 kg/m2 [facility] 06-03-2023 13:08-0400 Body weight 85.27 kg [facility] 05-26-2023 10:32-0400 Diastolic Blood Pressure Non-Invasive [address] JAKOB HANLEY MD [facility] 05-26-2023 10:32-0400 Heart rate 50 /min DR JAKOB HANLEY MD [facility] 05-26-2023 10:32-0400 Respiratory rate 16 /min DR JAKOB HANLEY MD [facility] 05-26-2023 10:32-0400 Systolic Blood Pressure Non-Invasive [address] JAKOB HANLEY MD [facility] 05-26-2023 08:53-0400 Body temperature 98.06 [degF] DR JAKOB HANLEY MD [facility] 05-26-2023 08:53-0400 Diastolic Blood Pressure Non-Invasive [address] JAKOB HANLEY MD [facility] 05-26-2023 08:53-0400 Heart rate 65 /min DR JAKOB HANLEY MD [facility] 05-26-2023 08:53-0400 Respiratory rate 12 /min DR JAKOB HANLEY MD [facility] 05-26-2023 08:53-0400 Systolic Blood Pressure Non-Invasive [address] JAKOB HANLEY MD [facility] 05-02-2023 14:39-0400 Body height 152.4 cm [facility] 05-02-2023 14:39-0400 Body mass index (BMI) [Ratio] 36.1 kg/m2 [facility] 05-02-2023 14:39-0400 Body temperature 98.4 [degF] [facility] 05-02-2023 14:39-0400 Body weight 83.91 kg [facility] 05-02-2023 14:39-0400 Diastolic blood pressure 102 mm[Hg] [facility] 05-02-2023 14:39-0400 Heart rate 94 /min [facility] 05-02-2023 14:39-0400 Respiratory rate 17 /min [facility] 05-02-2023 14:39-0400 SaO2% (BldA) [Mass fraction] 96 % [facility] 05-02-2023 14:39-0400 Systolic blood pressure 154 mm[Hg] [facility] 02-25-2023 15:21-0400 Diastolic blood pressure 98 mm[Hg] Dr. Elias Saini Work Phone: [facility] 02-25-2023 15:21-0400 Heart rate 60 /min Dr. Elias Saini Work Phone: [facility] 02-25-2023 15:21-0400 Respiratory rate 16 /min Dr. Elias Saini Work Phone: [facility] 02-25-2023 15:21-0400 SaO2% (BldA) [Mass fraction] 92 % Dr. Elias Saini Work Phone: [facility] 02-25-2023 15:21-0400 Systolic blood pressure 177 mm[Hg] Dr. Elias Saini Work Phone: [facility] 02-25-2023 13:26-0400 Body height 152.[address] Elias Saini Work Phone: 7(931)911-772797 [place] [address] 02-25-2023 13:26-0400 Body mass index (BMI) [Ratio] 35.3 kg/m2 Dr. Elias Saini Work Phone: 4(840)198-051173 [place] [address] 02-25-2023 13:26-0400 Body temperature 97.8 [degF] Dr. Elias Saini Work Phone: 2(180)820-784397 [place] [address] 02-25-2023 13:26-0400 Body weight 82.[address] Elias Saini Work Phone: 8(447)917-809173 [place] [address] 01-02-2023 09:58-0500 Body mass index (BMI) [Ratio] 35.8 kg/m2 Dr. Elias Saini Work Phone: 0(570)251-556973 [place] [address] 01-02-2023 09:58-0500 Body temperature 98.4 [degF] Dr. Elias Saini Work Phone: 3(375)851-879673 [place] [address] 01-02-2023 09:58-0500 Body weight 83.[address] Elias Saini Work Phone: 0(503)888-535373 [place] [address] 01-02-2023 09:58-0500 Diastolic blood pressure 82 mm[Hg] Dr. Elias Saini Work Phone: 7(160)912-696297 [place] [address] 01-02-2023 09:58-0500 Heart rate 83 /min Dr. Elias Saini Work Phone: 8(322)949-640297 [place] [address] 01-02-2023 09:58-0500 Respiratory rate 17 /min Dr. Elias Saini Work Phone: 1(295)897-840473 [place] [address] 01-02-2023 09:58-0500 SaO2% (BldA) [Mass fraction] 96 % Dr. Elias Saini Work Phone: 4(484)566-825573 [place] [address] 01-02-2023 09:58-0500 Systolic blood pressure 142 mm[Hg] Dr. Elias Saini Work Phone: [facility] 08-25-2022 21:50-0400 Diastolic blood pressure 92 mm[Hg] [facility] Work Phone: 08-25-2022 21:50-0400 Heart rate 65 /min [facility] Work Phone: 08-25-2022 21:50-0400 Respiratory rate 19 /min [facility] Work Phone: 08-25-2022 21:50-0400 SaO2% (BldA) [Mass fraction] 93 % [facility] Work Phone: 08-25-2022 21:50-0400 Systolic blood pressure 155 mm[Hg] [facility] Work Phone: 08-25-2022 19:00-0400 Body height 152.4 cm [facility] Work Phone: 08-25-2022 19:00-0400 Body mass index (BMI) [Ratio] 37 kg/m2 [facility] Work Phone: 08-25-2022 19:00-0400 Body temperature 98.2 [degF] [facility] Work Phone: 08-25-2022 19:00-0400 Body weight 86.2 kg [facility] Work Phone: 04-06-2022 19:48-0400 Diastolic blood pressure 100 mm[Hg] DR JAKOB HANLEY MD [facility] 04-06-2022 19:48-0400 Heart rate 91 /min DR JAKOB HANLEY MD [facility] 04-06-2022 19:48-0400 Reason For Taking VItal Signs DR JAKOB HANLEY MD [facility] 04-06-2022 19:48-0400 Respiratory rate 16 /min DR JAKOB HANLEY MD [facility] 04-06-2022 19:48-0400 Systolic blood pressure 150 mm[Hg] DR JAKOB HANLEY MD [facility] 04-06-2022 18:42-0400 Diastolic blood pressure 104 mm[Hg] DR JAKOB HANLEY MD [facility] 04-06-2022 18:42-0400 Heart rate 95 /min DR JAKOB HANLEY MD [facility] 04-06-2022 18:42-0400 Reason For Taking VItal Signs DR JAKOB HANLEY MD [facility] 04-06-2022 18:42-0400 Respiratory rate 16 /min DR JAKOB HANLEY MD [facility] 04-06-2022 18:42-0400 Systolic blood pressure 155 mm[Hg] DR JAKOB HANLEY MD [facility] 04-06-2022 17:34-0400 Diastolic blood pressure 99 mm[Hg] DR JAKOB HANLEY MD [facility] 04-06-2022 17:34-0400 Heart rate 93 /min DR JAKOB HANLEY MD [facility] 04-06-2022 17:34-0400 Reason For Taking VItal Signs DR JAKOB HANLEY MD [facility] 04-06-2022 17:34-0400 Respiratory rate 16 /min DR JAKOB HANLEY MD [facility] 04-06-2022 17:34-0400 Systolic blood pressure 147 mm[Hg] DR JAKOB HANLEY MD [facility] 04-06-2022 15:58-0400 Body temperature 98.6 [degF] DR JAKOB HANLYE MD [facility] 03-17-2022 15:50-0400 Body temperature 98.24 [degF] CLEMENTINE DURESKA DO [facility] 03-17-2022 15:50-0400 Diastolic blood pressure 82 mm[Hg] CLEMENTINE DURESKA DO [facility] 03-17-2022 15:50-0400 Heart rate 66 /min CLEMENTINE DURESKA DO [facility] 03-17-2022 15:50-0400 Respiratory rate 20 /min CLEMENTINE DURESKA DO [facility] 03-17-2022 15:50-0400 Systolic blood pressure 135 mm[Hg] CLEMENTINE DURESKA DO [facility] 02-03-2022 06:50-0400 Diastolic blood pressure 107 mm[Hg] [facility] Work Phone: 02-03-2022 06:50-0400 Heart rate 73 /min [facility] Work Phone: 02-03-2022 06:50-0400 Respiratory rate 17 /min [facility] Work Phone: 02-03-2022 06:50-0400 SaO2% (BldA) [Mass fraction] 97 % [facility] Work Phone: 02-03-2022 06:50-0400 Systolic blood pressure 196 mm[Hg] [facility] Work Phone: 02-03-2022 06:14-0400 Body height 152.4 cm [facility] Work Phone: 02-03-2022 06:14-0400 Body mass index (BMI) [Ratio] 37.8 kg/m2 [facility] Work Phone: 02-03-2022 06:14-0400 Body temperature 97.9 [degF] [facility] Work Phone: 02-03-2022 06:14-0400 Body weight 88 kg [facility] Work Phone: Encounters Encounter Date Encounter Type Care Provider Facility Start: 05-27-2025 End: 05-27-2025 Emergency department patient visit BREANNA PARISH Facility:[facility] Start: 03-10-2025 End: 03-10-2025 Emergency department patient visit Mukund Carl Facility:[facility] Start: 02-04-2025 End: 02-04-[address] Breanna Parish DO Work Phone: [facility] Work Phone: Start: 02-04-2025 End: 02-04-[address] [facility] [place] Work Phone: Start: 02-04-2025 End: 02-04-2025 ambulatory Breanna Parish Facility:[facility] Start: 12-18-2024 End: 12-18-2024 Emergency department patient visit Dr. Rodriguez Scott MD -Emergency Department Work Phone: Start: 07-31-2024 End: 07-31-2024 ambulatory Breanna Parish Facility:[facility] Start: 07-27-2024 End: 07-27-2024 ambulatory [facility] Facility:[facility] Start: 07-23-2024 End: 07-23-2024 ambulatory [facility] Facility:[facility] Start: 07-18-2024 End: 07-18-2024 Emergency department patient visit VINICIO LINDSAY TOMPKINS Facility:B Start: 07-14-2024 End: 07-14-2024 ambulatory Breanna Parish Facility:[facility] Start: 06-05-2024 Emergency department patient visit BREANNA PARISH Facility:[facility] Start: 04-09-2024 End: 04-09-2024 Emergency department patient visit ARIETAMI DAVIS Facility:[facility] Start: 12-23-2023 End: 12-23-2023 Emergency department patient visit [facility]-Emergency Department Work Phone: Start: 10-17-2023 End: 10-17-[address] Cody Carson Work Phone: [facility] Work Phone: Start: 10-17-2023 End: 10-17-[address] Cody Carson Work Phone: [facility]-Laboratory, Spec[facility] Work Phone: Start: 09-20-2023 End: 09-20-2023 Emergency department patient visit BREANNA CRISTOBAL [facility]-Emergency Department Work Phone: Start: 09-20-2023 End: 09-20-2023 ambulatory [facility] Work Phone: Start: 09-20-2023 End: 09-20-2023 Patient encounter procedure [facility], [place] Work Phone: Start: 09-17-2023 End: 09-17-2023 ambulatory [facility] Work Phone: Start: 09-17-2023 End: 09-17-2023 Patient encounter procedure [facility]-Outpatient Bone Densitometry Work Phone: Start: 09-13-2023 End: 09-13-2023 Emergency department patient visit [facility]-Emergency Department Work Phone: Start: 08-10-2023 End: 08-10-2023 Patient encounter procedure [facility]MRI - [facility] Work Phone: Start: 08-07-2023 End: 08-07-[address] [facility] Work Phone: Start: 08-02-2023 End: 08-02-2023 Emergency department patient visit Elina Gillis DO Work Phone: [facility] Comment on above: Chronic bilateral lo w back pain without sciatica (Primary Dx) Start: 07-02-2023 Non-patient / Non-visit [facility] Work Phone: Start: 07-01-2023 Non-patient / Non-visit [facility] Start: 07-01-2023 Non-patient / Non-visit [facility] Work Phone: Start: 07-01-2023 End: 07-02-2023 Evaluation and management of inpatient [facility]-Progressive Care Unit Work Phone: Start: 06-17-2023 End: 06-17-[address] [facility] Work Phone: Start: 06-12-2023 End: 06-12-2023 Emergency department patient visit BREANNA JAIN [facility]-Emergency Department Work Phone: Start: 06-05-2023 End: 06-05-2023 ambulatory BREANNA PARISH [facility] Work Phone: Start: 06-05-2023 End: 06-05-2023 [facility] Start: 06-03-2023 End: 06-03-2023 [facility] Work Phone: Start: 05-26-2023 End: 05-26-2023 Emergency department patient visit DR JAKOB HANLEY MD [facility] Start: 05-06-2023 End: 05-06-2023 ambulatory [facility] Work Phone: Start: 05-06-2023 End: 05-06-2023 [facility] Start: 05-03-2023 End: 05-03-2023 [facility] Start: 05-03-2023 End: 05-03-2023 [facility] Start: 05-02-2023 End: 05-02-2023 Patient encounter procedure BREANNA PARISH [facility] Neurology Start: 04-12-2023 End: 04-12-2023 ambulatory BREANNA [facility] Work Phone: Start: 04-12-2023 End: 04-12-2023 Patient encounter procedure BREANNA PARISH [facility] Start: 02-25-2023 End: 02-25-2023 ambulatory BREANNA PARISH Facility:[facility] Start: 02-25-2023 End: 02-25-2023 Emergency department patient visit Dr. Elias Saini Work Phone: [facility]-Emergency Department Start: 02-25-2023 End: 02-25-2023 Patient encounter procedure Domenic Honeycutt MD Work Phone: [facility] Care Comment on above: Leg pain, bilateral (Primary Dx); Right leg numbness Start: 01-02-2023 End: 01-02-[address] Elias Saini Work Phone: [facility] Start: 08-25-2022 End: 08-25-2022 Emergency department patient visit [facility]Emergency Department Start: 04-06-2022 End: 04-06-2022 Emergency department patient visit DR JAKOB HANLEY MD [facility] Start: 03-18-2022 End: 03-18-2022 Patient encounter procedure CLEMENTINE TAVERAS DO [facility] Start: 03-17-2022 End: 03-17-2022 Emergency department patient visit CLEMENTINE TAVERAS DO [facility] Start: 02-03-2022 End: 02-03-2022 Emergency department patient visit [facility]Emergency Department Procedures Date Procedure Procedure Detail Performing Clinician Start: 12-18-2024 Plain chest X-ray Dr. Pepper Parish DO Work Phone: Start: 09-17-2023 Dual energy X-ray absorptiometry BREANNA JAIN Start: 08-10-2023 MRI of lumbar spine MISHA ALBERTA COSTELLOOSTCj Start: 08-07-2023 X-ray of lumbar spin e, two or three views BREANNA JAIN Start: 07-01-2023 MRI of brain with contrast BREANNA JAIN Start: 07-01-2023 Plain chest X-ray ROLAND JAIN Start: 07-01-2023 CT angiography of he ad and neck BREANNA JAIN Start: 07-01-2023 CT of head without contrast BREANNA JAIN Start: 06-05-2023 MRI of lumbar spine MISHA PARISH Start: 06-03-2023 X-ray of lumbar spin e, two or three views BREANNA PARISH Start: 05-03-2023 X-ray of lumbar spin e, two or three views BREANNA PARISH Start: 04-12-2023 MRI of brain with contrast BREANNA PARISH Start: 04-12-2023 MRI of cervical spin e with contrast BREANNA PARISH Start: 02-25-2023 Plain x-ray of pelvi s and lower extremity Dr. Elias Saini Work Phone: Start: 08-25-2022 CT of head without contrast Start: 12-25-2006 Mammography Domenic poole MD Work Phone: Plan of Treatment Date Care Activity Detail Author Start: 12-18-2024 [facility] Start: 12-23-2023 [facility] Start: 09-20-2023 [facility] Start: 09-13-2023 [facility] Start: 08-22-2023 Patient referral [facility] Work Phone: Start: 07-19-2023 Influenza vaccination [facility] Start: 07-02-2023 Patient discharge [facility] Start: 07-01-2023 Telepractice consultation [facility] Start: 07-01-2023 Following clinical pathway protocol [facility] Start: 07-01-2023 Assessment of risk of venous thromboembolism [facility] Start: 07-01-2023 Cardiac monitoring [facility] Start: 07-01-2023 Care regimes management [facility] Start: 07-01-2023 Catheterization of vein [facility] Start: 07-01-2023 Elevation of head of bed [facility] Start: 07-01-2023 Exercises [facility] Start: 07-01-2023 Implementation of planned interventions [facility] Start: 07-01-2023 Incentive spirometry [facility] Start: 07-01-2023 Insertion of catheter into peripheral vein [facility] Start: 07-01-2023 Measuring intake and output [facility] Start: 07-01-2023 Notification of physician [facility] Start: 07-01-2023 Oxygen therapy [facility] Start: 07-01-2023 Providing care according to standard [facility] Start: 07-01-2023 Provision of activity privileges [facility] Start: 07-01-2023 Referral to occupational therapist [facility] Start: 07-01-2023 Referral to service [facility] Start: 07-01-2023 Tobacco use cessation education [facility] Start: 07-01-2023 [facility] Start: 07-01-2023 Admission procedure [facility] Start: 06-17-2023 Patient referral [facility] Work Phone: Start: 05-23-2023 DIABETES SCREEN DIABETES SCREEN [facility] Start: 11-18-2022 DEPRESSION ASSESSMENT DEPRESSION ASSESSMENT [facility] Start: 2009 SHINGRIX VACCINE (1 of 2) SHINGRIX VACCINE (1 of 2) [facility] Start: 2009 Zoster Vaccines (1 of 2) Zoster Vaccines (1 of 2) [facility] Start: 12-25-2007 Mammography MAMMOGRAM [facility] Start: 2004 COLOGUARD (FIT-DNA) COLOGUARD (FIT-DNA) [facility] Start: 2004 Colonoscopy COLONOSCOPY [facility] Start: 2004 COLORECTAL CANCER SCREENING COLORECTAL CANCER SCREENING [facility] Start: [address] COLONOGRAPHY [facility] Start: 2004 FECAL OCCULT BLOOD FECAL OCCULT BLOOD [facility] Start: 2004 LIPID SCREEN LIPID SCREEN [facility] Start: 2004 SIGMOIDOSCOPY SIGMOIDOSCOPY [facility] [facility] Screening for malignant neoplasm of breast Mammogram [facility] Start: 1989 HPV TESTING HPV TESTING [facility] Start: 1980 PAP TESTING PAP TESTING [facility] Start: 1978 DTaP/Tdap/Td Vaccines (1 - Tdap) DTaP/Tdap/Td Vaccines (1 - Tdap) [facility] Start: 1978 Urine microalbumin profile DTAP,TDAP,TD (1 - Tdap) [facility] Start: 1977 HEPATITIS C SCREENING HEPATITIS C SCREENING [facility] Start: 1977 Hepatitis C screening Hepatitis C Screening [facility] Start: 1977 HIV SCREENING HIV SCREENING [facility] Start: 1971 Depression Screening Depression Screening [facility] Start: 1960 MMR Vaccines (1 of 1 - Standard series) MMR Vaccines (1 of 1 - Standard series) [facility] Start: 04-04-1960 COVID-19 VACCINE (#1) COVID-19 VACCINE (#1) [facility] Start: 1959 HIV screening HIV Screening [facility] Start: 1959 Screening for malignant neoplasm of colon [facility] CBC W Auto Different ial panel - Blood [facility] Cytoplasmic ANCA Screen [facility] Folate [Mass/volume] in Serum or Plasma [facility] Magnesium [Mass/volu me] in Serum or Plasma [facility] MR Brain WO and W co ntrast IV [facility] MR Cervical spine WO and W contrast IV [facility] Patient Education [facility] Work Phone: Patient referral [facility] Work Phone: Rheumatoid factor [Presence] in Serum [facility] Thiamine measurement [facility] Thiamine measurement [facility] Thyroid stimulating hormone measurement [facility] Vitamin B12 measurement [facility] Immunizations Immunization Date Immunization Notes Care Provider Fa cility 12-23-2023 tetanus toxoid, redu beata diphtheria toxoid, and acellular pertussis vaccine, adsorbed [facility] 12-13-2021 Covid (Pfizer) [facility] 11-22-2021 Covid (Pfizer) [facility] Payers Date Payer Category Payer Self-pay [id number] 2023 Unknown MRA MRA [id number] 2023-Present [id number] [id number] Commercial [id number] 2023 Medicare [id number] 2023 Private Health Insurance [id number] 1960 Unknown [id number] 1960 Unknown [id number]. 627 Medicare MEDICARE PART A B [id number] Unknown [id number] Unknown [id number] 462 Unknown [id number]. 462 Unknown [id number]. 462 Unknown [id number] 462 Unknown [id number] [id number]. 462 Unknown [id number] [id number]. 462 Unknown [id number] [id number]. 462 Unknown [id number]. 462 Unknown [id number]. 462 Social History Date Type Detail Facility Start: 02-03-2022 End: 12-23-2023 Tobacco smoking status NHIS Unknown if ever smoked [facility] Start: 1960 Sex Assigned At Female W [facility] Work Phone: Start: 03-17-2022 End: 12-18-2024 Tobacco smoking status Never smoked tobacco (finding) [facility] Start: 09-16-2019 Tobacco use and exposure Smoke less tobacco non-user [facility] Work Phone: Start: 06-23-2021 Alcohol intake Ex-drinker (finding) [facility] Start: 1960 Sex Assigned At Not on file [facility] Start: 08-02-2023 Alcohol intake Current non-dr captain room service of alcohol (finding) [facility] Start: 08-02-2023 Alcohol intake [facility] Start: 08-02-2023 Alcohol Use Disorder Identification Test - Consumption [AUDIT-C] [facility] How often to you hav e a drink containing alcohol? Never [facility] How many standard dr inks containing alcohol do you have on a typical day? Patient does not drink [facility] Start: 07-23-2023 End: 08-02-2023 Exposure to SARS-CoV-2 (event) Not sure [facility] Start: 02-12-2025 Sex Female (finding) [facility] Goals Date Patient Goal Desired Activity /State Functional Status Date Assessment Result Facility 07-18-2024 Functional Status ID band on, Allergy Band on, Call device within reach, Bed in low position, Wheels locked, Bedside Cart Locked, Visitor at bedside, Safety level maintained [facility] 07-18-2024 Functional Status [facility] 07-02-2023 Functional status Independent [facility] Work Phone: 05-26-2023 Functional Status Assistive Device Wheelc hair [facility] 05-26-2023 Functional Status Standard Safet y ID band on, Call device within reach, Bed in low position, Wheels locked, Visitor at bedside, Safety level maintained [facility] 04-06-2022 Functional Status [facility] 03-17-2022 Functional Status [facility] 03-17-2022 Functional Status Karyna [facility] Mental Status Date Assessment Result Facility 12-18-2024 Cognitive function Voice/Name [facility] Work Phone: 07-18-2024 Mental Status Oriented x 4 [facility] 07-18-2024 Mental Status [facility] 07-02-2023 Cognitive function Voice/Name [facility] Work Phone: 05-26-2023 Mental Status Orientation Oriented x 4 [facility] 04-06-2022 Mental Status [facility] 04-06-2022 Mental Status [facility] 04-06-2022 Mental Status [facility] 03-17-2022 Mental Status [facility] 03-17-2022 Mental Status [facility] Clinical Notes 03-17-2022 to 07-18-2024 Note Date & Type Note Facility 07-18-2024 Hospital Discharg e instructions Patient Education 07/18/2024 18:11:02 Back Pain (Acute or Chronic) Back Pain [...] are taking other medicines. You may use liqj-nzu-tqwesik medicine as directed on the bottle to [...] Numbness in the groin or genital area [id number] [employer]. [address] [place] [address], [place] [address]. All rights reserved. This information is not intended as a substitute for professional medical care. Always follow your healthcare professional's instructions. Follow Up Care 07/18/2024 17:27:02 With:please follow up at scheduled with your spinal surgeon with [facility] Address:Unknown When:2-4 days With:Go to emergency room if symptoms worsen Address:Unknown When:2-4 days With:BREANNA PARISH DO Address: [address] [place] [phone] When:2-4 days [facility] Karynasteve Escobar 07-18-2024 Emergency department Discharge summary Discharge Instructions Thank you for allowing [facility] to assist you with your healthcare needs. The following is important discharge information regarding your hospital visit. Diagnosis from Today's Visit Lumbar paraspinal muscle spasm Lumbar radiculopathy, right What to Do Next Instructions from Your Care Team Please follow-up with your spinal surgeon next week as scheduled. Please return to the emergency department for any acute worsening symptoms or other concerns. Please have more emergent evaluation if you develop any numbness or tingling in your groin area where you would sit on a saddle of a horse, if you feel as though your bladder is full and you are not able to empty it, or if you develop any fevers or chills associated with the pain. No qualifying data available. Post Acute Orders No qualifying data available. You Need to Schedule the Following Appointments Follow Up with please follow up at scheduled with your spinal surgeon with [facility] When:Within 2-4 days Follow Up with Go to emergency room if symptoms worsen When:Within 2-4 days Follow Up with BREANNA PARISH DO When:Within 2-4 days Where:[address] [place] [phone]- [phone] Allergies Benadryl Demerol Macrobid Toradol morphine traMADol Medications Please ask your primary doctor or pharmacist before taking any other medication not listed, including over the counter drugs, herbal medications, vitamins and or supplements as they may interact with your home medications. What How Much When Why Instructions Last Dose New acetaminophen-oxyCODONE (Percocet 5 mg-325 mg oral tablet) 1 tab(s) by mouth Every 6 hours as needed for for pain Lumbar radiculopathy, right Duration: 3 Days Printed Prescription Please take this list to your next doctor s visit. Bring all medications you take, including over the counter medications, herbals and other supplements with you to your doctor s visit. Patients and families are reminded to discard old lists and to update any records with all medication providers or retail pharmacies. Education Materials Back Pain (Acute or Chronic) Back pain [...] heating pad. It can lead to skin esgura or tissue damage. You can alternate ice [...] are taking other medicines. You may use tbkf-oxg-vrvfuiq medicine as directed on the bottle to [...] Numbness in the groin or genital area [phone] [employer]. [address] [place] [address], [place] [address]. All rights reserved. This information is not intended as a substitute for professional medical care. Always follow your healthcare professional's instructions. Additional Information VACCINATE! IT SAVES LIVES! Members of the community who have not yet received the COVID-19 vaccine and would like to receive it can visit one of [facility] vaccine clinics. There are many vaccine clinic locations within the [facility]. For locations and available times, please visit [email or web address].[email or web address] [email or web address] It is important to note that some COVID mobile vaccine clinics are held outdoors and may be canceled in rainy or stormy conditions. To learn more about pediatric vaccinations (ages 5-11), we invite you to visit the [facility] webpage. https://www.[facility].org/p ages/6290-Tqhct-Opfotypsxop-Freq sbevgk-Wddnh-Bsevegsaw.html To learn more about the COVID-19 vaccine, we invite you to visit the CDC website for a list of frequently asked questions. https://www.cdc.gov/coronavirus/ 2019-ncov/vaccines/faq.html [facility] Patient Portal Access Instructions: Stay connected with your healthcare team and access your personal medical information anytime with the [facility] Patient Portal. If you would like a full copy of your medical records please contact the [facility] Medical Records Department Saturday through Saturday between 8a.m. and 4:30p.m. Please follow the directions below to access the portal: 1.Access the email account you provided upon registration to the hospital.2.Look for an invitation email from [facility].3.Open the email and access the invitation link: Accept Invitation to [facility]4.Fill in the required barakat to create your account. Sign into [email or web address] with your username and password that you [...] you will allow to register on the [facility] Patient Portal for access to your information. You can also access the [facility] Patient Portal on the [employer] sheng. Simply click on Health Records under Health Data and then click on the 1,2,3 [employer] logo. HOW TO SAFELY DISPOSE OF PRESCRIPTION [...] Call your local pharmacy or go to [email or web address] to find one close to you.3.Make use of household items: Use cat litter or old coffee grounds to dispose medications if other options are not available. Mix your drugs with these household products, seal them in an airtight container and throw it into the garbage. Call [facility]: [phone] to be sure your drugs can be [...] a CHART COPY Signatures Patient Education Materials Back Pain (Acute or Chronic) Medication Leaflets My discharge plan and instructions have been reviewed and explained to me and I,GEORGIA LOVETTE understand my current condition and have read and understand these discharge instructions. I have received a written copy of the plan/instructions. If I have questions, I am aware that I should contact my doctor. 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 Signature: Date/Time: Relationship to Patient: Witness Name/Signature: Date/Time: [facility] 09-13-2023 Discharge summary Note Date/Time September 13, 2023 9:35pm [facility] Medical Records Department [address] [place] [address] Emergency Department Summary 09/13/23 MR#: [id number] Acct: [id number] Name: HELEN LOVETT TUYET Rep #:[id number] : 1960 62 From: [facility] Corona PCP: BREANNA PARISH Status:REG ER Location: ED HPI History of Present Illness Chief Complaint: Back PFSH [facility] Medical History (Updated 09/13/23 @ 20:47 by Nazanin Wayne) Anxiety Bradycardia Bulging lumbar disc Depressed Diabetes Hypertension Lumbar vertebral fracture Multiple sclerosis Rheumatoid arthritis Home Medications paroxetine HCl 10 mg tablet (Paxil) 10 mg PO DAILY mental health 01/02/23 [History Last Taken 06/30/23] trazodone 100 mg tablet 100 mg PO QHS sleep 01/02/23 [History Last Taken 06/30/23] cyclobenzaprine 10 mg tablet 10 mg PO TID PRN muscle spasms 07/01/23 [History Last Taken 06/30/23] flurbiprofen 100 mg tablet 100 mg PO TID PRN pain 07/01/23 [History Last Taken 06/30/23] amlodipine 10 mg tablet 10 mg PO DAILY #30 tabs 07/02/23 [Rx Last Taken Unknown] aspirin 81 mg chewable tablet 81 mg PO BREAKFAST #0 tabs 07/02/23 [Rx Last Taken Unknown] cyclobenzaprine 5 mg tablet 5 mg PO TID PRN muscle spasm #15 tabs 09/13/23 [Rx Last Taken Unknown] prednisone 20 mg tablet 20 mg PO DAILY 5 days #5 tabs 09/13/23 [Rx Last Taken Unknown] Allergy/AdvReac Type Severity Reaction Status Date / Time diphenhydramine Allergy Other Verified 09/13/23 19:36 lisinopril Allergy Other Verified 09/13/23 19:36 meloxicam [From Mobic] Allergy Hives Verified 09/13/23 19:36 meperidine [From Demerol] Allergy Hives Verified 09/13/23 19:36 ketorolac [From Toradol] AdvReac Other Verified 09/13/23 19:36 tramadol AdvReac Other Verified 09/13/23 19:36 Family History Aunt No problems noted. Other Alcoholism Anxiety Arthritis CVA (cerebral vascular accident) Depression Heart disease High cholesterol Hypertension Mental disorder Osteoporosis Rheumatoid arthritis Surgical History History of delivery History of total hysterectomy History of tubal ligation Social History household members: spouse Smoking Status: Never smoker alcohol intake: never substance use type: does not use EXAM Physical Exam Const Vital Signs: 09/13/23 19:36 Temperature 97 F L Temperature Source Temporal Pulse Rate 93 Respiratory Rate 16 Blood Pressure 166/103 H Blood Pressure Mean 124 Pulse Ox 99 MDM MDM MDM Narrative Medical decision making narrative: HISTORY OF PRESENT ILLNESS: 62-year-old female presents with back pain. Patient denies any recent trauma. Denies any inciting event. States for the last several weeks. Denies any new trauma at all. Notes she follows with pain management. Last seen on 09/03. States he is undergoing prior authorization for spine injections. States he is also seen orthopedic surgery. Patient denies any saddle anesthesia, urinary tension, bowel or bladder incontinence, lower extremity weakness, fever or IV drug use, no recent spinal manipulation or surgery, no recent urinary catheterization. REVIEW OF SYSTEMS: All other systems reviewed and are negative except as noted in the history of present illness. At least 10 review of systems reviewed and are negative except as noted in history of present illness. PHYSICAL EXAM: Nursing triage notes reviewed, Vital signs reviewed Constitutional: please see mdm HENT: MMM Eyes: Pupils equal round and reactive to light, Extraocular muscles intact Neck: No stridor, no JVD, full neck ROM Lungs: Clear to auscultation, No wheezing or rales. No increased work of breathing, no conversational dyspnea, no accessory muscle use, no nasal flaring.No respiratory distress noted Heart: Regular rate and rhythm, No murmurs, No rubs and No gallops, 2+ distal pulses (radial, femoral, posterior tibial) in all extremities Abdomen: Soft, there is no tenderness, rigidity, rebound or guarding, no obviousperitoneal signs, no palpable pulsatile abdominal masses, no auscultated abdominal bruit : No CVAT Extremities: No edema Back: No midline step-offs or deformities, TTP at approximate T12 down to L3. Neuro: Intact sensation L1-S1 dermatomal distributions. Intact 5/5 strength in hip flexion (T12-L3). Knee extension (L2-L4). Ankle dorsiflexion (L4-L5). Ankle plantar flexion (S1). Great toe extension (L5). 2+ patellar and Achilles DTRs. Skin: No rash or lesions noted MEDICAL DECISION MAKING: Chief Complaint: Back pain External records reviewed: X-ray lumbar spine from 08/07/2023 shows T12 compression fracture, MRI of the lumbar spine shows compression fracture of T12,L1 with bone contusion and L4-L5 disc herniation Factors affecting care: Bulging disc, T12 compression fracture Social determinants of health: No IV drug use History obtained from others: The patient's Consults: none [facility] Narrative: The patient was hemodynamically stable, afebrile, nontoxic-appearing. There is no lower extremity focal neurologic deficits to suggest a space-occupying lesionof the spine. I considered the following differential diagnosis: Musculoskeletal back pain, space-occupying lesion of the spinal (epidural abscess, epidural hematoma), cauda equina, conus medullaris, fracture dislocation, AAA,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
[2025-10-29 18:42] LABS: Hematocrit 40.1 % (37-47); Hemoglobin 14.1 g/dL (12.0-15.0); Immature Granulocytes Count 0.020 X10^3/uL (0.0-0.0); Mean Corp Hgb Conc 35.2 g/dL (32-36); Mean Corpuscular Volume 88.9 fL (81-99); Mean Platelet Vol. 9.9 fl (6.2-12.0); NRBC Flagged by Analyzer 0 % (0-5); Platelet Count 301 K/mm3 (150-450); RBC Distribution Width CV 12.4 % (11.6-14.6); RBC Distribution Width SD 40.5 fl (35.1-43.9); Red Blood Count 4.51 M/mm3 (4.2-5.4); White Blood Count 8.9 K/mm3 (4.4-11.0)
[2025-10-29 18:43] VITALS: BP 157/69; PULSE 62; RESP 18; O2SAT 96
--- NOTE | 2025-10-29 18:45 | CT_ITS ---
PROCEDURE: CTA CHEST W/WO CONTRAST 10/29/2025 REASON FOR EXAM: DISSECTION TECHNIQUE: Procedure Code: [id number] Modality: CT Procedure: CTA CHEST W/WO CONTRAST Multiplanar Sagittal and Coronal images were obtained. 3D post processing was performed. CONTRAST: Isovue 370 VOLUME: 100 mL One or more dose reduction techniques were used (e.g., Automated exposure control, adjustment of the mA and/or kV according to patient size, use of iterative reconstruction technique). RADIATION DOSE SUMMARY: DLP: 586.42 mGycm COMPARISON: None. FINDINGS: THORACIC AORTA: Normal in course and caliber. No aneurysm or dissection. Mild scattered atherosclerotic calcifications. PULMONARY VESSELS: No filling defects suspicious for pulmonary arterial emboli. Mildly prominent/ectatic caliber of the main pulmonary trunk may reflect pulmonary arterial hypertension. LUNGS/PLEURA: Clear. No airspace consolidation or findings of pulmonary edema. No pneumothorax or pleural effusion. Mild bilateral dependent atelectasis. Clear central airways. MEDIASTINUM: Unremarkable. No lymphadenopathy. HEART: Mildly enlarged. No pericardial effusion. Mild coronary artery calcifications. UPPER ABDOMEN: Diffuse hepatic steatosis. Benign 18 mm right adrenal adenoma. BONES: Mild multilevel degenerative changes of the spine, with chronic L1 compression fracture status post kyphoplasty cement augmentation. CT/CTA Chest W/WO Contrast IMPRESSION: No acute intrathoracic abnormality. No aortic aneurysm or dissection. Reading Location: [id number]
[2025-10-29 19:00] VITALS: BP 171/93; PULSE 51; O2SAT 92
[2025-10-29 19:22] LABS: AST(SGOT) 19 U/L (<=31); Alanine Aminotransfer ALT/SGPT 17 U/L (<=34); Albumin, Serum 4.1 g/dL (3.4-4.8); Alkaline Phosphatase 73 U/L (35-104); Anion Gap 12 (5-15); BUN 18 mg/dL (4-19); BUN/Creat Ratio 21.0 RATIO (10-20); Calcium,Total 9.5 mg/dL (7.6-11.0); Carbon Dioxide 24.6 mmol/L (21.0-32.0); Chloride 103 mmol/L (98-108); Estimated Creatinine Clearance 64.83 ml/min (50-250); Globulin 2.9 g/dL (2.2-4.2); Glucose 126 mg/dL (70-99); Lipase 49 U/L (13-75); Potassium 3.8 mmol/L (3.3-5.1)
[2025-10-29 19:36] LABS: Pro- Brain NATRIURETIC PEPTIDE < 36 pg/mL (<=900); Troponin T High Sensitivity 9 ng/L (<=14)
[2025-10-29 19:51] VITALS: BP 138/75
[2025-10-29 20:00] VITALS: BP 149/74; PULSE 52; RESP 17; O2SAT 92
[2025-10-29 21:06] LABS: Troponin T High Sens 2 HR 9 ng/L (<=14)
[2025-10-29 21:54] VITALS: BP 140/65; PULSE 57; RESP 17; TEMP 36.4; O2SAT 92
== END 2025-10-29 21:55 | disposition home or self-care (01) ==
PROVIDERS: Emergency Provider Surgery; PCP Family Medicine; Visit Provider Surgery
DX: R07.9 Chest pain, unspecified (principal); E11.9 Type 2 diabetes mellitus without complications; D35.01 Benign neoplasm of right adrenal gland; G35.D Multiple sclerosis, unspecified; I10 Essential (primary) hypertension; Z79.84 Long term (current) use of oral hypoglycemic drugs; Z79.899 Other long term (current) drug therapy
CPT/HCPCS: 71275; 80053; 83690; 83880; 84484; 85025; 93005; 96361; 96374; 99284; Q9967